=== PATIENT | female | born 1945 | race Caucasian/White ===

== ENCOUNTER 2023-10-06 08:17 | Inpatient (IN) | payer MEDICARE, OTHER, SELFPAY ==
--- NOTE | 2023-08-31 12:04 | CM ---
Addendum entered by Dennise Guardado 08/31/23 13:30:
Spoke again with patient. She states that she is going to have difficulty arranging transportation for outpatient PT and would prefer VN services. Options and PAC data reviewed; patient selects [facility].
Original Note:
Patient is scheduled for an elective L TKR on 10/06/23. Spoke with patient prior to surgery via telephone. Introduced role of Orthopedic Navigator. Patient reports that she lives alone in a one story home. There are two steps to enter. She currently
functions independently. She borrowed a rolling walker and cane. She has never had VN services. PCP is Alina Piper.
Discussed orthopedic program and post surgical plans. Reviewed anticipated length of stay and that goal is for her to return home at discharge. Also reviewed outpatient PT. Patient is in agreement with tentative plan and will go directly to
outpatient PT. She will be going to her daughter's home (She will have a first floor set up and there are two steps to enter). One of her siblings will also be there to provide support when he daughter is at work.
Patient will complete online education.
Plan: Orthopedic Navigator will remain available to assist with the care of patient and will reassess discharge needs after surgery.
[2023-09-14 13:52] VITALS: BMI 28.2
[2023-09-14 14:27] LABS: Hematocrit 38.5 % (37.0-47.0); Hemoglobin 12.7 g/dL (12.0-16.0); Mean Corpuscular Hgb 30.3 pg (27.0-31.0); Mean Corpuscular Volume 91.9 fL (81.0-99.0); Mean Platelet Volume 10.6 fL (7.4-10.4); Platelet Count 208 10^3/uL (130-400); Red Blood Cell Count 4.19 10^6/uL (4.20-5.40); Red Cell Dist. Width 12.6 % (11.5-14.5); White Blood Cell Count 5.4 10^3/uL (4.8-10.8)
[2023-09-14 14:42] LABS: ALT (SGPT) 23 U/L (0-35); AST (SGOT) 24 U/L (14-36); Albumin 4.4 g/dl (3.5-5.0); Alkaline Phosphatase 41 U/L (38-126); Blood Urea Nitrogen 16 mg/dl (7-17); Calcium 10.5 mg/dl (8.4-10.2); Carbon Dioxide 28 mmol/L (22-30); Chloride 102 mmol/L (98-107); Estimated Creatinine Clearance 65 ml/min; Glucose 94 mg/dl (70-99); Potassium 4.3 mmol/L (3.5-5.1); Sodium 134 mmol/L (135-145); Total Bilirubin 0.3 mg/dl (0.2-1.3); Total Protein 6.9 g/dl (6.3-8.2); eGFR > 60.00
[2023-09-14 14:57] VITALS: BMI 28.2
[2023-09-15 09:23] LABS: Glycohemoglobin (HgbA1c) 5.6 % (4.0-5.6)
[2023-10-06] VITALS (14 sets, daily range): BP systolic 96–147; BP diastolic 58–89; PULSE 75; O2SAT 97; BMI 28.2
[2023-10-06] MEDS: NORMOSOL-R 1000 IV ×2 (08:58→13:10)
[2023-10-06] MEDS: CELEBREX 200 MG PO (08:58)
[2023-10-06] MEDS: TYLENOL 650 MG PO ×4 (08:58→23:25)
--- NOTE | 2023-10-06 09:09 | CM ---
Reviewed chart. Patient admitted as planned for elective L TKR. Met with patient at bedside prior to surgery. Confirmed information previously obtained for assessment. Also discussed discharge plans. The plan is for patient to go to her daughter's
home at discharge. She will have support from her daughter and other family members when she goes home. Reviewed VN services including start of care (tentatively 10/07), services to be ordered (PT, SN) and frequency/duration of services. Options list
provided and PAC data reviewed. Patient selects VN.
Patient has a rolling walker and a cane at home.
VN referral was completed and sent to [facility] through [facility] with request for start of care on 10/07. Confirmation received of their ability to accept case. attendance clerk to fax discharge instructions to [facility] when complete.
Patient will use [facility] pharmacy (in [place]) for discharge prescriptions.
--- NOTE | 2023-10-06 11:51 | OR.RPT ---
Operative Report
Operative Report
Orthopaedic Surgery Operative Note
DATE OF OPERATION: 10/06/2023
PREOPERATIVE DIAGNOSES: Osteoarthritis, left knee.
POSTOPERATIVE DIAGNOSES: Osteoarthritis, left knee.
OPERATION PERFORMED:
1) Left total knee arthroplasty (CPT 55427)
2) Intraosseous administration of analgesic (CPT 74650)
SURGEON: Prasad Still MD
ASSISTANTS: Zachary Valencia PA-C who helped with patient and limb positioning and retraction
ANESTHESIA: Spinal by anesthesia plus intraoperative infusion of morphine into the tibial metaphysis by Dr. Still
COMPLICATIONS: None.
ESTIMATED BLOOD LOSS: 20mL
DRAINS: None
TOURNIQUET TIME: 43 minutes.
IMPLANTS:
- Lissett Persona CR Femur, size 7
- Lissett Persona tibia base plate, size D
- Lissett Persona ultracongruent articular surface, 12 mm
- DJO [place] bone cement
INDICATIONS: The patient presented to my office with debilitating left knee pain due to osteoarthritis. We reviewed the natural history of this problem, as well as the risks, benefits, and alternatives of various treatment options. The patient
exhausted all nonoperative treatment options and wished to proceed with knee replacement surgery. The patient understood the risks which included, but were not limited to, bleeding, infection, failure to relieve pain, more pain than preop, damage to
blood vessels and nerves, need for reoperation, mechanical failure of the implants, wound healing problems, stiffness, instability, blood clot, pulmonary embolism, myocardial infarction, pneumonia, arrhythmia, CVA, and . The patient accepted
these risks and wished to proceed. All questions were answered, and informed consent was obtained.
PROCEDURE IN DETAIL: The patient was identified in the preoperative holding area. The left knee was identified as the operative site. The patient was taken in the operating room and placed in a supine position on the operating table. Spinal
anesthesia was performed. IV antibiotics and tranexamic acid were administered. An SCD was placed on the right lower extremity. A well-padded tourniquet was placed on the proximal thigh. All bony prominences were well padded. The left lower
extremity was prepped and draped in the usual sterile fashion.
We performed a surgical time-out. An interarticular block was performed with local anesthetic with epinephrine. I performed interosseous administration of morphine-saline solution via a Jamshidi style intraosseous needle into the proximal medial
tibial metaphysis as described by Javid Schuler MD. This was performed to aid in pain control. The limb was exsanguinated with an Esmarch bandage, then the tourniquet was inflated to 250 mmHg. A midline skin incision was made followed by a medial
parapatellar arthrotomy. A subperiosteal peel was performed on the medial tibia. I excised part of the infrapatellar fat pad to improve our visualization as well as tissue over anterior femur. The patella was everted and the knee was flexed. I
excised the remnants of the anterior and posterior cruciate ligaments as well as tibial and femoral osteophytes with rongeurs.
The knee was flexed, and the extramedullary tibial cutting guide was aligned. Dickinson was aligned at neutral, rotation was centered on the tibial tubercle, and coronal alignment was aligned with the mechanical axis of the tibia and center of the ankle
joint. The cut height was 10mm off the lateral tibia joint surface. The guide was secured into place. The MCL and LCL were protected. The tibia surface was cut. The cut surface was inspected after removal to ensure appropriate height and slope based
on the preoperative plan. The cut was checked with a drop krissy. It was centered nicely at the ankle.
A drill was used to open the femoral canal. The intramedullary distal femoral cutting guide was inserted into the femur. This was set at 5 degrees +0. This was secured into place with three pins. The cut level was checked with an dwayne wing. The
distal femur was cut through the cutting guide. The IM guide was reinserted to double check that the level of resection was flush and in appropriate alignment.
Jayde�s line and the transepicondylar axis were marked on the femur. The femoral sizing guide was applied to the anterior femur. Pins were inserted, and the 4-in-1 cutting guide was applied and secured into place. The rotation was compared to
Jayde�s line, the transepicondylar axis, and the neutral tibia cut and was found to be appropriate. The width was checked and found to be appropriate and lateralized on the femur. The anterior, posterior, and chamfur cuts were made. A lamina
awning spreader was used to open the flexion gap, and posterior osteophytes were removed with a curved osteotome. The remnant medial and lateral meniscus were also removed. I prophylactically cauterized the lateral geniculate arteries. A 10mm spacer block
was applied to the flexion gap and was noted to be balanced medially and laterally. The knee was extended, and the block showed symmetric to extension and flexion gaps.
The tibia was exposed and sized. Rotation was set in line with the tibial tubercle and congruent with the femur. The trial was secured into place with two pins. The trial femur was impacted into place, and a trial articular surface was placed. The
knee was taken through range of motion and noted to be stable throughout the arc of motion without gaping or excess tension. The patella tracked centrally throughout the arc of motion without need for further releases. No full thickness cartilage
defects.
The trials were removed. The tibia keel was prepared with the punch and the drill. The bone surfaces were irrigated with sterile saline and dried. The cement was mixed in a vacuum mixer. Cement gun was used to apply cement to the tibial surface and
the undersurface of the tibial implant. Cement was pressurized into the tibial canal and tibia surface. The tibial component was impacted into place. Excess cement was removed. Cement was applied to the femoral surface and the femoral component. The
femoral component was impacted into place, and excess cement removed. A trial articular surface was inserted, and the knee was extended while the cement polymerized. The tourniquet was let down, and meticulous hemostasis was achieved. Dilute
betadine was poured into the wound and allowed to soak for 3 minutes. The knee was irrigated with copious normal saline.
Once the cement was polymerized, the trial articular surface was removed. Any excess cement was removed. The knee was trialed, and the final articular surface was selected and inserted into the tibial locking mechanism. The knee was reduced. A fresh
drape was applied to the surgical field.
The arthrotomy was closed with 0-PDS. Once closed, an interarticular block was performed with local anesthetic with epi. The deep dermal layer was closed with 2-0 PDS, and the subcuticular skin was closed with 3-0 monocryl. A Dermabond Prineo
dressing was applied to the skin in full flexion. Once this was completely dry, a sterile waterproof dressing was applied.
The anesthesia team performed an adductor canal block in the OR. The patient awoke from anesthesia without any difficulties. The sponge and instrument counts were correct x2 at the end of the case.
Zachary Still MD
[2023-10-06] MEDS: ROXICODONE 5 MG PO ×2 (13:10→20:43)
--- NOTE | 2023-10-06 14:07 | W.PN.UPDATE ---
Update Note
Progress Note Update
L knee OA s/p L TKA w/ Dr Still 10/06/23
DVT prophylaxis - Eliquis at modified dosing, b/l venous foot pumps
- Home Eliquis dosing to be resumed POD 3 if hemodynamically stable
HTN - + parameters - monitor BP
PAF, status post CV x2 - monitor on tele
- Continue Sotalol
- Resume Eliquis as stated above
GERD, Harmon's esophagus, and Hiatal hernia - resume Pepcid HS and PPI therapy
Gastroparesis - continue Reglan
Hyperlipidemia
Mild mitral stenosis
Mild to moderate mitral regurgitation
Mild aortic regurgitation
Childhood rheumatic fever
Venous varicosities
Gastric and colon polyps
Diverticulosis
Complex left renal cyst
Remote migraines
Multilevel degenerative disc disease
Osteoporosis
Hearing impairment bilaterally
Mild hyponatremia
Mild hypercalcemia
[2023-10-06] MEDS: DILAUDID 0.25 MG IV ×2 (14:27→14:42)
--- NOTE | 2023-10-06 14:49 | PTCARENOTE ---
pt. O2 on room air decreased 83-88%, deep breathing encouraged, O2-2L put on pt sats 99%
[2023-10-06] MEDS: DEMEROL 12.5 MG IV (15:04)
--- NOTE | 2023-10-06 15:29 | PTCARENOTE ---
Patient admitted from PACU post left total knee replacement.Patient reports her pain is a 7 out of 10.Neurovascular assessment is within normal limits and ongoing.Vital signs are stable.The Mepilex dressing is intact without drainage.The patient is
in her bed with the call schultz in reach.
[2023-10-06] MEDS: VITAMIN D3 (cholecalciferol) 50 MCG PO (16:13)
[2023-10-06] MEDS: PROTONIX 40 MG PO (16:14)
--- NOTE | 2023-10-06 16:31 | PTCARENOTE ---
Patient has been tested for sleep apnea in the past.
[2023-10-06] MEDS: ANCEF 5 IV (17:24)
[2023-10-06] MEDS: BETAPACE 80 MG PO (20:43)
[2023-10-06] MEDS: SENOKOT 17.1999999999999993 MG PO (20:43)
[2023-10-06] MEDS: DECADRON 4 MG PO (20:43)
[2023-10-06] MEDS: ELIQUIS 2.5 MG PO (20:43)
[2023-10-06] MEDS: COLACE 100 MG PO (20:44)
[2023-10-06] MEDS: BACTROBAN 2% OINTMENT 1 APPLIC NASAL (20:44)
[2023-10-06] MEDS: NORVASC 5 MG PO (20:44)
[2023-10-06] MEDS: PEPCID 20 MG PO (22:25)
[2023-10-06] MEDS: REGLAN 5 MG PO (22:25)
[2023-10-06] MEDS: ELAVIL 20 MG PO (22:26)
[2023-10-07] MEDS: ANCEF 5 IV (01:16)
[2023-10-07 03:36] VITALS: BP 121/66
[2023-10-07] MEDS: TYLENOL 650 MG PO ×3 (05:07→11:51)
[2023-10-07 07:37] VITALS: BP 109/61
[2023-10-07] MEDS: SENOKOT 17.1999999999999993 MG PO (08:36)
[2023-10-07] MEDS: COLACE 100 MG PO (08:36)
[2023-10-07] MEDS: VITAMIN D3 (cholecalciferol) 50 MCG PO (08:36)
[2023-10-07] MEDS: ELIQUIS 2.5 MG PO (08:36)
[2023-10-07] MEDS: PROTONIX 40 MG PO (08:37)
[2023-10-07] MEDS: DECADRON 4 MG PO (08:37)
[2023-10-07] MEDS: BETAPACE 80 MG PO (08:38)
[2023-10-07] MEDS: BACTROBAN 2% OINTMENT 1 APPLIC NASAL (08:38)
[2023-10-07] MEDS: ROXICODONE 5 MG PO (08:43)
--- NOTE | 2023-10-07 09:23 | W.PN.ORTHO ---
Today's Communication / Plan
-
Await recs for OT and PT.
D/c later today if remaining clinically stable.
Assessment
.
Distal Motor Intact: Yes
Dressing:
Clean, dry and intact.
Assessment:
L knee OA s/p L TKA w/ Dr Still 10/06/23
DVT prophylaxis - Eliquis at modified dosing, b/l venous foot pumps
- Home Eliquis dosing to be resumed POD 3 since hemodynamically stable
HTN - + parameters - BPs stable
PAF, status post CV x2 - maintaining NSR w/ first deg AV block on tele
- Continue Sotalol
- Resume Eliquis as stated above
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
- No current device. Did advise pt to contact ordering provider ([facility]) re: further management
GERD, Harmon's esophagus, and Hiatal hernia - resumed Pepcid HS and PPI therapy
Gastroparesis - continue Reglan (pt takes BID not daily as previously stated).
Hyperlipidemia
Mild mitral stenosis
Mild to moderate mitral regurgitation
Mild aortic regurgitation
Childhood rheumatic fever
Venous varicosities
Gastric and colon polyps
Diverticulosis
Complex left renal cyst
Remote migraines
Multilevel degenerative disc disease
Osteoporosis
Hearing impairment bilaterally
Mild hyponatremia
Mild hypercalcemia
Plan
.
Surgery / Date: L TKA w/ Dr Still 10/06/23
DVT Prophylaxis: Other (Eliquis )
Activity:
Out of bed.
PT/OT
Discharge Plan: Home w/ VN
Subjective
.
.:
Patient resting comfortably in her chair.
L knee pain overall well controlled w/ current pain meds.
Denies any new significant complaints.
Eager for potential d/c today.
Vital Signs and Labs
.
Vital Signs and Labs:
Lab Results
09/14/23 13:49
09/14/23 13:49
Temp Pulse Resp BP Pulse Ox
97.5 F 70 16 109/61 96
10/07/23 07:37 10/07/23 08:38 10/07/23 07:37 10/07/23 08:38 10/07/23 07:37
Non-invasive Hgb result: 10.9
Physical Exam
-
HEENT: No pallor, cyanosis, or jaundice. Throat clear.
NECK: Supple. No JVD.
RESPIRATORY: Lungs clear to auscultation.
CVS: S1, S2 normal. RRR.
ABDOMEN: Soft, non-tender. No distension.
EXTREMITIES: Post-surgical L knee edema. Strength equal, no calf pain with palpation/dorsiflexion. Calves soft.
MEAT COUNTER CLERK: AOx3. No focal deficits. apparel cutter grossly intact
[2023-10-07] MEDS: REGLAN 5 MG PO (09:37)
[2023-10-07] MEDS: LMX 4 1 APPLIC TOPICAL (09:38)
[2023-10-07 09:59] VITALS: BP 138/81
--- NOTE | 2023-10-07 10:39 | CM ---
Reviewed chart and held rounds with PT, OT and Ortho PA. Patient admitted as planned for elective L TKR. Met with patient at bedside. Confirmed information previously obtained for assessment. Also discussed discharge plans. The plan is for patient
to go to her daughter's home at discharge. She will have support from her daughter and other family members when she goes home. Reviewed VN services including start of care (tentatively 10/07), services to be ordered (PT, SN) and frequency/duration
of services. Options list provided and PAC data reviewed. Patient selects VN.
Patient has a rolling walker and a cane at home.
VN referral was completed was updated with correct house number for dgtr's address and sent to [facility] through [facility] with request for start of care on 10/07. Confirmation received of their ability to accept case. betting clerk to fax discharge
instructions to VN when complete.
Patient will use [facility] pharmacy (in [place]) for discharge prescriptions.
[2023-10-07 10:59] VITALS: BP 129/71
[2023-10-07 11:03] VITALS: BP 129/71; PULSE 62
--- NOTE | 2023-10-07 11:13 | W.DS.TRANS ---
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
-
Discharge Instructions:
Sleep Apnea Risk Low
Discharge Diagnosis/Procedures L knee OA s/p L TKA w/ Dr Still 10/06/23
Diet Regular
Activity As tolerated,With Walker
Driving Restrictions Not until seen by your Dr
Bathing Restrictions OK to Shower
Other Services PT,VN
Wound Care Leave dressing on until seen by your surgeon's
office for follow-up in 2 weeks.
Instructions:
Stand-Alone Forms: Total Hip/Knee Replacement D/C
Changes to Home Medications: Yes
Discharge Medications:
DC Medications w/original date entered in [facility]
famotidine 20 mg tablet 20 mg PO HS Gastrointestinal issue 03/05/20
biotin 10,000 mcg capsule 10,000 mcg PO DAILY Supplement 03/26/20
apixaban 5 mg tablet (Eliquis) 5 mg PO BID #30 tabs 03/28/20
sotalol 80 mg tablet 80 mg PO BID #60 tabs 03/28/20
amitriptyline 10 mg tablet 20 mg PO HS 09/08/23
calcium carbonate 600 mg-vitamin D3 10 mcg (400 unit) tablet (Calcium 600 + D(3)) 1 tab PO DAILY 09/08/23
cholecalciferol (vitamin D3) 50 mcg (2,000 unit) tablet (Vitamin D3) 50 mcg PO DAILY 09/08/23
denosumab 60 mg/mL subcutaneous syringe (Prolia) 60 mg SC [id number] 09/08/23
omeprazole 40 mg capsule,delayed release 40 mg PO DAILY 09/08/23
mupirocin 2 % topical ointment 1 applic intranasal BID #1 tube 09/14/23
acetaminophen 500 mg tablet (Tylenol Extra Strength) 1,000 mg (2 x 500 mg) PO Q6H #30 tabs 10/07/23
amlodipine 5 mg tablet 5 mg PO DAILY@2000 #1 tab 10/07/23
apixaban 2.5 mg tablet (Eliquis) 2.5 mg PO BID #3 tabs 10/07/23
dexamethasone 4 mg tablet 4 mg PO BID Anti-inflammatory #5 tabs 10/07/23
docusate sodium 100 mg capsule 100 mg PO BID #30 caps 10/07/23
lidocaine 4 % topical cream 1 applic topical DAILY #15 grams 10/07/23
metoclopramide HCl 5 mg tablet 5 mg PO BID #1 tab 10/07/23
oxycodone 5 mg tablet 5 - 10 mg (1 - 2 x 5 mg) PO Q6H PRN moderate-severe pain #30 tabs 10/07/23
sennosides 8.6 mg tablet (Senna Laxative) 17.2 mg (2 x 8.6 mg) PO BID #30 tabs 10/07/23
Home Medication Changes
acetaminophen 500 mg tablet (Tylenol Extra Strength) 1,000 mg (2 x 500 mg) PO Q6H #30 tabs 10/07/23
apixaban 2.5 mg tablet (Eliquis) 2.5 mg PO BID #3 tabs 10/07/23 - until POD 3; then resume Eliquis 5 mg PO BID
dexamethasone 4 mg tablet 4 mg PO BID Anti-inflammatory #5 tabs 10/07/23
docusate sodium 100 mg capsule 100 mg PO BID #30 caps 10/07/23
lidocaine 4 % topical cream 1 applic topical DAILY #15 grams 10/07/23
oxycodone 5 mg tablet 5 - 10 mg (1 - 2 x 5 mg) PO Q6H PRN moderate-severe pain #30 tabs 10/07/23
sennosides 8.6 mg tablet (Senna Laxative) 17.2 mg (2 x 8.6 mg) PO BID #30 tabs 10/07/23
Pending Results: No
== END 2023-10-07 15:41 | disposition home health service (06) | DRG 470 ==
LOC: 2 SOUTH 08:17
PROVIDERS: ADMITTING PHYSICIAN Orthopaedic Surgery; FAMILY PHYSICIAN Family Medicine
PROC: 0SRD0J9 Replacement of Left Knee Joint with Synthetic Substitute, Cemented, Open Approach (ICD-10-PCS; 2023-10-06)
DX: M17.12 Unilateral primary osteoarthritis, left knee (principal); I48.0 Paroxysmal atrial fibrillation; I10 Essential (primary) hypertension; K21.9 Gastro-esophageal reflux disease without esophagitis; E78.5 Hyperlipidemia, unspecified; G47.33 Obstructive sleep apnea (adult) (pediatric)
CPT/HCPCS: 36415; 73560; 80053; 83036; 85027; 87070; 97110; 97116; 97162; 97166; 97530; 97535; C1713; C1776

== ENCOUNTER 2023-10-28 13:42 | Inpatient (IN) | payer MEDICARE, OTHER, SELFPAY ==
[2023-10-28] VITALS (22 sets, daily range): BP systolic 93–130; BP diastolic 64–95; BMI 27.1
--- NOTE | 2023-10-28 11:25 | ED.GENMED ---
History of Present Illness
General
Chief Complaint: Heart Rate Problem
Source: patient and family
Exam Limitations: none
Time Seen by Provider: 10/28/23 11:00
Nursing documentation reviewed up to this point in time: agreed with
Travel History
Have you had any contact with someone who has COVID-19?: No
Do you have any symptoms of coronavirus? Fever > 100 degrees, chills, cough, shortness of breath, sore throat, loss of taste or smell, muscle aches, or headache?: No
History of Present Illness
History of Present Illness:
78-year-old female PAF on sotalol and Eliquis previously by Dr. Pike 2 prior episodes of A-fib requiring cardioversion, underwent total knee replacement by Dr. Still October 05, was started on half dose Eliquis postoperatively back on full dose
Eliquis 5 twice a day on October 09 also taking her sotalol as instructed, believe she went into A-fib yesterday, fast heart rate shortness of breath and some pressure in her chest, also having pain in her left calf and foot worse with movement
Past History
Past History
ED Past Medical History: Arrthythmia (A fib), Valvular disease (followed by dr whyte) and Other (Rheumatic fever, Murmur); Negative Asthma, HTN, IDDM or NIDDM
ED Past Surgical History: Gynecological (Oophorectomy)
Social History
Tobacco: Non-smoker
Alcohol: Occasional
Drug: None
Personal:
Living: alone
Employment: Retired
Family History
Family History: Other
Review of Systems
Review of Systems
All Other Systems: Not applicable
Constitutional: Denies fever or fatigue
Respiratory: Reports trouble breathing
Cardiac: Reports palpitations; Denies diaphoresis
Musculoskeletal: Reports joint pain and muscle stiffness
Skin: Reports no symptoms
Neurological: Reports no symptoms
Phy Exam
Physical Exam
Physical Exam:
Physical Exam
General: no apparent distress, not acutely ill
Neck: No jaundice
Heart: Rapid and irregular
Lungs: no acute respiratory distress. clear bilaterally
Abdomen: Not
Neuro: alert and oriented. no focal neurological deficits
Skin: no rash
Psychiatric: well kept. interactive and cooperative
Extremities: Left knee surgical scar clean dry and intact mild tenderness in the anterior left killian and foot
Course
Orders/Labs/Results
Orders:
Orders
10/28/23 10:44
Electrocardiogram (*1) Urgent
Reason for Study: Palpitations
EKG- Treatment ONCE
10/28/23 11:19
Diltiazem HCl [Cardizem] 10 mg IV NOW STA
10/28/23 11:21
Complete Blood Count/With Diff Urgent
Comprehensive Metabolic Panel Urgent
Magnesium Urgent
TSH Urgent
Troponin I Urgent
10/28/23 11:23
Morphine Sulfate 4 mg IV NOW STA
10/28/23 11:24
US Periph Venous LOWER Ext LT Urgent
Comment:
Reason For Exam: post op swelling
10/28/23 11:30
Diltiazem 125 mg/125 ml Nss [Cardizem] 125 mg in 125 ml IV PER PROTOCOL
Initial dose in mg/hr, then titrate:: 5
Titrate to keep:: Heart rate 80-100 bpm
Titrate by mg/hr:: 5 mg/hr
Frequency of titrations (minutes):: 15
Maximum dose in mg/hr:: 15
10/28/23 11:48
Add On- LAB Urgent
Tests Added?: magnesium
10/28/23 11:49
CARDIOLOGY CONSULT Routine
Consulting Provider: Jozef Oneill
Was physician already notified: Yes
Potassium Chloride [KCl] 40 meq PO NOW STA
10/28/23 12:31
Add On- LAB Urgent
Tests Added?: free t4
Abnormal Lab Results
10/28/23
11:21
RBC 3.79 L 10^6/uL
(4.20-5.40)
Hgb 11.4 L g/dL
(12.0-16.0)
Hct 33.4 L %
(37.0-47.0)
Monocytes % 10.8 H %
(1.7-9.3)
Sodium 134 L mmol/L
(135-145)
Potassium 3.1 L mmol/L
(3.5-5.1)
Creatinine 0.5 L mg/dL
(0.6-1.0)
Glucose 116 H mg/dl
(70-99)
TSH 0.04 L uIU/ml
(0.47-4.68)
10/28/23 11:21
10/28/23 11:21
Vital Signs
Initial and Last Documented VS:
Initial Vital Signs
Temp Pulse Resp BP Pulse Ox
97.7 F 136 18 100/78 100
10/28/23 10:40 10/28/23 10:40 10/28/23 10:40 10/28/23 10:40 10/28/23 10:40
Last Documented Vital Signs
Temp Pulse Resp BP Pulse Ox
97.7 F 154 21 114/69 96
10/28/23 10:40 10/28/23 11:15 10/28/23 11:15 10/28/23 11:14 10/28/23 11:15
MDM/Problems Addressed
Differential Diagnosis Includes:
A-fib electrolyte abnormality, conceivably DVT
MDM/Problems Addressed:
A-fib rapid response
Chronic conditions affecting care: Arrhythmia
Acute Exacerbation and/or Progression of Chronic Illness: Arrhythmia
*Radiology
Radiology exam reviewed: radiology read reviewed
*Pulse Oximetry
Patient hypoxic: no
*EKG
Interpreted by ED Provider?: Yes
Interpretation: abnormal
Comparison EKG: changes noted
Heart Rate: 135
Rate: tachycardiac
Ischemia: non-specific ST changes
*Wood Box Maker Interpretation
Rate: tachycardiac
Interpretation: abnormal
Heart Rate: 134
Rhythm: a-fib
*Critical Care Note
Total Time (30-74mins, 75-104mins- exclusive of procedures): Not Applicable
Update Note
Update Note:
Plan to be rate control, keep her n.p.o. consult cardiology, will check Doppler the legs discussed with her daughter who is a physician
12:20 PM reviewed with cardiology patient ideally would be fully anticoagulated for 21 straight days uninterrupted, she has not been
ED Attending Note
-
Portions of this chart may have been created with voice recognition software.� Occasional wrong word or��sound alike� substitutions may have occurred due to the inherent limitations of voice recognition software.
Discharge Plan
Departure
Patient Disposition: Admit
Date of Disposition: 10/28/23
Time of Disposition: 12:32
Admit to: Telemetry
Presentation/result/management discussed w/ accepting MD/DO: Hospitalist
Patient with high blood pressure during this ER visit?: No
Condition: Good
Discharge Problem:
Atrial fibrillation with RVR
Prescriptions:
No Action
famotidine 20 MG tablet
20 mg PO HS
biotin 10,000 MCG capsule
10,000 mcg PO DAILY
sotalol 80 MG tablet
80 mg PO BID Qty: 60 3RF
Eliquis 5 MG tablet
5 mg PO BID Qty: 30 3RF
Hold Instructions: Resume on 10/09/23.
omeprazole 40 mg Capsule,Delayed Release(Dr/Ec)
40 mg PO DAILY
amitriptyline 10 mg Tablet
20 mg PO HS
calcium carbonate-vitamin D3 [Calcium 600 + D(3)] 600 mg-10 mcg (400 unit) Tablet
1 tab PO DAILY
Rx Instructions:
D3 20 mcg
cholecalciferol (vitamin D3) [Vitamin D3] 50 mcg (2,000 unit) Tablet
50 mcg PO DAILY
Prolia 60 mg/mL Syringe
60 mg SC [id number]
Patient Comments:
scheduled 11/03/23
mupirocin 2 % ointment
1 applic intranasal BID Qty: 1 0RF
Patient Comments:
patient applied thia am 10/05/23 started chelsea to b/l nares bid on 10/03/23
docusate sodium 100 mg Capsule
100 mg PO BID Qty: 30 0RF
dexamethasone 4 mg Tablet
4 mg PO BID Qty: 5 0RF
Rx Instructions:
Restart night of discharge and take twice a day until finished.
Take with food.
Eliquis 2.5 mg Tablet
2.5 mg PO BID Qty: 3 0RF
Rx Instructions:
Cut 5 mg tab in 05/24 (= 2.5 mg) and take twice a day from 10/06 PM to 10/07 PM.
DO NOT resume Eliquis 5 mg twice a day until 10/08 AM.
oxycodone 5 mg Tablet
5 - 10 mg PO Q6H PRN (Reason: moderate-severe pain) Qty: 30 0RF
Rx Instructions:
1 tab for moderate pain, 2 if severe.
Dx total joint.
sennosides [Senna Laxative] 8.6 mg Tablet
17.2 mg PO BID Qty: 30 0RF
amlodipine 5 mg Tablet
5 mg PO DAILY@2000 Qty: 1 0RF
Rx Instructions:
HOLD IF systolic blood pressure <130 while on Oxycodone.
acetaminophen [Tylenol Extra Strength] 500 MG tablet
1,000 mg PO Q6H Qty: 30 0RF
Rx Instructions:
DO NOT exceed >4000 mg daily.
metoclopramide HCl 5 mg Tablet
5 mg PO BID Qty: 1 0RF
Rx Instructions:
30 minutes Before breakfast and dinner
lidocaine 4 % cream
1 applic topical DAILY Qty: 15 0RF
Rx Instructions:
Over the counter. Can apply to sides of left knee/thigh.
DO NOT rub on dressing.
Referrals:
Alina Piper MD [Family Provider] -
Interventions
Interventions:
*Risk Screen - Suicide Last Done: 10/28/23 11:15
*General Assessment Last Done: 10/28/23 11:15
*Neglect/Abuse Screening Last Done: 10/28/23 11:15
ED- Fall Risk Assessment Last Done: 10/28/23 11:15
*ED COVID-19 Vaccine History Last Done: 10/28/23 11:15
ED- Cardiac Assessment Last Done: 10/28/23 11:15
ED- Pulmonary Assessment Last Done: 10/28/23 11:15
Discharge Date and Time
Print Language: CITIZEN OF [place]
[2023-10-28 11:28] LABS: % Basophils 0.7 % (0-2); % Eosinophils 1.8 % (0-6); % Immature Granulocytes 0.5 % (0-0.5); % Lymphocytes 21.1 % (20.5-51.1); % Monocytes 10.8 % (1.7-9.3); % Neutrophils 65.1 % (42.2-75.2); Absolute Eosinophils 0.1 10^3/uL (0-0.7); Absolute Lymphocytes 1.2 10^3/uL (1.2-3.4); Absolute Monocytes 0.6 10^3/uL (0.1-0.6); Absolute Neutrophils 3.6 10^3/uL (1.4-6.5); Hematocrit 33.4 % (37.0-47.0); Hemoglobin 11.4 g/dL (12.0-16.0); Mean Corp Hgb Conc. 34.1 g/dL (33.0-37.0); Mean Corpuscular Hgb 30.1 pg (27.0-31.0); Mean Corpuscular Volume 88.1 fL (81.0-99.0); Mean Platelet Volume 8.9 fL (7.4-10.4); Nucleated Red Blood Cells % 0 %; Platelet Count 342 10^3/uL (130-400); Red Blood Cell Count 3.79 10^6/uL (4.20-5.40); Red Cell Dist. Width 13.5 % (11.5-14.5); White Blood Cell Count 5.5 10^3/uL (4.8-10.8)
[2023-10-28] MEDS: MORPHINE SULFATE 4 MG IV (11:42)
[2023-10-28 11:47] LABS: ALT (SGPT) 14 U/L (0-35); AST (SGOT) 23 U/L (14-36); Albumin 3.7 g/dl (3.5-5.0); Alkaline Phosphatase 39 U/L (38-126); Blood Urea Nitrogen 12 mg/dl (7-17); Calcium 9.8 mg/dl (8.4-10.2); Carbon Dioxide 27 mmol/L (22-30); Chloride 99 mmol/L (98-107); Estimated Creatinine Clearance 67 ml/min; Glucose 116 mg/dl (70-99); Magnesium 1.8 mg/dl (1.6-2.3); Potassium 3.1 mmol/L (3.5-5.1); Sodium 134 mmol/L (135-145); Total Bilirubin 0.5 mg/dl (0.2-1.3); Total Protein 6.3 g/dl (6.3-8.2); eGFR > 60.00
[2023-10-28 11:58] LABS: Troponin I < 0.012 ng/ml
[2023-10-28 12:13] LABS: TSH 0.04 uIU/ml (0.47-4.68)
--- NOTE | 2023-10-28 12:15 | CON.CAR ---
Addendum entered and electronically signed by Jozef Oneill MD 10/28/23 15:47:
Patient patient seen and examined in collaboration with LAB ANIMAL TECHNICIAN; agree with below.
-70-year-old female with paroxysmal atrial fibrillation presenting with palpitations; found to be in atrial fibrillation with RVR.
-Started on a Cardizem drip in the ER; continue.
-Continue current dose of sotalol.
-Continue Eliquis.
-Aggressively replete potassium.
-Monitor on telemetry over the weekend; if does not convert, will plan for GARCIA/cardioversion on Tuesday.
-Will update echocardiogram today.
-Will follow.
Original Note:
Consultation
Consultation Request
Date/Time Consultation Requested: 10/28/23 11:15a
Date/Time Consultation Performed: 10/28/23 12p
Requesting Provider: Dr. Santiago
Performing Provider: SONIA Serrano for Dr. Oneill
Reason for Consultation: rapid Afib
Medical History
-
Chief Complaint: palpitations
History of Present Illness:
Mrs. Mitchell is a 78 yo female with paroxysmal Afib on Eliquis and Sotalol (s/p GARCIA/DCCV 02/2020, then again 1 week later), HTN, mild to moderate MR, mild MS, GERD, newly diagnosed CARL and recent left TKA 10/06/[address] Still, who presents to the
ER with c/o palpitations that began yesterday. There was associated mild SOB, fatigue and chest heaviness. In the ER, EKG shows rapid Afib 148 bpm. She held her Eliquis 5mg BID for 3 days prior to surgery, then post-op was instructed to resume
Eliquis 2.5mg BID for 3 days before restarting Eliquis 5mg BID 10/10/23. She reports compliance with Sotalol. In the ER, she received IV Diltiazem bolus and drip, rates have improved to the 80s. Currently she denies any palpitations.
Past Medical History
Past Medical History: Other (as above)
Past Surgical History: Other (as above)
Social History
Tobacco: Non-Smoker
Alcohol: Occasional
Personal:
Living: Alone
Employment: Retired
Family History
Family History: Reviewed & Not Pertinent
Allergies / Home Medications
Allergy/AdvReac Type Severity Reaction Status Date / Time
adhesive Allergy Itching, Verified 10/28/23 10:44
Rash
propoxyphene napsylate Allergy Rash, Verified 10/28/23 10:44
[From Darvocet-N 100] Swelling
�Medication �Instructions �Recorded �Confirmed �Type
famotidine 20 mg tablet 20 mg PO HS Gastrointestinal issue 03/05/20 10/06/23 History
biotin 10,000 mcg capsule 10,000 mcg PO DAILY Supplement 03/26/20 09/08/23 History
apixaban 5 mg tablet (Eliquis) 5 mg PO BID #30 tabs 03/28/20 10/06/23 Rx
sotalol 80 mg tablet 80 mg PO BID #60 tabs 03/28/20 10/06/23 Rx
amitriptyline 10 mg tablet 20 mg PO HS 09/08/23 10/06/23 History
calcium carbonate 600 mg-vitamin 1 tab PO DAILY 09/08/23 09/08/23 History
D3 10 mcg (400 unit) tablet
(Calcium 600 + D(3))
cholecalciferol (vitamin D3) 50 50 mcg PO DAILY 09/08/23 09/08/23 History
mcg (2,000 unit) tablet (Vitamin
D3)
denosumab 60 mg/mL subcutaneous 60 mg SC [id number] 09/08/23 10/06/23 History
syringe (Prolia)
omeprazole 40 mg capsule,delayed 40 mg PO DAILY 09/08/23 10/06/23 History
release
mupirocin 2 % topical ointment 1 applic intranasal BID #1 tube 09/14/23 Rx
acetaminophen 500 mg tablet 1,000 mg (2 x 500 mg) PO Q6H #30 10/07/23 10/06/23 Rx
(Tylenol Extra Strength) tabs
amlodipine 5 mg tablet 5 mg PO DAILY@2000 #1 tab 10/07/23 10/06/23 Rx
apixaban 2.5 mg tablet (Eliquis) 2.5 mg PO BID #3 tabs 10/07/23 Rx
dexamethasone 4 mg tablet 4 mg PO BID Anti-inflammatory #5 10/07/23 Rx
tabs
docusate sodium 100 mg capsule 100 mg PO BID #30 caps 10/07/23 Rx
lidocaine 4 % topical cream 1 applic topical DAILY #15 grams 10/07/23 Rx
metoclopramide HCl 5 mg tablet 5 mg PO BID #1 tab 10/07/23 10/06/23 Rx
oxycodone 5 mg tablet 5 - 10 mg (1 - 2 x 5 mg) PO Q6H 10/07/23 Rx
PRN moderate-severe pain #30 tabs
sennosides 8.6 mg tablet (Senna 17.2 mg (2 x 8.6 mg) PO BID #30 10/07/23 Rx
Laxative) tabs
Review of Systems
-
History Source: Patient
All other systems: Negative unless noted
Physical Exam
Vital Signs
Temp Pulse Resp BP Pulse Ox
97.7 F 154 21 114/69 96
10/28/23 10:40 10/28/23 11:15 10/28/23 11:15 10/28/23 11:14 10/28/23 11:15
Lab Results
10/28/23 11:21
10/28/23 11:21
Troponin I < 0.012 ng/ml 10/28/23 11:21
Physical Exam
General: Well Developed, Well Nourished and No Apparent Distress
HEENT: Normocephalic, Anicteric and Moist Mucous Membranes
Respiratory: Clear and Non Labored Respirations
Cardiac: S1/S2, Irregular Rhythm and Peripheral Edema (mild LLE )
Breast: Deferred by me
GI: Soft, Non Tender, Non Distended and Normal Bowel Sounds
Rectal: Deferred by Provider
Genito-urinary: No Costovertebral Tender
Musculoskeletal: No Clubbing and No Cyanosis
Skin: Warm and Dry
Neuro: AO x 3
Hematologic/Lymphatic: No Lymphadenopathy
Psych: Calm
Impression / Plan
-
Afib - rapid ventricular response 140s.
- recurrent Afib, symptomatic with palps and mild SOB.
- given IV Diltazem bolus and drip in the ER, continue IV drip.
- OAC with Eliquis 5mg BID, but it was held prior to knee TKA 10/06/23 then resumed at 2.5mg BID for 2 days prior to restarting Eliquis 5mg BID on 10/09/23.
- will need GARCIA prior to DCCV, can plan for Tuesday.
HTN - stable.
- monitor with Diltiazem drip.
Valvular heart disease - mild/moderate MR.
- mild MS.
Hypokalemia - acute.
- repleted in ER.
- maintain K > 4.
- could contribute to cause of recurrent Afib.
CARL - newly diagnosed on sleep study in September 2023, ordered by Dr. Carroll.
- follow up with Dr. Carroll and pulmonary for treatment.
GERD - stable on PPI, continue.
Data Reviewed
-
EKG: Tracing Personally Visualized and interpreted (Afib with RVR 148 bpm, ST and T wave abn.)
Medical Tests (Nuc Med, Echo etc): Report Reviewed by me (echo 09/2022: EF 65-70%, mild MS, mild/mod MR, mild AR)
Labs: Labs Reviewed by me
Old Records: Reviewed
[2023-10-28] MEDS: CARDIZEM 10 MG IV (12:22)
[2023-10-28] MEDS: CARDIZEM 125 IV (12:22)
[2023-10-28] MEDS: KCL 40 MEQ PO (12:23)
--- NOTE | 2023-10-28 13:11 | HPS.HSE ---
Family Physician
-
Family Physician: Alina Piper
Chief Complaint
-
Weakness and short of breath since yesterday
History of Present Illness
This is a 78-year-old female with a prior history of paroxysmal atrial fibrillation with 2 prior cardioversions had been followed by Dr. Pike in the past she is on Eliquis and recently underwent a total knee replacement on 05 October to the left leg
at that time she had reduced dosing of apixaban for a period of 5 days and then reverted back to her usual 5 mg dosing twice a day and has been on sotalol 80 mg twice a day and been compliant throughout. She developed what she perceives as a fast
heart rate and shortness of breath and some pressure in her chest yesterday and presents this morning and a rapid ventricular sponsor atrial fibrillation to the ED she is also been complaining of some left calf discomfort and foot pain to the
involved side of her knee replacement on the left. She has been able to ambulate with the assistance of a single-point cane and has been doing fairly well with ambulation and pain management. On arrival she was also noted to have a low potassium
and potassium supplementation has been given orally. She has been placed on a diltiazem drip after a bolus presently heart rate of 10 5-1 10 had been as high as in the 150s on arrival with stable blood pressure.
Medical History
Past Medical History
Past Medical History: Reports Arrhythmia and Valvular Disease (Moderate mitral regurg/childhood rheumatic fever/osteoporosis/mild mitral stenosis/gastroparesis on metoclopramide)
Additional Past Medical History:
Last echocardiogram reviewed in September 2022 showed an EF of 65 to 70% at that time sinus rhythm with mild mitral stenosis and moderate mitral regurg
Past Surgical History: Reports Gynocological (Oophorectomy) and Orthopedic (Left total knee arthroplasty October 05)
Social History
Tobacco: Non-smoker
Alcohol: Occasional
Drug: None
Personal:
Living: Alone
Employment: Retired
Family History
Family History: Not pertinent
Allergies / Home Medications
Allergies reflects when Allergies were last updated in [employer] [employer].
Home Medications with original date entered in [employer]
Allergy/Medication List:
Allergies
Allergy/AdvReac Type Severity Reaction Status Date / Time
adhesive Allergy Itching, Verified 10/28/23 10:44
Rash
propoxyphene napsylate Allergy Rash, Verified 10/28/23 10:44
[From Darvocet-N 100] Swelling
Home Medications
famotidine 20 mg tablet 20 mg PO HS Gastrointestinal issue 03/05/20
biotin 10,000 mcg capsule 10,000 mcg PO DAILY Supplement 03/26/20
apixaban 5 mg tablet (Eliquis) 5 mg PO BID #30 tabs 03/28/20
sotalol 80 mg tablet 80 mg PO BID #60 tabs 03/28/20
amitriptyline 10 mg tablet 20 mg PO HS 09/08/23
calcium carbonate 600 mg-vitamin D3 10 mcg (400 unit) tablet (Calcium 600 + D(3)) 1 tab PO DAILY 09/08/23
cholecalciferol (vitamin D3) 50 mcg (2,000 unit) tablet (Vitamin D3) 50 mcg PO DAILY 09/08/23
denosumab 60 mg/mL subcutaneous syringe (Prolia) 60 mg SC [id number] 09/08/23
omeprazole 40 mg capsule,delayed release 40 mg PO DAILY 09/08/23
mupirocin 2 % topical ointment 1 applic intranasal BID #1 tube 09/14/23
acetaminophen 500 mg tablet (Tylenol Extra Strength) 1,000 mg (2 x 500 mg) PO Q6H #30 tabs 10/07/23
amlodipine 5 mg tablet 5 mg PO DAILY@2000 #1 tab 10/07/23
apixaban 2.5 mg tablet (Eliquis) 2.5 mg PO BID #3 tabs 10/07/23
docusate sodium 100 mg capsule 100 mg PO BID #30 caps 10/07/23
lidocaine 4 % topical cream 1 applic topical DAILY #15 grams 10/07/23
metoclopramide HCl 5 mg tablet 5 mg PO BID #1 tab 10/07/23
oxycodone 5 mg tablet 5 - 10 mg (1 - 2 x 5 mg) PO Q6H PRN moderate-severe pain #30 tabs 10/07/23
sennosides 8.6 mg tablet (Senna Laxative) 17.2 mg (2 x 8.6 mg) PO BID #30 tabs 10/07/23
Review of Systems
-
History Source: Patient and Family
Constitutional: Reports See HPI
EENT: Reports See HPI
Respiratory: Reports See HPI
Cardiac: Reports See HPI
: Reports No Symptoms
Musculoskeletal: Reports See HPI, Joint Pain (Recent TKA), Joint Swelling and Muscle Pain
Skin: Reports No Symptoms
Physical Exam
Vital Signs
Vital Signs
Temp Pulse Resp BP Pulse Ox
97.7 F 107 15 110/75 99
10/28/23 10:40 10/28/23 13:00 10/28/23 13:00 10/28/23 13:00 10/28/23 13:00
Physical Exam
General: No Apparent Distress and Comfortable
HEENT: NormoCephalic
Respiratory: Clear
Cardiac: Irregular Rhythm, Tachycardia and Murmur
GI: Soft
Musculoskeletal: Edema, Left Lower Extremity (Aquacel left knee with incision that is intact bruising ecchymosis to the second third and fourth toes dorsally there is a Swelling and slight discomfort)
Neuro: Awake and Alert
Laboratory Results
-
10/28/23 11:21
10/28/23 11:21
Laboratory Results
Total Bilirubin 0.5 mg/dl (0.2-1.3) 10/28/23 11:21
AST 23 U/L (14-36) 10/28/23 11:21
ALT 14 U/L (0-35) 10/28/23 11:21
Alkaline Phosphatase 39 U/L (38-126) 10/28/23 11:21
Troponin I < 0.012 ng/ml 10/28/23 11:21
Data Reviewed
-
Critical Care Time (in minutes): 56
Medical Tests (Nuc Med, Echo, EKG etc): Report Reviewed by me (Venous Doppler of the lower extremity shows no evidence of any DVT)
Lab Data: Labs Reviewed by me (TSH is suppressed at 0.04 Free T4 pending/troponin within normal limits glucose 116 creatinine 0.5 potassium on entrance 3.1)
Impression/Plan
-
IMPRESSION:
This is a 78-year-old female with a prior history of paroxysmal atrial fibrillation with 2 prior cardioversions had been followed by Dr. Pike in the past she is on Eliquis and recently underwent a total knee replacement on 05 October to the left leg
at that time she had reduced dosing of apixaban for a period of 5 days and then reverted back to her usual 5 mg dosing twice a day and has been on sotalol 80 mg twice a day and been compliant throughout. She developed what she perceives as a fast
heart rate and shortness of breath and some pressure in her chest yesterday and presents this morning and a rapid ventricular sponsor atrial fibrillation to the ED she is also been complaining of some left calf discomfort and foot pain to the
involved side of her knee replacement on the left. She has been able to ambulate with the assistance of a single-point cane and has been doing fairly well with ambulation and pain management. On arrival she was also noted to have a low potassium
and potassium supplementation has been given orally. She has been placed on a diltiazem drip after a bolus presently heart rate of 10 5-1 10 had been as high as in the 150s on arrival with stable blood pressure.
Paroxysmal atrial fibrillation with rapid ventricular response
-Admit to IVU
-Continue diltiazem drip started in ED/
-Continue anticoagulation with apixaban 5 mg twice daily
-Presumptive GARCIA cardioversion given history of multiple cardioversions in the past/for early next week
-Make n.p.o. Tuesday night
-Continue on sotalol 80 mg twice daily/cardiology to address
Abnormal suppressed TSH
-Consider underlying hyperthyroidism
-Free T4 pending
Gastroesophageal reflux
-Continue PPI/famotidine
Hypokalemia
-Given repletion in ED
-Was also on outpatient course
Essential hypertension
-Continue on amlodipine/sotalol
Recent left total knee arthroplasty
-Will need continued rehab course with PT
Left leg swelling
-Unilateral 2 involved recent arthroplasty
-No DVT seen on venous Doppler
Prior history of mitral regurgitation moderate/mild MS
Prior history of osteoporosis for scheduled Prolia next week/continue D3 and calcium
DVT prophylaxis with apixaban/SCDs
Full CODE STATUS
[2023-10-28 14:16] LABS: Free T4 1.37 ng/dl (0.78-2.19)
[2023-10-28] MEDS: TYLENOL 650 MG PO ×2 (15:41→19:58)
--- NOTE | 2023-10-28 16:13 | CM ---
Chart reviewed. Patient is independent of ADLS, lives alone but has been staying at her daughters in law suite post TKR, 1 STH, total of 3 JANE, ambulates with a SPC. Patient is current with [facility]. Referral sent to [facility] to resume services. CM
to follow
--- NOTE | 2023-10-28 16:16 | PTCARENOTE ---
received pt from ed, [facility] gtt running per protocol, see documentation. pt is aaox3. pt c/o pain in left knee at surgical site. Site is CDI, Aquacel in place. Ice given for knee. Tylenol given as ordered. pt is afib on the monitor, hr in low
100s, vss. pt oobx1 w/ RW. pt offers no other complaints at this time. pt educated on plan of care for the evening and pt verbalized understanding. call schultz within reach.
[2023-10-28] MEDS: REGLAN 5 MG PO (17:00)
[2023-10-28] MEDS: BACTROBAN 2% OINTMENT 1 APPLIC NASAL (19:57)
[2023-10-28] MEDS: ELIQUIS 5 MG PO (19:58)
[2023-10-28] MEDS: SENOKOT 8.59999999999999964 MG PO (20:01)
[2023-10-28] MEDS: BETAPACE 80 MG PO (20:19)
[2023-10-28] MEDS: NORVASC PO (21:28)
[2023-10-28] MEDS: ELAVIL 20 MG PO (22:10)
--- NOTE | 2023-10-28 23:25 | PTCARENOTE ---
Received pt at handoff. Tele- afib. HR 90-119s. Cardizem gtt infusing at 5 ml/hr. Pt c/o L knee pain. Tylenol administered. No c/o SOB/dizziness. Pt OOB w/ x1 assist and rolling walker. Currently in bed; call antoine w/in reach.
[2023-10-29] VITALS (11 sets, daily range): BP systolic 90–120; BP diastolic 59–87
[2023-10-29] MEDS: TYLENOL 650 MG PO ×3 (01:23→14:16)
[2023-10-29] MEDS: ROXICODONE 5 MG PO ×3 (03:29→22:02)
[2023-10-29 03:49] LABS: Hematocrit 31.7 % (37.0-47.0); Hemoglobin 10.8 g/dL (12.0-16.0); Mean Corp Hgb Conc. 34.1 g/dL (33.0-37.0); Mean Corpuscular Hgb 29.9 pg (27.0-31.0); Mean Corpuscular Volume 87.8 fL (81.0-99.0); Mean Platelet Volume 9.1 fL (7.4-10.4); Platelet Count 326 10^3/uL (130-400); Red Blood Cell Count 3.61 10^6/uL (4.20-5.40); Red Cell Dist. Width 13.4 % (11.5-14.5)
[2023-10-29 04:15] LABS: Blood Urea Nitrogen 14 mg/dl (7-17); Calcium 10.2 mg/dl (8.4-10.2); Carbon Dioxide 23 mmol/L (22-30); Chloride 100 mmol/L (98-107); Estimated Creatinine Clearance 67 ml/min; Glucose 110 mg/dl (70-99); Magnesium 1.9 mg/dl (1.6-2.3); Potassium 3.7 mmol/L (3.5-5.1); Sodium 130 mmol/L (135-145); eGFR > 60.00
[2023-10-29] MEDS: BACTROBAN 2% OINTMENT 1 APPLIC NASAL ×2 (08:51→19:34)
[2023-10-29] MEDS: SENOKOT 8.59999999999999964 MG PO ×2 (08:51→19:33)
[2023-10-29] MEDS: ELIQUIS 5 MG PO ×2 (08:51→19:33)
[2023-10-29] MEDS: CARDIZEM 125 IV (08:51)
[2023-10-29] MEDS: BETAPACE 80 MG PO ×2 (08:52→19:33)
[2023-10-29] MEDS: PROTONIX 40 MG PO (08:52)
[2023-10-29] MEDS: REGLAN 5 MG PO ×2 (08:52→18:02)
[2023-10-29] MEDS: VITAMIN D3 (cholecalciferol) 50 MCG PO (08:52)
[2023-10-29] MEDS: OSCAL 500 + D 500 MG PO (08:52)
--- NOTE | 2023-10-29 10:16 | PTCARENOTE ---
Received pt at handoff. Tele- afib. HR 90-119s. Cardizem gtt infusing at 5 ml/hr. Pt c/o L knee pain. Tylenol administered. Pt OOB w/ x1 assist and rolling walker. Currently sitting up in chair; call antoine w/in reach.
--- NOTE | 2023-10-29 14:54 | W.PN.CD ---
Today's Communication / Plan
-
- Continue Cardizem drip.
- Will plan for GARCIA/cardioversion on Tuesday, if she does not convert back to sinus rhythm by then.
Impression / Plan
-
Afib - rapid ventricular response 140s.
- recurrent Afib, symptomatic with palps and mild SOB.
- given IV Diltazem bolus and drip in the ER.
- OAC with Eliquis 5mg BID, but it was held prior to knee TKA 10/06/23 then resumed at 2.5mg BID for 2 days prior to restarting Eliquis 5mg BID on 10/09/23.
- Continue Cardizem drip.
- Will plan for GARCIA/cardioversion on Tuesday, if she does not convert back to sinus rhythm by then.
HTN -well-controlled.
-Continue current medications.
Valvular heart disease -moderate MS, mild/moderate MR, mild AR.
-Continue to follow as outpatient.
Hypokalemia - acute.
- repleted in ER.
- maintain K > 4.
- could contribute to cause of recurrent Afib.
CARL - newly diagnosed on sleep study in September 2023, ordered by Dr. Carroll.
- follow up with Dr. Carroll and pulmonary for treatment.
GERD - stable on PPI, continue.
Physical Exam
Vital Signs/Labs
Vital Signs
Temp Pulse Resp BP Pulse Ox
97.7 F 100 18 110/86 98
10/29/23 12:18 10/29/23 14:15 10/29/23 12:18 10/29/23 12:20 10/29/23 12:18
10/28/23 10/29/23 10/30/23
06:59 06:59 06:59
Actual Weight 65 kg
10/29/23 03:40
10/29/23 03:40
Magnesium 1.9 mg/dl (1.6-2.3) 10/29/23 03:40
TSH 0.04 uIU/ml (0.47-4.68) L 10/28/23 11:21
Free T4 1.37 ng/dl (0.78-2.19) 10/28/23 11:21
LAB Results
10/28/23
11:21
Troponin I < 0.012
Physical Exam
Constitutional: No acute distress and Comfortable
EENT: Anicteric
Cardiovascular: Pedal edema is absent, Systolic murmur absent, Rhythm/rate is irregular and S1S2 is normal
Respiratory: Respiratory effort normal and Lungs clear to auscul.
GI: Soft
Neuro/Psych: AO x 3
Other: Skin (Warm, dry, intact)
Data Reviewed
-
Date of Service: October 29, 2023
EKG: Tracing Personally Visualized and interpreted (Telemetry: Atrial fibrillation)
Echo: Tracing Personally Visualized and interpreted (10/28/2023: LVEF 65-70%, massively dilated left atrium, moderate mitral stenosis (mean gradient 7 mmHg), mild to moderate mitral regurgitation, mild aortic regurgitation.)
Labs: Labs Reviewed by me
[2023-10-29] MEDS: SENOKOT-S 1 TABLET PO (15:40)
[2023-10-29] MEDS: KCL 40 MEQ PO (15:41)
--- NOTE | 2023-10-29 16:16 | W.PN.HOSP.TC ---
Today's Communication/Plan
-
cardizem ggt
GARCIA/Cardioversion Tuesday if not converted
Assessment / Plan
Assessment / Plan
Physical Exam
General: No Apparent Distress and Comfortable
HEENT: NormoCephalic
Respiratory: Clear
Cardiac: Irregular Rhythm, Tachycardia and Murmur
GI: Soft
Musculoskeletal: Edema, Left Lower Extremity (Aquacel left knee with incision that is intact bruising ecchymosis to the second third and fourth toes dorsally there is a Swelling and slight discomfort)
Neuro: Awake and Alert
Paroxysmal atrial fibrillation with rapid ventricular response
-Continue diltiazem drip
-Continue anticoagulation with apixaban 5 mg twice daily
- GARCIA /cardioversion on Tuesday if does not convert
-Continue on sotalol 80 mg twice daily/cardiology to address
Abnormal suppressed TSH
-Consider underlying hyperthyroidism
-Free T4 wnl
#Hyponatremia
-ctm
Gastroesophageal reflux
-Continue PPI/famotidine
Hypokalemia
-Given repletion in ED
-Was also on outpatient course
-monitor and replete
Essential hypertension
-Continue on amlodipine/sotalol
Recent left total knee arthroplasty
-Will need continued rehab course with PT
Left leg swelling
-Unilateral 2 involved recent arthroplasty
-No DVT seen on venous Doppler
Prior history of mitral regurgitation moderate/mild MS
Prior history of osteoporosis for scheduled Prolia next week/continue D3 and calcium
DVT prophylaxis with apixaban/SCDs
Full CODE STATUS
Anticipated Discharge: > 48 hours
Subjective/Interval History
-
Date of Service: October 29, 2023
Still on Cardizem drip
Objective Data
-
Vital Signs:
Vital Signs
Temp Pulse Resp BP Pulse Ox
97.7 F 100 18 110/86 98
06/08/24 12:18 10/29/23 14:15 10/29/23 12:18 10/29/23 12:20 10/29/23 12:18
I&O
10/28/23 10/29/23 10/30/23
06:59 06:59 06:59
Intake Total 480 / 480 840 / 840
Balance 480 / 480 840 / 840
Review of Systems
-
History Source: Patient
All other systems: Not reviewed unless documented
Data Reviewed
-
Ultrasound: Image personally visualized and interpreted and Report Reviewed by me
Labs: Labs Reviewed by me
--- NOTE | 2023-10-29 19:05 | PTCARENOTE ---
pt has been afib on the monitor, hr in the 120s, vss. pt c/o pain in left knee, payton given as ordered, pt stated 'it helped.' pt offers no other c/o at this time. pt oobx1 w/ RW. to the chair throughout the day. pt educated on plan of care and pt
verbalized understanding. call schultz within reach.
[2023-10-29] MEDS: NORVASC PO (19:47)
--- NOTE | 2023-10-29 21:27 | PTCARENOTE ---
Cardizem gtt infusing at 5 ml/hr. Tele remains afib. HR 90-120s. Pt has no c/o CP/SOB. Currently in bed; call antoine w/in reach.
[2023-10-29] MEDS: ELAVIL 20 MG PO (22:02)
[2023-10-30] VITALS (8 sets, daily range): BP systolic 103–125; BP diastolic 67–90
[2023-10-30 05:54] LABS: Hematocrit 32.1 % (37.0-47.0); Hemoglobin 10.7 g/dL (12.0-16.0); Mean Corp Hgb Conc. 33.3 g/dL (33.0-37.0); Mean Corpuscular Hgb 30.7 pg (27.0-31.0); Mean Platelet Volume 9.2 fL (7.4-10.4); Platelet Count 314 10^3/uL (130-400); Red Blood Cell Count 3.49 10^6/uL (4.20-5.40); Red Cell Dist. Width 13.5 % (11.5-14.5); White Blood Cell Count 4.7 10^3/uL (4.8-10.8)
[2023-10-30 06:07] LABS: Blood Urea Nitrogen 18 mg/dl (7-17); Calcium 9.5 mg/dl (8.4-10.2); Carbon Dioxide 23 mmol/L (22-30); Chloride 103 mmol/L (98-107); Estimated Creatinine Clearance 67 ml/min; Glucose 105 mg/dl (70-99); Magnesium 1.8 mg/dl (1.6-2.3); Potassium 4.2 mmol/L (3.5-5.1); Sodium 133 mmol/L (135-145); eGFR > 60.00
[2023-10-30] MEDS: CARDIZEM 125 IV ×2 (08:11→22:06)
[2023-10-30] MEDS: BETAPACE 80 MG PO ×2 (08:12→19:50)
[2023-10-30] MEDS: SENOKOT 8.59999999999999964 MG PO ×2 (08:12→19:50)
[2023-10-30] MEDS: OSCAL 500 + D 500 MG PO (08:12)
[2023-10-30] MEDS: REGLAN 5 MG PO ×2 (08:12→17:32)
[2023-10-30] MEDS: ELIQUIS 5 MG PO ×2 (08:12→19:50)
[2023-10-30] MEDS: KCL 20 MEQ PO (08:12)
[2023-10-30] MEDS: PROTONIX 40 MG PO (08:12)
[2023-10-30] MEDS: VITAMIN D3 (cholecalciferol) 50 MCG PO (08:12)
[2023-10-30] MEDS: BACTROBAN 2% OINTMENT 1 APPLIC NASAL ×2 (09:32→19:51)
--- NOTE | 2023-10-30 10:34 | PTCARENOTE ---
pt OOBx1 w/ RW. pt is afib on the monitor, hr in the 120s, vss. Cardizem gtt running per protocol, see documentation. left knee is approximated, steri strips in place and ecchymotic. pt educated on plan of care for the night and pt verbalized
understanding. call schultz within reach.
[2023-10-30] MEDS: TYLENOL 650 MG PO ×2 (11:50→19:50)
--- NOTE | 2023-10-30 11:52 | PTCARENOTE ---
pt c/o of pain in left knee, Tylenol given as ordered. pt also c/o pain in iv site. iv slighty red and swollen, new iv started in right arm. pt tolerated well. pt sitting up in chair and tolerating well. call schultz within reach.
[2023-10-30] MEDS: ROXICODONE 5 MG PO ×2 (14:03→21:59)
--- NOTE | 2023-10-30 14:22 | W.PN.CD ---
Today's Communication / Plan
-
- Afib - still with rapid ventricular response 140s.
- OAC with Eliquis 5mg BID, but it was held prior to knee TKA 10/06/23 then resumed at 2.5mg BID for 2 days prior to restarting Eliquis 5mg BID on 10/09/23.
- Continue Cardizem drip.
- Patient will undergo GARCIA/cardioversion tomorrow.
- NPO after midnight.
Impression / Plan
-
Afib - still with rapid ventricular response 140s.
- recurrent Afib, symptomatic with palps and mild SOB.
- given IV Diltazem bolus and drip in the ER.
- OAC with Eliquis 5mg BID, but it was held prior to knee TKA 10/06/23 then resumed at 2.5 mg BID for 2 days prior to restarting Eliquis 5mg BID on 10/09/23.
- Continue Cardizem drip.
- Patient will undergo GARCIA/cardioversion tomorrow.
- NPO after midnight.
HTN - remains well-controlled.
-Continue current medications.
Valvular heart disease -moderate MS, mild/moderate MR, mild AR.
-Continue to follow as outpatient.
Hypokalemia - acute.
- repleted.
- maintain K > 4.
CARL - newly diagnosed on sleep study in September 2023, ordered by Dr. Carroll.
- follow up with Dr. Carroll and pulmonary for treatment.
GERD - stable on PPI, continue.
Physical Exam
Vital Signs/Labs
Vital Signs
Temp Pulse Resp BP Pulse Ox
98.5 F 131 20 123/85 98
10/30/23 11:31 10/30/23 12:30 10/30/23 11:31 10/30/23 11:35 10/30/23 11:31
10/29/23 10/30/23 10/31/23
06:59 06:59 06:59
Actual Weight 65 kg
10/30/23 05:35
10/30/23 05:35
Magnesium 1.8 mg/dl (1.6-2.3) 10/30/23 05:35
TSH 0.04 uIU/ml (0.47-4.68) L 10/28/23 11:21
Free T4 1.37 ng/dl (0.78-2.19) 10/28/23 11:21
LAB Results
10/28/23
11:21
Troponin I < 0.012
Physical Exam
Constitutional: No acute distress and Comfortable
EENT: Anicteric
Cardiovascular: Pedal edema is absent, Systolic murmur absent, Rhythm/rate is irregular and S1S2 is normal
Respiratory: Respiratory effort normal and Crackles Present (Bibasilar)
GI: Soft
Neuro/Psych: AO x 3
Other: Skin (Warm, dry, intact)
Data Reviewed
-
Date of Service: October 30, 2023
EKG: Tracing Personally Visualized and interpreted (Telemetry: A-fib with RVR)
Medical Tests (PFT, Pathology etc): Discussed with Patient
Labs: Labs Reviewed by me
--- NOTE | 2023-10-30 14:41 | W.PN.HOSP.TC ---
Today's Communication/Plan
-
GARCIA/cardioversion cresencio
NPO at MN
dilt ggt
Assessment / Plan
Assessment / Plan
Physical Exam
General: No Apparent Distress and Comfortable
HEENT: NormoCephalic
Respiratory: Clear
Cardiac: Irregular Rhythm, Tachycardia and Murmur
GI: Soft
Musculoskeletal: Edema, Left Lower Extremity (Aquacel left knee with incision that is intact bruising ecchymosis to the second third and fourth toes dorsally there is a Swelling and slight discomfort)
Neuro: Awake and Alert
Paroxysmal atrial fibrillation with rapid ventricular response
-Continue diltiazem drip
-Continue anticoagulation with apixaban 5 mg twice daily
- GARCIA /cardioversion tomorrow
-NPO at MN
-Continue on sotalol 80 mg twice daily/cardiology to address
Abnormal suppressed TSH
-Consider underlying hyperthyroidism
-Free T4 wnl
#Hyponatremia
-ctm
Gastroesophageal reflux
-Continue PPI/famotidine
Hypokalemia
-Given repletion in ED
-Was also on outpatient course
-monitor and replete
Essential hypertension
-Continue on amlodipine/sotalol
Recent left total knee arthroplasty
-Will need continued rehab course with PT
Left leg swelling
-Unilateral 2 involved recent arthroplasty
-No DVT seen on venous Doppler
Suspected CARL
-f/u outpatient sleep study
Prior history of mitral regurgitation moderate/mild MS
Prior history of osteoporosis for scheduled Prolia next week/continue D3 and calcium
DVT prophylaxis with apixaban/SCDs
Full CODE STATUS
Anticipated Discharge: 24 - 48 hours
Subjective/Interval History
-
Date of Service: October 30, 2023
Still in A-fib, RVR 140s
Objective Data
-
Labs:
Laboratory Results
10/30/23
05:35
WBC 4.7 L
Hgb 10.7 L
Hct 32.1 L
Plt Count 314
Sodium 133 L
Potassium 4.2
Chloride 103
Carbon Dioxide 23
BUN 18 H
Creatinine 0.5 L
Glucose 105 H
Calcium 9.5
Vital Signs:
Vital Signs
Temp Pulse Resp BP Pulse Ox
98.5 F 131 20 123/85 98
10/30/23 11:31 10/30/23 12:30 10/30/23 11:31 10/30/23 11:35 10/30/23 11:31
I&O
10/29/23 10/30/23 10/31/23
06:59 06:59 06:59
Intake Total 480 / 480 1320 / 1320 480 / 480
Balance 480 / 480 1320 / 1320 480 / 480
Review of Systems
-
History Source: Patient
All other systems: Not reviewed unless documented
Data Reviewed
-
Ultrasound: Image personally visualized and interpreted and Report Reviewed by me
Labs: Labs Reviewed by me
[2023-10-30] MEDS: NORVASC PO (19:44)
[2023-10-30] MEDS: ELAVIL 20 MG PO (21:59)
[2023-10-31] VITALS (7 sets, daily range): BP systolic 108–142; BP diastolic 66–85
[2023-10-31] MEDS: ROXICODONE 5 MG PO ×2 (04:55→20:08)
[2023-10-31 05:12] LABS: Hematocrit 31.6 % (37.0-47.0); Hemoglobin 10.7 g/dL (12.0-16.0); Mean Corp Hgb Conc. 33.9 g/dL (33.0-37.0); Mean Corpuscular Hgb 30.1 pg (27.0-31.0); Mean Platelet Volume 9.2 fL (7.4-10.4); Platelet Count 324 10^3/uL (130-400); Red Blood Cell Count 3.55 10^6/uL (4.20-5.40); Red Cell Dist. Width 13.3 % (11.5-14.5); White Blood Cell Count 4.8 10^3/uL (4.8-10.8)
[2023-10-31 05:42] LABS: Blood Urea Nitrogen 14 mg/dl (7-17); Calcium 9.7 mg/dl (8.4-10.2); Carbon Dioxide 22 mmol/L (22-30); Chloride 103 mmol/L (98-107); Estimated Creatinine Clearance 67 ml/min; Glucose 107 mg/dl (70-99); Potassium 4.3 mmol/L (3.5-5.1); Sodium 133 mmol/L (135-145); eGFR > 60.00
[2023-10-31] MEDS: ELIQUIS 5 MG PO ×2 (07:36→20:01)
--- NOTE | 2023-10-31 08:42 | W.PN.HOSP.TC ---
Addendum entered and electronically signed by Tanya Beltran MD 10/31/23 13:43:
daughter would like to hold methimazole.
She thinks that maybe biotin could be related to the subclinical hyperthyroidism.
I am ok with holding methimazole. Stop Biotin, and repeat TFT in 4 weeks and address results outpt
Original Note:
Today's Communication/Plan
-
see A/P
Assessment / Plan
Assessment / Plan
A/P:
# Paroxysmal atrial fibrillation with rapid ventricular response
Continue diltiazem drip
Continue on sotalol 80 mg twice daily
Continue anticoagulation with apixaban 5 mg twice daily
s/p GARCIA /cardioversion and pt back to NSR
# Abnormal suppressed TSH likely due to subclinical hyperthyroidism
TSH 0.04 , FT4 1.37
TSH has been low at 0.03 since 2019
start low dose methimazole 2.5 mg daily , recc to repeat TSH reflex FT4 in 4 weeks with results to PCP
# Mild Hyponatremia
ctm
# Gastroesophageal reflux
Continue PPI/famotidine
# Hypokalemia
repleted
# Essential hypertension
Continue on amlodipine/sotalol
# Recent left total knee arthroplasty
Will need continued rehab course with PT
# Left leg swelling
Unilateral from recent arthroplasty
No DVT seen on venous Doppler
# Suspected CARL
f/u outpatient sleep study
# Prior history of mitral regurgitation moderate/mild MS
# Prior history of osteoporosis for scheduled Prolia next week/continue D3 and calcium
DVT prophylaxis with apixaban/SCDs
Full CODE STATUS
DW daughter at bedside
Anticipated Discharge: > 48 hours
Subjective/Interval History
-
Date of Service: October 31, 2023
Objective Data
-
Labs:
Laboratory Results
10/31/23
04:50
WBC 4.8
Hgb 10.7 L
Hct 31.6 L
Plt Count 324
Sodium 133 L
Potassium 4.3
Chloride 103
Carbon Dioxide 22
BUN 14
Creatinine 0.4 L
Glucose 107 H
Calcium 9.7
Vital Signs:
Vital Signs
Temp Pulse Resp BP Pulse Ox
36.7 C 89 18 108/66 94
10/31/23 07:23 10/31/23 07:23 10/31/23 07:23 10/31/23 07:23 10/31/23 07:23
I&O
10/30/23 10/31/23 11/01/23
06:59 06:59 06:59
Intake Total 1320 / 1320 480 / 480
Balance 1320 / 1320 480 / 480
Review of Systems
-
All other systems: Reviewed and negative
Physical Exam
-
General: Well Developed, Well Nourished, No Apparent Distress, Comfortable and Conversant; Negative Respiratory Distress
HEENT: Normocephalic, Atraumatic, Nose Appears Normal and Ears Appear Normal; Negative Oxygen
Respiratory: Clear to Auscultation and Non Labored Respirations; Negative Accessory Resp Muscle Use
Cardiac: Regular Rhythm and S1/S2
GI: Soft, Nontender, Nondistended and Normal Bowel Sounds
Skin: Warm and Dry
Neuro: Awake, Alert, Oriented and AO x 3
Psych: Calm and Intact Judgement/Insight
Data Reviewed
-
Labs: Labs Reviewed by me
--- NOTE | 2023-10-31 08:50 | W.PN.CD ---
Today's Communication / Plan
-
back in sinus
ontinue anticoagulation
continue Sotalol
If remains in sinus whe will be stable for discharge.
Impression / Plan
-
Afib - still with rapid ventricular response 140s.
- recurrent Afib, symptomatic with palps and mild SOB.
- given IV Diltazem bolus and drip in the ER.
- OAC with Eliquis 5mg BID, but it was held prior to knee TKA 10/06/23 then resumed at 2.5 mg BID for 2 days prior to restarting Eliquis 5mg BID on 10/09/23.
- Continue Sotalol whihc she was on prior toadmit
- Successful GARCIA/cardioversiontoday
HTN - remains well-controlled.
-Continue current medications.
Valvular heart disease -moderate MS, mild/moderate MR, mild AR.
-Continue to follow as outpatient.
Hypokalemia - acute.
- repleted.
- maintain K > 4.
CARL - newly diagnosed on sleep study in September 2023, ordered by Dr. Carroll.
- follow up with Dr. Carroll and pulmonary for treatment.
GERD - stable on PPI, continue.
Physical Exam
Vital Signs/Labs
Vital Signs
Temp Pulse Resp BP Pulse Ox
98.1 F 89 18 108/66 94
10/31/23 07:23 10/31/23 07:23 10/31/23 07:23 10/31/23 07:23 10/31/23 07:23
10/31/23 04:50
10/31/23 04:50
Magnesium 1.8 mg/dl (1.6-2.3) 10/30/23 05:35
TSH 0.04 uIU/ml (0.47-4.68) L 10/28/23 11:21
Free T4 1.37 ng/dl (0.78-2.19) 10/28/23 11:21
LAB Results
10/28/23
11:21
Troponin I < 0.012
Physical Exam
Constitutional: No acute distress
Cardiovascular: Rhythm & rate is regular
Respiratory: Respiratory effort normal
Neuro/Psych: Alert
Other: Other (left knee post op)
Data Reviewed
-
Date of Service: October 31, 2023
Medical Decision Making: Reviewed Test Results
EKG: Report Reviewed by me and Other (tele reviewed )
Medical Tests (PFT, Pathology etc): Report Reviewed by me
Labs: Labs Reviewed by me
[2023-10-31] MEDS: BETAPACE 80 MG PO ×2 (10:07→20:01)
[2023-10-31] MEDS: SENOKOT 8.59999999999999964 MG PO ×2 (10:08→20:01)
[2023-10-31] MEDS: FLUSH (NSS) 1 FLUSH IV (10:08)
[2023-10-31] MEDS: VITAMIN D3 (cholecalciferol) 50 MCG PO (10:08)
[2023-10-31] MEDS: OSCAL 500 + D 500 MG PO (10:08)
[2023-10-31] MEDS: REGLAN 5 MG PO ×2 (10:08→15:15)
[2023-10-31] MEDS: PROTONIX 40 MG PO (10:08)
[2023-10-31] MEDS: KCL 20 MEQ PO (10:08)
[2023-10-31] MEDS: BACTROBAN 2% OINTMENT 1 APPLIC NASAL ×2 (10:09→20:00)
--- NOTE | 2023-10-31 10:16 | PTCARENOTE ---
Received the patient back from cardiac services post CV. The patient is aaox3, vitals are stable. NSR on the monitor. The patient was assisted from the stretcher to the bed x1 with a RW. The patient is a little groggy. I instructed the patient to
ring for assistance before getting oob. Her call schultz is within reach.
--- NOTE | 2023-10-31 10:27 | VNURNOTE ---
Patient is current with [facility] since 10/07 w/SN/PT.
--- NOTE | 2023-10-31 10:37 | ITS.CL.CARDI ---
Temporary Help Agency Referral Clerk - Cardioversion
Cardioversion
Procedure Report:
Date of Procedure: 10/31/23
Procedure: Cardioversion
Indication: Symptomatic atrial fibrillation
Performing Physician: Zarina De La Rosa DO [facility]
Anticoagulation: Eliquis
Antiarrhythmic therapy: IV Cardizem drip, sotalol 80 mg twice daily
Technique: The patient was brought to the holding area. Signed informed consent was obtained. A time out was called and performed. The patient was anesthetized by the anesthesia service. Anticoagulation status was reviewed and appropriate. A
transesophageal echocardiogram was performed without complications; no left atrial appendage thrombus. R2 pads were placed anteriorly and posteriorly. A 200 J synchronized biphasic shock restored normal sinus rhythm without significant bradycardia.
There were no complications.
Post cardioversion EKG: Sinus rhythm with PACs. LVH. Nonspecific T wave abnormality. QTc 493 ms
Conclusion: Uncomplicated cardioversion from atrial fibrillation to sinus rhythm.
Recommendation: Routine post cardioversion care with CBC cardiology. Cardizem drip to be weaned off; discussed with nursing. Continue extermination supervisor anticoagulation.
--- NOTE | 2023-10-31 15:49 | CM ---
CM following for DC planning needs.
Met w/ patient and family at bedside.
Pt. reports that she is feeling well. She is hopeful for DC by tomorrow.
Reviewed DC plan for home w/ dtr. (temporarily) w/ [facility]. Referral made, accepted.
CM to cont. to follow.
PLAN: [facility] resumption of care
[2023-10-31] MEDS: NORVASC 5 MG PO (20:01)
[2023-10-31] MEDS: ELAVIL 20 MG PO (22:40)
[2023-10-31] MEDS: TYLENOL 650 MG PO (22:40)
--- NOTE | 2023-11-01 03:04 | PTCARENOTE ---
Patient ambulating w/ RW and requires standby assist. Tele remains SR w/ occasional PVCs. HR in the 80-90s. Denies any chest discomfort. Patient does c/o pain at her surgical site on her left knee. Roxicodone and Tylenol administered--see MAR for
further details. Patient currently laying in bed, call schultz in reach.
[2023-11-01 04:25] VITALS: BP 135/76
[2023-11-01 04:53] LABS: Hematocrit 30.7 % (37.0-47.0); Hemoglobin 10.3 g/dL (12.0-16.0); Mean Corp Hgb Conc. 33.6 g/dL (33.0-37.0); Mean Corpuscular Hgb 30.2 pg (27.0-31.0); Mean Platelet Volume 9.3 fL (7.4-10.4); Platelet Count 300 10^3/uL (130-400); Red Blood Cell Count 3.41 10^6/uL (4.20-5.40); Red Cell Dist. Width 13.2 % (11.5-14.5); White Blood Cell Count 5.1 10^3/uL (4.8-10.8)
[2023-11-01 05:15] LABS: Blood Urea Nitrogen 14 mg/dl (7-17); Calcium 9.2 mg/dl (8.4-10.2); Carbon Dioxide 25 mmol/L (22-30); Chloride 103 mmol/L (98-107); Estimated Creatinine Clearance 67 ml/min; Glucose 102 mg/dl (70-99); Potassium 4.4 mmol/L (3.5-5.1); Sodium 135 mmol/L (135-145); eGFR > 60.00
[2023-11-01 07:10] VITALS: BP 134/82
[2023-11-01 07:27] VITALS: BP 134/82
--- NOTE | 2023-11-01 08:20 | W.PN.HOSP.TC ---
Addendum entered and electronically signed by Tanya Beltran MD 11/01/23 14:19:
total DC time 35 min
Original Note:
Today's Communication/Plan
-
see A/P
Assessment / Plan
Assessment / Plan
A/P:
# Paroxysmal atrial fibrillation with rapid ventricular response
Off diltiazem drip
Continue on sotalol 80 mg twice daily
Continue anticoagulation with apixaban 5 mg twice daily
s/p GARCIA /cardioversion and pt back to NSR
# Abnormal suppressed TSH likely due to subclinical hyperthyroidism
TSH 0.04 , FT4 1.37
TSH has been low at 0.03 since 2019
Daughter would like to hold methimazole for now
repeat TSH reflex FT4 in 4 weeks with results to PCP
# Mild Hyponatremia
ctm
# Gastroesophageal reflux
Continue PPI/famotidine
# Hypokalemia
repleted
# Essential hypertension
Continue on amlodipine/sotalol
# Recent left total knee arthroplasty
Will need continued rehab course with PT
# Left leg swelling
Unilateral from recent arthroplasty
No DVT seen on venous Doppler
# Suspected CARL
f/u outpatient sleep study
# Prior history of mitral regurgitation moderate/mild MS
# Prior history of osteoporosis for scheduled Prolia next week/continue D3 and calcium
DVT prophylaxis with apixaban/SCDs
Full CODE STATUS
updated daughter on the phone
Anticipated Discharge: Today
Subjective/Interval History
-
Date of Service: November 01, 2023
Objective Data
-
Labs:
Laboratory Results
11/01/23
04:22
WBC 5.1
Hgb 10.3 L
Hct 30.7 L
Plt Count 300
Sodium 135
Potassium 4.4
Chloride 103
Carbon Dioxide 25
BUN 14
Creatinine 0.5 L
Glucose 102 H
Calcium 9.2
Vital Signs:
Vital Signs
Temp Pulse Resp BP Pulse Ox
36.8 C 98 16 134/82 96
11/01/23 07:27 11/01/23 07:27 11/01/23 07:27 11/01/23 07:27 11/01/23 07:27
I&O
10/31/23 11/01/23 11/02/23
06:59 06:59 06:59
Intake Total 480 / 480 360 / 360
Balance 480 / 480 360 / 360
Review of Systems
-
All other systems: Reviewed and negative
Physical Exam
-
General: Well Developed, Well Nourished, No Apparent Distress, Comfortable and Conversant; Negative Respiratory Distress
HEENT: Normocephalic, Atraumatic, Nose Appears Normal, Ears Appear Normal and Hearing Impaired; Negative Oxygen
Respiratory: Clear to Auscultation and Non Labored Respirations; Negative Accessory Resp Muscle Use
Cardiac: Regular Rhythm and S1/S2
GI: Soft, Nontender, Nondistended and Normal Bowel Sounds
Skin: Warm and Dry
Neuro: Awake, Alert and Oriented
Psych: Calm and Intact Judgement/Insight
Data Reviewed
-
Labs: Labs Reviewed by me
[2023-11-01] MEDS: REGLAN 5 MG PO (08:36)
[2023-11-01] MEDS: BETAPACE 80 MG PO (08:36)
[2023-11-01] MEDS: PROTONIX 40 MG PO (08:36)
[2023-11-01] MEDS: OSCAL 500 + D 500 MG PO (08:37)
[2023-11-01] MEDS: ELIQUIS 5 MG PO (08:37)
[2023-11-01] MEDS: VITAMIN D3 (cholecalciferol) 50 MCG PO (08:37)
[2023-11-01] MEDS: KCL 20 MEQ PO (08:37)
[2023-11-01] MEDS: SENOKOT 8.59999999999999964 MG PO (08:37)
[2023-11-01] MEDS: FLUSH (NSS) 1 FLUSH IV (08:37)
[2023-11-01] MEDS: BACTROBAN 2% OINTMENT 1 APPLIC NASAL (08:38)
[2023-11-01 11:11] VITALS: BP 129/70
--- NOTE | 2023-11-01 11:40 | CM ---
CM following for DC planning needs.
Met w/ patient at bedside. She is hopeful for DC soon to home w/ dtr.
Reviewed DC plan for home w/ [facility]. Updated [facility] on DC date.
PLAN: [facility]
--- NOTE | 2023-11-01 11:49 | PTCARENOTE ---
Patient discharged home with [facility]N.
--- NOTE | 2023-11-01 14:10 | W.DCSUMMARY ---
Discharge Summary
Discharge Data
Date of Admission: 10/28/23
Date of Discharge: 11/01/23
-
Pending Results: No
Hospital Course
Principal Diagnosis:
Paroxysmal atrial fibrillation with rapid ventricular response
Abnormal suppressed TSH likely due to subclinical hyperthyroidism
Chronic Diagnoses:�
Gastroesophageal reflux on PPI/famotidine
Essential hypertension on amlodipine/sotalol
Recent left total knee arthroplasty with Left leg swelling
Osteoporosis on scheduled Prolia
Consultations:�
Cardiology
Procedures:�
GARCIA /cardioversion 10/30
Clinical course:�
This is a 78-year-old female with past medical history as stated above, who presented with palpitation.
Problem 1:
Paroxysmal atrial fibrillation with rapid ventricular response.
The patient underwent GARCIA/cardioversion on 10/31/2023 and was converted back to normal sinus rhythm.
She can continue with her prior to admission sotalol and Eliquis per cardiology.
Problem 2:
Abnormal suppressed TSH likely due to subclinical hyperthyroidism
Her TSH was noted to be low at 0.04 , FT4 within normal limit at 1.37.
Her daughter would like to hold off on starting methimazole for now.
They have been informed to check thyroid function test in 4 weeks with result to her PCP, and they can determine the next step with the PCP outpatient.
As for the rest of her medical problems, they were stable during her hospital stay.
Discharge Plan
-
Patient Disposition: Home with Home Care
Discharge Diagnosis/Procedures: Paroxysmal atrial fibrillation with rapid ventricular response status post cardioversion and back to normal sinus rhythm; subclinical hyperthyroidism (TSH 0.04 , FT4 1.37)
Condition: Fair
Diet: As tolerated, Low Fat, Low Cholesterol and Low Sodium
Activity: As tolerated
Driving Restrictions: Not until seen by your Dr
Blood Work: TSH reflex FT4 in 4 weeks with your PCP
Referrals:
[facility] [Outside]
Alina Piper MD [Family Provider] - in less than 1 week
Prescriptions:
Continued
famotidine 20 MG tablet
20 mg PO HS
sotalol 80 MG tablet
80 mg PO BID Qty: 60 3RF
Eliquis 5 MG tablet
5 mg PO BID Qty: 30 3RF
Hold Instructions: Resume on 10/09/23.
omeprazole 40 mg Capsule,Delayed Release(Dr/Ec)
40 mg PO DAILY
amitriptyline 10 mg Tablet
20 mg PO HS
calcium carbonate-vitamin D3 [Calcium 600 + D(3)] 600 mg-10 mcg (400 unit) Tablet
1 tab PO DAILY
Rx Instructions:
D3 20 mcg
cholecalciferol (vitamin D3) [Vitamin D3] 50 mcg (2,000 unit) Tablet
50 mcg PO DAILY
Prolia 60 mg/mL Syringe
60 mg SC [id number]
Patient Comments:
scheduled 11/03/23
Rx Instructions:
Due
amlodipine 5 mg Tablet
5 mg PO DAILY@2000 Qty: 1 0RF
Rx Instructions:
HOLD IF systolic blood pressure <130 while on Oxycodone.
acetaminophen [Tylenol Extra Strength] 500 MG tablet
1,000 mg PO Q6H Qty: 30 0RF
Rx Instructions:
DO NOT exceed >4000 mg daily.
metoclopramide HCl 5 mg Tablet
5 mg PO BID Qty: 1 0RF
Rx Instructions:
30 minutes Before breakfast and dinner
rizatriptan 10 mg Tablet,Disintegrating
10 mg PO ONCE PRN (Reason: migraine)
Discontinued
biotin 10,000 MCG capsule
10,000 mcg PO DAILY
Discharge Orders:
Discharge Patient (As Directed); Ordered 11/01/23
Ordered By: Tanya Beltran
Care Plan Goals
Care Plan Goals:
Problem: Readiness for enhanced knowledge related to diagnosis and treatment plan
Goal: Understand your diagnosis and treatment plan needs, including medications if applicable.
Instructions: Know your diagnosis, underlying causes and treatment plan options, including medications if applicable. Consult with your health care team to learn about your diagnosis and treatment plan, including medications if applicable.
Discharge Date and Time
Discharge Date/Time: 11/01/23 12:11
Print Language: UKRAINIAN
== END 2023-11-01 12:11 | disposition home health service (06) | DRG 309 ==
LOC: IVU 13:42
PROVIDERS: Internal Medicine; Internal Medicine Cardiovascular Disease; ADMITTING PHYSICIAN Internal Medicine; ATTENDING PHYSICIAN Internal Medicine; CONSULT PHYSICIAN Internal Medicine; EMERGENCY PHYSICIAN Emergency Medicine; FAMILY PHYSICIAN Family Medicine
PROC: 5A2204Z Restoration of Cardiac Rhythm, Single (ICD-10-PCS; 2023-10-31)
DX: I48.0 Paroxysmal atrial fibrillation (principal); E87.1 Hypo-osmolality and hyponatremia; E11.43 Type 2 diabetes mellitus with diabetic autonomic (poly)neuropathy; E05.90 Thyrotoxicosis, unspecified without thyrotoxic crisis or storm; I10 Essential (primary) hypertension; I08.0 Rheumatic disorders of both mitral and aortic valves; K31.84 Gastroparesis; E87.6 Hypokalemia; K21.9 Gastro-esophageal reflux disease without esophagitis; M81.0 Age-related osteoporosis without current pathological fracture; G47.33 Obstructive sleep apnea (adult) (pediatric); M79.662 Pain in left lower leg; M79.672 Pain in left foot; R60.0 Localized edema; Z96.652 Presence of left artificial knee joint; Z79.01 Long term (current) use of anticoagulants; Z79.899 Other long term (current) drug therapy; Z88.8 Allergy status to other drugs, medicaments and biological substances
CPT/HCPCS: 80048; 80053; 83735; 84439; 84443; 84484; 85025; 85027; 92960; 93005; 93306; 93312; 93320; 93325; 93971; 96365; 96366; 96375; 99285

== ENCOUNTER 2024-04-03 15:39 | Inpatient (IN) | payer MEDICARE, OTHER, SELFPAY ==
[2024-04-03] VITALS (17 sets, daily range): BP systolic 98–159; BP diastolic 74–113; BMI 28.7
[2024-04-03 13:53] LABS: % Basophils 0.8 % (0-2); % Eosinophils 2.6 % (0-6); % Immature Granulocytes 0.4 % (0-0.5); % Lymphocytes 18.3 % (20.5-51.1); % Monocytes 9.8 % (1.7-9.3); % Neutrophils 68.1 % (42.2-75.2); Absolute Eosinophils 0.1 10^3/uL (0-0.7); Absolute Lymphocytes 0.9 10^3/uL (1.2-3.4); Absolute Monocytes 0.5 10^3/uL (0.1-0.6); Absolute Neutrophils 3.5 10^3/uL (1.4-6.5); Hematocrit 37.5 % (37.0-47.0); Hemoglobin 12.5 g/dL (12.0-16.0); Mean Corp Hgb Conc. 33.3 g/dL (33.0-37.0); Mean Platelet Volume 9.7 fL (7.4-10.4); Nucleated Red Blood Cells % 0 %; Platelet Count 283 10^3/uL (130-400); Red Blood Cell Count 4.31 10^6/uL (4.20-5.40); Red Cell Dist. Width 13.8 % (11.5-14.5); White Blood Cell Count 5.1 10^3/uL (4.8-10.8)
[2024-04-03] MEDS: NSS 1000 IV (13:56)
[2024-04-03 14:17] LABS: ALT (SGPT) 44 U/L (0-35); AST (SGOT) 37 U/L (14-36); Albumin 4.1 g/dl (3.5-5.0); Alkaline Phosphatase 59 U/L (38-126); Blood Urea Nitrogen 13 mg/dl (7-17); Calcium 9.2 mg/dl (8.4-10.2); Carbon Dioxide 26 mmol/L (22-30); Chloride 101 mmol/L (98-107); Estimated Creatinine Clearance 67 ml/min; Glucose 112 mg/dl (70-99); Potassium 3.7 mmol/L (3.5-5.1); Sodium 136 mmol/L (135-145); Total Bilirubin 0.7 mg/dl (0.2-1.3); Total Protein 6.9 g/dl (6.3-8.2); eGFR > 60.00
[2024-04-03 14:18] LABS: Troponin I < 0.012 ng/ml
[2024-04-03] MEDS: CARDIZEM 17 MG IV (14:20)
--- NOTE | 2024-04-03 14:22 | ED.GENMED ---
History of Present Illness
General
Chief Complaint: Heart Rate Problem
Time Seen by Provider: 04/03/24 13:45
History of Present Illness
History of Present Illness:
79-year-old female with history of A-fib on Eliquis and sotalol presenting to the emergency department for concern of atrial fibrillation. Patient reports symptoms started Tuesday evening and have been persistent. Patient has history of
paroxysmal A-fib, status post cardioversion in October 2023. Reports compliance with her medications. Denies associated chest pain. Denies increased lower extremity swelling. Denies recent fever or illness. Denies abdominal pain or GI symptoms.
Denies additional acute medical complaints.
Past History
Past History
ED Past Medical History: Arrthythmia (A fib), Valvular disease (followed by dr whyte) and Other (Rheumatic fever, Murmur); Negative Asthma, HTN, IDDM or NIDDM
ED Past Surgical History: Gynecological (Oophorectomy)
Social History
Tobacco: Non-smoker
Alcohol: Occasional
Drug: None
Personal:
Living: alone
Employment: Retired
Family History
Family History: Other
Phy Exam
Physical Exam
Physical Exam:
General: Well-appearing, no clinical signs of dehydration, nontoxic and in no acute distress
HEENT: protecting airway
Neck: appears supple
CV: Irregularly irregular rhythm, tachycardia, no evidence of cyanosis
Resp: No accessory muscle use, no increased work of breathing, lungs clear to auscultation bilaterally
Abd: No distention
Extremities: No deformities, no swelling, no erythema
Neuro: alert, no focal neurologic deficit
: deferred
Rectal: deferred
Psych: Normal affect
Skin: Intact
Course
Orders/Labs/Results
Orders:
Orders
04/03/24 13:29
EKG [Electrocardiogram (*1)] Urgent
Reason for Study: Chest Pain
EKG- Treatment ONCE
04/03/24 13:41
Complete Blood Count/With Diff Urgent
Comprehensive Metabolic Panel Urgent
Troponin I Urgent
04/03/24 13:53
0.9% Sodium Chloride 1000 ml [Nss] 1,000 ml IV BOLUS
04/03/24 14:05
Diltiazem HCl [Cardizem] 17 mg IV NOW STA
Abnormal Lab Results
04/03/24
13:41
Absolute Lymphs (auto) 0.9 L 10^3/uL
(1.2-3.4)
Lymphocytes % 18.3 L %
(20.5-51.1)
Monocytes % 9.8 H %
(1.7-9.3)
Glucose 112 H mg/dl
(70-99)
AST 37 H U/L
(14-36)
ALT 44 H U/L
(0-35)
04/03/24 13:41
04/03/24 13:41
Vital Signs
Initial and Last Documented VS:
Initial Vital Signs
Temp Pulse Resp BP Pulse Ox
98.1 F 141 16 143/101 98
04/03/24 13:34 04/03/24 13:34 04/03/24 13:34 04/03/24 13:34 04/03/24 13:34
Last Documented Vital Signs
Temp Pulse Resp BP Pulse Ox
98.1 F 117 16 114/98 97
04/03/24 13:34 04/03/24 14:20 04/03/24 13:34 04/03/24 14:20 04/03/24 13:46
MDM/Problems Addressed
MDM/Problems Addressed:
79-year-old female with history of A-fib on Eliquis and sotalol presenting for shortness of breath and A-fib with RVR. Vital signs on arrival significant for tachycardia.
On exam patient is resting comfortably, no acute distress or discomfort. Suspect patient's symptoms are secondary to known uncontrolled A-fib. Patient at this time is a candidate for cardioversion, hemodynamically stable. Patient however
expressed concern for cardioversion in the emergency department. She would prefer to get cardioverted and consultation with cardiology. Will obtain laboratory analysis, administer diltiazem bolus, and consult with cardiology.
14:20 - In discussion with cardiology, plan for admission for cardioversion, will start on diltiazem drip.
*EKG
Interpreted by ED Provider?: Yes
EKG Intrepretation Date: 04/03/24
EKG Intrepretation Time: 14:24
Interpretation: abnormal
Comparison EKG: changes noted
Heart Rate: 140
Rate: tachycardiac
Rhythm: a-fib
[place]: normal axis
QRS Pattern: normal QRS
Ischemia: no ischemia
*Critical Care Note
Total Time (30-74mins, 75-104mins- exclusive of procedures): Not Applicable
ED Attending Note
-
Portions of this chart may have been created with voice recognition software.� Occasional wrong word or��sound alike� substitutions may have occurred due to the inherent limitations of voice recognition software.
Discharge Plan
Departure
Prescriptions:
No Action
famotidine 20 MG tablet
20 mg PO HS
sotalol 80 MG tablet
80 mg PO BID Qty: 60 3RF
Eliquis 5 MG tablet
5 mg PO BID Qty: 30 3RF
omeprazole 40 mg Capsule,Delayed Release(Dr/Ec)
40 mg PO DAILY
amitriptyline 10 mg Tablet
20 mg PO HS
calcium carbonate-vitamin D3 [Calcium 600 + D(3)] 600 mg-10 mcg (400 unit) Tablet
1 tab PO DAILY
Rx Instructions:
D3 20 mcg
cholecalciferol (vitamin D3) [Vitamin D3] 50 mcg (2,000 unit) Tablet
50 mcg PO DAILY
Prolia 60 mg/mL Syringe
60 mg SC [id number]
Patient Comments:
scheduled 11/03/23
Rx Instructions:
Due
amlodipine 5 mg Tablet
5 mg PO DAILY@2000 Qty: 1 0RF
Rx Instructions:
HOLD IF systolic blood pressure <130 while on Oxycodone.
acetaminophen [Tylenol Extra Strength] 500 MG tablet
1,000 mg PO Q6H Qty: 30 0RF
Rx Instructions:
DO NOT exceed >4000 mg daily.
metoclopramide HCl 5 mg Tablet
5 mg PO BID Qty: 1 0RF
Rx Instructions:
30 minutes Before breakfast and dinner
rizatriptan 10 mg Tablet,Disintegrating
10 mg PO ONCE PRN (Reason: migraine)
Interventions
Interventions:
*Risk Screen - Suicide Last Done: 04/03/24 13:46
*General Assessment Last Done: 04/03/24 13:46
*Neglect/Abuse Screening Last Done: 04/03/24 13:46
ED- Fall Risk Assessment Last Done: 04/03/24 13:46
*ED COVID-19 Vaccine History Last Done: 04/03/24 13:46
ED- Cardiac Assessment Last Done: 04/03/24 13:46
ED- Pulmonary Assessment Last Done: 04/03/24 13:46
Discharge Date and Time
Print Language: DANISH
--- NOTE | 2024-04-03 14:23 | CON.CAR ---
Addendum entered and electronically signed by Jaciel Jama MD 04/03/24 15:35:
I saw and examined the patient.
The AEROSPACE PROJECT MANAGER's note was reviewed and I agree with the note.
Comment: 78-year-old female (known to Dr. Jama, her primary fish bailer), with paroxysmal atrial fibrillation (on sotalol and apixaban), hypertension, GERD, prior rheumatic fever, mild mitral stenosis, mild to moderate mitral regurgitation,
osteoporosis, and untreated CARL who presented to the emergency department with a chief complaint of elevated heart rate. She confirms no missed Eliquis doses or sotalol doses.
She is in AF RVR and declined ER DCCV.
- dilt gtt
- DCCV tomorrow
Original Note:
Consultation
Consultation Request
Date/Time Consultation Requested: 04/03/2024 14:00
Date/Time Consultation Performed: 04/03/2024 14:10
Requesting Provider: Dr. Benjamin
Performing Provider: SONIA Dumont for Dr. Jama
Reason for Consultation: Atrial fibrillation with rapid ventricular response
Medical History
-
Chief Complaint: Elevated heart rate
History of Present Illness:
Scarlett Mitchell is a 78-year-old female (known to Dr. Jama, her primary fish bailer), with paroxysmal atrial fibrillation (on sotalol and apixaban), hypertension, GERD, prior rheumatic fever, mild mitral stenosis, mild to moderate mitral
regurgitation, osteoporosis, and untreated CARL who presented to the emergency department with a chief complaint of elevated heart rate. She realized she was in atrial fibrillation on Tuesday (03/31/2024). She was walking to her grandsons football
game when she felt more fatigued than usual and some palpitations. It has been persistent ever since. She denies palpitations at rest. She denies shortness of breath and chest pain. She endorses medication adherence. The ER physician
recommended cardioversion but the patient declined stating her daughter did not ever want her cardioverted in the emergency department. The patient is aware she does not need a GARCIA. She would prefer to be admitted and have a cardioversion tomorrow.
Past Medical History
Past Medical History: Arrhythmias (Paroxysmal atrial fibrillation [on sotalol and apixaban]), GERD, HTN, Valvular Disease (Mild to moderate mitral regurgitation, mild mitral stenosis) and Other (Rheumatic fever, osteoporosis, CARL)
Past Surgical History: Orthopedic
Social History
Tobacco: Non-Smoker
Alcohol: None
Drug: None
Personal:
Employment: Retired
Family History
Family History: Reviewed & Not Pertinent
Allergies / Home Medications
Allergy/AdvReac Type Severity Reaction Status Date / Time
adhesive Allergy Itching, Verified 04/03/24 13:36
Rash
propoxyphene napsylate Allergy Rash, Verified 04/03/24 13:36
[From [facility]-N 100] Swelling
�Medication �Instructions �Recorded �Confirmed �Type
famotidine 20 mg tablet 20 mg PO HS Gastrointestinal issue 03/05/20 10/28/23 History
apixaban 5 mg tablet (Eliquis) 5 mg PO BID #30 tabs 03/28/20 10/28/23 Rx
sotalol 80 mg tablet 80 mg PO BID #60 tabs 03/28/20 10/28/23 Rx
amitriptyline 10 mg tablet 20 mg PO HS 09/08/23 10/28/23 History
calcium 600 mg (as 1 tab PO DAILY 09/08/23 10/28/23 History
carbonate)-vitamin D3 10 mcg (400
unit) tablet (Calcium 600 + D(3))
cholecalciferol (vitamin D3) 50 50 mcg PO DAILY 09/08/23 10/28/23 History
mcg (2,000 unit) tablet (Vitamin
D3)
denosumab 60 mg/mL subcutaneous 60 mg SC [id number] 09/08/23 10/28/23 History
syringe (Prolia)
omeprazole 40 mg capsule,delayed 40 mg PO DAILY 09/08/23 10/28/23 History
release
acetaminophen 500 mg tablet 1,000 mg (2 x 500 mg) PO Q6H #30 10/07/23 10/28/23 Rx
(Tylenol Extra Strength) tabs
amlodipine 5 mg tablet 5 mg PO DAILY@1999 #1 tab 10/07/23 10/28/23 Rx
metoclopramide HCl 5 mg tablet 5 mg PO BID #1 tab 10/07/23 10/28/23 Rx
rizatriptan 10 mg disintegrating 10 mg PO ONCE PRN migraine 10/28/23 10/28/23 History
tablet
Review of Systems
-
History Source: Patient
All other systems: Negative unless noted
Constitutional: Fatigue
EENT: No Symptoms
Respiratory: No Symptoms
Cardiac: Palpitations
Abdomen/GI: No Symptoms
: No Symptoms
Musculoskeletal: No Symptoms
Skin: No Symptoms
Neurological: No Symptoms
Endocrine: No Symptoms
Hematologic/Lymphatic: No Symptoms
Physical Exam
Vital Signs
Temp Pulse Resp BP Pulse Ox
98.1 F 117 16 114/98 97
04/03/24 13:34 04/03/24 14:20 04/03/24 13:34 04/03/24 14:20 04/03/24 13:46
Lab Results
04/03/24 13:41
04/03/24 13:41
Troponin I < 0.012 ng/ml 04/03/24 13:41
Physical Exam
General: Well Developed, Well Nourished, No Apparent Distress and Comfortable
HEENT: Normocephalic, Anicteric and Moist Mucous Membranes
Respiratory: Clear and Non Labored Respirations
Cardiac: S1/S2 and Irregular Rhythm (Tachycardia)
Breast: Deferred by me
GI: Soft, Non Tender, Non Distended and Normal Bowel Sounds
Rectal: Deferred by Provider
Genito-urinary: No Costovertebral Tender
Musculoskeletal: No Clubbing, No Cyanosis and Edema (+1 nonpitting bilateral ankle edema)
Skin: Warm and Dry
Neuro: AO x 3
Hematologic/Lymphatic: No Lymphadenopathy
Psych: Calm
Impression / Plan
-
BACKGROUND: 79F presented with atrial fibrillation with rapid ventricular response. She is on both sotalol and apixaban. She denies missed doses.
Primary fish bailer: Dr. Jama
IMPRESSION/PLAN:
Paroxysmal atrial fibrillation, now with RVR
-Asymptomatic at rest, HR 120s
-On sotalol, last DCCV 10/31/2023
-Her daughter, Abiola Kurtz, told her to never be cardioverted in the emergency department
-Rate control overnight with diltiazem, cardioversion in a.m., NPO after midnight
-Oral Anticoagulation: Eliquis 5 mg twice daily, she denies missed doses and abnormal bleeding
-[id number]: score at least 4 (HTN, age 75 or more, female gender)
CARL, diagnosed 09/2023, untreated
Mild to moderate mitral regurgitation
Mild mitral stenosis
Hypertension, hold amlodipine to allow for rate control overnight
GERD, on famotidine and omeprazole
Osteoporosis, on Prolia
DATA:
Transesophageal echocardiogram, 10/31/2023:
Normal left ventricular size and systolic function with mild concentric left
ventricular hypertrophy
Left ventricular ejection fraction visually estimated 60-65%
Normal RV size and systolic function
Massively dilated left atrium with spontaneous echo contrast
Dilated left atrial appendage with spontaneous echo contrast but no left atrial
appendage thrombus
Mildly dilated right atrium
Mild mitral stenosis with thickened mitral valve leaflets. Mean transmitral
gradient 5 mmHg. Mild to moderate mitral regurgitation
Trileaflet, mildly sclerotic aortic valve with trace aortic regurgitation
Mild tricuspid regurgitation
Data Reviewed
-
EKG: Report Reviewed by me (Atrial fibrillation with rapid ventricular response, nonspecific T wave abnormality, rate 140)
Labs: Labs Reviewed by me
Old Records: Reviewed
--- NOTE | 2024-04-03 15:11 | HPS.HSE ---
Family Physician
-
Family Physician: Alina Piper
Chief Complaint
-
Palpitation and exertional sob over last few days
History of Present Illness
79 years old female presented with history of palpitation and exertional shortness of breath. It started few days ago and patient continued with her routine activity but noticed exertional shortness of breath. Heart rate around 150 at times at
home by home monitor. No hypoxia detected on home monitor. She also noticed elevated blood pressure at times. No chest pain. No fever. No cough. Her son also noticed exertional shortness of breath.
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 Reportedly in sinus rhythm in the past. Last cardioversion was in October 2023.
Medical History
Past Medical History
Past Medical History: Reports Other (Paroxysmal atrial fibrillation [on sotalol and apixaban]), GERD, HTN, Valvular Disease (Mild to moderate mitral regurgitation, mild mitral stenosis, Rheumatic fever, osteoporosis, CARL)
Past Surgical History: Reports Other (No recent major surgery)
Social History
Tobacco: Non-smoker
Alcohol: Occasional
Drug: None
Personal: Single
Living: Alone
Employment: Retired
Family History
Family History: Other (No sudden cardiac or early coronary disease)
Allergies / Home Medications
Allergies reflects when Allergies were last updated in [facility].
Home Medications with original date entered in [facility]
Allergy/Medication List:
Allergies
Allergy/AdvReac Type Severity Reaction Status Date / Time
adhesive Allergy Itching, Verified 04/03/24 13:36
Rash
propoxyphene napsylate Allergy Rash, Verified 04/03/24 13:36
[From [facility]-N 100] Swelling
Home Medications
famotidine 20 mg tablet 20 mg PO HS Gastrointestinal issue 03/05/20
apixaban 5 mg tablet (Eliquis) 5 mg PO BID #30 tabs 03/28/20
sotalol 80 mg tablet 80 mg PO BID #60 tabs 03/28/20
amitriptyline 10 mg tablet 20 mg PO HS 09/08/23
calcium 600 mg (as carbonate)-vitamin D3 10 mcg (400 unit) tablet (Calcium 600 + D(3)) 1 tab PO DAILY 09/08/23
cholecalciferol (vitamin D3) 50 mcg (2,000 unit) tablet (Vitamin D3) 50 mcg PO DAILY 09/08/23
denosumab 60 mg/mL subcutaneous syringe (Prolia) 60 mg SC [id number] 09/08/23
omeprazole 40 mg capsule,delayed release 40 mg PO DAILY 09/08/23
metoclopramide HCl 5 mg tablet 5 mg PO BID #1 tab 10/07/23
rizatriptan 10 mg disintegrating tablet 10 mg PO DAILYPRN PRN migraine 10/28/23
amlodipine 5 mg tablet 5 mg PO QPM 04/03/24
Review of Systems
-
History Source: Patient
A 12 point ROS was completed and negative except as noted: Yes
Constitutional: Denies Fever or Chills
EENT: Denies Sore Throat or Runny Nose
Respiratory: Reports Trouble Breathing; Denies Cough
Cardiac: Reports Palpitations
Abdomen/GI: Denies Abdominal Pain, Nausea or Diarrhea
: Denies Dysuria, Frequency or Flank Pain
Musculoskeletal: Denies Joint Pain or Joint Swelling
Skin: Denies Rash
Neurological: Denies Numbness
Endocrine: Denies Temp Intolerance
Hematologic/Lymphatic: Denies Bruising
Psych: Denies Panic Disorder
Physical Exam
Vital Signs
Vital Signs
Temp Pulse Resp BP Pulse Ox
98.1 F 121 26 128/88 96
04/03/24 13:34 04/03/24 14:23 04/03/24 14:23 04/03/24 14:23 04/03/24 14:23
Physical Exam
General: No Apparent Distress and Comfortable
HEENT: Moist mucous membranes and Atraumatic
Respiratory: Clear
Cardiac: S1/S2, Irregular Rhythm and Tachycardia
GI: Soft, Non Tender and Normal Bowel Sounds
Rectal: No Maroon Stools
Genito-urinary: No costovertebral tender
Musculoskeletal: No Clubbing, No Cyanosis and No Edema
Skin: No Jaundice
Neuro: AO x 3 and Nonfocal/grossly intact
Psych: Calm and Intact Judgment/Insight
Laboratory Results
-
04/03/24 13:41
04/03/24 13:41
Laboratory Results
Total Bilirubin 0.7 mg/dl (0.2-1.3) 04/03/24 13:41
AST 37 U/L (14-36) H 04/03/24 13:41
ALT 44 U/L (0-35) H 04/03/24 13:41
Alkaline Phosphatase 59 U/L (38-126) 04/03/24 13:41
Troponin I < 0.012 ng/ml 04/03/24 13:41
Impression/Plan
-
79 female with uncontrolled A fib presented with palpitations and exertional SOB
# Paroxysmal A fib
Now with uncontrolled rapid ventricular response
Admit the patient to IVU/ Tele floor
Start Cardizem gtt
Continue apixaban for oral anticoagulation
No chest pain, troponin negative
D/w Railway Patrol Officer, plan for cardioversion
She is on Sotalol, parking lot laborer requested to continue it
# Exertional SOB
Check chest x ray
Check Pro-BNP
No hypoxia
# Mild elevation if LFT
No GI symptoms
will monitor
# Rheumatic heart disease, mild.
# GERD, takes PPI and H2 casie.
#Essential hypertension
-Continue on amlodipine
Total time spent to see the patient, examine the patient, review data and lab results, discuss treatment plan with patient, ER doctor, parking lot laborer radiation physicist, nursing staff around 75 minutes
[2024-04-03] MEDS: CARDIZEM 125 IV (15:30)
--- NOTE | 2024-04-03 17:18 | PTCARENOTE ---
Patient recited from the ED. AO x3. A-fib HR 108, irregular. Cackles b/l at bases, no shortness of breath at rest. CXR ordered patient sent and BNP added to her labs collected
[2024-04-03] MEDS: REGLAN 5 MG PO (17:51)
[2024-04-03 18:14] LABS: NT-proBNP 3520 pg/ml
--- NOTE | 2024-04-03 19:32 | W.PN.UPDATE ---
Update Note
Progress Note Update
Patient is a-fib with hr 120s-140s, bp 140/106 currently on Cardizem gtt 5mg/hr will increase the rate to 10mg/hr and will check bmp and magnesium.
k level is 3.4 repleted as needed, after 1-2hrs. Hr back to base line will continue drip 5mg/hr as needed
[2024-04-03] MEDS: ELIQUIS 5 MG PO (19:38)
--- NOTE | 2024-04-03 19:40 | PTCARENOTE ---
Addendum entered by Lashell Hoyt RN 04/03/24 20:34:
Notified Anna Fuentes BAR STEWARD of lab results.
Original Note:
Received patient at change of shift. Awake, alert, and oriented sitting in bed. BP 141/106, uncontrolled A-fib 110s-130s, 96% on room air. Cardizem drip running through left AC @ 5mL/hr. Rate increased to 10 mL/hr per Anna Fuentes-- will notify
when more controlled. STAT labs drawn. Discussed patient plan of care. Patient verbalized understanding, and NPO at midnight. Call schultz within reach.
[2024-04-03 20:09] LABS: Blood Urea Nitrogen 9 mg/dl (7-17); Calcium 9.3 mg/dl (8.4-10.2); Carbon Dioxide 24 mmol/L (22-30); Chloride 107 mmol/L (98-107); Estimated Creatinine Clearance 67 ml/min; Glucose 133 mg/dl (70-99); Magnesium 2.1 mg/dl (1.6-2.3); Potassium 3.4 mmol/L (3.5-5.1); Sodium 144 mmol/L (135-145); eGFR > 60.00
[2024-04-03] MEDS: KCL 40 MEQ PO (20:44)
[2024-04-03] MEDS: ELAVIL 20 MG PO (21:25)
[2024-04-03] MEDS: PEPCID 20 MG PO (21:25)
[2024-04-04] VITALS (14 sets, daily range): BP systolic 111–138; BP diastolic 71–103
--- NOTE | 2024-04-04 06:19 | W.PN.HOSP.TC ---
Addendum entered and electronically signed by Perez Lemons MD 04/04/24 15:56:
Addendum
Post cardioversion
Pt si stable, feeling better, remained in SR and would like to go home
D/W Dr Jama, pt to go home on Sotalol + Cardizem
Total discharge time spent to see the patient, examine the patient, review data and lab results, discuss discharge plan with patient, nursing staff around 65 minutes
Original Note:
Today's Communication/Plan
-
Plan for Cardioversion
Might benefit from Diuretic therapy
Replace K
Assessment / Plan
Assessment / Plan
Physical Exam
General: No Apparent Distress and Comfortable
HEENT: Moist mucous membranes and Atraumatic
Respiratory: Clear
Cardiac: S1/S2, Irregular Rhythm and Tachycardia
GI: Soft, Non Tender and Normal Bowel Sounds
Rectal: No Maroon Stools
Genito-urinary: No costovertebral tender
Musculoskeletal: No Clubbing, No Cyanosis and No Edema
Skin: No Jaundice
Neuro: AO x 3 and Nonfocal/grossly intact
Psych: Calm and Intact Judgment/Insight
79 female with uncontrolled A fib presented with palpitations and exertional SOB
# Paroxysmal A fib
Uncontrolled with rapid ventricular response
continue care in IVU floor
c/w Cardizem gtt
Continue apixaban for oral anticoagulation
No chest pain, troponin negative
D/w Radial Saw Operator, plan for cardioversion, now NPO
She is on Sotalol
# Exertional SOB
Chest x ray: reading is Cardiomegaly with small bilateral pleural effusions but no pulmonary edema,
Elevated Pro-BNP
No hypoxia
# Hypokalemia, replace
# Mild elevation if LFT
No GI symptoms
will monitor
# Rheumatic heart disease, mild.
# GERD, takes PPI and H2 casie.
#Essential hypertension
On Cardizem gtt
-Holding amlodipine
Total time spent to see the patient, examine the patient, review data and lab results, discuss treatment plan with patient, nursing staff around 57 minutes
Anticipated Discharge: 24 - 48 hours
Subjective/Interval History
-
Date of Service: April 04, 2024
Mild headache
No chest pain
HR around 129
Objective Data
-
Labs:
Laboratory Results
04/03/24
19:46
Sodium 144 D
Potassium 3.4 L
Chloride 107
Carbon Dioxide 24
BUN 9
Creatinine 0.5 L
Glucose 133 H
Calcium 9.3
Vital Signs:
Vital Signs
Temp Pulse Resp BP Pulse Ox
98.3 F 129 18 138/98 94
04/04/24 03:46 04/04/24 03:35 04/04/24 03:46 04/04/24 03:35 04/04/24 03:46
[2024-04-04] MEDS: ELIQUIS 5 MG PO ×2 (07:12→19:32)
--- NOTE | 2024-04-04 07:17 | PTCARENOTE ---
Addendum entered by Darnell Garcia RN 04/04/24 07:20:
Patient NPO for cardioversion, Eliquis given with a sip of water. A-Fib HR 120-150's, BP 132/103, POX 94% . CHEHALIS, b/l hearing aids. Report given, voided pre-procedure. Cardizem gtt at 5mg/hr
Original Note:
Patient NPO for cardioversion, Eliquis given with a sip of water. A-Fib HR 120-150's, bp . CHEHALIS, b/l hearing aids. Report given, voided pre-procedure.
--- NOTE | 2024-04-04 08:37 | W.PN.CD ---
Today's Communication / Plan
-
-Status-post successful cardioversion this a.m. (had to be shocked twice as the patient did not hold sinus rhythm initially); currently remains in sinus rhythm.
-Continue current dose of sotalol.
-Will add Cardizem CD 180 mg daily; will discontinue Cardizem drip.
-Discontinue amlodipine.
-The patient should remain on Eliquis uninterrupted for at least the next 30 days.
-Outpatient follow-up with Cardiology (patient will likely be referred to EP Cardiology to discuss ablation therapy); can be discharged to home today.
Impression / Plan
-
BACKGROUND: 79F presented with atrial fibrillation with rapid ventricular response. She is on both sotalol and apixaban. She denies missed doses.
Primary supplier development manager: Dr. Jama
IMPRESSION/PLAN:
Paroxysmal atrial fibrillation with RVR
-On sotalol, last DCCV 10/31/2023
-Oral Anticoagulation: Eliquis 5 mg twice daily, she denies missed doses and abnormal bleeding
-[id number]: score at least 4 (HTN, age 75 or more, female gender)
-Status-post successful cardioversion this a.m. (had to be shocked twice as the patient did not hold sinus rhythm initially); currently remains in sinus rhythm.
-Continue current dose of sotalol.
-Will add Cardizem CD 180 mg daily; will discontinue Cardizem drip.
-Discontinue amlodipine.
-The patient should remain on Eliquis uninterrupted for at least the next 30 days.
-Outpatient follow-up with Cardiology (patient will likely be referred to EP Cardiology to discuss ablation therapy); can be discharged to home today.
CARL, diagnosed 09/2023, untreated
Mild to moderate mitral regurgitation
Mild mitral stenosis
Hypertension, hold amlodipine to allow for rate control overnight
GERD, on famotidine and omeprazole
Osteoporosis, on Prolia
DATA:
Transesophageal echocardiogram, 10/31/2023:
Normal left ventricular size and systolic function with mild concentric left
ventricular hypertrophy
Left ventricular ejection fraction visually estimated 60-65%
Normal RV size and systolic function
Massively dilated left atrium with spontaneous echo contrast
Dilated left atrial appendage with spontaneous echo contrast but no left atrial
appendage thrombus
Mildly dilated right atrium
Mild mitral stenosis with thickened mitral valve leaflets. Mean transmitral
gradient 5 mmHg. Mild to moderate mitral regurgitation
Trileaflet, mildly sclerotic aortic valve with trace aortic regurgitation
Mild tricuspid regurgitation
Physical Exam
Vital Signs/Labs
Vital Signs
Temp Pulse Resp BP Pulse Ox
97.6 F 132 16 132/103 94
04/04/24 07:17 04/04/24 07:15 04/04/24 07:17 04/04/24 07:15 04/04/24 07:17
04/03/24 04/04/24 04/05/24
06:59 06:59 06:59
Actual Weight 68.8 kg
04/03/24 13:41
04/03/24 19:46
Magnesium 2.1 mg/dl (1.6-2.3) 04/03/24 19:46
04/03/24 04/03/24
13:41 15:55
Wpm-I-[id number] Pept 3520 Cancelled
LAB Results
04/03/24
13:41
Troponin I < 0.012
Physical Exam
Constitutional: No acute distress and Comfortable
EENT: Anicteric
Cardiovascular: Pedal edema is absent, Systolic murmur absent, Rhythm/rate is irregular and S1S2 is normal
Respiratory: Respiratory effort normal and Rhonchi Present
GI: Soft
Neuro/Psych: AO x 3
Other: Skin (Warm, dry, intact)
Data Reviewed
-
Date of Service: April 04, 2024
EKG: Tracing Personally Visualized and interpreted (A-fib with RVR)
Labs: Labs Reviewed by me
--- NOTE | 2024-04-04 08:55 | PTCARENOTE ---
Patient received from label stamper awake and alert. NSR on telemetry, VSS, call schultz in reach
[2024-04-04] MEDS: BETAPACE 80 MG PO ×2 (09:06→19:31)
[2024-04-04] MEDS: PROTONIX 40 MG PO (09:06)
[2024-04-04] MEDS: CARDIZEM CD 180 MG PO (09:07)
[2024-04-04] MEDS: REGLAN 5 MG PO ×2 (09:07→16:39)
--- NOTE | 2024-04-04 09:08 | CM ---
Reviewed chart. Met with Mrs. Mitchell to review discharge plans. She states prior to admission she resides alone in an home in a senior care community. She states she is planning on going to stay with her daughter in [place], [place]. She states her
daughter resides in a two story home with one step to enter. She states she will be staying in the in-law suite on the first floor. She states prior to admission she was independent with ambulation and adls. She states she uses a single point
cane for long distances in the community. She states she has a single point cane at home. She states she has a prescription plan with [facility] and uses [facility]. Medical work-up in progress. The discharge plan is to return home with her
daughter when medically stable.
--- NOTE | 2024-04-04 15:53 | W.DCSUMMARY ---
Discharge Summary
Discharge Data
Date of Admission: 04/03/24
Date of Discharge: 04/05/24
-
Pending Results: No
Hospital Course
79-year-old female presented with uncontrolled atrial fibrillation. Patient has history of paroxysmal atrial fibrillation and was taking sotalol without interruption. She was taking Eliquis without interruption also. She started to feel
palpitation with exertional shortness of breath. She was evaluated by lacemaker. Patient was started on intravenous Cardizem drip. She underwent successful cardioversion on 04/04/24 after 2 attempts. She remained in sinus rhythm and was
placed on oral Cardizem in addition to sotalol. Patient was scheduled to follow-up with cardiology in the office. She had mild shortness of breath and was diagnosed with acute heart failure with a preserved ejection fraction. She was given Lasix,
she felt better. She was discharged on hydrochlorothiazide. There was potential significant drug interaction between potassium and amitriptyline, so Lasix was not considered and was given hydrochlorothiazide. echocardiogram showed LVEF 55 to 60%
with mild progression of mitral regurgitation. Patient was advised to follow-up with her lacemaker. She remained hemodynamically stable and was discharged in stable condition.
Discharge Plan
-
Patient Disposition: Home (Routine Discharge)
Discharge Diagnosis/Procedures: Paroxysmal atrial fibrillation with rapid ventricular response s/p cardioversion and starting of new medicine called Cardizem in addition to sotalol
Cardizem is a calcium channel casie. Potential side effect include bradycardia, low blood pressure. We stopped Amlodipine to avoid interaction/ hypotension.
You are starte don new diuretic therapy called hydrochlorothiazide. Potaential side effects include low blood pressure, hyponatremia
Diet: As tolerated
Referrals:
Jaqueline Mcmahon CRNP [Specified Professional Personl] - 04/25/24 1:40 pm
Alina Piper MD [Family Provider] -
Prescriptions:
New
diltiazem HCl 180 mg Capsule,Extended Release 24hr
180 mg PO DAILY Qty: 30 0RF
hydrochlorothiazide 25 mg tablet
25 mg PO DAILY Qty: 30 0RF
Continued
famotidine 20 MG tablet
20 mg PO HS
Eliquis 5 MG tablet
5 mg PO BID Qty: 30 3RF
omeprazole 40 mg Capsule,Delayed Release(Dr/Ec)
40 mg PO DAILY
amitriptyline 10 mg Tablet
20 mg PO HS
calcium carbonate-vitamin D3 [Calcium 600 + D(3)] 600 mg-10 mcg (400 unit) Tablet
1 tab PO DAILY
cholecalciferol (vitamin D3) [Vitamin D3] 50 mcg (2,000 unit) Tablet
50 mcg PO DAILY
Prolia 60 mg/mL Syringe
60 mg SC [id number]
Patient Comments:
scheduled 11/03/23
metoclopramide HCl 5 mg Tablet
5 mg PO BID Qty: 1 0RF
rizatriptan 10 mg Tablet,Disintegrating
10 mg PO DAILYPRN PRN (Reason: migraine)
sotalol 80 MG tablet
80 mg PO BID
Discontinued
amlodipine 5 mg tablet
5 mg PO QPM
Discharge Orders:
Discharge Patient (As Directed); Ordered 04/05/24
Ordered By: Perez Lemons
Care Plan Goals
Care Plan Goals:
Problem: Readiness for enhanced knowledge related to diagnosis and treatment plan
Goal: Understand your diagnosis and treatment plan needs, including medications if applicable.
Instructions: Know your diagnosis, underlying causes and treatment plan options, including medications if applicable. Consult with your health care team to learn about your diagnosis and treatment plan, including medications if applicable.
Discharge Date and Time
Discharge Date/Time: 04/05/24 11:56
Print Language: GUYANESE
--- NOTE | 2024-04-04 16:24 | PTCARENOTE ---
"Patient was discharged and getting dressed in room. Stated she was short of breath with putting her clothing on for home. POX 93% crackles b/l at bases unchanged. Replaced monitor, NSR on telemetry, BP 132/70. Son in law at bedside. Spoke with "Joe"Cristo. Order received to cancel discharge and 20 mg IV Lasix now "
--- NOTE | 2024-04-04 16:28 | W.PN.UPDATE ---
Update Note
Progress Note Update
Addendum
Patient was about to leave but felt sob and wanted to stay over night
Vital signs are stable, still in SR, normal SaO2, will give one dose of Lasix
and monitor
Possible mild pulmonary edema ( Pro-BNP was elevated) after uncontrolled A fib
Hold discharge
End
[2024-04-04] MEDS: LASIX 20 MG IV (16:38)
[2024-04-04] MEDS: PEPCID 20 MG PO (22:38)
[2024-04-04] MEDS: ELAVIL 20 MG PO (22:38)
--- NOTE | 2024-04-05 03:13 | PTCARENOTE ---
Pt. remains in NSR this shift, rate 70's-80's. Did have brief run of ST-vs-rapid AF in the 140's at beginning of shift, asymptomatic. States she still has some mild FRANCIS with ambulation but much improved. RA pulse ox mid 90's. Voiding large
amounts clear yellow urine following Lasix admin. Pt. sleeping.
[2024-04-05 04:01] VITALS: BP 133/88
[2024-04-05 04:49] LABS: Blood Urea Nitrogen 18 mg/dl (7-17); Calcium 9.8 mg/dl (8.4-10.2); Carbon Dioxide 26 mmol/L (22-30); Chloride 104 mmol/L (98-107); Estimated Creatinine Clearance 67 ml/min; Glucose 105 mg/dl (70-99); Potassium 3.8 mmol/L (3.5-5.1); Sodium 139 mmol/L (135-145); eGFR > 60.00
--- NOTE | 2024-04-05 06:39 | W.PN.HOSP.TC ---
Today's Communication/Plan
-
dc
Assessment / Plan
Assessment / Plan
Physical Exam
General: No Apparent Distress and Comfortable
HEENT: Moist mucous membranes and Atraumatic
Respiratory: Clear
Cardiac: S1/S2, Irregular Rhythm and Tachycardia
GI: Soft, Non Tender and Normal Bowel Sounds
Rectal: No Maroon Stools
Genito-urinary: No costovertebral tender
Musculoskeletal: No Clubbing, No Cyanosis and No Edema
Skin: No Jaundice
Neuro: AO x 3 and Nonfocal/grossly intact
Psych: Calm and Intact Judgment/Insight
79 female with uncontrolled A fib presented with palpitations and exertional SOB
# Paroxysmal A fib
s/p cardioversion on 04/04
c/w Sotalol and Cardizem
s/p Cardizem gtt
Continue apixaban for oral anticoagulation
No chest pain, troponin negative
# Acute HFpEF
due to tachycardia/ uncontrolled heart rate
d/w cardiology, will need Lasix upon dc also
# Hypokalemia, replace
# Mild elevation if LFT
No GI symptoms
will monitor
# Rheumatic heart disease, c MS (mild to moderate), mild to mod MR. LVEF normal
# GERD, takes PPI and H2 casie.
#Essential hypertension
c/w Cardizem.
Total discharge time spent to see the patient, examine the patient, review data and lab results, discuss discharge plan with patient, nursing staff around 67 minutes
Anticipated Discharge: Today
Subjective/Interval History
-
Date of Service: April 05, 2024
Objective Data
-
Labs:
Laboratory Results
04/05/24
04:09
Sodium 139
Potassium 3.8
Chloride 104
Carbon Dioxide 26
BUN 18 H
Creatinine 0.6
Glucose 105 H
Calcium 9.8
Vital Signs:
Vital Signs
Temp Pulse Resp BP Pulse Ox
98.5 F 78 16 133/88 91
04/05/24 04:00 04/05/24 04:01 04/05/24 04:00 04/05/24 04:01 04/05/24 04:00
I&O
04/03/24 04/04/24 04/05/24
06:59 06:59 06:59
Intake Total 480 / 480
Output Total 1300 / 1300
Balance -820 / -820
--- NOTE | 2024-04-05 07:05 | W.PN.UPDATE ---
Addendum entered and electronically signed by Cali Bashir MD 04/05/24 07:15:
She has PAF with rheumatic MS (miid to moderate), mild to mod MR. LVEF normal
I think she would benefit from diuretic in addition to sotalol and dilt.
Would send home on following [facility] meds:
Eliquis 5 bid
Furosemide 20 qd
KCL 20mEq qd
Dilt CD 180 qd
sotalol 80bid
Original Note:
Update Note
Progress Note Update
Remained in NSR overnight with one brief run of AT
Cor RR
Lungs clear
ext no edema
OK for home
Give dose of IV lasix as planned this AM
I increased KCL to 40mEq TODAY only then home on 20mEq daily
Suggested she discuss PVI with Dr Jama
[2024-04-05 07:54] VITALS: BP 139/86
--- NOTE | 2024-04-05 08:58 | CM ---
Reviewed chart. Met with Mrs. Mitchell to review discharge plans. She states she is feeling well and maybe able to go home soon. She states she is still planning on going to her daughter's home for awhile. Prior to admission she resides alone in
a halfway community. Her daughter resides in a two story home with one step to enter. Her daughter has a first floor in-law suite. Prior to admission she was independent with ambulation and adls. She states she does use a single point cane in
the community for long distances. She has a prescription plan with [facility] and uses [facility]. Medical work-up in progress. The discharge plan is to go to her daughter's home when medically stable.
[2024-04-05] MEDS: ELIQUIS 5 MG PO (09:04)
[2024-04-05] MEDS: BETAPACE 80 MG PO (09:04)
[2024-04-05] MEDS: CARDIZEM CD 180 MG PO (09:04)
[2024-04-05] MEDS: LASIX 20 MG IV (09:05)
[2024-04-05] MEDS: REGLAN 5 MG PO (09:05)
[2024-04-05] MEDS: PROTONIX 40 MG PO (09:05)
[2024-04-05] MEDS: FLUSH (NSS) 2 FLUSH IV (09:05)
[2024-04-05] MEDS: KCL 40 MEQ PO (09:08)
--- NOTE | 2024-04-05 09:39 | PTCARENOTE ---
Received patient this morning resting in her bed. Given IV lasix as ordered, patient aware that we are measuring her output. Patient is for discharged today, echo ordered prior to discharge.
[2024-04-05 11:06] VITALS: BP 125/80
--- NOTE | 2024-04-05 12:02 | PTCARENOTE ---
Echo done and patient is ready for discharge. Reviewed discharge instructions, including new medication, deleting medications and follow up appointments with the patient and she states her understanding. Patient given a scale to take home for daily
weights. Patient discharged to her daughter's home, her son-n-law is transporting her home.
== END 2024-04-05 11:56 | disposition home or self-care (01) | DRG 308 ==
LOC: IVU 15:39
PROVIDERS: Internal Medicine; Nurse Practitioner Family; Student in an Organized Health Care Education/Training Program; ADMITTING PHYSICIAN Internal Medicine; CONSULT PHYSICIAN Internal Medicine Cardiovascular Disease; EMERGENCY PHYSICIAN Student in an Organized Health Care Education/Training Program; FAMILY PHYSICIAN Family Medicine
PROC: 5A2204Z Restoration of Cardiac Rhythm, Single (ICD-10-PCS; 2024-04-04)
DX: I48.0 Paroxysmal atrial fibrillation (principal); I50.31 Acute diastolic (congestive) heart failure; K21.9 Gastro-esophageal reflux disease without esophagitis; I05.2 Rheumatic mitral stenosis with insufficiency; G47.33 Obstructive sleep apnea (adult) (pediatric); M81.0 Age-related osteoporosis without current pathological fracture; E87.6 Hypokalemia; I10 Essential (primary) hypertension; Z88.8 Allergy status to other drugs, medicaments and biological substances; Z79.01 Long term (current) use of anticoagulants; Z79.899 Other long term (current) drug therapy
CPT/HCPCS: 71046; 80048; 80053; 83735; 83880; 84484; 85025; 92960; 93005; 93306; 96374; 99285

== ENCOUNTER 2024-05-09 14:04 | Inpatient (IN) | payer MEDICARE, OTHER, SELFPAY ==
[2024-05-09] VITALS (31 sets, daily range): BP systolic 71–141; BP diastolic 52–107; BMI 28.5
[2024-05-09] MEDS: CARDIZEM 17 MG IV (11:30)
--- NOTE | 2024-05-09 11:31 | ED.GENMED ---
History of Present Illness
General
Chief Complaint: Heart Rate Problem
Source: patient and family
Exam Limitations: none
Time Seen by Provider: 05/09/24 11:23
History of Present Illness
History of Present Illness:
See MDM
Past History
Past History
ED Past Medical History: Arrthythmia (A fib), Valvular disease (followed by dr whyte) and Other (Rheumatic fever, Murmur); Negative Asthma, HTN, IDDM or NIDDM
ED Past Surgical History: Gynecological (Oophorectomy)
Social History
Tobacco: Non-smoker
Alcohol: Occasional
Drug: None
Personal:
Living: alone
Employment: Retired
Family History
Family History: Other
Phy Exam
Physical Exam
Physical Exam:
See MDM
Course
Orders/Labs/Results
Orders:
Orders
05/09/24 10:50
EKG [Electrocardiogram (*1)] Urgent
Reason for Study: Palpitations
EKG- Treatment ONCE
05/09/24 11:25
CMP [Comprehensive Metabolic Panel] Urgent
Complete Blood Count/With Diff Urgent
05/09/24 11:27
Prothrombin Time Urgent
Troponin I Urgent
Diltiazem HCl [Cardizem] 17 mg IV NOW STA
05/09/24 13:03
Propofol [Diprivan] 20 ml .ROUTE .STK-MED
05/09/24 13:16
EKG [Electrocardiogram (*1)] Urgent
Reason for Study: Abnormal EKG
05/09/24 13:17
EKG- Treatment ONCE
Abnormal Lab Results
05/09/24 05/09/24
11:25 11:27
WBC 4.5 L 10^3/uL
(4.8-10.8)
Absolute Lymphs (auto) 1.1 L 10^3/uL
(1.2-3.4)
Monocytes % 9.8 H %
(1.7-9.3)
PT 16.7 H Sec
(11.4-14.6)
Sodium 134 L mmol/L
(135-145)
BUN 23 H mg/dl
(7-17)
Glucose 114 H mg/dl
(70-99)
Calcium 10.5 H mg/dl
(8.4-10.2)
05/09/24 11:25
05/09/24 11:25
Vital Signs
Initial and Last Documented VS:
Initial Vital Signs
Temp Pulse Resp BP Pulse Ox
97.8 F 145 16 138/104 99
05/09/24 10:53 05/09/24 10:53 05/09/24 10:53 05/09/24 10:53 05/09/24 10:53
Last Documented Vital Signs
Temp Pulse Resp BP Pulse Ox
98.6 F 41 18 81/52 98
05/09/24 13:11 05/09/24 13:20 05/09/24 13:20 05/09/24 13:20 05/09/24 13:20
Procedures
Moderate Sedation
ASA Risk Score: Class II
Chart and allergies reviewed: Yes
Consent for anesthesia obtained: Yes
Time out completed (validating right patient & procedure): Yes
Moderate Sedation Start Time(when first medication is given): 13:11
History of difficult intubation: No
Airway free of obstruction: Yes
Patient has a gag reflex: Yes
Patient is able to open mouth: Yes
Patient has no dentures: Yes
Patient has no loose teeth: Yes
Medication administered by Provider during Moderate Sedation: IV Propofol (mg)
Total dose administered: 50
Time drug administered: 13:11
Moderate Sedation Procedure End Time: 13:22
Cardioversion
Indication:: Afib
Performed by:: Anoop Sarmiento DO
Synchronized?: Yes
Energy Used: Other (100 J)
Number of attempts: 1
Successful?: Yes
ASA Risk Score: Class II
Any reaction or bad outcome to prior sedation/anesthesia?: No history of a reaction
Sedation level to be attained: moderate
Chart and allergies reviewed: Yes
Patient reassessed prior to sedation: Yes
Time out completed at (validating right patient & procedure): 13:08
History of difficult intubation: No
Airway free of obstruction: Yes
Patient has a gag reflex: Yes
Patient is able to open mouth: Yes
Patient has no dentures: Yes
Patient has no loose teeth: Yes
Medication administered by Provider during Moderate Sedation: IV Propofol (mg)
Total dose administered: 50
Time drug administered: 13:11
Start Time: 13:11
Stop Time: 13:22
MDM/Problems Addressed
Differential Diagnosis Includes:
HPI and MDM Narrative:
79-year-old female presenting with palpitations. This occurred last night. Patient found to be in A-fib with RVR. This is an ongoing problem with the patient. She was recently mated for the same and had medication changes where she is now on
Cardizem and sotalol. She follows with cardiology and they had suggested that the neck step is likely ablation. She has required cardioversion in the past. She claims compliance with Eliquis.
Patient is well-appearing toxic. She is tachycardic and it is irregular. Will give dose of Cardizem and attempt to chemically cardiovert knowing that she may require synchronized cardioversion.
I did send out a text to her sole assessor relying the plan and to help with follow-up
Physical exam
General: Well appearing and non-toxic
HEENT: protecting airway
Neck: appears supple
CV: No evidence of cyanosis. Tachycardic and irregular
Resp: No accessory muscle use
Abd: Non-distended
Extremities: No deformities. No leg edema
Neuro: alert
Psych: Normal affect
Skin: Intact
Problems Addressed including Acute and Chronic Conditions affecting care:
1. A-fib with RVR
Acuity: acute
Prognosis: unstable
Details: Will give dose of IV Cardizem and attempt to chemically cardiovert. If unsuccessful, will perform synchronized cardioversion
2. [ ]
Acuity: acute
Prognosis: stable
Details:
3. [ ]
Acuity: acute
Prognosis: stable
Details:
4. [ ]
Acuity: acute
Prognosis: stable
Details:
5. [ ]
Acuity:
Prognosis:
Details:
Updates
Although rate controlled, patient still symptomatic with A-fib. Patient signed consent for cardioversion. During the cardioversion, patient did have pauses for a few seconds. She is now in A-fib with slow ventricular response. Will have cards
evaluate but cannot send her home based on the symptomatic bradycardia. Will admit
Differential Diagnosis (but not limited to): A-fib with RVR, DCS
Testing considered: D-dimer but she is anticoagulated
Drug therapy (if applicable): OTC meds, please see d/c instruction regarding Rx drugs
Amount and/or Complexity of Data Reviewed
Clinical info obtained from: Patient
External data reviewed: N/A
Labs I independently reviewed (but not limited to): Troponin normal
Radiology: N/A
Pulse Ox: not hypoxic
EKG independently reviewed: A-fib with RVR, normal axis, no STEMI
[employer] Coordinator: A-fib with RVR
Critical Care: N/A
Risk of Complication:
Social Determinants of health: Good social support
Discussed with other providers: Cardiology, hospitalist
Escalation of Care includes Admit/Obs: Given the symptomatic slow A-fib, will admit
Occasional wrong word or 'sound a like' substitutions may have occurred due to the inherent limitations of voice recognition software. Read the chart carefully and recognize, using context, where substitutions have occurred.
*Critical Care Note
Total Time (30-74mins, 75-104mins- exclusive of procedures): Not Applicable
ED Attending Note
-
Portions of this chart may have been created with voice recognition software.� Occasional wrong word or��sound alike� substitutions may have occurred due to the inherent limitations of voice recognition software.
Discharge Plan
Departure
Patient Disposition: Admit
Date of Disposition: 05/09/24
Time of Disposition: 13:33
Admit to: Telemetry
Presentation/result/management discussed w/ accepting MD/DO: Hospitalist
Discharge Problem:
A-fib
Prescriptions:
No Action
famotidine 20 MG tablet
20 mg PO HS
Eliquis 5 MG tablet
5 mg PO BID Qty: 30 3RF
omeprazole 40 mg Capsule,Delayed Release(Dr/Ec)
40 mg PO DAILY
amitriptyline 10 mg Tablet
20 mg PO HS
calcium carbonate-vitamin D3 [Calcium 600 + D(3)] 600 mg-10 mcg (400 unit) Tablet
1 tab PO DAILY
cholecalciferol (vitamin D3) [Vitamin D3] 50 mcg (2,000 unit) Tablet
50 mcg PO DAILY
Prolia 60 mg/mL Syringe
60 mg SC [id number]
Patient Comments:
scheduled 11/03/23
metoclopramide HCl 5 mg Tablet
5 mg PO BID Qty: 1 0RF
rizatriptan 10 mg Tablet,Disintegrating
10 mg PO DAILYPRN PRN (Reason: migraine)
sotalol 80 MG tablet
80 mg PO BID
diltiazem HCl 180 mg Capsule,Extended Release 24hr
180 mg PO DAILY Qty: 30 0RF
hydrochlorothiazide 25 mg tablet
25 mg PO DAILY Qty: 30 0RF
Referrals:
Alina Piper MD [Family Provider] -
Interventions
Interventions:
*Risk Screen - Suicide Last Done: 05/09/24 10:56
*General Assessment Last Done: 05/09/24 11:16
*Neglect/Abuse Screening Last Done: 05/09/24 10:56
ED- Fall Risk Assessment Last Done: 05/09/24 11:16
*ED COVID-19 Vaccine History Last Done: 05/09/24 11:16
ED- Cardiac Assessment Last Done: 05/09/24 11:16
ED- Pulmonary Assessment Last Done: 05/09/24 11:16
Discharge Date and Time
Print Language: [id number]
[2024-05-09 11:40] LABS: % Basophils 0.9 % (0-2); % Eosinophils 3.6 % (0-6); % Immature Granulocytes 0.2 % (0-0.5); % Lymphocytes 25.5 % (20.5-51.1); % Monocytes 9.8 % (1.7-9.3); Absolute Eosinophils 0.2 10^3/uL (0-0.7); Absolute Lymphocytes 1.1 10^3/uL (1.2-3.4); Absolute Monocytes 0.4 10^3/uL (0.1-0.6); Absolute Neutrophils 2.7 10^3/uL (1.4-6.5); Hematocrit 40.3 % (37.0-47.0); Hemoglobin 13.7 g/dL (12.0-16.0); Mean Corpuscular Hgb 29.1 pg (27.0-31.0); Mean Corpuscular Volume 85.7 fL (81.0-99.0); Nucleated Red Blood Cells % 0 %; Platelet Count 250 10^3/uL (130-400); Red Cell Dist. Width 12.8 % (11.5-14.5); White Blood Cell Count 4.5 10^3/uL (4.8-10.8)
[2024-05-09 11:46] LABS: PT 16.7 Sec (11.4-14.6)
[2024-05-09 11:57] LABS: ALT (SGPT) 33 U/L (0-35); AST (SGOT) 30 U/L (14-36); Albumin 4.5 g/dl (3.5-5.0); Alkaline Phosphatase 52 U/L (38-126); Blood Urea Nitrogen 23 mg/dl (7-17); Calcium 10.5 mg/dl (8.4-10.2); Carbon Dioxide 24 mmol/L (22-30); Chloride 101 mmol/L (98-107); Estimated Creatinine Clearance 65 ml/min; Glucose 114 mg/dl (70-99); Sodium 134 mmol/L (135-145); Total Bilirubin 0.4 mg/dl (0.2-1.3); Total Protein 7.1 g/dl (6.3-8.2); eGFR > 60.00
[2024-05-09 12:04] LABS: Troponin I < 0.012 ng/ml
--- NOTE | 2024-05-09 13:50 | HPS.HSE ---
Addendum entered and electronically signed by Enid Jacobson MD 05/09/24 16:06:
As per cardiology okay to resume her home meds.
Addendum entered and electronically signed by Enid Jacobson MD 05/09/24 15:21:
Held Sotalol and Cardizem.
Addendum entered and electronically signed by Enid Jacobson MD 05/09/24 14:02:
Hold HCTZ for now.
Original Note:
Family Physician
-
Family Physician: Alina Piper
Chief Complaint
-
palpitations
History of Present Illness
79-year-old female past medical history of paroxysmal atrial fibrillation status post cardioversion, chronic HFpEF, rheumatic heart disease, hypertension, mitral stenosis, GERD, osteoarthritis, presenting with palpitations starting last night. She
denies any chest pain or shortness of breath. She has been feeling dizzy.
Denies any weight gain or lower extremity edema at this time. Denies any signs of infection such as fevers, upper respiratory symptoms, nausea vomiting or diarrhea.
Patient was admitted from 04/03 to 04/05 with uncontrolled atrial fibrillation. She was treated with Cardizem drip and underwent cardioversion on 03/24:13 attempts. She was started on oral Cardizem in addition to sotalol which she has been on for a
long time. She was diuresed for acute CHF exacerbation. She was also discharged on hydrochlorothiazide.
Her mother had A-fib.
She drinks alcohol occasionally. Denies smoking.
Medical History
Past Medical History
Past Medical History: Reports Other ( paroxysmal atrial fibrillation status post cardioversion, chronic HFpEF, rheumatic heart disease, hypertension, mitral stenosis, GERD, osteoarthritis)
Past Surgical History: Reports Other (Gynecological (Oophorectomy))
Social History
Tobacco: Non-smoker
Alcohol: Occasional
Drug: None
Family History
Family History: Other (mother with Afib )
Allergies / Home Medications
Allergies reflects when Allergies were last updated in [facility].
Home Medications with original date entered in [facility]
Allergy/Medication List:
Allergies
Allergy/AdvReac Type Severity Reaction Status Date / Time
adhesive Allergy Itching, Verified 04/03/24 16:52
Rash
propoxyphene napsylate Allergy Rash, Verified 04/03/24 16:52
[From Darvocet-N 100] Swelling
Home Medications
famotidine 20 mg tablet 20 mg PO HS Gastrointestinal issue 03/05/20
apixaban 5 mg tablet (Eliquis) 5 mg PO BID #30 tabs 03/28/20
amitriptyline 10 mg tablet 20 mg PO HS Neurological Condition 09/08/23
calcium 600 mg (as carbonate)-vitamin D3 10 mcg (400 unit) tablet (Calcium 600 + D(3)) 1 tab PO DAILY Supplement 09/08/23
cholecalciferol (vitamin D3) 50 mcg (2,000 unit) tablet (Vitamin D3) 50 mcg PO DAILY Supplement 09/08/23
denosumab 60 mg/mL subcutaneous syringe (Prolia) 60 mg SC [id number] Autoimmune Disorder 09/08/23
omeprazole 40 mg capsule,delayed release 40 mg PO DAILY Gastrointestinal Issue 09/08/23
metoclopramide HCl 5 mg tablet 5 mg PO BID #1 tab 10/07/23
rizatriptan 10 mg disintegrating tablet 10 mg PO DAILYPRN PRN migraine 10/28/23
diltiazem HCl 180 mg capsule,extended release 24 hr 180 mg PO DAILY #30 caps 04/04/24
sotalol 80 mg tablet 80 mg PO BID Heart Disease/Condition 04/04/24
hydrochlorothiazide 25 mg tablet 25 mg PO DAILY #30 tabs 04/05/24
Review of Systems
-
History Source: Patient
A 12 point ROS was completed and negative except as noted: Yes
Constitutional: Reports No Symptoms
EENT: Reports No Symptoms
Respiratory: Reports See HPI
Cardiac: Reports See HPI
Abdomen/GI: Reports No Symptoms
: Reports No Symptoms
Musculoskeletal: Reports No Symptoms
Skin: Reports No Symptoms
Neurological: Reports No Symptoms
Endocrine: Reports No Symptoms
Hematologic/Lymphatic: Reports No Symptoms
Psych: Reports No Symptoms
Physical Exam
Vital Signs
Vital Signs
Temp Pulse Resp BP Pulse Ox
98.6 F 54 16 108/69 99
05/09/24 13:11 05/09/24 13:35 05/09/24 13:35 05/09/24 13:35 05/09/24 13:35
Physical Exam
General: Well Developed, Well Nourished and No Apparent Distress
HEENT: NormoCephalic, Moist mucous membranes and Atraumatic
Respiratory: Clear
Cardiac: S1/S2 and Regular Rhythm; No Murmur or Rub
GI: Soft, Non Tender, Non Distended and Normal Bowel Sounds; No Organomegaly
Rectal: Deferred by Provider
Musculoskeletal: No Clubbing, No Cyanosis and No Edema
Skin: No Rash
Neuro: Nonfocal/grossly intact
Laboratory Results
-
05/09/24 11:25
05/09/24 11:25
Laboratory Results
PT 16.7 Sec (11.4-14.6) H 05/09/24 11:27
INR 1.30 05/09/24 11:27
Total Bilirubin 0.4 mg/dl (0.2-1.3) 05/09/24 11:25
AST 30 U/L (14-36) 05/09/24 11:25
ALT 33 U/L (0-35) 05/09/24 11:25
Alkaline Phosphatase 52 U/L (38-126) 05/09/24 11:25
Troponin I < 0.012 ng/ml 05/09/24 11:27
Data Reviewed
-
Lab Data: Labs Reviewed by me
Old Records: Reviewed
Impression/Plan
-
IMPRESSION:
PLAN:
# Atrial fibrillation with RVR
-Was cardioverted previously with plan for ablation for recurrence
-Started on Cardizem drip and still symptomatic so cardioverted and now in atrial fibrillation with hypotension/ slow ventricular response with heart rate 40s,
-Cardizem drip off and blood pressure is improved
-Continue Eliquis
-Check chest x-ray
-Cardiology consulted
Chronic HFpEF
-Not in heart failure currently
History of rheumatic heart disease
Mild to moderate mitral regurgitation/mild to moderate mitral stenosis
Hypertension
-continue HCTZ
GERD
-Continue Pepcid, omeprazole
History of migraines
-Continue amitriptyline
Osteoporosis
-On Prolia
Full code
DVT prophylaxis�Eliquis
Cardiac diet
--- NOTE | 2024-05-09 14:22 | CON.CAR ---
Addendum entered and electronically signed by Garth Wheeler MD 05/09/24 16:01:
I saw and examined the patient.
The SURGICAL SALES REPRESENTATIVE's note was reviewed and I agree with the note.
Comment:
79-year-old female known to Dr. Jama with paroxysmal atrial fibrillation on sotalol and Eliquis, moderate MS/MR and hypertension who presents with elevated heart rates. She was having palpitations at home and checked her heart rate which she
noted to be in the 120s last evening. Checked again this morning and was in the 150s so she presented to the ER. In the ER she initially received IV diltiazem with some improvement in her heart rate but she was still in atrial fibrillation so
underwent cardioversion. She now has sinus bradycardia with heart rate in the 50s and is asymptomatic. No obvious triggers for this episode of atrial fibrillation (i.e. recent illness, dehydration, alcohol use). Of note, she does have untreated
sleep apnea. Exam is notable for a well-appearing 79-year-old female with a regular rate and rhythm and no murmurs/rubs/gallops. She has clear lungs bilaterally and no lower extremity edema. Labs including CBC, CMP, and troponin are fairly
unremarkable. ECG prior to cardioversion shows A-fib with RVR (HR 129). ECG after cardioversion shows sinus bradycardia at a rate of [address]-T wave changes in the anterior and lateral leads. Last echocardiogram on 04/05/2024 shows
LVEF 55-60%, rheumatic mitral valve with moderate MS, moderate MR, PASP 48 mmHg. For her paroxysmal atrial fibrillation, she may be a good candidate for ablation. She seems agreeable to this so we will have her meet with Dr. Puckett as an
outpatient after this hospitalization. There is no obvious trigger for this exacerbation, but in general she should avoid dehydration and alcohol and should be treated for sleep apnea. We will continue her sotalol 80 mg twice daily and diltiazem
180 mg daily. She should also continue on her apixaban 5 mg twice daily for anticoagulation. Cardiology will continue to follow along. Please reach out with any additional questions or concerns.
Original Note:
Consultation
Consultation Request
Date/Time Consultation Requested: 05/09/24 1332
Date/Time Consultation Performed: 05/09/24 1400
Requesting Provider: Dr. Sarmiento
Performing Provider: Tigist SCOTT for Dr. Wheeler
Reason for Consultation: bradycardia
Medical History
-
Chief Complaint: palpitations
History of Present Illness:
79 /o female with PAF on sotalol and Eliquis (CV 10/31/23, 04/04/24), moderate MS and MR, GERD, and hypertension who is here for palpitations that started last night before bed. This AM she still had them and checked her monitor and HR 150's so she
came to the ER where AFIB with RVR was noted. She was given IV diltiazem, which helped rate. Then, she was cardioverted and post-procedure had brief 3 second pauses, then was junctional in the 40's. Now she is in SR in the 50's. She feels a
heaviness, but otherwise is feeling okay. She briefly had some hypotension, which has resolved. She is in no distress at the time of my assessment. Of note, she has had some issues with brief episodes of dizziness and is seeing OP neurology. She
noted this started last admit and was kept an extra night for it, but no cause seen.
Past Medical History
Past Medical History: Arrhythmias, GERD, HTN and Valvular Disease
Social History
Tobacco: Non-Smoker
Family History
Family History: Reviewed & Not Pertinent
Allergies / Home Medications
Allergy/AdvReac Type Severity Reaction Status Date / Time
adhesive Allergy Itching, Verified 04/03/24 16:52
Rash
propoxyphene napsylate Allergy Rash, Verified 04/03/24 16:52
[From Darvocet-N 100] Swelling
�Medication �Instructions �Recorded �Confirmed �Type
famotidine 20 mg tablet 20 mg PO HS Gastrointestinal issue 03/05/20 04/03/24 History
apixaban 5 mg tablet (Eliquis) 5 mg PO BID #30 tabs 03/28/20 04/03/24 Rx
amitriptyline 10 mg tablet 20 mg PO HS Neurological Condition 09/08/23 04/03/24 History
calcium 600 mg (as 1 tab PO DAILY Supplement 09/08/23 04/03/24 History
carbonate)-vitamin D3 10 mcg (400
unit) tablet (Calcium 600 + D(3))
cholecalciferol (vitamin D3) 50 50 mcg PO DAILY Supplement 09/08/23 04/03/24 History
mcg (2,000 unit) tablet (Vitamin
D3)
denosumab 60 mg/mL subcutaneous 60 mg SC [id number] Autoimmune 09/08/23 04/03/24 History
syringe (Prolia) Disorder
omeprazole 40 mg capsule,delayed 40 mg PO DAILY Gastrointestinal 09/08/23 04/03/24 History
release Issue
metoclopramide HCl 5 mg tablet 5 mg PO BID #1 tab 10/07/23 04/03/24 Rx
rizatriptan 10 mg disintegrating 10 mg PO DAILYPRN PRN migraine 10/28/23 04/03/24 History
tablet
diltiazem HCl 180 mg 180 mg PO DAILY #30 caps 04/04/24 Rx
capsule,extended release 24 hr
sotalol 80 mg tablet 80 mg PO BID Heart 04/04/24 04/03/24 History
Disease/Condition
hydrochlorothiazide 25 mg tablet 25 mg PO DAILY #30 tabs 04/05/24 Rx
Review of Systems
-
History Source: Patient
All other systems: Negative unless noted
Cardiac: Palpitations and Other (heaviness )
Physical Exam
Vital Signs
Temp Pulse Resp BP Pulse Ox
98.6 F 56 18 125/63 98
05/09/24 13:11 05/09/24 14:20 05/09/24 14:20 05/09/24 14:20 05/09/24 14:20
Lab Results
12/18/24 11:25
05/09/24 11:25
Troponin I < 0.012 ng/ml 05/09/24 11:27
Physical Exam
General: Well Developed, Well Nourished and No Apparent Distress
HEENT: Normocephalic and Anicteric
Respiratory: Clear and Non Labored Respirations
Cardiac: Regular Rhythm (SB)
Musculoskeletal: No Edema
Skin: Warm and Dry
Psych: Calm
Impression / Plan
-
AFIB with RVR:
-now in SB s/p CV. Of note, she had bradycardia (3.2 second pauses, then junctional danyelle in 40's) post CV (after getting IV diltiazem and already took sotalol/dilt for day as well). She is now SB in 50's.
-would continue her typical medicines of sotalol (next dose tonight), and diltiazem (next dose in AM- will add hold parameters)
-continue Eliquis for OAC
-consider ablation as OP as next step for her recurrent AFIB
-It is documented last admission that she has untreated sleep apnea- important that she work on getting this treated as OP
Moderate MR, MS:
-no SOB
-monitor over time with echo- most recent last month as above
Hypertension:
-stable (briefly hypotensive s/p CV)
-on medical therapy- continue and monitor.
Data Reviewed
-
EKG: Tracing Personally Visualized and interpreted (AFIB with RVR 129 BPM)
Medical Tests (Nuc Med, Echo etc): Report Reviewed by me (Echo 04/05/24:EF 55-60%, Massive left atrial dilation, Rheumatic appearing MV with moderate MS, mean gradient 6 mmHg. Moderate mitral regurgitation Estimated PASP of 48 mmHg.)
Labs: Labs Reviewed by me
--- NOTE | 2024-05-09 18:07 | PTCARENOTE ---
Patient admitted to IVU. Assisted to bed, NSR HR 63. Complaints of indigestion, Pepcid ordered hs will give
[2024-05-09] MEDS: PEPCID 20 MG PO (19:55)
[2024-05-09] MEDS: ELIQUIS 5 MG PO (19:55)
[2024-05-09] MEDS: BETAPACE 80 MG PO (19:56)
[2024-05-09] MEDS: ELAVIL 20 MG PO (22:10)
[2024-05-10] VITALS (7 sets, daily range): BP systolic 108–135; BP diastolic 63–91; BMI 27.5
--- NOTE | 2024-05-10 01:04 | PTCARENOTE ---
Pt. remains in NSR 50's-70's with PAC's so far this shift, other vitals stable, no complaints of chest heaviness/dizziness. Currently sleeping.
[2024-05-10 04:01] LABS: % Basophils 0.9 % (0-2); % Immature Granulocytes 0.3 % (0-0.5); % Lymphocytes 30.4 % (20.5-51.1); % Monocytes 9.9 % (1.7-9.3); % Neutrophils 52.5 % (42.2-75.2); Absolute Eosinophils 0.2 10^3/uL (0-0.7); Absolute Lymphocytes 1.1 10^3/uL (1.2-3.4); Absolute Monocytes 0.4 10^3/uL (0.1-0.6); Absolute Neutrophils 1.9 10^3/uL (1.4-6.5); Hematocrit 36.9 % (37.0-47.0); Mean Corp Hgb Conc. 32.5 g/dL (33.0-37.0); Mean Corpuscular Hgb 28.4 pg (27.0-31.0); Mean Corpuscular Volume 87.2 fL (81.0-99.0); Nucleated Red Blood Cells % 0 %; Platelet Count 201 10^3/uL (130-400); Red Blood Cell Count 4.23 10^6/uL (4.20-5.40); Red Cell Dist. Width 13.1 % (11.5-14.5); White Blood Cell Count 3.5 10^3/uL (4.8-10.8)
[2024-05-10 04:11] LABS: ALT (SGPT) 30 U/L (0-35); AST (SGOT) 29 U/L (14-36); Albumin 3.9 g/dl (3.5-5.0); Alkaline Phosphatase 44 U/L (38-126); Blood Urea Nitrogen 18 mg/dl (7-17); Calcium 9.6 mg/dl (8.4-10.2); Carbon Dioxide 25 mmol/L (22-30); Chloride 102 mmol/L (98-107); Estimated Creatinine Clearance 63 ml/min; Glucose 93 mg/dl (70-99); Potassium 3.6 mmol/L (3.5-5.1); Sodium 134 mmol/L (135-145); Total Bilirubin 0.4 mg/dl (0.2-1.3); Total Protein 6.3 g/dl (6.3-8.2); eGFR > 60.00
[2024-05-10] MEDS: CARDIZEM CD 180 MG PO (08:33)
[2024-05-10] MEDS: VITAMIN D3 (cholecalciferol) 50 MCG PO (08:34)
[2024-05-10] MEDS: OSCAL 500 + D 500 MG PO (08:34)
[2024-05-10] MEDS: ELIQUIS 5 MG PO ×2 (08:34→19:44)
[2024-05-10] MEDS: BETAPACE 80 MG PO ×2 (08:34→19:44)
[2024-05-10] MEDS: ORETIC 25 MG PO (08:35)
[2024-05-10] MEDS: FLUSH (NSS) 1 FLUSH IV (08:35)
[2024-05-10] MEDS: PROTONIX 40 MG PO (08:35)
--- NOTE | 2024-05-10 08:49 | W.PN.HOSP.TC ---
Today's Communication/Plan
-
see PN
Assessment / Plan
Assessment / Plan
79yo F with PMHX of Afib since 2019, HTN, migraines, osteoporosis came with 24h of rapid HR noticed on home monitor. With hypotension in ED undervent sync CV (5th time over past years). Admitted with Afib with RVR.
A/P:
#Afib with RVR
cont rate and rhythm control - on SR on the next day after admission
Cardiology consult: will be planned for ablation (as outpatient)
Cont Eliquis
cotn telemetry
Chest XR neg for pneumonia
check TSH, UA, COVID-19 and Influenza PCR for reversible causes
#moderate MS 2/2 rheumatic heart disease
#Moderate MR 2/2 rheumatic heart disease
#Essential HTN
#Chronic HFpEF
#MIgraines
#Osteoporosis
#GERD
cont home meds
#Leukopenia
recurrent since 10/30/23
outpatient rn clinical research
DVt ppx on ELiquis
FUll code
I have spent at least 52min reviewing chart, test results, communication with consultants and direct patient care
Anticipated Discharge: Within 24 hours
Subjective/Interval History
-
Date of Service: May 10, 2024
Objective Data
-
Labs:
Laboratory Results
05/10/24
03:12
WBC 3.5 L
Hgb 12.0
Hct 36.9 L
Plt Count 201
Sodium 134 L
Potassium 3.6
Chloride 102
Carbon Dioxide 25
BUN 18 H
Creatinine 0.6
Glucose 93
Calcium 9.6
Total Bilirubin 0.4
AST 29
ALT 30
Alkaline Phosphatase 44
Vital Signs:
Vital Signs
Temp Pulse Resp BP Pulse Ox
98.1 F 66 20 130/67 96
05/10/24 07:16 05/10/24 07:18 05/10/24 07:16 05/10/24 07:18 05/10/24 07:16
I&O
05/09/24 05/10/24 05/11/24
06:59 06:59 06:59
Intake Total 480 / 480
Balance 480 / 480
Review of Systems
-
History Source: Patient
All other systems: Reviewed and negative
Physical Exam
-
General: No Apparent Distress
HEENT: Normocephalic
Respiratory: Clear to Auscultation
Cardiac: Regular Rhythm and S1/S2
GI: Soft, Nontender and Nondistended
Genito-urinary: No Costovertebral Tender
Musculoskeletal: No Clubbing, No Cyanosis and No Edema
Neuro: Awake, Alert, Oriented, AO x 3 and No Motor Deficits
Psych: Calm
--- NOTE | 2024-05-10 09:29 | PTCARENOTE ---
Received patient this morning resting in bed, daughter at the bedside. Patient remains in SR, offers no complaints at this time. Will send UA, covid and flus swabs as ordered.
--- NOTE | 2024-05-10 09:41 | CM ---
Reviewed chart. Met with Mrs. Arechiga to review discharge plans. She states prior to admission her sister is staying with her on a short term basis She states she resides in a two story home with two steps to enter. She states she has a first
floor set-up. She states prior to admission she is independent with ambulation in the home and uses a single point cane in the community. She has a single point cane at home. She states she has a prescription plan with [facility] and [facility] and
uses [facility]. Medical work-up in progress. The discharge plan is to return home with her sister when medically stable.
--- NOTE | 2024-05-10 10:15 | PTCARENOTE ---
Patient is due for a prolia infusion at the rheumatology infusion center this afternoon and asked me to call let them know she is an inpatient. Telephoned center and spoke to Mahendra, appointment [email or web address].
[2024-05-10 10:24] LABS: COVID-19 Antigen Negative (Negative)
[2024-05-10 10:44] LABS: Urine Albumin Negative (Neg - Trace); Urine Bilirubin Negative (Negative); Urine Character Clear (Clear); Urine Color Yellow; Urine Glucose Negative (Negative); Urine Ketone Negative (Negative); Urine Leukocyte Negative (Negative); Urine Nitrite Negative (Negative); Urine Occult Blood 2+ (Negative); Urine Urobilinogen Negative (Neg - 1+)
[2024-05-10 11:06] LABS: TSH Reflex To Free T4 0.82 uIU/ml (0.47-4.68)
[2024-05-10 11:24] LABS: Urine Bacteria Few (Negative)
--- NOTE | 2024-05-10 14:26 | W.PN.CD ---
Today's Communication / Plan
-
- Continue Sotalol and plan for ablation as outpatient
- Diltiazem is reduced to 120 mg QD
- Discontinue HCTZ
Impression / Plan
-
AFIB with RVR:
-now in SB s/p CV. Of note, she had bradycardia (3.2 second pauses, then junctional danyelle in 40's) post CV (after getting IV diltiazem and already took sotalol/dilt for day as well). She is now SB in 50's.
-Continue home meds - sotalol and diltiazem
-Sinus danyelle has improved with recovery of the sinus node.
-No need for PPM at this time
-continue Eliquis for OAC
-Patient and her daughter are interested in AF ablation and would like to set up for ablation consult
CARL
-It is documented last admission that she has untreated sleep apnea
- important that she work on getting this treated as OP
Moderate MR, MS:
-Mildly symptomatic - symptoms could be related to AF.
-monitor over time with echo- most recent last month as above
Hypertension:
-stable (briefly hypotensive s/p CV)
-on medical therapy- continue and monitor.
Physical Exam
Vital Signs/Labs
Vital Signs
Temp Pulse Resp BP Pulse Ox
98.3 F 64 20 135/91 95
05/10/24 11:21 05/10/24 11:23 05/10/24 11:21 05/10/24 11:23 05/10/24 11:21
05/09/24 05/10/24 05/11/24
06:59 06:59 06:59
Actual Weight 63.9 kg
05/10/24 03:12
05/10/24 03:12
PT 16.7 Sec (11.4-14.6) H 05/09/24 11:27
INR 1.30 05/09/24 11:27
LAB Results
05/09/24
11:27
Troponin I < 0.012
Physical Exam
Constitutional: No acute distress and Comfortable
EENT: Anicteric, Moist mucous membranes and Other (hard of hearing. )
Cardiovascular: Rhythm & rate is regular, Pedal edema is absent and JVD pressure is normal
Respiratory: Respiratory effort normal and Lungs clear to auscul.
GI: Soft, Non tender and Normal bowel sounds
Neuro/Psych: Alert, Oriented, AO x 3 and Motor deficits absent
Data Reviewed
-
Date of Service: May 10, 2024
Medical Decision Making: Reviewed Test Results and Independent Historian Assessment
EKG: Tracing Personally Visualized and interpreted
Echo: Report Reviewed by me
Labs: Labs Reviewed by me
Old Records: Reviewed
[2024-05-10] MEDS: PEPCID 20 MG PO (22:24)
[2024-05-10] MEDS: ELAVIL 20 MG PO (22:24)
--- NOTE | 2024-05-10 22:50 | PTCARENOTE ---
Patient NSR on residential monitor. Denies palpitations, shortness of breath, chest heaviness, and/or chest pain. Patient resting comfortably in bed at this time. Call schultz within reach. Plan of care ongoing.
[2024-05-11 03:45] VITALS: BP 118/73
[2024-05-11 07:05] VITALS: BP 154/84
[2024-05-11] MEDS: OSCAL 500 + D 500 MG PO (07:16)
[2024-05-11] MEDS: PROTONIX 40 MG PO (07:16)
--- NOTE | 2024-05-11 07:49 | W.PN.CD ---
Today's Communication / Plan
-
- Stable for discharge.
- Continue Sotalol and plan for ablation as outpatient
- Diltiazem is reduced to 120 mg QD
- Discontinued HCTZ
Impression / Plan
-
AFIB with RVR:
-now in SB s/p CV. Of note, she had bradycardia (3.2 second pauses, then junctional danyelle in 40's) post CV (after getting IV diltiazem and already took sotalol/dilt for day as well). She is now SB in 50's.
-Continue home meds - sotalol and diltiazem
-Sinus danyelle has improved with recovery of the sinus node.
-No need for PPM at this time
-continue Eliquis for OAC
-Patient and her daughter are interested in AF ablation and would like to set up for ablation consult
CARL
-It is documented last admission that she has untreated sleep apnea
- important that she work on getting this treated as OP
Moderate MR, MS:
-Mildly symptomatic - symptoms could be related to AF.
-monitor over time with echo- most recent last month as above
Hypertension:
-stable (briefly hypotensive s/p CV)
-on medical therapy- continue and monitor.
Physical Exam
Vital Signs/Labs
Vital Signs
Temp Pulse Resp BP Pulse Ox
98.5 F 60 20 118/73 97
05/11/24 07:03 05/11/24 05:00 05/11/24 07:03 05/11/24 03:45 05/11/24 07:03
05/10/24 05/11/24 05/12/24
06:59 06:59 06:59
Actual Weight 63.9 kg
05/10/24 03:12
05/10/24 03:12
PT 16.7 Sec (11.4-14.6) H 05/09/24 11:27
INR 1.30 05/09/24 11:27
LAB Results
05/09/24
11:27
Troponin I < 0.012
Physical Exam
Constitutional: No acute distress and Comfortable
EENT: Anicteric and Moist mucous membranes
Cardiovascular: Rhythm & rate is regular, Pedal edema is absent and JVD pressure is normal
Respiratory: Respiratory effort normal, Wheeze Absent and Crackles Absent
GI: Soft, Non tender and Normal bowel sounds
Neuro/Psych: Alert, Oriented and AO x 3
Data Reviewed
-
Date of Service: May 11, 2024
Medical Decision Making: Reviewed Test Results, Test Interpretation and Review of Case with other Provider
EKG: Tracing Personally Visualized and interpreted
Echo: Report Reviewed by me
Labs: Labs Reviewed by me
Old Records: Reviewed
[2024-05-11] MEDS: BETAPACE 80 MG PO (08:41)
[2024-05-11] MEDS: VITAMIN D3 (cholecalciferol) 50 MCG PO (08:41)
[2024-05-11] MEDS: ELIQUIS 5 MG PO (08:41)
[2024-05-11] MEDS: CARDIZEM CD 120 MG PO (08:42)
--- NOTE | 2024-05-11 10:21 | W.PN.HOSP.TC ---
Today's Communication/Plan
-
dc
Assessment / Plan
Assessment / Plan
79yo F with PMHX of Afib since 2019, HTN, migraines, osteoporosis came with 24h of rapid HR noticed on home monitor. With hypotension in ED undervent sync CV (5th time over past years). Admitted with Afib with RVR. Later converted to SR. Cardiology
advised outpatient appointment for ablation. Remained in well controlled sinus rythm on the day of d/c, UA and chest XR neg for infection and mediacally stable for d/c
A/P:
#Afib with RVR
cont rate and rhythm control - on SR on the next day after admission
Cardiology consult: will be planned for ablation (as outpatient)
Cont Eliquis
cotn telemetry
Chest XR neg for pneumonia
check TSH, UA, COVID-19 and Influenza PCR for reversible causes
#moderate MS 2/2 rheumatic heart disease
#Moderate MR 2/2 rheumatic heart disease
#Essential HTN
#Chronic HFpEF
#MIgraines
#Osteoporosis
#GERD
cont home meds
#Hypercalcemia on admission
mild
cannot exclude dehydration as a probable cause
#Leukopenia
recurrent since 10/30/23
outpatient director title
DVt ppx on ELiquis
FUll code
I have spent at least 36min reviewing chart, test results, communication with consultants and direct patient care
Anticipated Discharge: Today
Subjective/Interval History
-
Date of Service: May 11, 2024
Objective Data
-
Vital Signs:
Vital Signs
Temp Pulse Resp BP Pulse Ox
98.5 F 73 20 154/84 97
05/11/24 07:03 05/11/24 08:41 05/11/24 07:03 05/11/24 08:41 05/11/24 07:03
I&O
05/10/24 05/11/24 05/12/24
06:59 06:59 06:59
Intake Total 480 / 480 960 / 960
Balance 480 / 480 960 / 960
Review of Systems
-
History Source: Patient
All other systems: Reviewed and negative
Physical Exam
-
General: No Apparent Distress
HEENT: Normocephalic
Respiratory: Clear to Auscultation
Cardiac: Regular Rhythm
GI: Soft, Nontender and Nondistended
Neuro: Awake, Alert, Oriented and AO x 3
Psych: Calm
--- NOTE | 2024-05-11 10:25 | W.DCSUMMARY ---
Discharge Summary
Discharge Data
Date of Admission: 05/09/24
Date of Discharge: 05/11/24
-
Pending Results: No
Hospital Course
79yo F with PMHX of Afib since 2019, HTN, migraines, osteoporosis came with 24h of rapid HR noticed on home monitor. With hypotension in ED undervent sync CV (5th time over past years). Admitted with Afib with RVR. Later converted to SR. Cardiology
advised outpatient appointment for ablation. Remained in well controlled sinus rythm on the day of d/c, UA and chest XR neg for infection, TSH WNL and mediacally stable for d/c
I have spent at least 36min reviewing chart, test results, communication with consultants and direct patient care
Patient was managed for:
#Afib with RVR
#moderate MS 2/2 rheumatic heart disease
#Moderate MR 2/2 rheumatic heart disease
#Essential HTN
#Chronic HFpEF
#MIgraines
#Osteoporosis
#GERD
#Hypercalcemia on admission
#Leukopenia
Discharge Plan
-
Patient Disposition: Home (Routine Discharge)
Discharge Diagnosis/Procedures: Afib with RVR
Diet: Low Cholesterol
Activity: As tolerated
Driving Restrictions: As prior to admission
Referrals:
Josh Puckett MD [Active] - in less than 1 week
Alina Piper MD [Family Provider] - in less than 1 week (refer to sleep study)
Filiberto Priest MD [Active] - in one to two months (Chronic leukopenia)
Prescriptions:
New
diltiazem HCl 120 mg Capsule,Extended Release 24hr
120 mg PO DAILY Qty: 30 0RF
Continued
famotidine 20 MG tablet
20 mg PO HS
Eliquis 5 MG tablet
5 mg PO BID Qty: 30 3RF
omeprazole 40 mg Capsule,Delayed Release(Dr/Ec)
40 mg PO DAILY
amitriptyline 10 mg Tablet
20 mg PO HS
calcium carbonate-vitamin D3 [Calcium 600 + D(3)] 600 mg-10 mcg (400 unit) Tablet
1 tab PO DAILY
cholecalciferol (vitamin D3) [Vitamin D3] 50 mcg (2,000 unit) Tablet
50 mcg PO DAILY
Prolia 60 mg/mL Syringe
60 mg SC [id number]
Rx Instructions:
scheduled tommorrow 05/10/24
rizatriptan 10 mg Tablet,Disintegrating
10 mg PO DAILYPRN PRN (Reason: migraine)
sotalol 80 MG tablet
80 mg PO BID
acetaminophen [Tylenol Extra Strength] 500 mg Tablet
1,000 mg PO DAILYPRN PRN (Reason: mild pain)
Discontinued
diltiazem HCl 180 mg Capsule,Extended Release 24hr
180 mg PO DAILY Qty: 30 0RF
hydrochlorothiazide 25 mg tablet
25 mg PO DAILY Qty: 30 0RF
Discharge Orders:
Discharge Patient (As Directed); Ordered 05/11/24
Ordered By: Bradford Aguilar
Care Plan Goals
Care Plan Goals:
Problem: Readiness for enhanced knowledge related to diagnosis and treatment plan
Goal: Understand your diagnosis and treatment plan needs, including medications if applicable.
Instructions: Know your diagnosis, underlying causes and treatment plan options, including medications if applicable. Consult with your health care team to learn about your diagnosis and treatment plan, including medications if applicable.
Discharge Date and Time
Print Language: TURKISH
--- NOTE | 2024-05-11 10:38 | CM ---
Reviewed chart. Met with Mrs. Mitchell to review discharge plans. She states she is feeling better and maybe able to go home soon. Prior to admission her sister is staying with her for a short period of time. She resides in a two story home with
two steps to enter. She has a first floor set-up. Prior to admission she ambulates independently in the home but uses a single point cane in the community. She has a single point cane at home. She has a prescription plan with [facility] and
[facility] and uses [facility]. Medical work-up in progress. The discharge plan is to return home with her sister when medically stable.
[2024-05-11 10:58] VITALS: BP 144/78
--- NOTE | 2024-05-11 14:06 | PTCARENOTE ---
pt sb on the monitor, hr in the 50s, vss. pt offers no complaints at this time. plan of care discussed. call schultz within reach.
--- NOTE | 2024-05-11 14:33 | PTCARENOTE ---
d/c instructions read to pt and pt verbalized understanding. iv and tele removed. pt left w/ belongings from room and d/c instructions. pt left via wheelchair with staff member.
== END 2024-05-11 14:34 | disposition home or self-care (01) | DRG 309 ==
LOC: IVU 14:04
PROVIDERS: ADMITTING PHYSICIAN Hospitalist; ATTENDING PHYSICIAN Internal Medicine; CONSULT PHYSICIAN Student in an Organized Health Care Education/Training Program; EMERGENCY PHYSICIAN Student in an Organized Health Care Education/Training Program; FAMILY PHYSICIAN Family Medicine
PROC: 5A2204Z Restoration of Cardiac Rhythm, Single (ICD-10-PCS; 2024-05-09)
DX: I48.0 Paroxysmal atrial fibrillation (principal); I50.32 Chronic diastolic (congestive) heart failure; I11.0 Hypertensive heart disease with heart failure; G43.909 Migraine, unspecified, not intractable, without status migrainosus; K21.9 Gastro-esophageal reflux disease without esophagitis; M81.0 Age-related osteoporosis without current pathological fracture; I05.2 Rheumatic mitral stenosis with insufficiency; D72.819 Decreased white blood cell count, unspecified; G47.33 Obstructive sleep apnea (adult) (pediatric); E83.52 Hypercalcemia; Z79.01 Long term (current) use of anticoagulants; Z79.899 Other long term (current) drug therapy; Z11.52 Encounter for screening for COVID-19
CPT/HCPCS: 71045; 80053; 81003; 81015; 84443; 84484; 85025; 85610; 87502; 87811; 92960; 93005; 96374; 99152; 99285

== ENCOUNTER 2024-05-22 06:02 | Day surgery (SDC) | payer MEDICARE, OTHER, SELFPAY ==
[2024-05-22] VITALS (17 sets, daily range): BP systolic 90–135; BP diastolic 66–103; BMI 28.4
[2024-05-22 09:00] LABS: ACT-LR - POC 358 Seconds (116-155)
[2024-05-22 09:18] LABS: ACT-LR - POC 387 Seconds (116-155)
[2024-05-22 09:38] LABS: ACT-LR - POC 380 Seconds (116-155)
--- NOTE | 2024-05-22 10:25 | ITS.CL.ABL ---
Production Sampler - Ablation
Ablation
Procedure Report:
AFIB ablation:
Ms. Mitchell is a very pleasant 79 yr old woman with symptomatic persistent AF on Sotalol and Eligisselis who had failed Sotalol with recurrent AF following DCCV, is recommended for atrial fibrillation ablation.
Date of the Procedure:
05/22/2024
Indications:
Persistent atrial fibrillation
Pre-Operative Diagnosis:
Persistent atrial fibrillation
Post-Operative Diagnosis:
Persistent atrial fibrillation
Procedure Performed:
Atrial fibrillation ablation with Pulsed-Field approach for pulmonary vein isolation
Roof dependent atrial flutter ablation
Posterior wall isolation
Performing Physician:
Josh Puckett MD
Assistants:
EP staff
Anesthesia:
See anesthesia records
Detailed Description of the Procedure:
Written informed consent was obtained from the patient after a full explanation of the risks and benefits of the procedure including the risks of sedation and anesthesia.
The patient was brought to the electrophysiology laboratory in stable condition in fasting state. Continuous electrocardiographic and hemodynamic monitoring was initiated.
The initial rhythm was atrial fibrillation.
The procedure site was meticulously prepared with surgical scrub and allowed to dry with no pooling. Sterile draping was applied to cover the procedure site. The image intensifier was draped with sterile bag and positioned over the patient. After
infusion of local anesthetic, vascular access was obtained under ultrasound guidance and sheaths were placed over guide wire as detailed below.
Sheath and Catheter Placement:
The following catheters / sheaths were placed
Sheaths:
��������� 17Fr steerable sheath (Faradrive�, [facility]) in right femoral
��������� 9Fr in right femoral vein
��������� 7Fr in right femoral vein
Catheters:
��������� NELLA HD Grid mapping catheter � at locations of RA, LA
��������� Farawave� PFA catheter
��������� ICE catheter -AcuNav - at locations of RA, SVC, and RV.
��������� Decapolar Bard catheter in RA and CS
Intracardiac ECHO:
An 8-Colombian AcuNav intracardiac ECHO (ICE) probe was advanced through the 9-Colombian sheath in the right femoral vein into the right atrium under fluoroscopic and ICE ultrasound image guidance and a baseline ECHO study was performed. The left atrial
size was severly dilated. There was moderate tricuspid regurgitation. The aortic valve was grossly normal. There was normal left ventricular systolic functions. There is small pericardial effusion. All the four veins were identified and has flow
identified. There was good flow noted in the YEFRI.
During the procedure, ICE was used for monitoring of complications, guidance of trans-septal puncture, monitor the catheter position and tracking ablation lesions. No change in the pericardial space noted throughout the procedure.
Trans-septal Puncture:
Heparin was initiated and infused to maintain appropriate ACT. A pigtail guidewire was advanced through the 8-Colombian sheath in the right femoral vein into the superior vena cava under fluoroscopic and ICE guidance. The 9-Colombian sheath was exchanged
for a Faradrive sheath which was advanced into the superior vena cava. A transseptal VersaCross RF pigtail via Faradrive connect system was utilized to perform the trans-septal puncture. The apparatus was withdrawn until it was in contact with the
fossa ovalis. The position was adjusted based on fluoroscopy and ultrasound images from ICE. Under fluoroscopic, hemodynamic and ICE ultrasound guidance, left atrium was cannulated by applying RF energy. Once atrial septum was cannulated, the
pigtail wire was advanced into the left atrium. The guide wire was advanced into the left superior pulmonary vein. Both the sheath and the dilator was advanced into the left atrium. The dilator with the needle was withdrawn. Blood was aspirated from
the Faradrive sheath and arterial blood confirmed. The sheath was flushed. Saline injection noted into the left atrium on ICE. The mapping catheter was advanced in the sheath into the left pulmonary vein. Left atrial pressure was measured.
Cardioversion:
The LA was rotated and to assess the anatomy and signal propagation, patient was cardioverted into sinus rhythm using 200J with levi posterior Zoll pads. Sinus rhythm was achieved without any pause. Unfortunately AF came back almost immediately.
Another 200 J was given and sinus rhythm was achieved with frequent PAC.
3D Electroanatomic Mapping:
Using the HD Grid catheter advanced through sheath into the left atrium, an electroanatomic map (EAM) of the left atrium was created using [employer] NELLA mapping system. The map was used for localization of catheter position and tacking of ablation
lesions.
The EAM of the left atrium showed 4 pulmonary veins with all 4 veins electrically connected to the body the LA. It showed only scattered areas of low voltage on the posterior and anterior wall of the LA. The LA was dilated in size.
Patient went back into atrial fibrillation.
Following the EAM, preparation were made for ablation.
Ablation:
Ablation # 1: Pulmonary vein Isolation:
Glycopyrrolate 0.2 mg was given prior to the placement of ablation. Using RampedMedia pulsed field ablation system, pulmonary vein isolation was achieved. First the ablation catheter was placed in the LSPV antral ablation lesions were performed all
around the PV ostium circumferentially. Then the catheter was placed on the antral location of the LIPV and multiple ablation lesions were placed circumferentially on the antrum of the vein.
Then the catheter was moved to right sided veins. The ostial and antral ablations were placed as noted above.
Patient remained in atrial fibrillation.
Ablation #2: Roof dependent flutter ablation
Patient had hx of atrial flutter and the rhythm was switching from AF to FL to AF during the case. The flutter was coming from the LA. The entrainment could not be done due to degeneration into atrial fibrillation.
This was consistent with roof dependent atrial flutter cruz with extensive scar on the posterior wall and channels conduction on the posterior wall.
Using the pulsed field ablation catheter, the catheter was placed between left superior pulmonary vein and right severe pulmonary vein with series of overlapping ablation lesions placed.
Ablation # 3: Posterior wall isolation:
Using the pulsed field ablation catheter, the catheter was placed on the posterior wall and moved around the posterior wall to have adequate contact and ablations were placed isolating the posterior wall.
Cardioversion:
Once the PV isolation was achieved, decision was made to proceed with cardioversion. A 200 J biphasic shock was applied on the levi posterior Zoll patches and sinus rhythm was achieved. No significant pause noted.
EPS and Confirmation of the PVI and bidirectional block:
Following achievement of entrance block at the pulmonary veins, pacing from the HD catheter in each of the four veins at 10 milliamps for 2 milliseconds showed entrance and exit block. All PVI were rechecked at the end of the case and remained
isolated. Entrance and exit block were demonstrated in all veins.
Post ablation Electroanatomic mapping:
Once ablation was completed, the EAM of the LA was done again in sinus rhythm with excellent demarcation of LA myocardium and isolated antral tissue. There was extensive scattered scar noted on the anterior wall.
The YEFRI had healthy signals and was not isolated.
Procedure End
ICE study was done again that showed no epicardial accumulation. No complications noted.
Following the completion of the EP study, catheters were removed. Protamine 40 mg was given at the end of the procedure and ACT was checked repeatedly. The sheaths were removed and hemostasis achieved with �Figure of 8� and manual compression after
acceptable ACT is achieved.
Left atrial Pressure:
Pre-ablation: Mean LA pressure was 21mmHg
Post-ablation: Mean LA pressure was 19mmHg
Post ablation Mean RA pressure was 7 mmHg.
Estimated Blood loss:
<10 cc
Specimens Removed:
None.
Implants / Devices:
None
Urine output:
None
Packs / Drains/ Tubes:
None
Instrument / Sponge Count Correct:
Yes
Complications of the Procedure:
None
Condition of Patient at Time of Transfer:
Hemodynamically stable with no neurological or vascular compromise.
Summary:
Successful atrial fibrillation ablation with Pulsed Field approach for pulmonary vein isolation, roof dependent flutter ablation and posterior wall isolation. .
Figures from the Procedure:
Figure 1: The electroanatomic mapping (EAM) of the left atrium with bipolar voltage (purple indicates normal electrical activity with higginbotham as no myocardial muscle electric activity indicating a line of block or scar.
[2024-05-22] MEDS: ANESTHETIC LOZENGE 1 LOZENGE PO (11:24)
[2024-05-22 15:07] LABS: ACT-LR - POC > 397 Seconds (116-155)
--- NOTE | 2024-05-22 15:08 | W.PN.UPDATE ---
Update Note
Progress Note Update
Pt seen post PFA. Right groin site without ht/bleeding, non tender. OOB ambulating. Post EKG NSR w/PACs, no acute changes. Resume eliquis tonight and continue other meds as before. Followup at [facility] as scheduled. Home today if groin site/tele remain
stable.
== END 2024-05-22 15:20 | disposition home or self-care (01) ==
LOC: CATH 06:02
PROVIDERS: ATTENDING PHYSICIAN Internal Medicine Cardiovascular Disease; FAMILY PHYSICIAN Family Medicine; OTHER PHYSICIAN Internal Medicine Cardiovascular Disease
DX: I48.19 Other persistent atrial fibrillation (principal); I48.92 Unspecified atrial flutter; I05.1 Rheumatic mitral insufficiency; I11.0 Hypertensive heart disease with heart failure; I50.32 Chronic diastolic (congestive) heart failure; I50.84 End stage heart failure; E83.52 Hypercalcemia; K21.9 Gastro-esophageal reflux disease without esophagitis; Z79.01 Long term (current) use of anticoagulants; Z79.899 Other long term (current) drug therapy
CPT/HCPCS: C1730; C1892; C1759; C1732; C1894; 85347; 86850; 86900; 86901; 93005; 93655; 93656; 93657; C1733; C1766

== ENCOUNTER 2024-05-26 16:17 | Inpatient (IN) | payer MEDICARE, OTHER, SELFPAY ==
[2024-05-26] VITALS (32 sets, daily range): BP systolic 105–142; BP diastolic 50–98; BMI 28.0; BMI 28.4
[2024-05-26 12:41] LABS: % Basophils 0.6 % (0-2); % Eosinophils 3.3 % (0-6); % Immature Granulocytes 0.7 % (0-0.5); % Lymphocytes 15.6 % (20.5-51.1); % Monocytes 9.2 % (1.7-9.3); % Neutrophils 70.6 % (42.2-75.2); Absolute Eosinophils 0.2 10^3/uL (0-0.7); Absolute Immature Granulocytes 0.1 10^3/uL (0-0.05); Absolute Lymphocytes 1.1 10^3/uL (1.2-3.4); Absolute Monocytes 0.6 10^3/uL (0.1-0.6); Absolute Neutrophils 4.9 10^3/uL (1.4-6.5); Hematocrit 36.7 % (37.0-47.0); Hemoglobin 12.2 g/dL (12.0-16.0); Mean Corp Hgb Conc. 33.2 g/dL (33.0-37.0); Mean Corpuscular Volume 87.4 fL (81.0-99.0); Mean Platelet Volume 9.8 fL (7.4-10.4); Nucleated Red Blood Cells % 0 %; Platelet Count 212 10^3/uL (130-400); Red Cell Dist. Width 13.2 % (11.5-14.5)
[2024-05-26 12:54] LABS: ALT (SGPT) 46 U/L (0-35); AST (SGOT) 27 U/L (14-36); Albumin 4.4 g/dl (3.5-5.0); Alkaline Phosphatase 69 U/L (38-126); Blood Urea Nitrogen 14 mg/dl (7-17); Calcium 9.9 mg/dl (8.4-10.2); Carbon Dioxide 33 mmol/L (22-30); Chloride 97 mmol/L (98-107); Estimated Creatinine Clearance 65 ml/min; Glucose 100 mg/dl (70-99); Potassium 3.4 mmol/L (3.5-5.1); Sodium 137 mmol/L (135-145); Total Bilirubin 0.9 mg/dl (0.2-1.3); Total Protein 7.2 g/dl (6.3-8.2); eGFR > 60.00
--- NOTE | 2024-05-26 13:14 | ED.GENMED ---
History of Present Illness
<Brandon Santiago DO - Last Filed: 05/26/24 14:04>
General
Chief Complaint: Heart Rate Problem
Time Seen by Provider: 05/26/24 12:34
<Franklyn Treviño PA-C - Last Filed: 05/26/24 15:28>
History of Present Illness
History of Present Illness:
79-year-old female presents to the emergency department for evaluation of heart palpitations and exertional dyspnea that began this morning. She is 5 days status post A-fib ablation performed at this hospital. No chest pain. Denies leg swelling.
Has been compliant with Eliquis with the exception of the dose that was held preoperatively
Past History
<Brandon Santiago DO - Last Filed: 05/26/24 14:04>
Past History
ED Past Medical History: Arrthythmia (A fib), Valvular disease (followed by dr whyte) and Other (Rheumatic fever, Murmur); Negative Asthma, HTN, IDDM or NIDDM
ED Past Surgical History: Gynecological (Oophorectomy)
Social History
Tobacco: Non-smoker
Alcohol: Occasional
Drug: None
Personal:
Living: alone
Employment: Retired
Family History
Family History: Other
Review of Systems
<Franklyn Treviño PA-C - Last Filed: 05/26/24 15:28>
Review of Systems
Allergies reviewed?: Yes
All Other Systems: ROS reviewed and negative except as documented in HPI and ROS
Phy Exam
<Franklyn Treviño PA-C - Last Filed: 05/26/24 15:28>
Physical Exam
Physical Exam:
GEN: Well appearing, NAD, WDWN
HEENT: Oral mucosa moist, no scleral icterus
Cardiac: Tachycardic and irregular
Lung: No respiratory distress, no tachypnea
MSK: No gross deformity or injuries
Skin: Good color, no pallor or jaundice, no rashes
Neuro: AO x3, moves all extremities freely
Psych: Calm, cooperative
Course
<Brandon Santiago, DO - Last Filed: 05/26/24 14:04>
Orders/Labs/Results
Orders:
Orders
05/26/24 12:16
ECG [Electrocardiogram (*1)] Urgent
Reason for Study: Palpitations
EKG- Treatment ONCE
05/26/24 12:34
Complete Blood Count/With Diff Urgent
Comprehensive Metabolic Panel Urgent
05/26/24 13:07
Propofol [Diprivan] 20 ml .ROUTE .STK-MED
05/26/24 13:41
Electrocardiogram (*1) Urgent
Reason for Study: Abnormal EKG
EKG- Treatment ONCE
05/26/24 14:53
NT-proBNP Urgent
05/26/24 14:54
CR Chest - 2 Views Urgent
Comment:
Reason For Exam: SOB
05/26/24 14:57
Furosemide [Lasix] 20 mg IV NOW STA
Potassium Chloride [KCl] 40 meq PO NOW STA
Abnormal Lab Results
05/26/24
12:34
Hct 36.7 L %
(37.0-47.0)
Abs Immat Gran (auto) 0.1 H 10^3/uL
(0-0.05)
Absolute Lymphs (auto) 1.1 L 10^3/uL
(1.2-3.4)
Immature Gran % 0.7 H %
(0-0.5)
Lymphocytes % 15.6 L %
(20.5-51.1)
Potassium 3.4 L mmol/L
(3.5-5.1)
Chloride 97 L mmol/L
(98-107)
Carbon Dioxide 33 H mmol/L
(22-30)
Glucose 100 H mg/dl
(70-99)
ALT 46 H U/L
(0-35)
05/26/24 12:34
05/26/24 12:34
Vital Signs
Initial and Last Documented VS:
Initial Vital Signs
Temp Pulse Resp BP Pulse Ox
97.6 F 116 16 137/81 98
05/26/24 12:22 05/26/24 12:22 05/26/24 12:22 05/26/24 12:22 05/26/24 12:22
Last Documented Vital Signs
Temp Pulse Resp BP Pulse Ox
97.9 F 71 19 118/60 94
05/26/24 14:20 05/26/24 14:20 05/26/24 14:20 05/26/24 14:20 05/26/24 14:20
<Franklyn Treviño PA-C - Last Filed: 05/26/24 15:28>
Orders/Labs/Results
Orders:
Orders
05/26/24 12:16
ECG [Electrocardiogram (*1)] Urgent
Reason for Study: Palpitations
EKG- Treatment ONCE
05/26/24 12:34
Complete Blood Count/With Diff Urgent
Comprehensive Metabolic Panel Urgent
05/26/24 13:07
Propofol [Diprivan] 20 ml .ROUTE .STK-MED
05/26/24 13:41
Electrocardiogram (*1) Urgent
Reason for Study: Abnormal EKG
EKG- Treatment ONCE
05/26/24 14:53
NT-proBNP Urgent
05/26/24 14:54
CR Chest - 2 Views Urgent
Comment:
Reason For Exam: SOB
05/26/24 14:57
Furosemide [Lasix] 20 mg IV NOW STA
Potassium Chloride [KCl] 40 meq PO NOW STA
Abnormal Lab Results
05/26/24
12:34
Hct 36.7 L %
(37.0-47.0)
Abs Immat Gran (auto) 0.1 H 10^3/uL
(0-0.05)
Absolute Lymphs (auto) 1.1 L 10^3/uL
(1.2-3.4)
Immature Gran % 0.7 H %
(0-0.5)
Lymphocytes % 15.6 L %
(20.5-51.1)
Potassium 3.4 L mmol/L
(3.5-5.1)
Chloride 97 L mmol/L
(98-107)
Carbon Dioxide 33 H mmol/L
(22-30)
Glucose 100 H mg/dl
(70-99)
ALT 46 H U/L
(0-35)
05/26/24 12:34
05/26/24 12:34
Vital Signs
Initial and Last Documented VS:
Initial Vital Signs
Temp Pulse Resp BP Pulse Ox
97.6 F 116 16 137/81 98
05/26/24 12:22 05/26/24 12:22 05/26/24 12:22 05/26/24 12:22 05/26/24 12:22
Last Documented Vital Signs
Temp Pulse Resp BP Pulse Ox
97.9 F 71 19 118/60 94
05/26/24 14:20 05/26/24 14:20 05/26/24 14:20 05/26/24 14:20 05/26/24 14:20
Procedures
<Franklyn Treviño PA-C - Last Filed: 05/26/24 15:28>
Cardioversion
Indication:: Afib
Performed by:: Franklyn Treviño PA-C
Synchronized?: Yes
Energy Used: 150 joules
Number of attempts: 1
Successful?: Yes
Complications: None
ASA Risk Score: Class II
Any reaction or bad outcome to prior sedation/anesthesia?: No history of a reaction
Sedation level to be attained: minimal
Chart and allergies reviewed: Yes
Patient reassessed prior to sedation: Yes
Time out completed at (validating right patient & procedure): 13:39
History of difficult intubation: No
Airway free of obstruction: Yes
Patient has a gag reflex: Yes
Patient is able to open mouth: Yes
Patient has no dentures: Yes
Patient has no loose teeth: Yes
Medication administered by Provider during Moderate Sedation: IV Propofol (mg)
Total dose administered: 50
Time drug administered: 13:39
Start Time: 13:39
Stop Time: 13:50
<Franklyn Treviño PA-C - Last Filed: 05/26/24 15:28>
MDM/Problems Addressed
MDM/Problems Addressed:
Patient was cardioverted due to recurrent A-fib after ablation, she tolerated this procedure well however remains dyspneic with exertion after the cardioversion. She has bibasilar crackles and with associated dyspnea on exertion she denies any
recent acute CHF, does have a pleural effusion on chest x-ray. Given that she is mildly hypokalemic, prefer inpatient observation for diuresis, oral potassium and IV Lasix administered in the ED.
<Brandon Santiago DO - Last Filed: 05/26/24 14:04>
*Pulse Oximetry
Patient hypoxic: no
*EKG
Interpreted by ED Provider?: Yes
Interpretation: abnormal
Comparison EKG: no comparison EKG present
Heart Rate: 98
Rate: normal
Rhythm: a-fib
Ischemia: non-specific ST changes
<Franklyn Treviño PA-C - Last Filed: 05/26/24 15:28>
*Critical Care Note
Total Time (30-74mins, 75-104mins- exclusive of procedures): Not Applicable
ED Attending Note
<Brandon Santiago DO - Last Filed: 05/26/24 14:04>
ED Attending Note
Patient seen and examined by attending physician: Yes
I performed the substantive portion of visit, reviewed & personally made and approve the management plan that is documented in note by myself or JEANNE.: Yes
ED Attending Note:
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
-
Portions of this chart may have been created with voice recognition software.� Occasional wrong word or��sound alike� substitutions may have occurred due to the inherent limitations of voice recognition software.
Discharge Plan
Departure
Patient Disposition: Admit
Date of Disposition: 05/26/24
Time of Disposition: 15:27
Admit to: Med/Surg
Presentation/result/management discussed w/ accepting MD/DO: Hospitalist
Discharge Problem:
Acute CHF, Atrial fibrillation with RVR
Prescriptions:
No Action
famotidine 20 MG tablet
20 mg PO HS
Eliquis 5 MG tablet
5 mg PO BID Qty: 30 3RF
omeprazole 40 mg Capsule,Delayed Release(Dr/Ec)
40 mg PO DAILY
amitriptyline 10 mg Tablet
20 mg PO HS
calcium carbonate-vitamin D3 [Calcium 600 + D(3)] 600 mg-10 mcg (400 unit) Tablet
1 tab PO DAILY
cholecalciferol (vitamin D3) [Vitamin D3] 50 mcg (2,000 unit) Tablet
50 mcg PO DAILY
Prolia 60 mg/mL Syringe
60 mg SC [id number]
rizatriptan 10 mg Tablet,Disintegrating
10 mg PO DAILYPRN PRN (Reason: migraine)
sotalol 80 MG tablet
80 mg PO BID
acetaminophen [Tylenol Extra Strength] 500 mg Tablet
1,000 mg PO DAILYPRN PRN (Reason: mild pain)
diltiazem HCl 120 mg Capsule,Extended Release 24hr
120 mg PO DAILY Qty: 30 0RF
metoclopramide HCl 5 mg Tablet
5 mg PO AC
hydrochlorothiazide 25 mg Tablet
25 mg PO DAILY
Referrals:
Alina Piper MD [Family Provider] -
Interventions
Interventions:
*Risk Screen - Suicide Last Done: 05/26/24 12:22
*General Assessment Last Done: 05/26/24 12:22
*Neglect/Abuse Screening Last Done: 05/26/24 12:22
ED- Fall Risk Assessment Last Done: 05/26/24 12:30
*ED COVID-19 Vaccine History Last Done: 05/26/24 12:33
ED- Cardiac Assessment Last Done: 05/26/24 12:30
ED- Pulmonary Assessment Last Done: 05/26/24 12:30
Discharge Date and Time
Print Language: FRENCH
[2024-05-26] MEDS: LASIX 20 MG IV (15:24)
[2024-05-26] MEDS: KCL 40 MEQ PO (15:24)
--- NOTE | 2024-05-26 16:00 | HPS.HSE ---
Family Physician
-
Family Physician: Alina Piper
Chief Complaint
-
palpitation and SoB
History of Present Illness
HPI
79F HX Afib since 2019, HTN, Valvular disease ,moderate MR followed by CBC card , HX Rheumatic fever, seen at ER;
- acute onset of palpitations and exertional dyspnea began this morning.
- reports 5 days status post A Fib ablation performed at this hospital.
- compliant with Eliquis with the exception of the dose that was held preoperatively
At ER
K 3.4 s/p PO KCL 40 x1
IV Lasix 20 x1 `
ROS
No chest pain.
Denies leg swelling.
Medical History
Past Medical History
Past Medical History: Reports Other ( paroxysmal atrial fibrillation status post cardioversion, chronic HFpEF, rheumatic heart disease, hypertension, mitral stenosis, GERD, osteoarthritis)
Past Surgical History: Reports Other (Gynecological (Oophorectomy))
Social History
Tobacco: Non-smoker
Alcohol: Occasional
Drug: None
Family History
Family History: Other (mother with Afib )
Allergies / Home Medications
Allergies reflects when Allergies were last updated in [employer].
Home Medications with original date entered in [employer]
Allergy/Medication List:
Allergies
Allergy/AdvReac Type Severity Reaction Status Date / Time
adhesive Allergy Itching, Verified 04/03/24 16:52
Rash
propoxyphene napsylate Allergy Rash, Verified 04/03/24 16:52
[From Darvocet-N 100] Swelling
Home Medications
famotidine 20 mg tablet 20 mg PO HS Gastrointestinal issue 03/05/20
apixaban 5 mg tablet (Eliquis) 5 mg PO BID #30 tabs 03/28/20
amitriptyline 10 mg tablet 20 mg PO HS Neurological Condition 09/08/23
calcium 600 mg (as carbonate)-vitamin D3 10 mcg (400 unit) tablet (Calcium 600 + D(3)) 1 tab PO DAILY Supplement 09/08/23
cholecalciferol (vitamin D3) 50 mcg (2,000 unit) tablet (Vitamin D3) 50 mcg PO DAILY Supplement 09/08/23
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
omeprazole 40 mg capsule,delayed release 40 mg PO DAILY Gastrointestinal Issue 09/08/23
metoclopramide HCl 5 mg tablet 5 mg PO BID #1 tab 10/07/23
rizatriptan 10 mg disintegrating tablet 10 mg PO DAILYPRN PRN migraine 10/28/23
diltiazem HCl 180 mg capsule,extended release 24 hr 180 mg PO DAILY #30 caps 04/04/24
sotalol 80 mg tablet 80 mg PO BID Heart Disease/Condition 04/04/24
hydrochlorothiazide 25 mg tablet 25 mg PO DAILY #30 tabs 04/05/24
Review of Systems
-
Constitutional: Reports No Symptoms
EENT: Reports No Symptoms
Respiratory: Reports Trouble Breathing
Cardiac: Reports Palpitations
Abdomen/GI: Reports No Symptoms
: Reports No Symptoms
Musculoskeletal: Reports No Symptoms
Skin: Reports No Symptoms
Neurological: Reports No Symptoms
Endocrine: Reports No Symptoms
Hematologic/Lymphatic: Reports No Symptoms
Psych: Reports No Symptoms
Physical Exam
Vital Signs
Vital Signs
Temp Pulse Resp BP Pulse Ox
97.9 F 73 24 138/91 94
05/26/24 14:20 05/26/24 15:35 05/26/24 15:35 05/26/24 15:35 05/26/24 15:35
Physical Exam
General: Well Developed, Well Nourished and No Apparent Distress
HEENT: NormoCephalic, Moist mucous membranes and Atraumatic
Respiratory: Clear
Cardiac: S1/S2 and Regular Rhythm (s/p successful CV at ER ); No Murmur or Rub
GI: Soft, Non Tender, Non Distended and Normal Bowel Sounds; No Organomegaly
Rectal: Deferred by Provider
Musculoskeletal: No Clubbing, No Cyanosis and No Edema
Skin: No Rash
Neuro: Nonfocal/grossly intact
Laboratory Results
-
05/26/24 12:34
05/26/24 12:34
Laboratory Results
Total Bilirubin 0.9 mg/dl (0.2-1.3) 05/26/24 12:34
AST 27 U/L (14-36) 05/26/24 12:34
ALT 46 U/L (0-35) H 05/26/24 12:34
Alkaline Phosphatase 69 U/L (38-126) 05/26/24 12:34
Data Reviewed
-
Diagnostic Radiology: Other (pending report )
Medical Tests (Nuc Med, Echo, EKG etc): Report Reviewed by me
Lab Data: Labs Reviewed by me
Old Records: Reviewed
Impression/Plan
-
Vital Signs
Temp Pulse Resp BP Pulse Ox
97.9 F 73 24 138/91 94
05/26/24 14:20 05/26/24 15:35 05/26/24 15:35 05/26/24 15:35 05/26/24 15:35
Data
unremarkable CBC
K 3.4
Cl 97
CO2 33
eGFR > 60
ALT 46
Pending pro BNP
05/26/24 & 1341 EKG
SINUS RHYTHM WITH PREMATURE ATRIAL COMPLEXES
T WAVE ABNORMALITY, CONSIDER ANTEROLATERAL ISCHEMIA
ABNORMAL ECG
WHEN COMPARED WITH ECG OF 26-MAY-2024 12:19,
SINUS RHYTHM HAS REPLACED ATRIAL FLUTTER
VENT. RATE HAS DECREASED BY 34 BPM
05/26/24 & 1216 EKG
ATRIAL FIBRILLATION
ST and T WAVE ABNORMALITY, CONSIDER ANTEROLATERAL ISCHEMIA
PROLONGED QT
ABNORMAL ECG
WHEN COMPARED WITH ECG OF 22-MAY-2024 10:22,
ATRIAL FIBRILLATION HAS REPLACED SINUS RHYTHM
NONSPECIFIC T WAVE ABNORMALITY NOW EVIDENT IN INFERIOR LEADS
Confirmed by JEVON ALVARENGA MD ([id number]) on 05/26/2024 3:31:20 PM
05/26/24 Pending CXR report
05/09/24 CXR ; No acute cardiopulmonary process.
04/05/24 TTE
LV ejection fraction is 55-60%
Normal right ventricular size and function.
Massive left atrial dilation.
Rheumatic appearing MV with moderate MS, mean gradient 6 mmHg.
Moderate mitral regurgitation.
Mild aortic regurgitation.
Mild tricuspid regurgitation.
Estimated pulmonary artery pressure of 48 mmHg, assuming a right atrial pressure of 3 mmHg.
Compared to prior from October 28, 2023, mitral regurgitation is moderate, previously mild to moderate.
PRIOR hospitalist admission: Date of Admission: 05/09/24 - Date of Discharge: 05/11/24
Discharge Diagnosis/Procedures: A fib with RVR
ASSESSMENT & PLAN
In NSR s/p uncomplicated CV at ER for recurrent symtoamtic A Fib with RVR
05/22/24 S/P recent Atrial fibrillation ablation with Pulsed-Field approach for pulmonary vein isolation Roof dependent atrial flutter ablation and Posterior wall isolation by by Dr Puckett
- compliance with Eliquis - cont.
- c/w TRACE EVIDENCE TECHNICIAN Sotalol 80 mg BID , Diltiazem CD 120 daily
- CBC Card consulted
[place]; symptomatic Fast AF vs acute HF due to valvular heart dz vs acute on chr HFpEF
HX Chr HFpEF
- Pending pro BNP
- Pending final CXR report
- s/p IV Lasix 20 x 1 at ER
- Hold off further IV Lasix for now
- await Card evaluation
CARL HX
-It is documented prior second last admission that she has untreated sleep apnea
- Need OP sleep medicine f/u
Moderate MR, MS with echo evidence of massive left atrial dilation.
HX Rheumatic Dz
-Mildly symptomatic - symptoms could be related to AF.
- serial echo- most recent last month as above
Benign Hypertension:
-stable (briefly hypotensive s/p CV)
-on medical therapy- continue and monitor.
Known HX
Migraines HX
Osteoporosis
- cont home Meds
DVT Px : on TRACE EVIDENCE TECHNICIAN Eliquis
Full code
IP TLM
[2024-05-26 16:04] LABS: NT-proBNP 2840 pg/ml
[2024-05-26] MEDS: REGLAN 5 MG PO (16:52)
[2024-05-26] MEDS: PROTONIX 40 MG PO (20:54)
[2024-05-26] MEDS: BETAPACE 80 MG PO (20:54)
[2024-05-26] MEDS: ELAVIL 20 MG PO (20:54)
[2024-05-26] MEDS: ELIQUIS 5 MG PO (20:55)
[2024-05-26] MEDS: PEPCID 20 MG PO (20:55)
--- NOTE | 2024-05-26 22:30 | PTCARENOTE ---
Patient received from ED via stretcher. Patient ambulated independently into room, patient denies any palpitations or dyspnea. Patient in Normal Sinus Rhythm on tele monitor. Family at bedside. Fall precautions and room safety reviewed with patient.
Call schultz with in reach. Care ongoing, will continue to monitor.
[2024-05-27] VITALS (7 sets, daily range): BP systolic 109–136; BP diastolic 53–81; BMI 27.8
[2024-05-27 06:01] LABS: Hematocrit 32.3 % (37.0-47.0); Hemoglobin 10.6 g/dL (12.0-16.0); Mean Corp Hgb Conc. 32.8 g/dL (33.0-37.0); Mean Corpuscular Hgb 29.3 pg (27.0-31.0); Mean Corpuscular Volume 89.2 fL (81.0-99.0); Mean Platelet Volume 10.2 fL (7.4-10.4); Platelet Count 192 10^3/uL (130-400); Red Blood Cell Count 3.62 10^6/uL (4.20-5.40); Red Cell Dist. Width 13.4 % (11.5-14.5); White Blood Cell Count 5.6 10^3/uL (4.8-10.8)
[2024-05-27 06:23] LABS: Blood Urea Nitrogen 22 mg/dl (7-17); Calcium 9.8 mg/dl (8.4-10.2); Carbon Dioxide 32 mmol/L (22-30); Chloride 99 mmol/L (98-107); Estimated Creatinine Clearance 55 ml/min; Glucose 109 mg/dl (70-99); Potassium 3.5 mmol/L (3.5-5.1); Sodium 138 mmol/L (135-145); eGFR > 60.00
[2024-05-27] MEDS: CARDIZEM CD 120 MG PO (08:18)
[2024-05-27] MEDS: BETAPACE 80 MG PO ×2 (08:18→20:29)
[2024-05-27] MEDS: ELIQUIS 5 MG PO ×2 (08:18→20:30)
[2024-05-27] MEDS: REGLAN 5 MG PO ×3 (08:19→16:43)
[2024-05-27] MEDS: ORETIC 25 MG PO (08:19)
--- NOTE | 2024-05-27 10:23 | CON.CAR ---
Consultation
Consultation Request
Date/Time Consultation Requested: 05/27/2024
Date/Time Consultation Performed: 05/27/2024
Requesting Provider: Dr. Jauregui
Performing Provider: Dr. Oneill
Reason for Consultation: CHF/AF
Medical History
-
Chief Complaint: AF/SOB
History of Present Illness:
79 y/o female with PAF (CV 10/31/23, 04/04/24) status-post cardioversions x 6 and recent ablation (05/22/[address] Lamb; on Eliquis), chronic HFpEF, moderate MS and MR, hypertension, untreated CARL, and GERD hypertension admitted with atrial
fibrillation with RVR and CHF. The patient's daughter is an Emergency Physician and noticed that the patient's heart rate was elevated at home. Upon arrival to the ER, the patient was in A-fib with RVR and was cardioverted there; she was then
admitted for for management of CHF.
Past Medical History
Past Medical History: Arrhythmias, GERD, HTN and Valvular Disease
Past Surgical History: Cardiac (AFib ablation 05/22/2024) and Gynecological (Oophorectomy)
Social History
Tobacco: Non-Smoker
Family History
Family History: Reviewed & Not Pertinent
Allergies / Home Medications
Allergy/AdvReac Type Severity Reaction Status Date / Time
adhesive Allergy Itching, Verified 05/26/24 12:21
Rash
propoxyphene napsylate Allergy Rash, Verified 05/26/24 12:21
[From Darvocet-N 100] Swelling
�Medication �Instructions �Recorded �Confirmed �Type
famotidine 20 mg tablet 20 mg PO HS Gastrointestinal issue 03/05/20 05/26/24 History
apixaban 5 mg tablet (Eliquis) 5 mg PO BID #30 tabs 03/28/20 05/26/24 Rx
amitriptyline 10 mg tablet 20 mg PO HS Neurological Condition 09/08/23 05/26/24 History
cholecalciferol (vitamin D3) 50 50 mcg PO DAILY Supplement 09/08/23 05/26/24 History
mcg (2,000 unit) tablet (Vitamin
D3)
denosumab 60 mg/mL subcutaneous 60 mg SC [id number] Autoimmune 09/08/23 05/26/24 History
syringe (Prolia) Disorder
omeprazole 40 mg capsule,delayed 40 mg PO DAILY Gastrointestinal 09/08/23 05/26/24 History
release Issue
sotalol 80 mg tablet 80 mg PO BID Heart 04/04/24 05/26/24 History
Disease/Condition
diltiazem HCl 120 mg 120 mg PO DAILY #30 caps 05/11/24 05/26/24 Rx
capsule,extended release 24 hr
hydrochlorothiazide 25 mg tablet 25 mg PO DAILY 05/22/24 05/26/24 History
metoclopramide HCl 5 mg tablet 5 mg PO AC 05/22/24 05/26/24 History
Review of Systems
-
History Source: Patient
All other systems: Negative unless noted
Physical Exam
Vital Signs
Temp Pulse Resp BP Pulse Ox
98 F 65 19 119/71 95
05/27/24 09:09 05/27/24 09:09 05/27/24 09:09 05/27/24 09:09 05/27/24 09:53
Lab Results
05/27/24 05:10
05/27/24 05:10
Eiv-W-Sefsyjrpzir Pept 2840 pg/ml 05/26/24 15:27
Physical Exam
General: No Apparent Distress and Comfortable
HEENT: Anicteric and Moist Mucous Membranes
Respiratory: Crackles (Bilateral)
Cardiac: S1/S2, Regular Rhythm, Murmur (2/6) and Peripheral Edema (Trace)
Breast: Deferred by me
GI: Soft and Non Tender
Rectal: Deferred by Provider
Musculoskeletal: No Clubbing, No Cyanosis and Edema (Trace)
Skin: Warm and Dry
Neuro: AO x 3
Psych: Calm
Impression / Plan
-
79 y/o female with PAF (CV 10/31/23, 04/04/24) status-post cardioversions x 6 and recent ablation (05/22/[address] Lamb; on Eliquis), chronic HFpEF, moderate MS and MR, hypertension, untreated CARL, and GERD hypertension admitted with atrial
fibrillation with RVR and CHF. The patient's daughter is an Emergency Physician and noticed that the patient's heart rate was elevated at home. Upon arrival to the ER, the patient was in A-fib with RVR and was cardioverted there; she was then
admitted for for management of CHF.
AFIB with RVR:
-Remains in sinus rhythm status-post cardioversion yesterday.
-Continue sotalol 80 mg twice daily and Cardizem CD 120 mg daily.
-Continue Eliquis 5 mg twice daily.
-EP Cardiology to reevaluate patient tomorrow to determine future management strategy (may include permanent pacemaker plantation).
Acute on chronic HFpEF:
-Echocardiogram 04/05/2024: LVEF 55-60%; moderate MS/MR.
-Patient with bilateral crackles on examination.
-Patient is on hydrochlorothiazide at home.
-Will discontinue hydrochlorothiazide and place on Lasix 20 mg IV BID for now; patient should be placed on Lasix (20 mg or 40 mg PO daily) prior to discharge home--hydrochlorothiazide should not be resumed.
Hypertension:
-Blood pressure is controlled.
Moderate MR/MS:
-Diuretic management as above.
CARL
-It is documented last admission that she has untreated sleep apnea.
-Recommend outpatient treatment.
Data Reviewed
-
EKG: Report Reviewed by me (Telemetry: Sinus rhythm. EKG: Sinus rhythm with PACs.)
Medical Tests (Nuc Med, Echo etc): Report Reviewed by me (03/2024: EF 55-60%, moderate MS/MR)
Labs: Labs Reviewed by me
[2024-05-27] MEDS: LASIX 20 MG IV ×2 (11:18→16:43)
--- NOTE | 2024-05-27 14:15 | W.PN.HOSP.TC ---
Today's Communication/Plan
-
IV diuretics
Await EP evaluation tomorrow
Assessment / Plan
Assessment / Plan
Physical Exam
General: No Apparent Distress and Comfortable
HEENT: Anicteric and Moist Mucous Membranes
Respiratory: Crackles (Bilateral)
Cardiac: S1/S2, Regular Rhythm, Murmur (2/6) and Peripheral Edema (Trace)
Breast: Deferred by me
GI: Soft and Non Tender
Rectal: Deferred by Provider
Musculoskeletal: No Clubbing, No Cyanosis and Edema (Trace)
Skin: Warm and Dry
Neuro: AO x 3
Psych: Calm
#Atrial fibrillation with RVR
� Remains in sinus rhythm status post cardioversion yesterday
� Continue sotalol 80 mg twice a day and Cardizem CD 120 mg daily
� Eliquis
� EP will evaluate tomorrow for further management
#Acute on chronic HFpEF
� Bilateral crackles
� Lasix 20 mg IV twice daily
� Stop hydrochlorothiazide
� Patient should be placed on p.o. Lasix either 20 mg or 40 mg daily on discharge
#Essential hypertension
� Continue medical therapy
CARL
-It is documented prior second last admission that she has untreated sleep apnea
- Need OP sleep medicine f/u
Valvular abnormalities
Moderate MR, MS with echo evidence of massive left atrial dilation.
HX Rheumatic Dz
-Mildly symptomatic - symptoms could be related to AF.
- serial echo- most recent last month as above
Known HX
Migraines HX
Osteoporosis
- cont home Meds
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
Full code
Anticipated Discharge: 24 - 48 hours
Subjective/Interval History
-
Date of Service: May 27, 2024
Feels better, no acute events overnight
Objective Data
-
Labs:
Laboratory Results
05/27/24
05:10
WBC 5.6
Hgb 10.6 L
Hct 32.3 L
Plt Count 192
Sodium 138
Potassium 3.5
Chloride 99
Carbon Dioxide 32 H
BUN 22 H
Creatinine 0.7
Glucose 109 H
Calcium 9.8
Vital Signs:
Vital Signs
Temp Pulse Resp BP Pulse Ox
98.2 F 62 20 136/81 96
05/27/24 12:44 05/27/24 12:44 05/27/24 12:44 05/27/24 12:44 05/27/24 12:44
I&O
05/26/24 05/27/24 05/28/24
06:59 06:59 06:59
Intake Total 480 / 480
Balance 480 / 480
Review of Systems
-
History Source: Patient
All other systems: Not reviewed unless documented
Data Reviewed
-
Diagnostic Radiology: Report Reviewed by me
Labs: Labs Reviewed by me
[2024-05-27] MEDS: ELAVIL 20 MG PO (20:30)
[2024-05-27] MEDS: PEPCID 20 MG PO (20:30)
[2024-05-27] MEDS: PEPCID PO (20:31)
[2024-05-27] MEDS: PROTONIX 40 MG PO (20:31)
[2024-05-27] MEDS: PROTONIX PO (20:35)
[2024-05-28] VITALS (7 sets, daily range): BP systolic 99–146; BP diastolic 58–84; BMI 27.2
[2024-05-28 06:47] LABS: ALT (SGPT) 33 U/L (0-35); AST (SGOT) 22 U/L (14-36); Alkaline Phosphatase 69 U/L (38-126); Blood Urea Nitrogen 27 mg/dl (7-17); Calcium 10.3 mg/dl (8.4-10.2); Carbon Dioxide 34 mmol/L (22-30); Chloride 94 mmol/L (98-107); Estimated Creatinine Clearance 54 ml/min; Glucose 101 mg/dl (70-99); Potassium 3.8 mmol/L (3.5-5.1); Sodium 134 mmol/L (135-145); Total Bilirubin 0.6 mg/dl (0.2-1.3); Total Protein 6.7 g/dl (6.3-8.2); eGFR > 60.00
[2024-05-28 07:23] LABS: Hematocrit 35.8 % (37.0-47.0); Hemoglobin 11.9 g/dL (12.0-16.0); Mean Corp Hgb Conc. 33.2 g/dL (33.0-37.0); Mean Corpuscular Hgb 29.2 pg (27.0-31.0); Mean Platelet Volume 10.1 fL (7.4-10.4); Platelet Count 237 10^3/uL (130-400); Red Blood Cell Count 4.07 10^6/uL (4.20-5.40); White Blood Cell Count 5.3 10^3/uL (4.8-10.8)
[2024-05-28] MEDS: CARDIZEM CD 120 MG PO (09:01)
[2024-05-28] MEDS: BETAPACE 80 MG PO ×2 (09:04→21:30)
[2024-05-28] MEDS: REGLAN 5 MG PO ×2 (09:05→17:24)
[2024-05-28] MEDS: ELIQUIS 5 MG PO ×2 (09:05→21:41)
[2024-05-28] MEDS: LASIX 20 MG IV ×2 (09:06→17:25)
[2024-05-28] MEDS: NITROSTAT (SUBLINGUAL) 0.4 MG SL ×3 (12:00→12:47)
--- NOTE | 2024-05-28 12:00 | PTCARENOTE ---
pt complaining of chest pressure 6/10 not radiating, vital signs obtained, ekg completed, MD on floor and made aware. will continue to monitor
[2024-05-28] MEDS: TORADOL 15 MG IV (13:04)
[2024-05-28 13:10] LABS: Procalcitonin < 0.05 ng/ml (0.0-0.25)
--- NOTE | 2024-05-28 13:53 | W.PN.HOSP.TC ---
Today's Communication/Plan
-
Check serial troponins. Give a trial of sublingual nitro and if no improvement a trial of Toradol. Follow chest x-ray with diuresis
Continue with IV Lasix.
Follow on telemetry.
Assessment / Plan
Assessment / Plan
# Chest lcbs-xoaq-uzpkc-nonspecific. There is a reproducible musculoskeletal complement. No history of CAD. EKG repeat shows nonspecific ST changes in anterolateral leads. Currently in sinus rhythm. Not pleuritic in nature. Holding
anticoagulation. Will check serial troponins. Will give a trial of sublingual nitro and if no help trial of Toradol as well. Continue to follow on telemetry.
# Left lower lobe opacity-chest x-ray shows moderate left lower lobe airspace disease. No prodrome of respiratory illness. She has bilateral crackles on clinical auscultation. Unclear if this is fluid. Not acting like typical pneumonia. Hold on
antibiotics. Check a procalcitonin. Follow-up chest x-ray with diuresis.
#Atrial fibrillation with RVR
� Remains in sinus rhythm status post cardioversion 05/27
� Continue sotalol 80 mg twice a day and Cardizem CD 120 mg daily
� Eliquis
� EP will evaluate for further management
#Acute on chronic HFpEF
� Bilateral crackles
�cw Lasix 20 mg IV twice daily
� Stop hydrochlorothiazide
� Patient should be placed on p.o. Lasix either 20 mg or 40 mg daily on discharge
#Essential hypertension
� Continue medical therapy
CARL
-It is documented prior second last admission that she has untreated sleep apnea
- Need OP sleep medicine f/u
Valvular abnormalities
Moderate MR, MS with echo evidence of massive left atrial dilation.
HX Rheumatic Dz
-Mildly symptomatic - symptoms could be related to AF.
- serial echo- most recent last month as above
Known HX
Migraines HX
Osteoporosis
- cont home Meds
DW daughter at bedside regarding the clinical data and treatment plan. 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
Full code
Total time spent on today's encounter was 52 minutes which included time spent in counseling the patient/family regarding diagnosis and treatment plan as listed above, goals of care, and symptom management. Case was discussed with nursing staff,
specialists, and care coordinators/case management. All labs and imaging personally reviewed by me. Remainder the time spent in detailed review of previous records, lab data, imaging, and other medical provider documentation.
Anticipated Discharge: 24 - 48 hours
Subjective/Interval History
-
Date of Service: May 28, 2024
This morning she had a chest pressure and pointed to the left side. She had chest pressure for 20 minutes before my assessment.
Localized. Mild to moderate. No radiation. No associated nausea, sweating or dizziness. No associated shortness of breath. Not pleuritic in nature.
No prior history of CAD or angina.
Denies any sore throat or cough.
Objective Data
-
Labs:
Laboratory Results
05/28/24 05/28/24
05:10 05:11
WBC 5.3
Hgb 11.9 L
Hct 35.8 L
Plt Count 237 D
Sodium 134 L
Potassium 3.8
Chloride 94 L
Carbon Dioxide 34 H
BUN 27 H
Creatinine 0.7
Glucose 101 H
Calcium 10.3 H
Total Bilirubin 0.6
AST 22
ALT 33
Alkaline Phosphatase 69
Vital Signs:
Vital Signs
Temp Pulse Resp BP Pulse Ox
98.1 F 64 17 115/72 97
05/28/24 11:10 05/28/24 13:49 05/28/24 11:10 05/28/24 13:49 05/28/24 11:10
I&O
05/27/24 05/28/24 05/29/24
06:59 06:59 06:59
Intake Total 480 / 480 1470 / 0
Balance 480 / 480 1470 / 0
Review of Systems
-
Constitutional: Denies Fever or Chills
Cardiac: Denies Palpitations
Abdomen/GI: Denies Abdominal Pain, Nausea, Vomiting or Diarrhea
Neuro: Denies Dizzy
Physical Exam
-
General: No Apparent Distress
HEENT: Moist Mucous Membranes
Respiratory: Crackles (bl basal areas), Non Labored Respirations and Chest Tubes (tenderness which was reproducible noted in left CC area in IC 3-5 area . No skin burn from recent CV noted.); Negative Wheezes or Accessory Resp Muscle Use
Cardiac: Regular Rhythm and S1/S2
Neuro: AO x 3
Psych: Calm
Data Reviewed
-
Labs: Labs Reviewed by me
[2024-05-28] MEDS: MORPHINE SULFATE 2 MG IV (14:13)
--- NOTE | 2024-05-28 15:20 | W.PN.CD ---
Today's Communication / Plan
-
- Continue Sotalol, and Diltiazem
- Switch Lasix to 40 mg QD at discharge.
Impression / Plan
-
79 y/o female with PAF (CV 10/31/23, 04/04/24) status-post cardioversions x 6 and recent ablation (05/22/[address] Lamb; on Eliquis), chronic HFpEF, moderate MS and MR, hypertension, untreated CARL, and GERD hypertension admitted with atrial
fibrillation with RVR and CHF. The patient's daughter is an Emergency Physician and noticed that the patient's heart rate was elevated at home. Upon arrival to the ER, the patient was in A-fib with RVR and was cardioverted there; she was then
admitted for for management of CHF.
AFIB with RVR:
- AF ablation a week ago
-Troponin is of no value in immediate post ablation period.
-Remains in sinus rhythm status-post cardioversion
-Continue sotalol 80 mg twice daily and Cardizem CD 120 mg daily.
-Continue Eliquis 5 mg twice daily.
-Slow heart rate to 50-60s but no pauses noted.
-Telemetry showed NSR with PACs and PVCs. Continue Sotalol and with RVR at presentation can continue Diltiazem.
- Despite slower heart rate, the QTc is acceptable.
- No need for PPM at this time
- Post ablation inflammatory response - with rotated anatomy and persistent AF nature, she might go [facility] within next 2-3 weeks before ablation is matured
- Plan for DCCV if AF recurs.
Acute on chronic HFpEF:
-Echocardiogram 04/05/2024: LVEF 55-60%; moderate MS/MR.
-Patient with bilateral crackles on examination.
-Patient is on hydrochlorothiazide at home.
-on Lasix 20 mg IV BID for now; patient should be placed on Lasix (20 mg PO daily) prior to discharge home--hydrochlorothiazide should not be resumed (On Sotalol).
Hypertension:
-Blood pressure is controlled.
Moderate MR/MS:
-Diuretic management as above.
- LA pressure was ~ 20 at the time of ablation.
-Keep Sotalol on board
-Avoid tachycardia.
- On Lasix.
CARL
-It is documented last admission that she has untreated sleep apnea.
-Recommend outpatient treatment.
Physical Exam
Vital Signs/Labs
Vital Signs
Temp Pulse Resp BP Pulse Ox
98.1 F 64 17 115/72 97
05/28/24 11:10 05/28/24 13:49 05/28/24 11:10 05/28/24 13:49 05/28/24 11:10
05/27/24 05/28/24 05/29/24
06:59 06:59 06:59
Actual Weight 64.495 kg 63.276 kg
05/28/24 05:10
05/28/24 05:11
05/26/24
15:27
Crm-M-Vvgikkbzkbl Pept 2840
LAB Results
05/28/24
12:20
Troponin I 0.050 H*
Physical Exam
Constitutional: No acute distress and Comfortable
EENT: Anicteric and Moist mucous membranes
Cardiovascular: Rhythm & rate is regular, Pedal edema present, JVD present and Systolic murmur present
Respiratory: Respiratory effort normal, Rhonchi Absent and Crackles Present
GI: Soft, Non tender and Normal bowel sounds
Neuro/Psych: Alert, Oriented and AO x 3
Other: Cath Site
Data Reviewed
-
Date of Service: May 28, 2024
Medical Decision Making: Reviewed Test Results, Test Interpretation and Review of Case with other Provider
EKG: Tracing Personally Visualized and interpreted
Echo: Report Reviewed by me
X-Ray/CT/US/MRI/NUC/PET: Image Personally Visualized and interpreted
Labs: Labs Reviewed by me
Old Records: Reviewed
--- NOTE | 2024-05-28 17:04 | CM ---
Alert awake oriented patient who lives with her sister Megan who lives in a 2 story home with 1 steps to enter and bed /bathroom on first floor. She is independent in driving and in all activities of daily living.Offered VN she declined.She has a
walker she does not use.
Never had VN/SNF
Pharmacy [facility]
PCP Dr Piper
PLAN Home no needs
[2024-05-28] MEDS: REGLAN PO (17:18)
[2024-05-28 18:57] LABS: Troponin I 0.053 ng/ml
[2024-05-28] MEDS: PROTONIX 40 MG PO ×2 (21:30→21:41)
[2024-05-28] MEDS: ELAVIL 20 MG PO (21:30)
[2024-05-28] MEDS: PEPCID 20 MG PO ×2 (21:30→21:40)
--- NOTE | 2024-05-29 01:46 | PTCARENOTE ---
Patient with two elevated Troponin levels s/p an episode of CP on prior shift. No third troponin ordered. Last troponin drawn approx. 6 hours ago. SONIA Torrez made aware that no 3rd Troponin ordered. No new orders received. Will continue to
monitor.
[2024-05-29 03:50] VITALS: BP 134/74
[2024-05-29 05:50] LABS: Hematocrit 35.9 % (37.0-47.0); Hemoglobin 11.9 g/dL (12.0-16.0); Mean Corp Hgb Conc. 33.1 g/dL (33.0-37.0); Mean Corpuscular Hgb 29.2 pg (27.0-31.0); Mean Corpuscular Volume 88.2 fL (81.0-99.0); Mean Platelet Volume 9.9 fL (7.4-10.4); Platelet Count 236 10^3/uL (130-400); Red Blood Cell Count 4.07 10^6/uL (4.20-5.40); White Blood Cell Count 4.7 10^3/uL (4.8-10.8)
[2024-05-29 06:00] VITALS: BMI 27.4
[2024-05-29 06:10] LABS: ALT (SGPT) 27 U/L (0-35); AST (SGOT) 22 U/L (14-36); Albumin 3.8 g/dl (3.5-5.0); Alkaline Phosphatase 60 U/L (38-126); Blood Urea Nitrogen 34 mg/dl (7-17); Calcium 10.1 mg/dl (8.4-10.2); Carbon Dioxide 35 mmol/L (22-30); Chloride 91 mmol/L (98-107); Estimated Creatinine Clearance 34 ml/min; Glucose 104 mg/dl (70-99); Potassium 3.7 mmol/L (3.5-5.1); Sodium 133 mmol/L (135-145); Total Bilirubin 0.5 mg/dl (0.2-1.3); Total Protein 6.3 g/dl (6.3-8.2); eGFR 51.11
[2024-05-29 07:10] VITALS: BP 103/69
[2024-05-29] MEDS: BETAPACE 80 MG PO (08:24)
[2024-05-29] MEDS: CARDIZEM CD 120 MG PO (08:27)
[2024-05-29] MEDS: REGLAN 5 MG PO ×2 (08:28→11:36)
[2024-05-29] MEDS: ELIQUIS 5 MG PO (08:28)
[2024-05-29] MEDS: LASIX 20 MG IV (08:29)
[2024-05-29 11:17] VITALS: BP 117/69
--- NOTE | 2024-05-29 14:54 | W.PN.HOSP.TC ---
Today's Communication/Plan
-
Decrease sotalol to 40 mg twice a day.
Hold Lasix.
Repeat chest x-ray two-view.
Assessment / Plan
Assessment / Plan
# Chest buoi-zehm-qijid-nonspecific. There is a reproducible musculoskeletal complement. No history of CAD. EKG repeat shows nonspecific ST changes in anterolateral leads. Currently in sinus rhythm. Not pleuritic in nature. On AC. serial
troponins shows non ischemic myocardial injury pattern possible from ablation/ECV.
Now resolved.
# Left lower lobe opacity-chest x-ray shows moderate left lower lobe airspace disease. No prodrome of respiratory illness. She has bilateral crackles on clinical auscultation. Unclear if this is fluid. Not acting like typical pneumonia. Hold on
antibiotics. Normal procalcitonin. Follow-up chest x-ray today. Remains on RA.
#Atrial fibrillation with RVR
� Remains in sinus rhythm status post cardioversion 05/27
� On sotalol 80 mg twice a day and Cardizem CD 120 mg daily-cardiology recommended to made to drop sotalol to 40 mg twice a day and check a renal function in a week
� Eliquis
�
#Acute on chronic HFpEF
� Wt is down and Cr is raising .Hold further Lasix and follow
� Stop hydrochlorothiazide
� Patient should be placed on p.o. Lasix either 20 mg or 40 mg daily on discharge
#Essential hypertension
� Continue medical therapy
CARL
-It is documented prior second last admission that she has untreated sleep apnea
- Need OP sleep medicine f/u
Valvular abnormalities
Moderate MR, MS with echo evidence of massive left atrial dilation.
HX Rheumatic Dz
-Mildly symptomatic - symptoms could be related to AF.
- serial echo- most recent last month as above
Known HX
Migraines HX
Osteoporosis
- cont home Meds
DW Cards
DW Son at bedside , updated clinical picture and tx /follow up plan
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
Full code
Anticipated Discharge: 24 - 48 hours
Subjective/Interval History
-
Date of Service: May 29, 2024
No further chest pain. Denies any shortness of breath. No palpitations. No nausea vomiting.
Objective Data
-
Labs:
Laboratory Results
05/29/24
05:11
WBC 4.7 L
Hgb 11.9 L
Hct 35.9 L
Plt Count 236
Sodium 133 L
Potassium 3.7
Chloride 91 L
Carbon Dioxide 35 H
BUN 34 H
Creatinine 1.1 H
Glucose 104 H
Calcium 10.1
Total Bilirubin 0.5
AST 22
ALT 27
Alkaline Phosphatase 60
Vital Signs:
Vital Signs
Temp Pulse Resp BP Pulse Ox
97.9 F 63 18 117/69 98
05/29/24 11:17 05/29/24 11:17 05/29/24 11:17 05/29/24 11:17 05/29/24 11:17
I&O
05/28/24 05/29/24 05/30/24
06:59 06:59 06:59
Intake Total 1470 / 1470 1200 / 1200
Balance 1470 / 1470 1200 / 1200
Review of Systems
-
Constitutional: Denies Fever
EENT: Denies Sore Throat
Respiratory: Denies Cough
Abdomen/GI: Denies Abdominal Pain
Neuro: Denies Dizzy or Headache
Physical Exam
-
General: No Apparent Distress
HEENT: Moist Mucous Membranes
Respiratory: Crackles (More audible in the left lower zone still persistent in the right basilar area), Non Labored Respirations and Other ( left costochondral/5 area still with point tenderness); Negative Wheezes or Accessory Resp Muscle Use
Cardiac: Regular Rhythm (SR on monitor) and S1/S2; Negative Tachycardic
GI: Soft and Nontender
Neuro: AO x 3
Data Reviewed
-
Labs: Labs Reviewed by me
[2024-05-29 15:10] VITALS: BP 149/74
--- NOTE | 2024-05-29 15:56 | CM ---
MD entered order for discharge.
Pt said she was ready for discharge.
IMM reviewed signed on chart.
Offered VN she declined need.
Chucks will drive her home.
PLAN Home no needs
== END 2024-05-29 17:01 | disposition home or self-care (01) | DRG 291 ==
LOC: 3 WEST ACU 16:17
PROVIDERS: Internal Medicine; Physician Assistant; ADMITTING PHYSICIAN Internal Medicine; ATTENDING PHYSICIAN Internal Medicine; CONSULT PHYSICIAN Internal Medicine; EMERGENCY PHYSICIAN Emergency Medicine; FAMILY PHYSICIAN Family Medicine
DX: I11.0 Hypertensive heart disease with heart failure (principal); I50.33 Acute on chronic diastolic (congestive) heart failure; I48.19 Other persistent atrial fibrillation; I95.9 Hypotension, unspecified; G47.33 Obstructive sleep apnea (adult) (pediatric)
CPT/HCPCS: 71046; 80048; 80053; 83880; 84145; 84484; 85025; 85027; 92960; 93005; 96374; 99152; 99285

== ENCOUNTER 2024-06-06 04:15 | Inpatient (IN) | payer MEDICARE, OTHER, SELFPAY ==
[2024-06-05 23:33] VITALS: BP 150/95
[2024-06-05 23:47] VITALS: BP 149/101
[2024-06-06] VITALS (45 sets, daily range): BP systolic 93–139; BP diastolic 54–100; PULSE 81–120; O2SAT 99; BMI 27.7
--- NOTE | 2024-06-06 00:30 | ED.GENMED ---
History of Present Illness
General
Chief Complaint: Heart Rate Problem
Time Seen by Provider: 06/06/24 00:04
History of Present Illness
History of Present Illness:
Patient is a 79-year-old female with history of A-fib on Eliquis, recent ablation by Dr. perez on May 22 presenting to the emergency department with elevated heart rate. Patient states that at 10 PM she felt as if she went into A-fib. Her
heart rate on the watch is in the 140s. She is having some palpitations and difficulty speaking in full sentences given the heart rate. She called her communication professor who told her to come to the emergency department for cardioversion. Patient was
recently admitted for CHF exacerbation after she was in A-fib with RVR. She is on Lasix 20 mg daily. However she does state that she is 6 pounds higher than her dry weight. They did adjust her sotalol and decrease it to 40 mg since she is on
diltiazem. She was having issues with bradycardia while she was in sinus and there is possibility of having a pacemaker placed. Given the issues with bradycardia is why she did not take an additional p.o. medication and came here for cardioversion
Past History
Past History
ED Past Medical History: Arrthythmia (A fib), Valvular disease (followed by dr whyte) and Other (Rheumatic fever, Murmur); Negative Asthma, HTN, IDDM or NIDDM
ED Past Surgical History: Gynecological (Oophorectomy)
Social History
Tobacco: Non-smoker
Alcohol: Occasional
Drug: None
Personal:
Living: alone
Employment: Retired
Family History
Family History: Other
Phy Exam
Physical Exam
Physical Exam:
GENERAL: in no acute distress
HEENT: normocephalic, extraocular movements intact, moist oral mucosa
NECK: normal inspection
RESPIRATORY: no respiratory distress, crackles at bases
CARDIOVASCULAR: irregularly irregular, tachycardic
ABDOMEN/: soft, non-distended, non-tender to palpation, no rebound or guarding
EXTREMITIES: non-tender, mild pitting edema bilaterally
NEUROLOGIC: awake and alert, moves all extremities
SKIN: warm
Course
Orders/Labs/Results
Orders:
Orders
06/05/24 23:35
Electrocardiogram (*1) Urgent
Reason for Study: Atrial Fibrillation
Complete Blood Count/With Diff Urgent
Comprehensive Metabolic Panel Urgent
06/05/24 23:36
EKG- Treatment ONCE
06/06/24 00:11
Add On- LAB Urgent
Tests Added?: pro bnp
Magnesium Urgent
Comment: ADD ON
NT-proBNP Urgent
Comment: ADD ON-SERUM
06/06/24 01:26
Add On- LAB Urgent
Tests Added?: bnp
06/06/24 01:35
Propofol [Diprivan] 20 ml .ROUTE .STK-MED
06/06/24 01:44
EKG [Electrocardiogram (*1)] Urgent
Reason for Study: Other
Other Reason for Exam: post cardioversion
EKG- Treatment ONCE
06/06/24 01:49
EKG [Electrocardiogram (*1)] Stat
Reason for Study: Other
Other Reason for Exam: post cardioverison
EKG- Treatment ONCE
06/06/24 01:56
Add On- LAB Stat
Tests Added?: magnesium
06/06/24 01:57
EKG [Electrocardiogram (*1)] Stat
Reason for Study: Other
Other Reason for Exam: post cardioverison
EKG- Treatment ONCE
06/06/24 02:28
Diltiazem HCl [Cardizem] 10 mg IV NOW STA
Diltiazem INFUSION NOW X 1 BAG Diltiazem 125 mg/125 ml Nss [Cardizem] 125 mg in 125 ml IV NOW
Initial dose in mg/hr, then titrate:: 5
Titrate to keep:: Heart rate 80-100 bpm
Titrate by mg/hr:: 5 mg/hr
Frequency of titrations (minutes):: 15
Maximum dose in mg/hr:: 15
Abnormal Lab Results
06/06/24
00:11
Hct 36.7 L %
(37.0-47.0)
Glucose 111 H mg/dl
(70-99)
06/06/24 00:11
06/06/24 00:11
Vital Signs
Initial and Last Documented VS:
Initial Vital Signs
Temp Pulse Resp BP Pulse Ox
97.6 F 138 20 150/95 98
06/05/24 23:33 06/05/24 23:33 06/05/24 23:33 06/05/24 23:33 06/05/24 23:33
Last Documented Vital Signs
Temp Pulse Resp BP Pulse Ox
98.3 F 101 21 107/71 97
06/06/24 01:33 06/06/24 02:01 06/06/24 02:01 06/06/24 02:01 06/06/24 02:01
Procedures
Moderate Sedation
ASA Risk Score: Class II
Chart and allergies reviewed: Yes
Consent for anesthesia obtained: Yes
Time out completed (validating right patient & procedure): Yes
Moderate Sedation Start Time(when first medication is given): 00:41
History of difficult intubation: No
Airway free of obstruction: Yes
Patient has a gag reflex: Yes
Patient is able to open mouth: Yes
Patient has no dentures: Yes
Patient has no loose teeth: Yes
Medication administered by Provider during Moderate Sedation: IV Propofol (mg)
Total dose administered: 90
Time drug administered: 00:41
Moderate Sedation Procedure End Time: 00:55
Cardioversion
Indication:: Afib
Performed by:: Dr Quintero
Synchronized?: Yes
Energy Used: 200 joules
Number of attempts: 200J x2, 250J x1
Successful?: No
ASA Risk Score: Class II
Any reaction or bad outcome to prior sedation/anesthesia?: No history of a reaction
Sedation level to be attained: minimal
Chart and allergies reviewed: Yes
Patient reassessed prior to sedation: Yes
Time out completed at (validating right patient & procedure): 00:40
History of difficult intubation: No
Airway free of obstruction: Yes
Patient has a gag reflex: Yes
Patient is able to open mouth: Yes
Patient has no dentures: Yes
Patient has no loose teeth: Yes
Medication administered by Provider during Moderate Sedation: IV Propofol (mg)
Total dose administered: 90
Time drug administered: 00:41
Start Time: 00:41
Stop Time: 00:55
MDM/Problems Addressed
Differential Diagnosis Includes:
79-year-old female with history of A-fib on Eliquis sotalol diltiazem with recent ablation and cardioversion presenting to the emergency department with elevated heart rate. On arrival here patient is tachycardic in the 140s and exam does show mild
volume overload. EKG per my interpretation is consistent with A-fib with RVR. patient is unclear cause of her triggers. No recent illnesses or symptoms to suggest ACS. She is compliant with her Eliquis. Will check blood work. I did discuss
starting diltiazem while blood work results however patient's daughter at bedside would prefer to go straight to the cardioversion. She is requesting to talk to cardiology as well for any medication adjustments. I did reach out to Dr. Hong from
cardiology who recommended discharge if out of A-fib with no medications adjustments given patient symptomatic bradycardia.
*Critical Care Note
Total Time (30-74mins, 75-104mins- exclusive of procedures): 35
comment:
Critical care statement: A total of 35 minutes of critical care time was provided for this patient. This includes management of unstable vital signs, evaluation of the patient at bedside, reviewing the patient's pertinent medical records, ordering
and reviewing studies, arranging urgent treatment with development of a management plan, evaluating patient's response to treatment, frequent reassessment, and discussion with consultants. This time was separate from time utilized to perform the
aforementioned documented procedures.
Update Note
Update Note:
Attempted cardioversion x 3 that were unsuccessful. After the first cardioversion patient intermittently did go to normal sinus rhythm for a few seconds however then went back into A-fib. After the second attempt patient remained in A-fib. After
the third attempt patient did briefly go into normal sinus rhythm with multiple PVCs however ultimately went back into A-fib. I did update patient's daughter. She does state that during the last cardioversion she did have multiple PVCs and PACs
that were causing difficulty. Given that the cardioversion was unsuccessful we will start patient on diltiazem bolus and drip. Will give small bolus given patient's prior bradycardia with it. Discussed with hospitalist who accepted patient to
their service
ED Attending Note
-
Portions of this chart may have been created with voice recognition software.� Occasional wrong word or��sound alike� substitutions may have occurred due to the inherent limitations of voice recognition software.
Discharge Plan
Departure
Patient Disposition: Admit
Date of Disposition: 06/06/24
Time of Disposition: 02:34
Presentation/result/management discussed w/ accepting MD/DO: Hospitalist
Discharge Problem:
Atrial fibrillation
Prescriptions:
No Action
famotidine 20 MG tablet
20 mg PO HS
Eliquis 5 MG tablet
5 mg PO BID Qty: 30 3RF
omeprazole 40 mg Capsule,Delayed Release(Dr/Ec)
40 mg PO DAILY
amitriptyline 10 mg Tablet
20 mg PO HS
cholecalciferol (vitamin D3) [Vitamin D3] 50 mcg (2,000 unit) Tablet
50 mcg PO DAILY
Prolia 60 mg/mL Syringe
60 mg SC [id number]
diltiazem HCl 120 mg Capsule,Extended Release 24hr
120 mg PO DAILY Qty: 30 0RF
metoclopramide HCl 5 mg Tablet
5 mg PO AC
sotalol 80 mg Tablet
40 mg PO BID Qty: 60 0RF
Rx Instructions:
Dose decreased on this admission
furosemide [Lasix] 40 mg tablet
40 mg PO DAILY Qty: 30 0RF
Referrals:
Alina Piper MD [Family Provider] -
Interventions
Interventions:
*Risk Screen - Suicide Last Done: 06/05/24 23:33
*General Assessment Last Done: 06/06/24 02:14
*Neglect/Abuse Screening Last Done: 06/05/24 23:33
*ED COVID-19 Vaccine History Last Done: 06/06/24 02:14
Discharge Date and Time
Print Language: ROMANIAN
[2024-06-06 00:34] LABS: % Basophils 0.9 % (0-2); % Eosinophils 2.9 % (0-6); % Immature Granulocytes 0.4 % (0-0.5); % Lymphocytes 24.2 % (20.5-51.1); % Monocytes 8.6 % (1.7-9.3); Absolute Basophils 0.1 10^3/uL (0-0.2); Absolute Eosinophils 0.2 10^3/uL (0-0.7); Absolute Lymphocytes 1.3 10^3/uL (1.2-3.4); Absolute Monocytes 0.5 10^3/uL (0.1-0.6); Absolute Neutrophils 3.5 10^3/uL (1.4-6.5); Hematocrit 36.7 % (37.0-47.0); Hemoglobin 12.4 g/dL (12.0-16.0); Mean Corp Hgb Conc. 33.8 g/dL (33.0-37.0); Mean Corpuscular Hgb 29.2 pg (27.0-31.0); Mean Corpuscular Volume 86.6 fL (81.0-99.0); Nucleated Red Blood Cells % 0 %; Platelet Count 299 10^3/uL (130-400); Red Blood Cell Count 4.24 10^6/uL (4.20-5.40); Red Cell Dist. Width 13.1 % (11.5-14.5); White Blood Cell Count 5.5 10^3/uL (4.8-10.8)
[2024-06-06 00:41] LABS: ALT (SGPT) 30 U/L (0-35); AST (SGOT) 34 U/L (14-36); Albumin 4.4 g/dl (3.5-5.0); Alkaline Phosphatase 76 U/L (38-126); Blood Urea Nitrogen 16 mg/dl (7-17); Carbon Dioxide 30 mmol/L (22-30); Chloride 103 mmol/L (98-107); Estimated Creatinine Clearance 56 ml/min; Glucose 111 mg/dl (70-99); Potassium 3.5 mmol/L (3.5-5.1); Sodium 140 mmol/L (135-145); Total Bilirubin 0.5 mg/dl (0.2-1.3); Total Protein 7.3 g/dl (6.3-8.2); eGFR > 60.00
[2024-06-06 01:47] LABS: NT-proBNP 967 pg/ml
--- NOTE | 2024-06-06 02:33 | EDRN ---
Addendum entered by Justine Parrish RN 06/06/24 02:40:
Cardioversion performed by Dr. Quintero
0140 time out
0141 start time + 30mg of propofol given by Dr. Quintero
0142 20mg of propofol given by Dr. Quintero
0144 200J
0145 200J
0144 10mg of propofol given by Dr. Quintero
0146 20mg of propofol given by Dr. Quintero
0149 10mg of propofol given by Dr. Quintero
0150 250J
0155 stop time
Original Note:
Cardioversion performed by Dr. Quintero
0140 time out
0141 start time + 30mg of propofol given by Dr. Quintero
0142 20mg of propofol given by Dr. Quintero
0144 200J
0145 200J
0144 10mg of propofol given by Dr. Quintero
0150 250J
0155 stop time
[2024-06-06] MEDS: CARDIZEM 10 MG IV (02:50)
[2024-06-06] MEDS: CARDIZEM 125 IV ×2 (02:51→13:36)
--- NOTE | 2024-06-06 03:59 | HPS.HSE ---
Family Physician
-
Family Physician: Alina Piper
Chief Complaint
-
Palpitations, Chest pain
History of Present Illness
Patient is a 79y F with PMH significant for paroxysmal A-Fib, HFpEF and valvular heart disease who presents to ED complaining of palpitations. Patient states that she noted palpitations beginning earlier this evening. Racing / pounding
heartbeat was associated with sense of chest heaviness and 'funny feeling' in the LUE. She reports similar symptoms in the past related to her episodes of A-Fib.
She has had multiple cardioversions in the past ([address] [facility]) and underwent ablation therapy here on 05/22/24.
She was hospitalized several days after that procedure and underwent her most recent cardioversion. She was treated during that stay for CHF and her sotalol dose was decreased from 80mg BID to 40mg BID.
No other recent medication changes.
On presentation to the ED, patient was noted to be in A-Fib with heart rates in the 140-150 range. Cardioversion was attempted in the ED x 3 without success.
Cardizem bolus / infusion was initiated and patient is currently in A-Fib with rates varying from 80s - 120s.
She states that her chest discomfort has improved.
Patient notes that she has been monitoring her weight since last discharge and she is currently up about 4 lbs from that admission.
Medical History
Past Medical History
Past Medical History: Reports Other
Additional Past Medical History:
Paroxysmal Atrial Fibrillation
Hypertension
Moderate Mitral Regurgitation / Mitral Stenosis
Rheumatic Fever (5yo and 21yo)
HFpEF
GERD / Hiatal Hernia
Lumbar DDD
Past Surgical History: Reports Other
Additional Past Surgical History:
A-Fib Ablation (05/22/24)
Cataracts
Skin Graft (fernandez)
Breast Biopsy x 2(benign)
ORIF RLE
Left TKA
Left GUSTAVO
Rib Resection
Multiple Cardioversions
Social History
Tobacco: Non-smoker
Alcohol: Occasional
Drug: None
Family History
Family History: Other (Multiple family members also with rheumatic fever in childhood.)
Allergies / Home Medications
Allergies reflects when Allergies were last updated in [facility].
Home Medications with original date entered in [facility]
Allergy/Medication List:
Allergies
Allergy/AdvReac Type Severity Reaction Status Date / Time
adhesive Allergy Itching, Verified 05/26/24 12:21
Rash
propoxyphene napsylate Allergy Rash, Verified 05/26/24 12:21
[From [id number]-N 100] Swelling
Home Medications
famotidine 20 mg tablet 20 mg PO HS Gastrointestinal issue 03/05/20
apixaban 5 mg tablet (Eliquis) 5 mg PO BID #30 tabs 03/28/20
amitriptyline 10 mg tablet 20 mg PO HS Neurological Condition 09/08/23
cholecalciferol (vitamin D3) 50 mcg (2,000 unit) tablet (Vitamin D3) 50 mcg PO DAILY Supplement 09/08/23
denosumab 60 mg/mL subcutaneous syringe (Prolia) 60 mg SC [id number] Autoimmune Disorder 09/08/23
omeprazole 40 mg capsule,delayed release 40 mg PO DAILY Gastrointestinal Issue 09/08/23
diltiazem HCl 120 mg capsule,extended release 24 hr 120 mg PO DAILY #30 caps 05/11/24
metoclopramide HCl 5 mg tablet 5 mg PO AC Gastrointestinal Issue 05/22/24
furosemide 40 mg tablet (Lasix) 40 mg PO DAILY #30 tabs 05/29/24
sotalol 80 mg tablet 40 mg (1/2 x 80 mg) PO BID #60 tabs 05/29/24
Review of Systems
-
History Source: Patient
A 12 point ROS was completed and negative except as noted: Yes
Constitutional: Reports Fatigue; Denies Fever or Chills
Respiratory: Denies Cough or Trouble Breathing
Cardiac: Reports Chest Pain and Palpitations; Denies Diaphoresis or Syncope
Abdomen/GI: Denies Abdominal Pain, Nausea, Vomiting or Diarrhea
: Denies Dysuria or Frequency
Neurological: Denies Dizzy or Headache
Psych: Denies Depression or Anxiety
Physical Exam
Vital Signs
Vital Signs
Temp Pulse Resp BP Pulse Ox
98.4 F 95 20 103/73 97
06/06/24 03:20 06/06/24 03:15 06/06/24 03:15 06/06/24 03:00 06/06/24 03:15
Physical Exam
General: Other (79y F in no acute distress.)
HEENT: Moist mucous membranes and PERRLA
Respiratory: Clear; No Wheezes, Rales or Rhonchi
Cardiac: S1/S2, Irregular Rhythm and Murmur (II/ STEPHANY)
GI: Soft, Non Tender, Non Distended and Normal Bowel Sounds
Musculoskeletal: No Clubbing, No Cyanosis and Other (Trace - 1+ pitting edema b/l ankles.)
Neuro: AO x 3
Laboratory Results
-
06/06/24 00:11
06/06/24 00:11
Laboratory Results
Total Bilirubin 0.5 mg/dl (0.2-1.3) 06/06/24 00:11
AST 34 U/L (14-36) 06/06/24 00:11
ALT 30 U/L (0-35) 06/06/24 00:11
Alkaline Phosphatase 76 U/L (38-126) 06/06/24 00:11
Troponin I Cancelled 06/05/24 23:35
Impression/Plan
-
A/P: Patient is a 79y F with PMH significant for A-Fib, valvular heart disease and HFpEF who presents to ED complaining of palpitations and chest pain.
Paroxysmal Atrial Fibrillation with Rapid Ventricular Response
- Admit to IVU for further evaluation and treatment.
- Continue IV diltiazem overnight and titrate as needed for rate control.
- Continue Eliquis for stroke risk reduction.
- Cardiology evaluation for additional recommendations.
- Continue current Sotalol dose for now without changes (decreased during recent admission).
Chest Pain
- EKG with non=-specific changes likely related to rate.
- Check troponin now and trend.
- Monitor for any recurrent symptoms.
- Cardiology eval as noted above.
Chronic HFpEF
Valvular Heart Disease
- Patient reports some weight gain since last admission - though weight stable / down by our scales.
- Continue current diuretic regimen for now and follow I/Os, daily weights, etc.
- Adjust dosing as needed.
GERD / Hiatal Hernia
- Stable. Continue current acid suppression regimen.
DDD / Low Back Pain
- Complains of acute pain in the ED - ? muscle spasms s/p cardioversion x 3 here in the ED.
- Pain control, heat application, etc.
- Follow for clinical improvement.
DVT Prophylaxis: On Eliquis
Code Status: Full
[2024-06-06 04:57] LABS: Troponin I < 0.012 ng/ml
[2024-06-06 05:59] LABS: Hematocrit 33.4 % (37.0-47.0); Hemoglobin 11.3 g/dL (12.0-16.0); Mean Corp Hgb Conc. 33.8 g/dL (33.0-37.0); Mean Corpuscular Hgb 29.6 pg (27.0-31.0); Mean Corpuscular Volume 87.4 fL (81.0-99.0); Mean Platelet Volume 9.5 fL (7.4-10.4); Platelet Count 275 10^3/uL (130-400); Red Blood Cell Count 3.82 10^6/uL (4.20-5.40); Red Cell Dist. Width 13.1 % (11.5-14.5); White Blood Cell Count 5.6 10^3/uL (4.8-10.8)
--- NOTE | 2024-06-06 06:07 | PTCARENOTE ---
Pt received from ED. Pt belongings w/ pt. Daughter at bedside. Cardizem gtt infusing at 15mg/hr. Hr afib on telemetry.
[2024-06-06 06:23] LABS: Blood Urea Nitrogen 17 mg/dl (7-17); Calcium 9.3 mg/dl (8.4-10.2); Carbon Dioxide 31 mmol/L (22-30); Chloride 104 mmol/L (98-107); Estimated Creatinine Clearance 65 ml/min; Glucose 113 mg/dl (70-99); HDL Cholesterol 64 mg/dl; LDL Cholesterol, Calculated 132 mg/dl; Sodium 141 mmol/L (135-145); Total Cholesterol 213 mg/dl (50-199); Triglyceride 85 mg/dl (10-149); Very Low Density Lipoprotein 17 mg/dl (0-30); eGFR > 60.00
[2024-06-06 06:29] LABS: Potassium 3.4 mmol/L (3.5-5.1)
[2024-06-06] MEDS: TYLENOL 650 MG PO (06:32)
[2024-06-06] MEDS: REGLAN PO (08:33)
[2024-06-06] MEDS: ELIQUIS 5 MG PO ×2 (08:34→21:19)
[2024-06-06] MEDS: LASIX 40 MG PO (08:34)
[2024-06-06] MEDS: BETAPACE 40 MG PO (08:34)
[2024-06-06] MEDS: LOW STRENGTH ASPIRIN 81 MG PO (08:35)
[2024-06-06] MEDS: PROTONIX 40 MG PO (08:35)
--- NOTE | 2024-06-06 09:46 | W.PN.HOSP.TC ---
Today's Communication/Plan
-
see bold
Assessment / Plan
Assessment / Plan
9y F with PMH significant for A-Fib, valvular heart disease and HFpEF who presents to ED complaining of palpitations and chest pain.
Paroxysmal Atrial Fibrillation with Rapid Ventricular Response
- Continue IV diltiazem overnight and titrate as needed for rate control.
- Continue Eliquis for stroke risk reduction.
- Appreciate cardiology input, started on Lopressor 25 mg every 6 hours, plan for cardioversion 06/08
- Cardiology plans to change her sotalol to dofetilide
Acute on chronic HFpEF
Valvular Heart Disease
- Patient reports some weight gain since last admission - though weight stable / down by our scales.
- Cardiology ordered Lasix 40 mg IV x 1, continue home oral Lasix
Hypokalemia
-Replete, magnesium normal
GERD / Hiatal Hernia
- Stable. Continue current acid suppression regimen.
DDD / Low Back Pain
- Complains of acute pain in the ED - ? muscle spasms s/p cardioversion x 3 here in the ED.
- Pain control, heat application, etc.
- Follow for clinical improvement.
DVT Prophylaxis: On Eliquis
Code Status: Full
Updated family at bedside 06/06
Physical Exam
General: No acute distress
HEENT: Normocephalic, Atraumatic, EOMI, MMM
Respiratory: Clear to Auscultation bilaterally
Cardiac: Normal S1/S2, irregular rhythm
GI: Soft, Nontender, Nondistended, Normal Bowel Sounds
Extremities: No Clubbing, Cyanosis
Mild lower extremity edema
Neuro: Nonfocal/Grossly Intact
Psych: Calm, Cooperative
Derm: No Visible lesions
Anticipated Discharge: > 48 hours
Subjective/Interval History
-
Date of Service: June 06, 2024
Palpitations resolved. She has dyspnea with activity.
Objective Data
-
Labs:
Laboratory Results
06/06/24 06/06/24
00:11 05:47
WBC 5.5 5.6
Hgb 12.4 11.3 L
Hct 36.7 L 33.4 L
Plt Count 299 275
Sodium 140 141
Potassium 3.5 3.4 L
Chloride 103 104
Carbon Dioxide 30 31 H
BUN 16 17
Creatinine 0.7 0.6
Glucose 111 H 113 H
Calcium 10.0 9.3
Total Bilirubin 0.5
AST 34
ALT 30
Alkaline Phosphatase 76
Vital Signs:
Vital Signs
Temp Pulse Resp BP Pulse Ox
97.9 F 94 19 95/67 95
06/06/24 07:22 06/06/24 09:00 06/06/24 09:00 06/06/24 09:00 06/06/24 05:00
[2024-06-06 10:50] LABS: Troponin I < 0.012 ng/ml
[2024-06-06] MEDS: KCL 40 MEQ PO ×2 (11:05→17:54)
--- NOTE | 2024-06-06 11:14 | CM ---
CM following re: discharge planning.
Reviewed pt's chart,met with pt. Pt's son and daughter at bedside.
pt is a 79 year old female, admitted with primary dx of Paroxysmal Atrial Fibrillation with Rapid Ventricular Response.
Pt reports she lives with sister 2SH, 1 step to enter, has 2 supportive children. 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 No DME, VN or SNF history.
PCP: Alina Piper
Pharmacy: [facility]
D/C plan: home with anticipated no needs. Family to transport at discharge.
CM will follow with discharge plan updates as hospitalization progresses
--- NOTE | 2024-06-06 13:18 | CON.CAR ---
Addendum entered and electronically signed by Garth Wheeler MD 06/06/24 15:39:
I saw and examined the patient.
The CARDIOLOGY FELLOW's note was reviewed and I agree with the note.
Comment:
79 y/o female (patient of Dr. Jama) with PAF on sotalol and Eliquis (multiple cardioversions including CV 05/09/24, ablation 05/22/24 Dr. Puckett, then CV in ER 05/26/24), bradycardia, chronic HFpEF, moderate MS and MR, hypertension, untreated
CARL per chart who presents with recurrent AFIB. Cardioversion was attempted in the ER but was unsuccessful. She is now in rate controlled atrial fibrillation on a diltiazem drip at a rate of 5. She has palpitations and subacute dyspnea on
exertion. Labs are notable for K 3.4, creatinine 0.6, negative troponin, BNP 967. ECG with rate controlled atrial fibrillation and nonspecific ST�T wave changes. Last echocardiogram in March showed normal BiV size and function with massive LA
dilation, moderate MS, moderate AR, mild AR, mild TR, PASP 48 mmHg. I reviewed her case with Dr. Puckett who knows her well and did her recent ablation. We will plan to switch her antiarrhythmic from sotalol to dofetilide. She has normal renal
function and in sinus rhythm (ECG 05/28/2024) QTc was 478 ms. We will hold her p.m. dose of sotalol, get an ECG in the morning, and plan to start dofetilide if QTc is acceptable. We will also stop Diltiazem infusion and switch to short acting
metoprolol 25 mg every 6 hours. Potential cardioversion on Tuesday once she has had a few doses of dofetilide. Please keep n.p.o. past midnight on . Continue Eliquis 5 mg twice daily for anticoagulation. We will also give a dose of IV
Lasix 40 mg for acute on chronic HFpEF once she has gotten potassium repletion.
Original Note:
Consultation
Consultation Request
Date/Time Consultation Requested: 06/06/24 0514
Date/Time Consultation Performed: 06/06/24 1315
Requesting Provider: Dr. Downey
Performing Provider: Tigist SCOTT for Dr. Wheeler
Reason for Consultation: AFIB with RVR
Medical History
-
Chief Complaint: palpitations
History of Present Illness:
79 y/o female (patient of Dr. Jama) with PAF on sotalol and Eliquis (multiple cardioversions including CV 05/09/24, ablation 05/22/24 Dr. Puckett, then CV in ER 05/26/24), bradycardia, chronic HFpEF, moderate MS and MR, hypertension, untreated
CARL per chart who is here for evaluation of recurrent AFIB. Briefly, around 930 PM, she developed palpitations. ER evaluation confirmed AFIB with RVR. CV attempted in ER, but was not successful. She is currently on a diltiazem drip at 5 mg/hr with
HR 70's-90's and SBP 90's-100's. She does not feel palpitations currently and is in no distress at the time of my assessment. Of note, she was recently treated for CHF on last admit. She continues to have FRANCIS. Family is at bedside. Of note, sotalol
decreased last admit.
Past Medical History
Past Medical History: Arrhythmias, CHF, HTN, Valvular Disease and Other (as above)
Social History
Tobacco: Non-Smoker
Family History
Family History: Reviewed & Not Pertinent
Allergies / Home Medications
Allergy/AdvReac Type Severity Reaction Status Date / Time
adhesive Allergy Itching, Verified 05/26/24 12:21
Rash
propoxyphene napsylate Allergy Rash, Verified 05/26/24 12:21
[From Darvocet-N 100] Swelling
�Medication �Instructions �Recorded �Confirmed �Type
famotidine 20 mg tablet 20 mg PO HS Gastrointestinal issue 03/05/20 06/06/24 History
apixaban 5 mg tablet (Eliquis) 5 mg PO BID #30 tabs 03/28/20 06/06/24 Rx
amitriptyline 10 mg tablet 20 mg PO HS Neurological Condition 09/08/23 06/06/24 History
cholecalciferol (vitamin D3) 50 50 mcg PO DAILY Supplement 09/08/23 06/06/24 History
mcg (2,000 unit) tablet (Vitamin
D3)
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
syringe (Prolia) Disorder
omeprazole 40 mg capsule,delayed 40 mg PO DAILY Gastrointestinal 09/08/23 06/06/24 History
release Issue
diltiazem HCl 120 mg 120 mg PO DAILY #30 caps 05/11/24 06/06/24 Rx
capsule,extended release 24 hr
metoclopramide HCl 5 mg tablet 5 mg PO AC Gastrointestinal Issue 05/22/24 06/06/24 History
furosemide 40 mg tablet (Lasix) 40 mg PO DAILY #30 tabs 05/29/24 06/06/24 Rx
sotalol 80 mg tablet 40 mg (1/2 x 80 mg) PO BID #60 tabs 05/29/24 06/06/24 Rx
Review of Systems
-
History Source: Patient
All other systems: Negative unless noted
Constitutional: Weight Gain
Respiratory: Trouble Breathing
Cardiac: Palpitations
Physical Exam
Vital Signs
Temp Pulse Resp BP Pulse Ox
97.9 F 74 16 95/77 98
06/06/24 11:33 06/06/24 12:00 06/06/24 12:00 06/06/24 12:00 06/06/24 12:00
Lab Results
06/06/24 05:47
06/06/24 05:47
Troponin I < 0.012 ng/ml 06/06/24 10:20
Vge-M-Nmwtmqfaudi Pept 967 pg/ml 06/06/24 00:11
Physical Exam
General: Well Developed, Well Nourished and No Apparent Distress
HEENT: Normocephalic and Anicteric
Respiratory: Crackles (b/l bases)
Cardiac: Irregular Rhythm
Musculoskeletal: No Edema
Skin: Warm and Dry
Neuro: AO x 3
Psych: Calm
Impression / Plan
-
AFIB, recurrent, persistent:
-s/p ablation 05/22/24 Dr. Puckett
-CV 04/25/25. Attempted CV in ER this admit was unsuccessful.
-on sotalol 40 mg PO BID (recently decreased- per family due to bradycardia?, but not clear from chart). Also on diltiazem 120 mg daily. No need for PPM last admit per EP.
-continue Eliquis 5 mg PO BID
-plan to discuss with EP as complex afib case. Of note, at last admit per EP, 'Post ablation inflammatory response - with rotated anatomy and persistent AF nature, she might go out of rhythm again within next 2-3 weeks before ablation is matured.
Plan for DCCV if AF rhythm recurs'.
-for now, continue IV diltiazem, which requires intensive monitoring
-untreated CARL documented- needs OP assessment/treatment
FRANCIS:
-I do think there is a component of mild eapmb-qt-uvnkisf HFpEF- patient with rales and weight gain
-hypokalemia is noted and being replaced
-may add more diuretic, will discuss case with division road supervisor
HTN:
-on low end
-follow
Moderate MR, MS:
-monitor volume
Data Reviewed
-
EKG: Tracing Personally Visualized and interpreted (AFIB 74 BPM )
Medical Tests (Nuc Med, Echo etc): Report Reviewed by me (Echo 04/05/24: EF 55-60% Massive left atrial dilation. Rheumatic appearing MV with moderate MS, moderate MR.)
Labs: Labs Reviewed by me
[2024-06-06] MEDS: REGLAN 5 MG PO ×2 (14:09→17:54)
[2024-06-06] MEDS: LASIX 40 MG IV (15:42)
--- NOTE | 2024-06-06 16:56 | PTCARENOTE ---
Assumed care of patient at 0700. Patient alert and oriented. NIGHTMUTE (b/l hearing aids). Afib on tele monitor. Rec'd patient on 15mg/hr. Titrating for HR 80-100. 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 Drip to be turned off at 1800 with initiation of
PO Metoprolol. Sotalol discontinued. EKG in am. K repleted. +2 edema in b/l LE. Palpable pulses. Crackles auscultated in b/l base. FRANCIS. Pulse ox 96% on RA. Additional dose of 40mg IV Lasix ordered and administered. Patient voiding in bathroom. Diet
advanced. +BM. Vitals stable. Call schultz within reach.
[2024-06-06] MEDS: LOPRESSOR 25 MG PO ×2 (17:55→23:31)
[2024-06-06] MEDS: MIRALAX PO (17:56)
[2024-06-06 18:43] LABS: Troponin I < 0.012 ng/ml
[2024-06-06] MEDS: SENOKOT-S 2 TABLET PO (21:18)
[2024-06-06] MEDS: ELAVIL 20 MG PO (21:19)
[2024-06-06] MEDS: PEPCID 20 MG PO (21:19)
--- NOTE | 2024-06-06 21:56 | PTCARENOTE ---
Pt A&Ox4. KAKTOVIK. Moves all extremities. PERRLA. Walked to bathroom with supervision. Endorses (+) sensation. Lungs CTABL but diminished. Pt afib on monitor from 90's to 140's with activity. Discussed and educated pt on Tikosyn administration and
frequent EKG's and falls safety. Pt asked questions about pacemakers and valve replacement. (+) edema to BLE. Urinated clear yellow. Rash noted to chest from apparent sensitivity to adhesive. No s/s of distress assessed. Will continue to monitor.
[2024-06-07] VITALS (18 sets, daily range): BP systolic 84–141; BP diastolic 55–105; BMI 27.4
--- NOTE | 2024-06-07 01:00 | PTCARENOTE ---
No change in pt status. VSS. No s/s of distress assessed. Will continue to monitor.
--- NOTE | 2024-06-07 03:35 | PTCARENOTE ---
Pt tx to IVU 3076. Report given via phone. Pt to be transported with this RN via WC. No s/s of distress assessed.
--- NOTE | 2024-06-07 04:30 | PTCARENOTE ---
Pt received at tx from ICU. Afib on tele with HR 120s-130s, occasionally 150s with activity. Pt oriented to room. No complaints at this time. Can make needs known. Call schultz within reach.
[2024-06-07 04:51] LABS: Blood Urea Nitrogen 20 mg/dl (7-17); Calcium 10.1 mg/dl (8.4-10.2); Carbon Dioxide 23 mmol/L (22-30); Chloride 105 mmol/L (98-107); Estimated Creatinine Clearance 65 ml/min; Glucose 120 mg/dl (70-99); Potassium 4.6 mmol/L (3.5-5.1); Sodium 137 mmol/L (135-145); eGFR > 60.00
[2024-06-07] MEDS: REGLAN 5 MG PO ×3 (06:35→17:36)
[2024-06-07] MEDS: LOPRESSOR 25 MG PO ×4 (06:36→23:33)
[2024-06-07] MEDS: PROTONIX 40 MG PO (08:12)
[2024-06-07] MEDS: LASIX 40 MG PO (08:12)
[2024-06-07] MEDS: ELIQUIS 5 MG PO ×2 (08:12→20:11)
[2024-06-07] MEDS: MIRALAX 17 GRAMS PO (08:22)
[2024-06-07] MEDS: SENOKOT-S PO (08:23)
--- NOTE | 2024-06-07 09:17 | W.CARD.TIKOS ---
Initiate Tikosyn
-
I verify that the patient has not taken any verapamil (Isoptin/Calan), ketoconazole (Nizoral), cimetidine (Tagamet), trimethoprim (Trimpex), trimethoprim/sulfamethoxazole (Bactrim), megesterol (Megace), prochlorperazine (Compazine),
hydrochlorothiazide (HCTZ), dolutegravir (Tivicay) or within the last three day
AND
I verify that the patient has not taken amiodarone within the last THREE months, or that the patient's amiodarone plasma concentration is <0.3 mcg/mL.
Creatinine 0.6 mg/dL (0.6-1.0) 06/07/24 04:14
Estimated Creat Clear 65 ml/min 06/07/24 04:14
Of note, patient was on Sotalol and acceptable QTc was noted. However, Sotalol is deemed ineffective and Tikosyn is selected for AAD needs of this patient. We have discontinued Sotalol over 24 hours and will proceed with addition of Tikosyn in close
telemetry monitoring and repeat EKGs to avoid any QTc prolongation.
Does patient have a Ventricular Conduction Abnormality: No
I have assessed the baseline QTc interval (using QT for heart rate less than 60 bpm) and deemed the patient is appropriate for Dofetilide therapy. I understand that Tikosyn is contraindicated if the QTc is >440msec (500msec in patients with
ventricular conduction abnormalities).
Baseline QTc (in msec): 466
QTc interval is greater than 440msec without conduction abnormality OR greater than 500msec with a conduction abnormality, but acceptable to proceed per Cardiology attending.
The QTc is long with Sotalol on board. Now the Sotalol is switched off and will transition to Tikosyn.
Ordering Physician: Josh Puckett
--- NOTE | 2024-06-07 09:26 | W.PN.CD ---
Today's Communication / Plan
-
- Start Tikosyn
- Rate control with Metoprolol.
Impression / Plan
-
AFIB, recurrent, persistent:
-s/p ablation 05/22/24 Dr. Puckett - PVI and PWI with Farapulse
-CV 04/25/25. Attempted CV in ER this admit was unsuccessful.
-Failed Sotalol. Will switch to Tikosyn.
-Concern for bradycardia in sinus rhythm - will assess SSS once sinus rhythm is achieved.
-continue Eliquis 5 mg PO BID
-Off the IV diltiazem, will switch to PO Metoprolol for rate control -
- Initiate Tikosyn which requires intensive monitoring
-untreated CARL documented- needs OP assessment/treatment
Tikosyn Initiation
- Off Sotalol - last dose was 06/06/24 at 0800
- Will start Tikosyn at 06/07/24 at 2000
- QTc monitoring
- Rhythm monitoring
- Rate control till tomorrow
- Possible DCCV in AM
- If not successful, will need a repeat ablation for the flutters on Tuesday
FRANCIS:
-I do think there is a component of mild hytrs-qk-rjgzgyn HFpEF- patient with rales and weight gain
-hypokalemia is noted and being replaced
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
HTN:
-on low end
-follow
Moderate MR, MS:
-monitor volume
Physical Exam
Vital Signs/Labs
Vital Signs
Temp Pulse Resp BP Pulse Ox
97.7 F 147 20 111/92 96
06/07/24 07:18 06/07/24 07:00 06/07/24 07:18 06/07/24 06:36 06/07/24 08:13
06/06/24 06/07/24 06/08/24
06:59 06:59 06:59
Actual Weight 65.4 kg 64.7 kg
06/06/24 05:47
06/07/24 04:14
Magnesium 2.0 mg/dl (1.6-2.3) 06/06/24 00:11
Triglycerides 85 mg/dl (10-149) 06/06/24 05:47
LDL Cholesterol, Calc 132 mg/dl 06/06/24 05:47
VLDL Cholesterol, Calc 17 mg/dl (0-30) 06/06/24 05:47
HDL Cholesterol 64 mg/dl 06/06/24 05:47
06/06/24
00:11
Kty-G-Muwacalnjcv Pept 967
LAB Results
06/05/24 06/06/24 06/06/24
23:35 04:21 05:14
Troponin I Cancelled < 0.012 Cancelled
06/06/24 06/06/24
10:20 18:11
Troponin I < 0.012 < 0.012
Physical Exam
Constitutional: No acute distress and Comfortable
EENT: Anicteric and Moist mucous membranes
Cardiovascular: Pedal edema is absent, Rhythm/rate is irregular, JVD present and Systolic murmur present
Respiratory: Respiratory effort normal, Lungs clear to auscul. and Wheeze Absent
GI: Soft, Non tender and Normal bowel sounds
Neuro/Psych: Alert, Oriented and AO x 3
Data Reviewed
-
Date of Service: June 07, 2024
Medical Decision Making: Reviewed Test Results, Independent Historian Assessment, Test Interpretation and Review of Case with other Provider
EKG: Tracing Personally Visualized and interpreted
Echo: Report Reviewed by me
Medical Tests (PFT, Pathology etc): Discussed with Nurse, Discussed with Patient and Discussed with Family
Labs: Labs Reviewed by me
Old Records: Reviewed
[2024-06-07] MEDS: LOW STRENGTH ASPIRIN PO (09:34)
--- NOTE | 2024-06-07 10:31 | CM ---
Dofetilide 500 mcq is in stock at the patient's [facility]. I will confirm day of discharge. Patient will need a 3 day supply to go home.
[2024-06-07] MEDS: LANOXIN 250 MCG IV (11:16)
[2024-06-07] MEDS: LOPRESSOR PO (12:16)
--- NOTE | 2024-06-07 13:17 | PTCARENOTE ---
Addendum entered by Marla Grady, GRACIELA 06/07/24 19:20:
Pt in A-Fib up to 140's. She is asymptomatic at rest and states she has some SOB with exertion.
Original Note:
Pt HR fluctuating after Digoxin between 110's and 140's, Dr Puckett aware. Pt to receive Metoprolol 25 mg PO.
--- NOTE | 2024-06-07 14:17 | W.PN.HOSP.TC ---
Today's Communication/Plan
-
see bold
Assessment / Plan
Assessment / Plan
9y F with PMH significant for A-Fib, valvular heart disease and HFpEF who presents to ED complaining of palpitations and chest pain.
Paroxysmal Atrial Fibrillation with Rapid Ventricular Response
- S/p IV diltiazem, sotalol discontinued
- Appreciate cardiology input, started on Tikosyn & Lopressor 25 mg every 6 hours, plan for cardioversion 06/08
- Continue Eliquis for stroke risk reduction.
Acute on chronic HFpEF
Valvular Heart Disease
- Patient reports some weight gain since last admission - though weight stable / down by our scales.
- Cardiology ordered Lasix 40 mg IV x 1 on 06/06, continue home oral Lasix
- Trend creatinine, trend daily weight
Hypokalemia
-Repleted and resolved
GERD / Hiatal Hernia
- Stable. Continue current acid suppression regimen.
DDD / Low Back Pain
- Complains of acute pain in the ED - ? muscle spasms s/p cardioversion x 3 here in the ED.
- Pain control, heat application, etc.
DVT Prophylaxis: On Eliquis
Code Status: Full
Updated family at bedside 06/07
Total time spent to see the patient on the floor, examine the patient, review data and lab results, discuss treatment plan with patient, nursing staff around 37 minutes.
Physical Exam
General: No acute distress
HEENT: Normocephalic, Atraumatic, EOMI, MMM
Respiratory: Clear to Auscultation bilaterally
Cardiac: Normal S1/S2, tachycardic rate, irregular rhythm
GI: Soft, Nontender, Nondistended, Normal Bowel Sounds
Extremities: No Clubbing, Cyanosis
Mild lower extremity edema
Neuro: Nonfocal/Grossly Intact
Anticipated Discharge: > 48 hours
Subjective/Interval History
-
Date of Service: June 07, 2024
Continues to feel palpitations, improved from prior. Also has dyspnea with activity. No fever, no vomiting.
Objective Data
-
Labs:
Laboratory Results
06/07/24
04:14
Sodium 137
Potassium 4.6 D
Chloride 105
Carbon Dioxide 23
BUN 20 H
Creatinine 0.6
Glucose 120 H
Calcium 10.1
Vital Signs:
Vital Signs
Temp Pulse Resp BP Pulse Ox
97.7 F 145 20 96/74 98
06/07/24 11:35 06/07/24 11:16 06/07/24 11:35 06/07/24 12:16 06/07/24 11:35
I&O
06/06/24 06/07/24 06/08/24
06:59 06:59 06:59
Intake Total 360 / 360
Output Total 1400 / 1400
Balance -1040 / -1040
[2024-06-07] MEDS: TIKOSYN 500 MCG PO (20:12)
[2024-06-07] MEDS: PEPCID 20 MG PO (22:38)
[2024-06-07] MEDS: ELAVIL 20 MG PO (22:38)
[2024-06-08] VITALS (25 sets, daily range): BP systolic 85–148; BP diastolic 56–108; PULSE 72–74
--- NOTE | 2024-06-08 03:38 | PTCARENOTE ---
Pt remains in Afib, HR 130s-160s at beginning of shift, PM doses of medications administered including dose #1 of Tikosyn. Post medications, HR ranging from 90s-120s. Pt with no complaints of CP, palpitations, or SOB. BP stable. EKG obtained 2
hours post Tikosyn dose, QTc 475. Pt ambulating independently in room without difficulty and verbalizes understanding of remaining NPO after midnight for Cardioversion today. Call schultz within reach.
[2024-06-08 05:20] LABS: Glucose - Point of Care 93 mg/dl (70-99)
[2024-06-08] MEDS: LOPRESSOR 5 MG IV (05:47)
--- NOTE | 2024-06-08 06:53 | W.PN.UPDATE ---
Update Note
Progress Note Update
Apparently patient attempted to walk to bathroom and was dizzy. HR jumped to 130s uncontrolled afib. Returned to bed. Vitals stablized when back in bed.
[2024-06-08] MEDS: LOPRESSOR PO ×2 (07:05→15:41)
--- NOTE | 2024-06-08 07:10 | PTCARENOTE ---
~0500 pt tried to get out of bed to ambulate to bathroom. Upon sitting at side of bed, pt stated she felt like the room was spinning and felt nauseous. BP laying down was 119/96, sitting up BP was 132/99. Accucheck 93. HR 130s-140s up from low
100s-120s at rest. Meghan Acevedo NP made aware. Scheduled dose of PO Metoprolol ordered IV and administered per orders. No further orders at this time. Call schultz within reach.
[2024-06-08] MEDS: REGLAN 5 MG PO ×3 (08:22→17:31)
[2024-06-08] MEDS: ELIQUIS 5 MG PO ×3 (08:22→22:20)
[2024-06-08] MEDS: PROTONIX 40 MG PO (08:23)
--- NOTE | 2024-06-08 08:56 | PTCARENOTE ---
Pt very dizzy upon sitting, BP lying 118/76, 111/83, BP sitting 98/79. Dr Ellis notified. Dr Wheeler came to see Pt. Pt going for CV, will give Tikosyn dose as ordered.
[2024-06-08] MEDS: LASIX PO (09:05)
--- NOTE | 2024-06-08 09:08 | W.PN.HOSP.TC ---
Today's Communication/Plan
-
see bold
Assessment / Plan
Assessment / Plan
9y F with PMH significant for A-Fib, valvular heart disease and HFpEF who presents to ED complaining of palpitations and chest pain.
Recurrent Persistent Atrial Fibrillation with Rapid Ventricular Response
- S/p IV diltiazem, sotalol discontinued
- Appreciate cardiology input, started on Tikosyn & Lopressor 25 mg every 6 hours, s/p successful cardioversion 06/08
- Continue Eliquis for stroke risk reduction.
Lightheadedness
-Occurring on 06/08
-Unclear etiology, suspect secondary to recent rapid atrial fibrillation and metoprolol
-Denies dysarthria, dysphagia, vision changes, focal weakness, nausea, vomiting
-Supportive care
Acute on chronic HFpEF
Valvular Heart Disease
- Patient reports some weight gain since last admission - though weight stable / down by our scales.
- Cardiology ordered Lasix 40 mg IV x 1 on 06/06, continue home oral Lasix
- Trend creatinine, trend daily weight
Hypokalemia
-Repleted and resolved
GERD / Hiatal Hernia
- Stable. Continue current acid suppression regimen.
DDD / Low Back Pain
- Complains of acute pain in the ED - ? muscle spasms s/p cardioversion x 3 here in the ED.
- Pain control, heat application, etc.
DVT Prophylaxis: On Eliquis
Code Status: Full
Updated family at bedside 06/08
Total time spent to see the patient on the floor, examine the patient, review data and lab results, discuss treatment plan with patient, nursing staff around 42 minutes.
Physical Exam
General: No acute distress
HEENT: Normocephalic, Atraumatic, EOMI, MMM
Respiratory: Clear to Auscultation bilaterally
Cardiac: Normal S1/S2, tachycardic rate, irregular rhythm
GI: Soft, Nontender, Nondistended, Normal Bowel Sounds
Extremities: No Clubbing, Cyanosis
Mild lower extremity edema
Neuro: Nonfocal/Grossly Intact
Anticipated Discharge: > 48 hours
Subjective/Interval History
-
Date of Service: June 08, 2024
Patient reports feeling dizzy prior to her cardioversion. Her dizziness continues afterwards. She feels lightheaded, denies vertigo. Denies nausea, denies vomiting. No fever. No shortness of breath.
Objective Data
-
Vital Signs:
Vital Signs
Temp Pulse Resp BP Pulse Ox
97.5 F 121 20 111/83 98
06/08/24 07:16 06/08/24 07:17 06/08/24 07:16 06/08/24 07:17 06/08/24 07:17
I&O
06/07/24 06/08/24 06/09/24
06:59 06:59 06:59
Intake Total 360 / 360
Output Total 1400 / 1400
Balance -1040 / -1040
[2024-06-08] MEDS: TIKOSYN 500 MCG PO ×2 (09:11→20:18)
--- NOTE | 2024-06-08 09:29 | W.PN.CD ---
Today's Communication / Plan
-
Continue dofetilide
Synchronized cardioversion today
Continue Eliquis 5 mg twice daily
Reassess need for metoprolol when she is back in sinus
Switch Lasix to p.o.
Impression / Plan
-
79 y/o female (patient of Dr. Jama) with PAF on sotalol and Eliquis (multiple cardioversions including CV 05/09/24, ablation 05/22/24 Dr. Puckett, then CV in ER 05/26/24), bradycardia, chronic HFpEF, moderate MS and MR, hypertension, untreated
CARL per chart who presents with recurrent AFIB, s/p failed cardioversion in the ED, now switched from Sotalol to Dofetilide.
AFIB, recurrent, persistent, with borderline hypotension:
-s/p ablation 05/22/24 Dr. Puckett - PVI and PWI with Farapulse
-CV 04/25/25. Attempted CV in ER this admit was unsuccessful.
-Failed Sotalol. Will switch to Tikosyn.
-Concern for bradycardia in sinus rhythm - will assess SSS once sinus rhythm is achieved.
-continue Eliquis 5 mg PO BID
-Off the IV diltiazem, will switch to PO Metoprolol for rate control -
- Initiate Tikosyn which requires intensive monitoring
-untreated CARL documented- needs OP assessment/treatment
Tikosyn Initiation
- Off Sotalol - last dose was 06/06/24 at 0800
- Tikosyn started at 06/07/24 at 2000
- QTc monitoring
- Rhythm monitoring
- Rate control till cardioversion
- DCCV today. Confirmed no missed does of Eliquis in past 3 weeks
- If not successful, will need a repeat ablation for the flutters on Tuesday
Acute on chronic HFpEF
-Weight is down. Creatinine stable. Examines euvolemic.
-Switch to p.o. Lasix 40 mg daily starting tomorrow, she already got a dose of IV today.
HTN:
-on low end
-follow
Moderate MR, MS:
-monitor volume
Subjective: Patient does not feel well this morning. Even with sitting up in bed she is extremely lightheaded and heart rates go up to the 140s. Blood pressures are borderline in the 80s�90s/60s�70s. Telemetry reveals atrial fibrillation with
heart rates in the 90s�120s, up to 140s with sitting up.
Physical Exam
Vital Signs/Labs
Vital Signs
Temp Pulse Resp BP Pulse Ox
97.5 F 121 20 111/83 98
06/08/24 07:16 06/08/24 07:17 06/08/24 07:16 06/08/24 07:17 06/08/24 07:17
06/07/24 06/08/24 06/09/24
06:59 06:59 06:59
Actual Weight 64.7 kg
06/06/24 05:47
06/07/24 04:14
Magnesium 2.0 mg/dl (1.6-2.3) 06/06/24 00:11
Triglycerides 85 mg/dl (10-149) 06/06/24 05:47
LDL Cholesterol, Calc 132 mg/dl 06/06/24 05:47
VLDL Cholesterol, Calc 17 mg/dl (0-30) 06/06/24 05:47
HDL Cholesterol 64 mg/dl 06/06/24 05:47
06/06/24
00:11
Etp-Y-Glvllvvbeqg Pept 967
LAB Results
06/05/24 06/06/24 06/06/24
23:35 04:21 05:14
Troponin I Cancelled < 0.012 Cancelled
06/06/24 06/06/24
10:20 18:11
Troponin I < 0.012 < 0.012
Physical Exam
Constitutional: No acute distress
Cardiovascular: Pedal edema is absent, Rhythm/rate is irregular, S1S2 is normal and Murmur/rub/gallop absent
Respiratory: Respiratory effort normal
Neuro/Psych: AO x 3
Data Reviewed
-
Date of Service: June 08, 2024
Medical Decision Making: Reviewed Test Results, Independent Historian Assessment, Test Interpretation and Review of Case with other Provider
EKG: Tracing Personally Visualized and interpreted
Echo: Report Reviewed by me
Labs: Labs Reviewed by me
--- NOTE | 2024-06-08 11:13 | PN.CDI ---
CDI
- -
CDI:
Physician Documentation Request
Admit Date: 06/06/24 04:15
Dear Doctor Do,
06/07 Cardiology PN: 'AFIB, recurrent, persistent:
-s/p ablation 05/22/24 Dr. Puckett - PVI and PWI with Farapulse
-CV 04/25/25. Attempted CV in ER this admit was unsuccessful.
-Failed Sotalol. Will switch to Tikosyn.'
06/07 Hospitalist PN: 'Paroxysmal Atrial Fibrillation with Rapid Ventricular Response'
If possible, please provide further specificity regarding atrial fibrillation, such as:
Persistent atrial fibrillation - episodes of continuous AF that last more than 7 days and do not self-terminate
Paroxysmal atrial fibrillation - terminates spontaneously or with intervention within 7 days of onset
Other - please specify
Use of terms such as suspected, likely, concern for, or probable (associated with a specific diagnosis that is being evaluated, monitored, or treated as if it exists) are acceptable and can be coded in the inpatient setting, when documented at the
time of discharge.
Thank you,
Emily Antonio RN, BSN
CDI Specialist
Available via [place] text
Please use your independent medical judgment in providing your response.
--- NOTE | 2024-06-08 11:40 | PTCARENOTE ---
Rec'd Pt post CV, A,A+Ox3, denies pain. Pt in SR in 70's. BP 100/70.
--- NOTE | 2024-06-08 11:53 | CM ---
Pricing on Dofetilide 500 mcq is $77 for a 30 day supply. [facility] is [facility]. Patient will need a 3 day supply when discharged.
Patient is independent of ADLS, lives with her sister in a [address], [address], 0 [address]. Patient will be staying with her daughter when discharged. CM to follow
--- NOTE | 2024-06-08 19:43 | PTCARENOTE ---
Pt still c/o dizziness upon sitting up in bed, orthostatic VS checked with PT, no drop in BP when Pt stood , but she still c/o dizziness. Pt could not tolerate sitting OOB d/t lightheaded/dizziness. She was assisted OOB again because she had to
void, she tolerated the BSC but eventually became dizzy and wanted to lie down
[2024-06-08] MEDS: ELAVIL 20 MG PO (22:20)
[2024-06-08] MEDS: PEPCID 20 MG PO (22:20)
[2024-06-09] VITALS (13 sets, daily range): BP systolic 111–155; BP diastolic 68–108; BMI 27.5
[2024-06-09] MEDS: TYLENOL 650 MG PO (07:55)
[2024-06-09] MEDS: PROTONIX 40 MG PO (07:55)
[2024-06-09] MEDS: TIKOSYN 500 MCG PO (07:55)
[2024-06-09] MEDS: LASIX 40 MG PO (07:55)
[2024-06-09] MEDS: REGLAN 5 MG PO ×3 (07:55→17:20)
[2024-06-09] MEDS: ELIQUIS 5 MG PO ×2 (07:56→20:04)
--- NOTE | 2024-06-09 08:09 | W.PN.HOSP.TC ---
Today's Communication/Plan
-
see bold
Assessment / Plan
Assessment / Plan
9y F with PMH significant for A-Fib, valvular heart disease and HFpEF who presents to ED complaining of palpitations and chest pain.
Recurrent Persistent Atrial Fibrillation with Rapid Ventricular Response
- S/p IV diltiazem, sotalol discontinued, Lopressor discontinued
- Appreciate cardiology input, started on Tikosyn
- S/p successful cardioversion 06/08
- Continue Eliquis for stroke risk reduction.
Lightheadedness
Headache
-Occurring on 06/08, Head CT negative
-Denies dysarthria, dysphagia, vision changes, focal weakness, nausea, vomiting
-Discussed with cardiology, likely from side effects of Tikosyn -dose decreased by cardiology 06/09
-Continue supportive care
Acute on chronic HFpEF
Valvular Heart Disease
- Patient reports some weight gain since last admission - though weight stable / down by our scales.
- Cardiology ordered Lasix 40 mg IV x 1 on 06/06, continue home oral Lasix
- Trend creatinine, trend daily weight
Hypokalemia
-Repleted and resolved
GERD / Hiatal Hernia
- Stable. Continue current acid suppression regimen.
DDD / Low Back Pain
- Complains of acute pain in the ED - ? muscle spasms s/p cardioversion x 3 here in the ED.
- Pain control, heat application, etc.
DVT Prophylaxis: On Eliquis
Code Status: Full
Updated family at bedside 06/08
Total time spent to see the patient on the floor, examine the patient, review data and lab results, discuss treatment plan with patient, nursing staff around 40 minutes.
Physical Exam
General: No acute distress
HEENT: Normocephalic, Atraumatic, EOMI, MMM
Respiratory: Clear to Auscultation bilaterally
Cardiac: Normal S1/S2, tachycardic rate, irregular rhythm
GI: Soft, Nontender, Nondistended, Normal Bowel Sounds
Extremities: No Clubbing, Cyanosis
Mild lower extremity edema
Neuro: Nonfocal/Grossly Intact
Anticipated Discharge: Within 24 hours
Subjective/Interval History
-
Date of Service: June 09, 2024
Patient continues to feel dizzy, 5 out of 10 in intensity, improved from yesterday which was 10 out of 10 in intensity. She also has a diffuse headache, 5 out of 10 in intensity. No nausea, no vomiting. No fever.
Objective Data
-
Vital Signs:
Vital Signs
Temp Pulse Resp BP Pulse Ox
98.3 F 88 18 125/74 97
06/09/24 07:28 06/09/24 06:00 06/09/24 07:28 06/09/24 03:30 06/09/24 07:28
--- NOTE | 2024-06-09 08:10 | PTCARENOTE ---
pt continues to be sr on the monitor, hr in the 90s, vss. pt c/o MENDOZA, gave tylenol as ordered, see MAR. pt also c/o fernandez on her chest from CV, notified do eyal, ordered silvadene cream, will give as ordered. pt educated on plan of care and pt
verbalized understanding. call schultz within reach.
[2024-06-09] MEDS: SILVADENE 1 APPLIC TOPICAL (10:25)
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
--- NOTE | 2024-06-09 18:23 | PTCARENOTE ---
pt continues to be sr on the monitor, hr in the 90s, vss. pt still c/o being dizzy throughout the day. pt educated on plan of care and pt verbalized understanding. call schultz within reach.
[2024-06-09] MEDS: TIKOSYN 250 MCG PO (20:04)
[2024-06-09] MEDS: LOPRESSOR 5 MG IV (20:49)
[2024-06-09] MEDS: PEPCID 20 MG PO (21:23)
[2024-06-09] MEDS: ELAVIL 20 MG PO (21:23)
--- NOTE | 2024-06-09 23:00 | PTCARENOTE ---
Patient rhythm on quality assurance monitor chassis initially sinus tachycardia with heart rate in low one-hundreds. Around 0 patient heart rate increased to sustained 140s-150s. Patient reported palpitations, felt that she was in atrial fibrillation. ECG
completed, demonstrated sinus tachycardia. Patient denies chest pain and shortness of breath. BP 134/97, oxygen saturation on room air 97%. Patient denied feeling lightheaded or dizzy. Patient alert to self, place, and time. The patient was resting
in the bed at this time.
Dr. Ellis was notified. IV metoprolol 5mg was ordered and given, see JUL. ECG was completed following administration as ordered. ECG demonstrated sinus tachycardia with PACs. Heart rate decreased to the nineties. Patient reported that palpitations
resolved.
Two hour ECG post Dofetilide administration demonstrated a prolonged QTc, 519ms. Dr Ellis was notified of this. ECG ordered for 0700 06/10/2024. Per Dr. Ellis AM Dofetilide dose to be held.
Daughter at bedside throughout this time. Questions posed by patient and daughter answered. Both updated on plan of care. Patient resting comfortably in the bed. Call schultz within reach. Assessment and care ongoing.
[2024-06-10] VITALS (12 sets, daily range): BP systolic 112–157; BP diastolic 63–94; BMI 27.0
[2024-06-10 04:35] LABS: Hemoglobin 12.2 g/dL (12.0-16.0); Mean Corpuscular Hgb 29.1 pg (27.0-31.0); Mean Corpuscular Volume 88.3 fL (81.0-99.0); Platelet Count 309 10^3/uL (130-400); Red Blood Cell Count 4.19 10^6/uL (4.20-5.40); Red Cell Dist. Width 13.2 % (11.5-14.5); White Blood Cell Count 4.1 10^3/uL (4.8-10.8)
[2024-06-10 04:59] LABS: Blood Urea Nitrogen 23 mg/dl (7-17); Calcium 10.1 mg/dl (8.4-10.2); Carbon Dioxide 29 mmol/L (22-30); Chloride 101 mmol/L (98-107); Estimated Creatinine Clearance 55 ml/min; Glucose 103 mg/dl (70-99); Magnesium 2.1 mg/dl (1.6-2.3); Potassium 4.1 mmol/L (3.5-5.1); Sodium 137 mmol/L (135-145); eGFR > 60.00
[2024-06-10 05:08] LABS: NT-proBNP 431 pg/ml
--- NOTE | 2024-06-10 07:57 | W.PN.HOSP.TC ---
Today's Communication/Plan
-
see bold
Assessment / Plan
Assessment / Plan
9y F with PMH significant for A-Fib, valvular heart disease and HFpEF who presents to ED complaining of palpitations and chest pain.
Recurrent Persistent Atrial Fibrillation with Rapid Ventricular Response
- S/p IV diltiazem, sotalol discontinued, Lopressor discontinued
- Appreciate cardiology input, started on Tikosyn, dose reduced on 06/09
- S/p successful cardioversion 06/08
- Continue Eliquis for stroke risk reduction
- To be reevaluated by EP/Dr. Puckett on 06/11
Lightheadedness
Headache
-Occurring on 06/08, Head CT negative
-Denies dysarthria, dysphagia, vision changes, focal weakness, nausea, vomiting
-Discussed with cardiology, likely from side effects of Tikosyn -dose decreased by cardiology 06/09
-Improving, continue supportive care
Acute on chronic HFpEF
Valvular Heart Disease
- Patient reports some weight gain since last admission - though weight stable / down by our scales.
- Cardiology ordered Lasix 40 mg IV x 1 on 06/06, continue home oral Lasix
- Trend creatinine, trend daily weight
Hypokalemia
-Repleted and resolved
GERD / Hiatal Hernia
- Continue PPI
DDD / Low Back Pain
- Complains of acute pain in the ED - ? muscle spasms s/p cardioversion x 3 here in the ED.
- Pain control, heat application, etc.
DVT Prophylaxis: On Eliquis
Code Status: Full
Updated family at bedside 06/10
Total time spent to see the patient on the floor, examine the patient, review data and lab results, discuss treatment plan with patient, nursing staff around 42 minutes.
Physical Exam
General: No acute distress
HEENT: Normocephalic, Atraumatic, EOMI, MMM
Respiratory: Clear to Auscultation bilaterally
Cardiac: Normal S1/S2, regular rate and rhythm
GI: Soft, Nontender, Nondistended, Normal Bowel Sounds
Extremities: No Clubbing, Cyanosis
Mild lower extremity edema
Anticipated Discharge: 24 - 48 hours
Subjective/Interval History
-
Date of Service: June 10, 2024
Patient's dizziness continues to improve. No chest pain, no shortness of breath. No fever, no vomiting.
Objective Data
-
Labs:
Laboratory Results
06/10/24
03:50
WBC 4.1 L
Hgb 12.2
Hct 37.0
Plt Count 309
Sodium 137
Potassium 4.1
Chloride 101
Carbon Dioxide 29
BUN 23 H
Creatinine 0.7
Glucose 103 H
Calcium 10.1
Vital Signs:
Vital Signs
Temp Pulse Resp BP Pulse Ox
98.5 F 80 18 157/70 98
06/10/24 07:21 06/10/24 06:00 06/10/24 07:21 06/10/24 03:41 06/10/24 07:21
I&O
06/09/24 06/10/24 06/11/24
06:59 06:59 06:59
Intake Total 720 / 720
Output Total 350 / 350
Balance 370 / 370
[2024-06-10] MEDS: TIKOSYN PO (08:56)
[2024-06-10] MEDS: PROTONIX 40 MG PO (08:56)
[2024-06-10] MEDS: LASIX 40 MG PO (08:57)
[2024-06-10] MEDS: ELIQUIS 5 MG PO ×2 (08:57→19:36)
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
[2024-06-10] MEDS: TIKOSYN 250 MCG PO ×2 (10:17→19:36)
--- NOTE | 2024-06-10 10:25 | PTCARENOTE ---
Assumed care at 0700. ST HR 100-116. Tikosyn given at the ordered lower dose of 250mcg. EKG at 1220 ordered. Walked to the bathroom, voided, eating and drinking ok, feeling a little fuzzy, not dizzy but improved from yesterday, call schultz in reach
[2024-06-10] MEDS: REGLAN 5 MG PO ×2 (13:24→17:29)
--- NOTE | 2024-06-10 15:18 | PTCARENOTE ---
Patient returning from the bathroom, complaints of palpitations, not dizzy, felt garrett faint but unclear with her explanation. HR 150-160's, looks to be A-Fib unsustained, strip mounted in chart. Returned to bed HR 104, ST, VSS, symptoms resolved.
Dr. Ellis notified, will continue to monitor. Will limit activity to the commode for now
--- NOTE | 2024-06-10 19:54 | PTCARENOTE ---
pt received at change of shift, pt seen and assessed in room. Pt. Aox3, tele reading sinus tach. No complaints of pain or dizziness at this time. RN helped pt to bedside commode, pt. exhibited no difficulties. 2nd dose of tikosyn given, pt education
conducted. EKG to be done 2 hrs later. Pt. verbalizes understanding. Call schultz within reach. Continuing to monitor at this time.
[2024-06-10] MEDS: PEPCID 20 MG PO (22:04)
[2024-06-10] MEDS: ELAVIL 20 MG PO (22:04)
[2024-06-11] VITALS (8 sets, daily range): BP systolic 106–126; BP diastolic 73–111; PULSE 82; O2SAT 97; BMI 26.8
[2024-06-11] MEDS: TIKOSYN 250 MCG PO ×2 (09:05→19:23)
[2024-06-11] MEDS: REGLAN 5 MG PO ×3 (09:05→17:44)
[2024-06-11] MEDS: PROTONIX 40 MG PO (09:06)
[2024-06-11] MEDS: LASIX 40 MG PO (09:06)
[2024-06-11] MEDS: ELIQUIS 5 MG PO ×2 (09:06→19:23)
--- NOTE | 2024-06-11 10:57 | W.PN.CD ---
Today's Communication / Plan
-
- Continue Tikosyn 250 mcg
- Start metoprolol 25 mg BID.
- EKG in AM.
Impression / Plan
-
79 y/o female (patient of Dr. Jama) with PAF on sotalol and Eliquis (multiple cardioversions including CV 05/09/24, ablation 05/22/24 Dr. Puckett, then CV in ER 05/26/24), bradycardia, chronic HFpEF, moderate MS and MR, hypertension, untreated
CARL per chart who presents with recurrent AFIB, s/p failed cardioversion in the ED, now switched from Sotalol to Dofetilide.
AFIB, recurrent, persistent, with borderline hypotension:
-s/p ablation 05/22/24 Dr. Puckett - PVI and PWI with Farapulse
-CV 04/25/25. Attempted CV in ER this admit was unsuccessful.
-Failed Sotalol. Switched to to Tikosyn.
-QTc is borderline and dose is reduced to 250 mcg now.
-Patient underwent cardioversion 06/08/2024 and remains in sinus rhythm
-Eliquis 5 mg PO BID
-Symptoms improved but no win sinus tach
-Will start Metoprolol 25 mg BID - Watch for QTc at lower rates. If QTc is long then can stop Tikosyn.
-Monitor QTc which is currently 495
Tikosyn Initiation
- Off Sotalol - last dose was 06/06/24 at 0800
- Tikosyn started at 06/07/24 at 2000. Dose reduced in the evening on 06/09/2024 due to concern regarding dizziness.
- QTc is borderline long
- Sinus tach - will start Metoprolol.
PAT. Briefly 06/09/2024 responded well to beta-casie
Acute on chronic HFpEF
-Weight is down. Creatinine stable. Examines euvolemic.
-Switch to p.o. Lasix 40 mg daily starting tomorrow, she already got a dose of IV today.
HTN:
-on low end
-follow
Moderate MR, MS:
-monitor volume
Physical Exam
Vital Signs/Labs
Vital Signs
Temp Pulse Resp BP Pulse Ox
98.8 F 136 16 124/80 98
06/11/24 07:59 06/11/24 10:30 06/11/24 07:59 06/11/24 09:06 06/11/24 08:15
06/10/24 06/11/24 06/12/24
06:59 06:59 06:59
Actual Weight 63.6 kg 63.3 kg
06/10/24 03:50
06/10/24 03:50
Magnesium 2.1 mg/dl (1.6-2.3) 06/10/24 03:50
Triglycerides 85 mg/dl (10-149) 06/06/24 05:47
LDL Cholesterol, Calc 132 mg/dl 06/06/24 05:47
VLDL Cholesterol, Calc 17 mg/dl (0-30) 06/06/24 05:47
HDL Cholesterol 64 mg/dl 06/06/24 05:47
06/06/24 06/10/24
00:11 03:50
Tsf-I-Jbtgjtuamcr Pept [id number]
Physical Exam
Constitutional: No acute distress and Comfortable
EENT: Anicteric and Moist mucous membranes
Cardiovascular: Rhythm & rate is regular (sinsu tach), Pedal edema is absent, JVD pressure is normal and Systolic murmur present
Respiratory: Respiratory effort normal and Lungs clear to auscul.
GI: Soft, Non tender and Normal bowel sounds
Neuro/Psych: Alert, Oriented, AO x 3 and Motor deficits absent
Other: Cath Site
Data Reviewed
-
Date of Service: June 11, 2024
Medical Decision Making: Reviewed Test Results, Independent Historian Assessment, Test Interpretation and Review of Case with other Provider
EKG: Tracing Personally Visualized and interpreted
Echo: Report Reviewed by me
X-Ray/CT/US/MRI/NUC/PET: Image Personally Visualized and interpreted
Medical Tests (PFT, Pathology etc): Discussed with Patient and Discussed with Family
Labs: Labs Reviewed by me
Old Records: Reviewed
[2024-06-11] MEDS: REGLAN PO (11:27)
[2024-06-11] MEDS: LOPRESSOR 25 MG PO ×2 (11:27→19:23)
--- NOTE | 2024-06-11 12:19 | W.PN.HOSP.TC ---
Today's Communication/Plan
-
see bold
Assessment / Plan
Assessment / Plan
Gen: NAD, Awake and alert
Eyes: EOMI, PERRLA, no scleral icterus.
Neck: supple.
CV: RRR, +S1/S2, no m/r/g.
Resp: CTAB, no rales, wheezes, or rhonchi.
Abd: +BS, soft, NT, ND
Skin: No rashes.
Neuro: CN 2-12 intact, non-focal.
Psych: Normal mood and affect.
Recurrent Persistent Atrial Fibrillation with Rapid Ventricular Response:
-s/p IV diltiazem, sotalol discontinued
-cont Lopressor (was stopped, now restarted)
-Review of telemetry over the last 24 hours showed tachyarrhythmias which appears to be sinus tachycardia
-cardiology following
-s/p CV to SR 06/08/24
-started on Tikosyn, dose reduced on 06/09
-cont Eliquis
-ECG in AM
-Lightheadedness and h/a were likely due to SEs Tikosyn
Acute on chronic HFpEF
-underlying valvular heart disease
-s/p IV Lasix on 06/06/24, cont PO Lasix
-cont BB
Other problems:
Hypokalemia, resolved
GERD: cont PPI
DDD/Low Back Pain
Family updated at bedside.
FULL/Eliquis
Anticipated Discharge: Within 24 hours
Subjective/Interval History
-
Date of Service: June 11, 2024
No new complaints.
Objective Data
-
Vital Signs:
Vital Signs
Temp Pulse Resp BP Pulse Ox
97.8 F 115 16 126/91 97
06/11/24 11:17 06/11/24 11:27 06/11/24 11:17 06/11/24 11:27 06/11/24 11:19
I&O
06/10/24 06/11/24 06/12/24
06:59 06:59 06:59
Intake Total 720 / 720
Output Total 350 / 350 1150 / 1150
Balance 370 / 370 -1150 / -1150
--- NOTE | 2024-06-11 16:37 | CM ---
spoke to pt in room, she is requesting a walker to go home with. PT consult in.
--- NOTE | 2024-06-11 18:20 | PTCARENOTE ---
Pt's heart rate maintained under 100 bpm, while ambulating in the room w/ a rolling walker. Will monitor.
[2024-06-11] MEDS: ELAVIL 20 MG PO (22:05)
[2024-06-11] MEDS: PEPCID 20 MG PO (22:05)
--- NOTE | 2024-06-11 23:05 | PTCARENOTE ---
assumed pt care at 1900, pt AOx3, sitting comfortably in chair. tele reading NSR 80s-90s. VS WNL. pt. received metoprolol with 8pm meds. continuing to monitor hr on tele. no complaints of pain at this time. RN discusses POC, pt. verbalizes
understanding. Call schultz within reach. Continuing to monitor at this time.
[2024-06-12 03:55] VITALS: BP 117/65
[2024-06-12 04:32] VITALS: BMI 26.9
[2024-06-12 05:00] LABS: Hematocrit 35.1 % (37.0-47.0); Hemoglobin 11.9 g/dL (12.0-16.0); Mean Corp Hgb Conc. 33.9 g/dL (33.0-37.0); Mean Corpuscular Hgb 30.1 pg (27.0-31.0); Mean Corpuscular Volume 88.6 fL (81.0-99.0); Platelet Count 288 10^3/uL (130-400); Red Blood Cell Count 3.96 10^6/uL (4.20-5.40); White Blood Cell Count 4.3 10^3/uL (4.8-10.8)
[2024-06-12 05:23] LABS: Blood Urea Nitrogen 27 mg/dl (7-17); Calcium 10.2 mg/dl (8.4-10.2); Carbon Dioxide 29 mmol/L (22-30); Chloride 97 mmol/L (98-107); Estimated Creatinine Clearance 55 ml/min; Glucose 93 mg/dl (70-99); Sodium 134 mmol/L (135-145); eGFR > 60.00
--- NOTE | 2024-06-12 05:40 | PTCARENOTE ---
6am EKG reading NSR in the 60s. No complaints of pain overnight. Continuing to monitor
[2024-06-12 07:44] VITALS: BP 150/83
--- NOTE | 2024-06-12 08:25 | W.PN.HOSP.TC ---
Addendum entered and electronically signed by Prasad Rico MD 06/12/24 11:44:
Medically cleared for discharge as per discussion with Dr. Puckett.
Total time spent on d/c = 34 min. This included today's physical exam, progress note, review of laboratory and diagnostic data, preparation of discharge documents and prescriptions, and discussions about the pt's hospital course and discharge plan
with the patient and other medical accountant involved in the patient's care.
Original Note:
Today's Communication/Plan
-
possible d/c today
Assessment / Plan
Assessment / Plan
Gen: NAD, Awake and alert
Eyes: EOMI, PERRLA, no scleral icterus.
Neck: supple.
CV: remains RRR, +S1/S2, no m/r/g.
Resp: remains CTAB, no rales, wheezes, or rhonchi.
Abd: +BS, soft, NT, ND
Skin: No rashes.
Neuro: remains CN 2-12 intact, non-focal.
Psych: Normal mood and affect.
Recurrent Persistent Atrial Fibrillation with Rapid Ventricular Response:
-s/p IV diltiazem, sotalol discontinued
-cont Lopressor (was stopped, now restarted)
-Review of telemetry over the last 24 hours showed tachyarrhythmias which appears to be sinus tachycardia
-cardiology following
-s/p CV to SR 06/08/24
-Lightheadedness and h/a (earlier during hospitalization) were likely due to SEs Tikosyn
-cont Eliquis
-started on Tikosyn, dose reduced on 06/09
-ECG this AM: NSR @ 69, nl axis, QTc 69
Acute on chronic HFpEF
-underlying valvular heart disease
-s/p IV Lasix on 06/06/24, cont PO Lasix
-cont BB
Other problems:
Hypokalemia, resolved
GERD: cont PPI
DDD/Low Back Pain
FULL/Eliquis
Anticipated Discharge: Within 24 hours
Subjective/Interval History
-
Date of Service: June 12, 2024
No new complaints.
Objective Data
-
Labs:
Laboratory Results
06/12/24
04:04
WBC 4.3 L
Hgb 11.9 L
Hct 35.1 L
Plt Count 288
Sodium 134 L
Potassium 4.0
Chloride 97 L
Carbon Dioxide 29
BUN 27 H
Creatinine 0.7
Glucose 93
Calcium 10.2
Vital Signs:
Vital Signs
Temp Pulse Resp BP Pulse Ox
97.8 F 79 18 117/65 98
06/12/24 04:32 06/12/24 04:30 06/11/24 22:05 06/12/24 03:55 06/12/24 04:32
I&O
06/11/24 06/12/24 06/13/24
06:59 06:59 06:59
Intake Total 500 / 500
Output Total 1150 / 1150 950 / 950
Balance -1150 / -1150 -450 / -450
[2024-06-12] MEDS: REGLAN 5 MG PO ×2 (08:53→12:03)
[2024-06-12] MEDS: LASIX 40 MG PO (08:54)
[2024-06-12] MEDS: TIKOSYN 250 MCG PO (08:55)
[2024-06-12] MEDS: LOPRESSOR 25 MG PO (08:55)
[2024-06-12] MEDS: ELIQUIS 5 MG PO (08:55)
[2024-06-12] MEDS: PROTONIX 40 MG PO (08:55)
--- NOTE | 2024-06-12 10:49 | W.PN.CD ---
Today's Communication / Plan
-
- Stable for discharge from cardiac stand point
- Discharge dose of Tikosyn 250 mcg q12h and Metoprolol 25 mg BID
- Follow up with EP in 2 weeks.
Impression / Plan
-
79 y/o female (patient of Dr. Jama) with PAF on sotalol and Eliquis (multiple cardioversions including CV 05/09/24, ablation 05/22/24 Dr. Puckett, then CV in ER 05/26/24), bradycardia, chronic HFpEF, moderate MS and MR, hypertension, untreated
CARL per chart who presents with recurrent AFIB, s/p failed cardioversion in the ED, now switched from Sotalol to Dofetilide.
AFIB, recurrent, persistent, with borderline hypotension:
-s/p ablation 05/22/24 Dr. Puckett - PVI and PWI with Farapulse
-CV 04/25/25. Attempted CV in ER this admit was unsuccessful.
-Failed Sotalol. Switched to to Tikosyn - now 250 mcg q12h.
-QTc is borderline and dose is reduced to 250 mcg now.
-Patient underwent cardioversion 06/08/2024 and remains in sinus rhythm
-Eliquis 5 mg PO BID
-Symptoms improved but no win sinus tach
-Tolerated Metoprolol 25 mg BID with rates well controlled and QTc is stable at 490s.
-Monitor QTc which is currently 495
Tikosyn Initiation
- Off Sotalol - last dose was 06/06/24 at 0800
- Tikosyn started at 06/07/24 at 2000. Dose reduced in the evening on 06/09/2024 due to concern regarding dizziness.
- QTc is borderline long
- Sinus tach - responded to Metoprolol.
PAT. Briefly 06/09/2024 responded well to beta-casie
Acute on chronic HFpEF
-Weight is down. Creatinine stable. Examines euvolemic.
-Switch to p.o. Lasix 40 mg daily starting tomorrow, she already got a dose of IV today.
HTN:
-on low end
-follow
Moderate MR, MS:
-monitor volume
Physical Exam
Vital Signs/Labs
Vital Signs
Temp Pulse Resp BP Pulse Ox
98.1 F 90 16 150/83 98
06/12/24 08:00 06/12/24 09:30 06/12/24 08:00 06/12/24 08:54 06/12/24 08:00
06/11/24 06/12/24 06/13/24
06:59 06:59 06:59
Actual Weight 63.3 kg 63.4 kg
06/12/24 04:04
06/12/24 04:04
Magnesium 2.1 mg/dl (1.6-2.3) 06/10/24 03:50
Triglycerides 85 mg/dl (10-149) 06/06/24 05:47
LDL Cholesterol, Calc 132 mg/dl 06/06/24 05:47
VLDL Cholesterol, Calc 17 mg/dl (0-30) 06/06/24 05:47
HDL Cholesterol 64 mg/dl 06/06/24 05:47
06/06/24 06/10/24
00:11 03:50
Oma-E-Euywd[address]orhn Pept [phone]
Physical Exam
Constitutional: No acute distress and Comfortable
EENT: Anicteric and Moist mucous membranes
Cardiovascular: Rhythm & rate is regular, Pedal edema is absent, JVD pressure is normal and Systolic murmur absent
Respiratory: Respiratory effort normal and Lungs clear to auscul.
GI: Soft, Distention absent, Non tender and Normal bowel sounds
Neuro/Psych: Alert, Oriented and AO x 3
Data Reviewed
-
Date of Service: June 12, 2024
Medical Decision Making: Reviewed Test Results, Independent Historian Assessment and Test Interpretation
EKG: Tracing Personally Visualized and interpreted
Echo: Report Reviewed by me
Labs: Labs Reviewed by me
Old Records: Reviewed
[2024-06-12 11:33] VITALS: BP 123/73
--- NOTE | 2024-06-12 13:13 | PTCARENOTE ---
Discussed all nursing measures w/ pt. Discussed her tikosyn and metoprolol doses for discharge. Pt remains in NSR. Will monitor.
--- NOTE | 2024-06-12 14:00 | W.DCSUMMARY ---
Discharge Summary
Discharge Data
Date of Admission: 06/06/24
Date of Discharge: 06/12/24
-
Pending Results: No
Hospital Course
Primary diagnoses:
Recurrent Persistent Atrial Fibrillation with Rapid Ventricular Response
Acute on chronic heart failure with preserved ejection fraction
Secondary diagnoses:
Hypokalemia
Gastroesophageal reflux disease
Degenerative disc disease
Low Back Pain
Consultants:
Cardiology/electrophysiology
Imaging:
CT brain: No acute intracranial abnormality noted. Mild chronic white matter ischemic change. Incidental focal irregular lucent defect of the left parietal outer table and diploic space, as described. Possibly related to previous surgical
intervention.
CXR: No active cardiopulmonary disease.
79-year-old female who initially presented on June 06, 2024 with a chief complaint of chest pain and palpitations as outlined in H&P done on admission. Hospital course by problem was:
Recurrent Persistent Atrial Fibrillation with Rapid Ventricular Response: The patient received IV diltiazem and her sotalol was discontinued. She was placed on Lopressor which was stopped and then restarted. She was seen in consultation by
cardiology. She underwent cardioversion to sinus rhythm on 06/08/24. Patient was placed on Tikosyn. She did experience some lightheadedness and headache which were likely due to side effects of Tikosyn. Her Tikosyn dose was reduced. She was
cleared for discharge by cardiology.
Acute on chronic HFpEF: The patient had underlying valvular heart disease. She received a dose of IV Lasix on 06/06/24 and then continued on PO Lasix. Her beta-casie was continued.
Discharge Plan
-
Patient Disposition: Home (Routine Discharge)
Discharge Diagnosis/Procedures: Recurrent Persistent Atrial Fibrillation with Rapid Ventricular Response, acute on chronic heart failure with preserved ejection fraction
Condition: Good
Diet: Low Cholesterol, Low Sodium and Other diet
Additional Diets: Fluid restrict to 1200 cc/day
Activity: As tolerated
Driving Restrictions: Not until seen by your Dr
Specialty Instructions: Weigh Daily- Call MD for wt gain/loss 3 lbs overnight/5 lbs in 1 week
Referrals:
Josh Puckett MD [Active] - in two weeks
Alina Piper MD [Family Provider] - in less than 1 week
Prescriptions:
New
dofetilide 250 mcg Capsule
250 mcg PO Q12H Qty: 60 0RF
metoprolol tartrate 25 mg Tablet
25 mg PO BID Qty: 60 0RF
Continued
famotidine 20 MG tablet
20 mg PO HS
Eliquis 5 MG tablet
5 mg PO BID Qty: 30 3RF
omeprazole 40 mg Capsule,Delayed Release(Dr/Ec)
40 mg PO DAILY
amitriptyline 10 mg Tablet
20 mg PO HS
cholecalciferol (vitamin D3) [Vitamin D3] 50 mcg (2,000 unit) Tablet
50 mcg PO DAILY
Prolia 60 mg/mL Syringe
60 mg SC [id number]
metoclopramide HCl 5 mg Tablet
5 mg PO AC
furosemide [Lasix] 40 mg tablet
40 mg PO DAILY Qty: 30 0RF
Discontinued
diltiazem HCl 120 mg Capsule,Extended Release 24hr
120 mg PO DAILY Qty: 30 0RF
sotalol 80 mg Tablet
40 mg PO BID Qty: 60 0RF
Rx Instructions:
Dose decreased on this admission
Discharge Orders:
Discharge Patient (As Directed); Ordered 06/12/24
Ordered By: Prasad Rico
Care Plan Goals
Care Plan Goals:
Problem: Readiness for enhanced knowledge related to diagnosis and treatment plan
Goal: Understand your diagnosis and treatment plan needs, including medications if applicable.
Instructions: Know your diagnosis, underlying causes and treatment plan options, including medications if applicable. Consult with your health care team to learn about your diagnosis and treatment plan, including medications if applicable.
Discharge Date and Time
Print Language: BULGARIAN
== END 2024-06-12 15:27 | disposition home or self-care (01) | DRG 291 ==
LOC: IVU 04:15
PROVIDERS: Internal Medicine Cardiovascular Disease; Nurse Practitioner; Nurse Practitioner Family; Student in an Organized Health Care Education/Training Program; ADMITTING PHYSICIAN Hospitalist; ATTENDING PHYSICIAN Internal Medicine; EMERGENCY PHYSICIAN Student in an Organized Health Care Education/Training Program; FAMILY PHYSICIAN Family Medicine; OTHER PHYSICIAN Student in an Organized Health Care Education/Training Program
PROC: 5A2204Z Restoration of Cardiac Rhythm, Single (ICD-10-PCS; 2024-06-11)
DX: I11.0 Hypertensive heart disease with heart failure (principal); I50.33 Acute on chronic diastolic (congestive) heart failure; I48.19 Other persistent atrial fibrillation; E87.6 Hypokalemia; K21.9 Gastro-esophageal reflux disease without esophagitis; M51.360 Other intervertebral disc degeneration, lumbar region with discogenic back pain only; I05.2 Rheumatic mitral stenosis with insufficiency; K44.9 Diaphragmatic hernia without obstruction or gangrene; Z96.652 Presence of left artificial knee joint; Z79.01 Long term (current) use of anticoagulants; Z79.899 Other long term (current) drug therapy; I49.3 Ventricular premature depolarization
CPT/HCPCS: 70450; 71046; 80048; 80053; 80061; 82962; 83735; 83880; 84484; 85025; 85027; 92960; 93005; 96374; 96376; 97116; 97162; 97166; 97530; 99291; J1160

== ENCOUNTER → 2024-06-15 13:25 | Day surgery (SDC) | payer MEDICARE, OTHER, SELFPAY | LOC: CATH 13:25 | PROVIDERS: ATTENDING PHYSICIAN Internal Medicine; FAMILY PHYSICIAN Family Medicine | DX: I48.19 Other persistent atrial fibrillation (principal); I11.0 Hypertensive heart disease with heart failure; I50.32 Chronic diastolic (congestive) heart failure; K21.9 Gastro-esophageal reflux disease without esophagitis; Z79.01 Long term (current) use of anticoagulants | CPT/HCPCS: 92960; 93005 ==

== ENCOUNTER 2024-06-17 12:56 | Inpatient (IN) | payer MEDICARE, OTHER, SELFPAY ==
[2024-06-17] VITALS (17 sets, daily range): BP systolic 89–153; BP diastolic 56–103; BMI 26.7; BMI 23.2
--- NOTE | 2024-06-17 11:08 | ED.GENMED ---
History of Present Illness
General
Chief Complaint: Heart Rate Problem
Source: patient
Time Seen by Provider: 06/17/24 10:51
History of Present Illness
History of Present Illness:
79-year-old female presents to the emergency room complaining of of palpitations, blurred vision, shortness of breath. Patient has a history of atrial fibrillation which has been difficult to control. She had an ablation performed on May 22.
Since then the patient has been hospitalized couple times with recurrent and persistent atrial fibrillation. She was cardioverted most recently 2 days ago. Patient is taking Tikosyn. Patient is mild chest pressure with this episode.
Past History
Past History
ED Past Medical History: Arrthythmia (A fib), Valvular disease (followed by dr whyte) and Other (Rheumatic fever, Murmur); Negative Asthma, HTN, IDDM or NIDDM
ED Past Surgical History: Gynecological (Oophorectomy)
Social History
Tobacco: Non-smoker
Alcohol: Occasional
Drug: None
Personal:
Living: alone
Employment: Retired
Family History
Family History: Other
Phy Exam
Physical Exam
Physical Exam:
General: Awake, Alert, Oriented X3. No acute distress.
Vitals: Tachycardic
Head: Atraumatic
Eyes: Pupils equal, EOMI
Throat: Airway intact, no exudates
Neck: Trachea midline
Lungs: Clear and equal b/l
Heart: Tachycardic, irregular rate, no murmurs
Abd: Soft, Nontender, No pulsatile mass
Neuro: Nonfocal
Skin: Warm, dry, no rash
Extremities: pulses equal b/l, no edema
Course
Orders/Labs/Results
Orders:
Orders
06/17/24 10:27
Electrocardiogram (*1) Urgent
Reason for Study: Atrial Fibrillation
EKG- Treatment ONCE
06/17/24 11:08
Cardiac Monitoring- Treatment ONCE
06/17/24 11:10
Diltiazem 125 mg/125 ml Nss [Cardizem] 125 mg in 125 ml IV NOW
Initial dose in mg/hr, then titrate:: 5
Titrate to keep:: Heart rate 80-100 bpm
Titrate by mg/hr:: 5 mg/hr
Frequency of titrations (minutes):: 15
Maximum dose in mg/hr:: 15
06/17/24 11:20
Basic Metabolic Panel Urgent
Complete Blood Count/With Diff Urgent
Magnesium Urgent
Troponin I Urgent
06/17/24 12:26
Admit/Transfer Patient As Directed
Co-Sign Provider:
Level of Care: Inpatient admission
Assign to:: Telemetry
Physician / Group: sera
Diagnosis: afib rvr
Reason for Telemetry: Arrhythmia
Date to Stop Telemetry: 06/20/24
Time to Stop Telemetry: 11:00
Reason for Hospitalization: afib rvr
Expected length of stay greater than two midnights?: Yes
ELOS- Estimated Length of Stay in days: 2
I certify the patient meets the requirements for IP care: Yes
PRN Pain Medication Management As Directed
May give lesser potent ordered pain med per pt: Yes
preference::
Protocol:: Medication orders for pain may be administered in a
manner that supports deferring to patient preference
when the pt is:
- Requesting an ordered lesser potent pain medication.
Least to most potent pain medications are defined
as: acetaminophen < NSAID < tramadol < opioids
(morphine, oxycodone, hydromorphone).
- Requesting a lesser dose of the same medication IF
ORDERED.
- Requesting a less intrusive route of administration
if both routes are prescribed by the provider (PO <
IV).
06/17/24 12:27
Code Status As Directed
Resuscitation Status: Full Code
06/17/24 Dinner
Cholesterol Lowering
At Your Request: Full Participation
Cholesterol Lowering: Sodium, 2 Gram
06/17/24 16:43
Diltiazem 125 mg/125 ml Nss [Cardizem] 125 mg in 125 ml IV PER PROTOCOL
Initial dose in mg/hr, then titrate:: 15
Titrate to keep:: Heart rate 80-100 bpm
Titrate by mg/hr:: 5 mg/hr
Frequency of titrations (minutes):: 15
Maximum dose in mg/hr:: 15
Metoclopramide [Reglan] 5 mg PO AC
06/17/24 16:43
CARDIOLOGY CONSULT Routine
Consulting Provider: Ba Hong
Was physician already notified: Yes
VTE Contraindication Routine
VTE Mechanical Device Contraindication: Medical Contraindication
Pharmocologic Contraindication: Medical Contraindication
Activity As Directed
Activity Level: As Tolerated
Vital Signs As Directed
Frequency: Per unit guidelines
06/17/24 20:00
Apixaban [Eliquis] 5 mg PO BID
Metoprolol [Lopressor] 25 mg PO BID
06/17/24 22:00
Amitriptyline [Elavil] 20 mg PO HS
Famotidine [Pepcid] 20 mg PO HS
06/18/24 06:00
Complete Blood Count/With Diff IN AM
Comprehensive Metabolic Panel IN AM
06/18/24 08:00
Cholecalciferol (Vitamin D3) [VITAMIN D3 (cholecalciferol)] 50 mcg PO DAILY
Furosemide [Lasix] 40 mg PO DAILY
Pantoprazole [Protonix] 40 mg PO DAILY
Abnormal Lab Results
06/17/24
11:20
WBC 4.3 L 10^3/uL
(4.8-10.8)
RBC 4.13 L 10^6/uL
(4.20-5.40)
Hct 35.9 L %
(37.0-47.0)
Absolute Lymphs (auto) 1.0 L 10^3/uL
(1.2-3.4)
Immature Gran % 0.7 H %
(0-0.5)
Monocytes % 10.8 H %
(1.7-9.3)
Creatinine 0.5 L mg/dL
(0.6-1.0)
06/17/24 11:20
06/17/24 11:20
Vital Signs
Initial and Last Documented VS:
Initial Vital Signs
Temp Pulse Resp BP Pulse Ox
98.9 F 126 22 153/100 99
06/17/24 10:34 06/17/24 10:34 06/17/24 10:34 06/17/24 10:34 06/17/24 10:34
Last Documented Vital Signs
Temp Pulse Resp BP Pulse Ox
98.1 F 72 18 115/73 96
06/17/24 16:35 06/17/24 16:35 06/17/24 16:35 06/17/24 16:35 06/17/24 16:35
MDM/Problems Addressed
Differential Diagnosis Includes:
A-fib with rapid trickle response, dehydration, electrolyte abnormality
MDM/Problems Addressed:
Patient will be hospitalized as she has been difficult to both rate control and rhythm control. Cardiology recommends hospitalization. Cardizem drip started without a bolus.
*Radiology
Radiology exam reviewed: radiology read reviewed
*Pulse Oximetry
Patient hypoxic: no
*EKG
Interpreted by ED Provider?: Yes
Interpretation: abnormal
Heart Rate: 143
Rate: tachycardiac
Rhythm: a-fib
Interval: normal interval
QRS Pattern: normal QRS
Ischemia: non-specific ST changes
*Saw Runner Interpretation
Rate: tachycardiac
Interpretation: abnormal
Heart Rate: 143
Rhythm: a-fib
*Critical Care Note
Total Time (30-74mins, 75-104mins- exclusive of procedures): Not Applicable
ED Attending Note
-
Portions of this chart may have been created with voice recognition software.� Occasional wrong word or��sound alike� substitutions may have occurred due to the inherent limitations of voice recognition software.
Discharge Plan
Departure
Patient Disposition: Admit
Date of Disposition: 06/17/24
Time of Disposition: 12:10
Admit to: IVU
Presentation/result/management discussed w/ accepting MD/DO: Hospitalist
Condition: Fair
Discharge Problem:
Atrial fibrillation with rapid ventricular response
Interventions
Interventions:
*Risk Screen - Suicide Last Done: 06/17/24 10:34
*General Assessment Last Done: 06/17/24 10:34
*Neglect/Abuse Screening Last Done: 06/17/24 10:34
ED- Fall Risk Assessment Last Done: 06/17/24 11:28
*ED COVID-19 Vaccine History Last Done: 06/17/24 11:28
*Nursing Disposition Last Done: 06/17/24 16:17
ED- Cardiac Assessment Last Done: 06/17/24 11:29
ED- Pulmonary Assessment Last Done: 06/17/24 11:29
Discharge Date and Time
Discharge Date/Time: 06/17/24 16:17
[2024-06-17] MEDS: CARDIZEM 125 IV ×2 (11:20→22:10)
[2024-06-17 11:35] LABS: % Basophils 0.9 % (0-2); % Eosinophils 3.7 % (0-6); % Immature Granulocytes 0.7 % (0-0.5); % Monocytes 10.8 % (1.7-9.3); % Neutrophils 60.9 % (42.2-75.2); Absolute Eosinophils 0.2 10^3/uL (0-0.7); Absolute Monocytes 0.5 10^3/uL (0.1-0.6); Absolute Neutrophils 2.6 10^3/uL (1.4-6.5); Hematocrit 35.9 % (37.0-47.0); Hemoglobin 12.1 g/dL (12.0-16.0); Mean Corp Hgb Conc. 33.7 g/dL (33.0-37.0); Mean Corpuscular Hgb 29.3 pg (27.0-31.0); Mean Corpuscular Volume 86.9 fL (81.0-99.0); Mean Platelet Volume 9.8 fL (7.4-10.4); Nucleated Red Blood Cells % 0 %; Platelet Count 224 10^3/uL (130-400); Red Blood Cell Count 4.13 10^6/uL (4.20-5.40); Red Cell Dist. Width 13.2 % (11.5-14.5); White Blood Cell Count 4.3 10^3/uL (4.8-10.8)
[2024-06-17 11:47] LABS: Blood Urea Nitrogen 16 mg/dl (7-17); Calcium 9.6 mg/dl (8.4-10.2); Carbon Dioxide 29 mmol/L (22-30); Chloride 106 mmol/L (98-107); Estimated Creatinine Clearance 64 ml/min; Glucose 84 mg/dl (70-99); Magnesium 2.1 mg/dl (1.6-2.3); Potassium 3.5 mmol/L (3.5-5.1); Sodium 142 mmol/L (135-145); eGFR > 60.00
[2024-06-17 11:58] LABS: Troponin I 0.016 ng/ml
--- NOTE | 2024-06-17 12:29 | HPS.HSE ---
Family Physician
-
Family Physician: Alina Piper
Chief Complaint
-
palpitations
History of Present Illness
79-year-old female past medical history of persistent atrial fibrillation, HFpEF, hypertension, GERD, degenerative disc disease/lower back pain, presenting with palpitation, chest pressure, blurred vision and shortness of breath starting today. She
has a history of atrial patient is difficult to control. She recently had ablation performed on May 22. Since then she has been hospitalized with recurrent atrial fibrillation. She has been cardioverted 2 days ago. She was recently started
on Tikosyn which she has been tolerating with minimal side effects at this time.
Denies any fever or upper respiratory symptoms or cough. Denies diarrhea.
She does not smoke or drink alcohol.
Medical History
Past Medical History
Past Medical History: Reports Other (persistent atrial fibrillation, HFpEF, hypertension, GERD, degenerative disc disease/lower back pain,)
Past Surgical History: Reports Other (Gynecological (Oophorectomy))
Social History
Tobacco: Non-smoker
Alcohol: None
Drug: None
Family History
Family History: Not pertinent
Allergies / Home Medications
Allergies reflects when Allergies were last updated in [facility].
Home Medications with original date entered in [facility]
Allergy/Medication List:
Allergies
Allergy/AdvReac Type Severity Reaction Status Date / Time
adhesive Allergy Itching, Verified 06/17/24 10:33
Rash
propoxyphene napsylate Allergy Rash, Verified 06/17/24 10:33
[From [email or web address] 100] Swelling
Home Medications
famotidine 20 mg tablet 20 mg PO HS Gastrointestinal issue 03/05/20
apixaban 5 mg tablet (Eliquis) 5 mg PO BID #30 tabs 03/28/20
amitriptyline 10 mg tablet 20 mg PO HS Neurological Condition 09/08/23
cholecalciferol (vitamin D3) 50 mcg (2,000 unit) tablet (Vitamin D3) 50 mcg PO DAILY Supplement 09/08/23
denosumab 60 mg/mL subcutaneous syringe (Prolia) 60 mg SC [id number] Autoimmune Disorder 09/08/23
omeprazole 40 mg capsule,delayed release 40 mg PO DAILY Gastrointestinal Issue 09/08/23
metoclopramide HCl 5 mg tablet 5 mg PO AC Gastrointestinal Issue 05/22/24
furosemide 40 mg tablet (Lasix) 40 mg PO DAILY #30 tabs 05/29/24
dofetilide 250 mcg capsule 250 mcg PO Q12H #60 caps 06/12/24
metoprolol tartrate 25 mg tablet 25 mg PO BID #60 tabs 06/12/24
Review of Systems
-
History Source: Patient
A 12 point ROS was completed and negative except as noted: Yes
Constitutional: Reports No Symptoms
EENT: Reports No Symptoms
Respiratory: Reports See HPI
Cardiac: Reports See HPI
Abdomen/GI: Reports No Symptoms
: Reports No Symptoms
Musculoskeletal: Reports No Symptoms
Skin: Reports No Symptoms
Neurological: Reports No Symptoms
Endocrine: Reports No Symptoms
Hematologic/Lymphatic: Reports No Symptoms
Psych: Reports No Symptoms
Physical Exam
Vital Signs
Vital Signs
Temp Pulse Resp BP Pulse Ox
98.9 F 128 15 131/91 96
06/17/24 10:34 06/17/24 11:56 06/17/24 11:56 06/17/24 12:01 06/17/24 12:03
Physical Exam
General: Well Developed, Well Nourished and No Apparent Distress
HEENT: NormoCephalic, Moist mucous membranes and Atraumatic
Respiratory: Clear
Cardiac: S1/S2 and Regular Rhythm; No Murmur or Rub
GI: Soft, Non Tender, Non Distended and Normal Bowel Sounds; No Organomegaly
Rectal: Deferred by Provider
Musculoskeletal: No Clubbing, No Cyanosis and No Edema
Skin: No Rash
Neuro: Nonfocal/grossly intact
Laboratory Results
-
06/17/24 11:20
06/17/24 11:20
Laboratory Results
Troponin I 0.016 ng/ml 06/17/24 11:20
Data Reviewed
-
Lab Data: Labs Reviewed by me
Old Records: Reviewed
Impression/Plan
-
IMPRESSION:
PLAN:
# Recurrent persistent atrial fibrillation with RVR
-EKG shows atrial fibrillation with RVR heart rate 143
-Continue Eliquis
-Continue metoprolol
-Continue Tikosyn which was recently started
-Cardiology consulted with plan for EP evaluation
Chronic HFpEF
-Continue Lasix
History of rheumatic heart disease
Mild to moderate mitral regurgitation/mild to moderate mitral stenosis
Essential hypertension
GERD
-Continue Pepcid
-Continue omeprazole
Degenerative disc disease/lower back pain
History of migraines
-Continue amitriptyline
Osteoporosis
Full code
DVT prophylaxis�Eliquis
Cardiac diet
--- NOTE | 2024-06-17 13:18 | CON.CAR ---
Consultation
Consultation Request
Date/Time Consultation Requested: 06/17/24, 1230pm
Date/Time Consultation Performed: 06/17/24, 1245pm
Requesting Provider: Indira
Performing Provider: Gely
Reason for Consultation: A fib with RVR
Medical History
-
Chief Complaint: palps
History of Present Illness:
79 y/o female (patient of Dr. Jama) with paroxsymal A fib on tikosyn and Eliquis (multiple attempts at rhythm control including CV 05/09/24, ablation 05/22/24 Dr. Puckett, then CV in ER 05/26/24, then again 06/11/24, and 06/15/24), bradycardia,
chronic HFpEF, moderate MS and MR, hypertension, untreated CARL per chart who presents with recurrent AFIB with RVR.
She is symptomatic with weakness, dizziness, palps. No chest pain.
Past Medical History
Past Medical History: Arrhythmias (paroxysmal A fib), CHF (chronic HFPEF) and HTN
Past Surgical History: Gynecological
Social History
Tobacco: Non-Smoker
Family History
Family History: Early CAD (none)
Allergies / Home Medications
Allergy/AdvReac Type Severity Reaction Status Date / Time
adhesive Allergy Itching, Verified 06/17/24 10:33
Rash
propoxyphene napsylate Allergy Rash, Verified 06/17/24 10:33
[From Darvocet-N 100] Swelling
�Medication �Instructions �Recorded �Confirmed �Type
famotidine 20 mg tablet 20 mg PO HS Gastrointestinal issue 03/05/20 06/17/24 History
apixaban 5 mg tablet (Eliquis) 5 mg PO BID #30 tabs 03/28/20 06/17/24 Rx
amitriptyline 10 mg tablet 20 mg PO HS Neurological Condition 09/08/23 06/17/24 History
cholecalciferol (vitamin D3) 50 50 mcg PO DAILY Supplement 09/08/23 06/17/24 History
mcg (2,000 unit) tablet (Vitamin
D3)
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
syringe (Prolia) Disorder
omeprazole 40 mg capsule,delayed 40 mg PO DAILY Gastrointestinal 09/08/23 06/17/24 History
release Issue
metoclopramide HCl 5 mg tablet 5 mg PO AC Gastrointestinal Issue 05/22/24 06/17/24 History
furosemide 40 mg tablet (Lasix) 40 mg PO DAILY #30 tabs 05/29/24 06/17/24 Rx
dofetilide 250 mcg capsule 250 mcg PO Q12H #60 caps 06/12/24 06/17/24 Rx
metoprolol tartrate 25 mg tablet 25 mg PO BID #60 tabs 06/12/24 06/17/24 Rx
Review of Systems
-
History Source: Patient
All other systems: Negative unless noted
Constitutional: Fatigue
Cardiac: Palpitations
Neurological: Dizzy and Weakness
Physical Exam
Vital Signs
Temp Pulse Resp BP Pulse Ox
98.9 F 110 19 131/91 97
06/17/24 10:34 06/17/24 12:45 06/17/24 12:45 06/17/24 12:01 06/17/24 12:45
Lab Results
06/17/24 11:20
06/17/24 11:20
Troponin I 0.016 ng/ml 06/17/24 11:20
Physical Exam
General: Well Developed and Well Nourished
HEENT: Normocephalic and Anicteric
Respiratory: Clear and Non Labored Respirations
Cardiac: S1/S2 (normal), Irregular Rhythm (tachy), Murmur (II/ systolic at apex) and Peripheral Edema (none)
Musculoskeletal: Clubbing, No Cyanosis and No Edema
Skin: Warm and Dry
Neuro: AO x 3
Psych: Calm
Impression / Plan
-
79 y/o female (patient of Dr. Jama) with paroxsymal A fib on tikosyn and Eliquis (multiple attempts at rhythm control including CV 05/09/24, ablation 05/22/24 Dr. Puckett, then CV in ER 05/26/24, then again 06/11/24, and 06/15/24), bradycardia,
chronic HFpEF, moderate MS and MR, hypertension, untreated CARL per chart who presents with recurrent AFIB with RVR.
Paroxysmal A fib, recurrent with symptomatic RVR
-refractory to multiple attempts at rhythm control as above
-stop tikosyn
-start diltiazem drip with monitoring of tele
-continue metoprolol tartrate 25mg bid
-CHADS2-VASC = 5. Eliquis 5mg bid for OAC.
-EP eval in AM
Chronic HFpEF
-stable: continue lasix 40mg PO daily
HTN
-stable: continue metoprolol tartrate 25mg bid
Valvular heart disease:
-echo 10/28/23: EF 65-70%, mod MS (mean 7 mmHg), mild/moderate MR, mild AR, nl RV, mild TR, PASP 45
Data Reviewed
-
EKG: Tracing Personally Visualized and interpreted (A fib with RVR) and Other (Tele: A fib with RVR)
Medical Tests (Nuc Med, Echo etc): Report Reviewed by me (echo 10/28/23: EF 65-70%, mod MS (mean 7 mmHg), mild/moderate MR, mild AR, nl RV, mild TR, PASP 45)
Labs: Labs Reviewed by me
Old Records: Reviewed
--- NOTE | 2024-06-17 16:14 | EDRN ---
Pt's BP has been running 90's/60-70's. Last BP was 89/59 with HR 80-90's. Pt is Asymptomatic. Spoke to Dr. Hong. Verbal order given to decrease Cardizem to 10mg/hr. Dose adjusted. Documented on worklist. Pt and family advised. Will continue
to monitor.
[2024-06-17] MEDS: REGLAN PO (17:16)
[2024-06-17] MEDS: ELIQUIS 5 MG PO (20:00)
[2024-06-17] MEDS: LOPRESSOR 25 MG PO (20:00)
[2024-06-17] MEDS: ELAVIL 20 MG PO (21:38)
[2024-06-17] MEDS: PEPCID 20 MG PO (21:39)
[2024-06-18] VITALS (17 sets, daily range): BP systolic 88–137; BP diastolic 52–82; BMI 23.2
[2024-06-18 08:18] LABS: % Basophils 1.1 % (0-2); % Eosinophils 4.9 % (0-6); % Immature Granulocytes 0.6 % (0-0.5); % Lymphocytes 29.5 % (20.5-51.1); % Monocytes 11.5 % (1.7-9.3); % Neutrophils 52.4 % (42.2-75.2); Absolute Eosinophils 0.2 10^3/uL (0-0.7); Absolute Monocytes 0.4 10^3/uL (0.1-0.6); Absolute Neutrophils 1.8 10^3/uL (1.4-6.5); Hematocrit 36.5 % (37.0-47.0); Mean Corp Hgb Conc. 32.9 g/dL (33.0-37.0); Mean Corpuscular Hgb 29.4 pg (27.0-31.0); Mean Corpuscular Volume 89.5 fL (81.0-99.0); Mean Platelet Volume 10.1 fL (7.4-10.4); Nucleated Red Blood Cells % 0 %; Platelet Count 232 10^3/uL (130-400); Red Blood Cell Count 4.08 10^6/uL (4.20-5.40); Red Cell Dist. Width 13.3 % (11.5-14.5); White Blood Cell Count 3.5 10^3/uL (4.8-10.8)
[2024-06-18] MEDS: PROTONIX 40 MG PO (08:30)
[2024-06-18] MEDS: VITAMIN D3 (cholecalciferol) 50 MCG PO (08:30)
[2024-06-18] MEDS: LASIX 40 MG PO (08:30)
[2024-06-18] MEDS: ELIQUIS 5 MG PO ×2 (08:30→23:19)
[2024-06-18] MEDS: LOPRESSOR 25 MG PO ×2 (08:30→21:50)
[2024-06-18] MEDS: REGLAN 5 MG PO ×2 (08:32→11:26)
[2024-06-18 08:48] LABS: ALT (SGPT) 43 U/L (0-35); AST (SGOT) 36 U/L (14-36); Albumin 3.7 g/dl (3.5-5.0); Alkaline Phosphatase 76 U/L (38-126); Blood Urea Nitrogen 15 mg/dl (7-17); Calcium 9.7 mg/dl (8.4-10.2); Carbon Dioxide 30 mmol/L (22-30); Chloride 101 mmol/L (98-107); Estimated Creatinine Clearance 68 ml/min; Glucose 96 mg/dl (70-99); Potassium 3.4 mmol/L (3.5-5.1); Sodium 138 mmol/L (135-145); Total Bilirubin 0.2 mg/dl (0.2-1.3); Total Protein 6.3 g/dl (6.3-8.2); eGFR > 60.00
[2024-06-18 09:46] LABS: Troponin I 0.012 ng/ml
--- NOTE | 2024-06-18 10:11 | W.PN.CD ---
Today's Communication / Plan
-
- Repeat Ablation today
Impression / Plan
-
79 y/o female (patient of Dr. Jama) with paroxsymal A fib on tikosyn and Eliquis (multiple attempts at rhythm control including CV 05/09/24, ablation 05/22/24 Dr. Puckett, then CV in ER 05/26/24, then again 06/11/24, and 06/15/24), bradycardia,
chronic HFpEF, moderate MS and MR, hypertension, untreated CARL per chart who presents with recurrent AFIB with RVR.
Paroxysmal A fib, recurrent with symptomatic RVR
-refractory to multiple attempts at rhythm control as above
-AFl noted that degenerated into AF
-AAD failed and multiple hospitalizations with recurrent arrhythmia
- Will plan for AF/AFL ablation today
-Resume tikosyn post op
-Will stop diltiazem drip in EP lab
-continue metoprolol tartrate 25mg bid
-CHADS2-VASC = 5. Eliquis 5mg bid for OAC.
Chronic HFpEF
-stable: continue lasix 40mg PO daily
HTN
-stable: continue metoprolol tartrate 25mg bid
Valvular heart disease:
-echo 10/28/23: EF 65-70%, mod MS (mean 7 mmHg), mild/moderate MR, mild AR, nl RV, mild TR, PASP 45
Physical Exam
Vital Signs/Labs
Vital Signs
Temp Pulse Resp BP Pulse Ox
97.7 F 83 18 137/82 93
06/18/24 08:34 06/18/24 08:34 06/18/24 08:34 06/18/24 08:34 06/18/24 08:34
06/17/24 06/18/24 06/19/24
06:59 06:59 06:59
Actual Weight 63.106 kg
06/18/24 07:27
06/18/24 07:27
Magnesium 2.1 mg/dl (1.6-2.3) 06/17/24 11:20
LAB Results
06/17/24 06/18/24
11:20 09:11
Troponin I 0.016 0.012
Physical Exam
Constitutional: No acute distress and Comfortable
EENT: Anicteric and Moist mucous membranes
Cardiovascular: Pedal edema is absent, JVD pressure is normal and Rhythm/rate is irregular
Respiratory: Respiratory effort normal, Lungs clear to auscul. and Wheeze Absent
GI: Soft, Flat and Non tender
Neuro/Psych: Alert, Oriented and AO x 3
Other: Cath Site
Data Reviewed
-
Date of Service: June 18, 2024
Medical Decision Making: Reviewed Test Results, Independent Historian Assessment, Test Interpretation and Review of Case with other Provider
EKG: Tracing Personally Visualized and interpreted
Echo: Report Reviewed by me
X-Ray/CT/US/MRI/NUC/PET: Image Personally Visualized and interpreted
Medical Tests (PFT, Pathology etc): Discussed with Physician, Discussed with Nurse, Discussed with Patient and Discussed with Family
Labs: Labs Reviewed by me
Old Records: Reviewed
--- NOTE | 2024-06-18 10:42 | CM ---
CM met with pt and anikar/Nicole (POA) bedside
Pt with multiple readmissions in the past month or so
Pt's sister resides with her in a 2SH with 1 JANE
Pt has a 1st floor set up
Pt is independent with her ADLs, has a WW for use as needed, drives+
Denies hx with Vn/SNF
[employer] financial insecurities
PCP- Alina Piper
Rx- [facility]
Discharge Disposition- anticipate home, no needs
[2024-06-18] MEDS: KCL 270 MEQ IV (12:38)
--- NOTE | 2024-06-18 13:01 | W.PN.HOSP.TC ---
Addendum entered and electronically signed by Tanya Beltran MD 06/18/24 13:21:
I saw and evaluated the patient. I reviewed the resident�s note and agree with findings and plan as documented in the resident�s note.
A/P:
# Persistent atrial fibrillation with RVR on admission
# Palpitation and mild chest pain likely 2/2 above
A fib refractory to multiple attempts at rhythm control
Started Cardizem drip
Continue Eliquis
Continue metoprolol
Stopped [employer] Tikosyn
Card EP to eval for ablation
# Chronic HFpEF
Continue Lasix 40mg PO daily
# History of rheumatic heart disease
# Mild to moderate mitral regurgitation/mild to moderate mitral stenosis
# Essential hypertension
# GERD
Continue Pepcid
Continue PPI
# Degenerative disc disease/lower back pain
# History of migraines
Continue amitriptyline
# Osteoporosis
Full code
DVT prophylaxis�Eliquis
Original Note:
Today's Communication/Plan
-
EP evalaution
Continue cardizem drip, Eliquis and metoprolol
Replete pottasium
NPO
Assessment / Plan
Assessment / Plan
79 y/o female with pmhx of Afib s/p multiple cardioversions and ablation (May 22, 2024) with:
# Recurrent atrial fibrillation with RVR
- EKG in the ED showed atrial fibrillation with RVR
- Continue Eliquis, CHADS2-VASC = 5
- Continue metoprolol
- Cardiology following, Tikosyn held and started cardizem drip
- Plan for EP today, NPO
# Chest pain, acute
- Patient complaining of chest pain this am, denies palpitations
- Trop rechecked, 0.012
- EKG atrial flutter with variable A-V block, prolonged QT (398)
- Cardiology following
# Hypokalemia, acute
- K 3.4
- Replete k
# Chronic HFpEF
- Continue Lasix
# History of rheumatic heart disease
- Last echo showed mild to moderate mitral regurgitation/mild to moderate mitral stenosis
# Essential hypertension
- Continue metoprolol
# GERD
- Continue Pepcid
- Continue omeprazole
# Degenerative disc disease/lower back pain
- Stable
# History of migraines
- Continue amitriptyline
# Osteoporosis
Full code
DVT prophylaxis
� Eliquis
Anticipated Discharge: 24 - 48 hours
Subjective/Interval History
-
Date of Service: June 18, 2024
Objective Data
-
Labs:
Laboratory Results
06/18/24
07:27
WBC 3.5 L
Hgb 12.0
Hct 36.5 L
Plt Count 232
Sodium 138
Potassium 3.4 L
Chloride 101
Carbon Dioxide 30
BUN 15
Creatinine 0.5 L
Glucose 96
Calcium 9.7
Total Bilirubin 0.2
AST 36
ALT 43 H
Alkaline Phosphatase 76
Vital Signs:
Vital Signs
Temp Pulse Resp BP Pulse Ox
97.7 F 83 18 137/82 93
06/18/24 08:34 06/18/24 08:34 06/18/24 08:34 06/18/24 08:34 06/18/24 08:34
I&O
06/17/24 06/18/24 06/19/24
06:59 06:59 06:59
Intake Total 960 / 960
Balance 960 / 960
Review of Systems
-
History Source: Patient and Family
Constitutional: Reports No Symptoms
EENT: Reports No Symptoms Reported
Respiratory: Reports No Symptoms
Cardiac: Reports Chest Pain; Denies Palpitations or Orthopnea
Abdomen/GI: Reports No Symptoms
Breast: Reports No Symptoms
Genitourinary: Reports No Symptoms
Musculoskeletal: Reports No Symptoms
Skin: Reports No Symptoms
Neuro: Reports No Symptoms
Endocrine: Reports No Symptoms
Hematologic / Lymphatic: Reports No Symptoms
Allergy / Immunology: Reports No Symptoms
Physical Exam
-
General: Well Developed and Well Nourished
HEENT: Normocephalic
Respiratory: Clear to Auscultation
Cardiac: S1/S2 and Irregular Rhythm
GI: Soft, Nontender, Nondistended and Normal Bowel Sounds
Genito-urinary: No Costovertebral Tender
Musculoskeletal: No Clubbing, No Cyanosis and No Edema
Skin: Warm
Neuro: Awake, Alert and Oriented
Hematologic / Lymphatic: No Lymphadenopathy
Psych: Calm
[2024-06-18 17:00] LABS: ACT-LR - POC 260 Seconds (116-155)
[2024-06-18 17:57] LABS: ACT-LR - POC 368 Seconds (116-155)
[2024-06-18 18:22] LABS: ACT-LR - POC 355 Seconds (116-155)
--- NOTE | 2024-06-18 18:57 | ITS.CL.ABL ---
Stockroom Worker - Ablation
Ablation
Procedure Report:
AFIB ablation:
Ms. Mitchell is a very pleasant 79 yr old woman with h/o persistent AF s/p AF ablation that included PVI, posterior wall isolation using ferapulse pulsed field energy. Patient was noted to have recurrent flutters and atrial fibrillation and has
failed AAD with multiple hospitalizations is recommended to undergo repeat ablation. Patient presented today to the EP lab for atrial fibrillation / flutter ablation.
Date of Procedure:
06/18/2024
Indications:
Recurrent atrial fibrillation / atrial flutter / Atrial tachycardia
Pre-Operative Diagnosis:
atrial fibrillation /Atrial flutter / Atrial tachycardia
Post-Operative Diagnosis:
atrial fibrillation / Atrial flutter / Atrial tachycardia
Procedure Performed:
Redo atrial fibrillation ablation with pulmonary vein isolation
Repeat posterior wall isolation with reconnections
Left atrial anterior wall tachycardia ablation
Mitral isthmus ablation for malini-mitral flutter ablation
Biatrial atrial flutter ablation
Left atrial appendage flutter ablation
Focal left atrial appendage atrial tachycardia
Performing Physician:
Josh Puckett MD
Assistants:
EP staff
Anesthesia:
See anesthesia records
Detailed Description of the Procedure:
Written informed consent was obtained from the patient after a full explanation of the risks and benefits of the procedure including the risks of sedation and anesthesia.
The patient was brought to the electrophysiology laboratory in stable condition in fasting state. Continuous electrocardiographic and hemodynamic monitoring was initiated.
The initial rhythm was atrial flutter.
Time out:
The procedure site was meticulously prepared with surgical scrub and allowed to dry with no pooling. Sterile draping was applied to cover the procedure site. The image intensifier was draped with sterile bag and positioned over the patient.
Prior to the start of the procedure a surgical pause was performed with in agreement from anesthesia, EP staff with double identifier and explanation of the procedure, plan and site of the procedure stated with allergies and medications and
pertinent labs reviewed.
After infusion of local anesthetic, vascular access was obtained under ultrasound guidance and sheaths were placed over guide wire as detailed below. The images were stored in patient chart.
Sheaths:
��������������� Agilis sheath in right femoral vein upgraded from 8Fr in right femoral vein
��������������� 9Fr in right femoral vein
��������������� 7fr in right femoral vein
Catheters:
��������������� The Affera Sphere 9 catheter -bidirectional D/F� - at locations of HRA, RV, LA and LV.
��������������� ICE catheter - at locations of RA, SVC, and RV.
��������������� Decapolar Bard catheter � at locations of RA and CS
A 7000 units of heparin was given
Intracardiac ECHO:
An 8-Bermudian AcuNav intracardiac ECHO (ICE) probe was advanced through the 9-B[place]udian sheath in the right femoral vein into the right atrium under fluoroscopic and ICE ultrasound image guidance and a baseline ECHO study was performed. The left atrial
size was severely dilated. There was trace tricuspid regurgitation. There was at least moderate mitral regurgitation. There was small mitral valve noted consistent with at least moderate mitral stenosis. The aortic valve was grossly normal. There
was normal left ventricular size and function. There is trace pericardial effusion. All the four veins were identified and has good flow identified. There was dense spontaneous contrast noted at the mouth of the YEFRI. No definite clot seen.�
During the procedure, ICE was used for monitoring of complications, guidance of trans-septal puncture, monitor the catheter position and tracking ablation lesions. No change in the pericardial space noted throughout the procedure.
First the RA was mapped in the flutter and was noted to have left atrial in origin and decision was made to proceed with TSSP.
Trans-septal Puncture:
Heparin was initiated and infused to maintain appropriate ACT. A J-tipped guidewire was advanced through into the superior vena cava under fluoroscopic and ICE guidance. The Agilis sheath was advanced into the superior vena cava. An AcCoupay
transseptal access system was utilized to perform the trans-septal puncture. The apparatus was withdrawn until it was in contact with the fossa ovalis. The position was adjusted based on fluoroscopy and ultrasound images from ICE. Under
fluoroscopic, hemodynamic and ICE ultrasound guidance, left atrium was cannulated by advancing the needle. Once atrial septum was cannulated, the needle was pulled back and the guide wire was advanced through the needle into the left atrium. The
guide wire was advanced into the left superior pulmonary vein. Both the sheath and the dilator was advanced into the left atrium. The dilator with the needle was withdrawn. Blood was aspirated from the Agilis sheath and arterial blood confirmed. The
sheath was flushed. Saline injection noted into the left atrium on ICE. The waveform of the LA pressure was recorded. The mapping catheter was advanced in the Agilis sheath into the left pulmonary vein.
Of note, the cardiac chambers were rotated making the TSSP quite challenging.
3D Electroanatomic Mapping:
Using the Sphere 9 Affera catheter advanced through Agilis sheath into the left atrium, an electroanatomic map (EAM) of the left atrium was created using [employer] mapping system with [employer] software. The map was used for localization of catheter
position and tacking of ablation lesions.
The EAM of the left atrium showed a total of 4 PVs with two left and the two right sided pulmonary veins. The left sided PVs were isolated but the right sided veins were already reconnected. �
There was extensive scarring noted in the LA. The posterior wall had scattered signals indicating reconnections. There was a large areas of scar noted on the anterior as well. The LA was severely dilated. �
Following the EAM, preparation were made for ablation.
Ablation:
Ablation # 1: Atrial fibrillation ablation - Pulmonary vein Isolation:
Pulsed field ablation was performed using an open irrigation, bidirectional, contact sensing, dual energy ablation catheter (Affera sphere -9) by completing the circumferential lesions around the left and right pulmonary veins achieving pulmonary
vein isolation.
All PVI were rechecked at the end of the case and remained isolated with dissociated and local capture with pacing. Entrance and exit block were demonstrated in all veins.
The flutter degenerated into atrial fibrillation.
Ablation # 2: Roof line Formation:
There was a clear channel of electrical activity left in the posterior wall with multiple CFAE and AF areas on the roof and ablation in that area increased the risk of atrial flutter and decision was made to create a roof line to block a slow
conduction. A set of pulsed field ablations were placed on the roof line connecting the left superior pulmonary vein ablation lesions to the right superior pulmonary vein lesions rings.
Ablation # 3: Posterior wall isolation with the Box lesions set Formation:
There was a significant fractionation seen in the posterior wall and LA AF foci along with CFAE made it clear as the posterior wall is critical in maintaining the atrial fibrillation and the decision was made to isolate the posterior wall by
creating a �Box� lesions.
A set of Pulsed field ablations were placed on the floor line connecting the left inferior pulmonary vein ablation lesions to the right inferior pulmonary vein lesions rings.
The sphere 9 in the posterior wall showed entrance block and the pacing from the posterior wall showed no exit from the box lesions confirming the exit block.
Cardioversion:
Due to the developments of atrial fibrillation during the case, the decision was made to proceed with a cardioversion followed by the remainder of the ablation as detailed below. Therefore, a 200J shock was delivered to the chest via Zoll patches
with adventist of ectopic atrial rhythm. The patient remained hemodynamically stable throughout.
Patient developed an atrial flutter almost immediately. The CL was 270 msec.
Ablation # 4: Left atrial anterior wall tachycardia ablation
Tachycardia was mapped and was coming from anterior wall of the left atrium. There was a focal origin at the anterior wall at the junction of left atrial appendage and the anterior wall and roof. The area of the atrial tachycardia was ablated and at
length was made organized into 250 ms.
The new tachycardia was mapped and LA was passively activating and decision was made to map the right atrium. The RA was also passive. The tachycardia was coming from the LA.
Ablation # 5: Mitral isthmus ablation for malini-mitral flutter ablation
The tachycardia was mapped again and was noted to be mitral valve dependent. Mitral valve was again mapped. Mitral line was done for the mitral isthmus and again at the anterior wall of the left atrial appendage. Tachycardia degenerated into 310 ms.
Ablation # 6: Biatrial atrial flutter ablation
Tachycardia was again mapped and earliest point was noted to be at the apartment bundle escaping from the right side involving both atria. There is no other significant activity left on the left atrial posterior wall and small activity at the left
atrial anterior wall was enough to sustain this arrhythmia.� Dick bundle was ablated.
The tachycardia stabilized at 280 ms.
Ablation # 7: Left atrial appendage reentry flutter ablation
The tachycardia was circulating around the YEFRI on repeat mapping. The Coumadin ridge was ablated with connecting the ridge to the roof line.
The tachycardia changed to 250 ms fast rhythm.
Ablation # 8: Left atrial appendage focal atrial tachycardia ablation
The map of the new tachycardia showed focal origin inside the YEFRI. The ablation using pulsed field was done at the anterior wall of the YEFRI at its origin. There were no significant signals noted in the YEFRI after wards.
Redo Mitral flutter ablation
The tachycardia changed to 280 ms CL and it was malini-mitral involving the anterior wall. The sepal location was ablated connecting the septal scar to the mitral annulus. The tachycardia terminated to sinus rhythm.
The AV nic functions are deemed within normal range. The HV was normal.
All PVI were rechecked at the end of the case. Entrance and exit block were demonstrated.
Procedure End
ICE study was done again that showed no epicardial accumulation. No complications noted.
Following the completion of the EP study, catheters were removed. Protamine 40 mg was given at the end of the procedure and ACT was checked repeatedly. The sheaths were removed and hemostasis achieved with manual compression after acceptable ACT is
achieved.
Left atrial Pressure:
Post-Procedure: Mean LA pressure was 19mmHg
Pre-Procedure: Mean RA pressure was 10mmHg
Estimated Blood loss:
<10 cc
Specimens Removed:
None.
Implants / Devices:
None
Urine output:
None
Packs / Drains/ Tubes:
None
Instrument / Sponge Count Correct:
Yes
Complications of the Procedure:
None
Condition of Patient at Time of Transfer:
Hemodynamically stable with no neurological or vascular compromise.
Summary:
Successful redo atrial fibrillation ablation with pulmonary vein isolation, posterior wall isolation, Left atrial anterior wall tachycardia ablation, Mitral isthmus ablation for malini-mitral flutter ablation, Biatrial atrial flutter ablation, Left
atrial appendage reentry flutter ablation, Left atrial appendage focal atrial tachycardia ablation
Pre-ablation
Post ablation
--- NOTE | 2024-06-18 21:00 | PTCARENOTE ---
Pt admitted at 2027 to IVU from labor economics teacher recovery post-PVI. Hand-off transfer completed. Pt awake, alert, oriented x 4. Speech clear. [place], not wearing hearing aids. Audible heart tones. Pt in SR. R groin site dry and intact. Figure 8 sutures
intact. No hematoma, drainage to site. +2 palpable R DP pulse. Pt on room air. Sats 93-95%. BBS present. Decreased to B bases. Occasional nonproductive cough present. Belly soft, nontender, Hypoactive bowel sounds x 4. Sips of water and ice chips as
tolerated advancing to low cholesterol diet as ordered. Pt was incontinent of large amount of urine in labor economics teacher recovery. Pure Wick attached to pt. No c/o pain. Daughter and son at bedside. Tikosyn and Lopressor given as scheduled.
[2024-06-18] MEDS: TIKOSYN 250 MCG PO (21:50)
[2024-06-18] MEDS: REGLAN PO (21:50)
[2024-06-18] MEDS: PEPCID 20 MG PO (21:51)
[2024-06-18] MEDS: ELAVIL 20 MG PO (23:16)
[2024-06-19] VITALS (8 sets, daily range): BP systolic 116–161; BP diastolic 67–92; BMI 23.5
--- NOTE | 2024-06-19 | PTCARENOTE ---
Tim texted with Dr. Puckett regarding Eliquis order. DIRECTOR FUNDRAISING ordered Eliquis for 2299. Tim texted Dr. Puckett to clarify order. Response from Dr. Puckett to give Eliquis after 2299. Given at 2318. Also talked with MAURO Perkins. Recommended to give Eliquis
as ordered and remove Fig 8 suture later in shift. R groin checks per protocol. Remains in SR. No c/o pain. Sats 92-95% on room air.
--- NOTE | 2024-06-19 05:15 | PTCARENOTE ---
Figure 8 suture removed at 0510. Hemostasis pad, sterile 4x4 gauze and tegaderm applied. Site soft, no hematoma, no drainage. Will remain in bed at least 30 minutes post suture removal.
Bladder scanned for 330 mls of urine. Liz[place]ck attatched to pt yet she feels she cannot void. 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
[2024-06-19 06:14] LABS: Hematocrit 34.4 % (37.0-47.0); Hemoglobin 11.5 g/dL (12.0-16.0); Mean Corp Hgb Conc. 33.4 g/dL (33.0-37.0); Mean Corpuscular Hgb 29.3 pg (27.0-31.0); Mean Corpuscular Volume 87.8 fL (81.0-99.0); Platelet Count 217 10^3/uL (130-400); Red Blood Cell Count 3.92 10^6/uL (4.20-5.40); Red Cell Dist. Width 13.6 % (11.5-14.5); White Blood Cell Count 6.8 10^3/uL (4.8-10.8)
[2024-06-19 06:35] LABS: Blood Urea Nitrogen 23 mg/dl (7-17); Calcium 9.5 mg/dl (8.4-10.2); Carbon Dioxide 26 mmol/L (22-30); Chloride 106 mmol/L (98-107); Estimated Creatinine Clearance 68 ml/min; Glucose 132 mg/dl (70-99); Magnesium 1.9 mg/dl (1.6-2.3); Potassium 3.7 mmol/L (3.5-5.1); Sodium 139 mmol/L (135-145); eGFR > 60.00
--- NOTE | 2024-06-19 07:30 | PTCARENOTE ---
Pt helped to sitting at 0640. No c/o dizziness. BP 160's systolic. Pt helped to BSC to void 350 mls clear, yellow urine. Pt then helped to standing scale. Pt assisted back to bed. R groin site remains dry, intact. Soft. No hematoma. No c/o pain. +2
R DP pulse. Report to Anel OWENS this am.
[2024-06-19] MEDS: PROTONIX 40 MG PO (07:36)
[2024-06-19] MEDS: REGLAN 5 MG PO ×2 (07:36→12:09)
[2024-06-19] MEDS: FLUSH (NSS) 2 FLUSH IV (07:58)
[2024-06-19] MEDS: LASIX 40 MG PO (07:58)
[2024-06-19] MEDS: VITAMIN D3 (cholecalciferol) 50 MCG PO (07:58)
[2024-06-19] MEDS: TIKOSYN 250 MCG PO (07:58)
[2024-06-19] MEDS: LOPRESSOR 25 MG PO (07:58)
[2024-06-19] MEDS: ELIQUIS 5 MG PO (07:58)
--- NOTE | 2024-06-19 08:08 | PTCARENOTE ---
The patient is aaox3, vss, 95% on RA. NSR is noted on the monitor. Her right groin dressing is c/d/i. Crackles are heard in her BL bases. Instructed the patient on her fluid restrictions for heart failure. She has no complaints of pain or
discomfort.
--- NOTE | 2024-06-19 08:28 | W.PN.HOSP.TC ---
Addendum entered and electronically signed by Sadia Bustamante MD 06/19/24 20:12:
I saw and evaluated the patient independently. I reviewed the resident�s note and agree with findings and plan as documented by Dr. Tompkins.
GENERAL: well developed, well nourished, female in no apparent distress
HEENT: NC/AT--hard of hearing
HEART: irreg irreg
LUNGS : clear to auscultation bilaterally
ABDOM: soft, nontender, nondistended, + bowel sounds
EXT: no cyanosis, clubbing, or edema
NEUROLOGIC: grossly intact
Recurrent atrial fibrillation with RVR, atrial flutter--s/p ablation--apprec cards--cont eliquis, metoprolol-- Tikosyn restarted, cardizem drip dc'ed--outpt cards f/u
Chest pain, acute- Now resolved
Hypokalemia, acute- Now resolved
Chronic HFpEF- Continue Lasix
History of rheumatic heart disease- Last echo showed mild to moderate mitral regurgitation/mild to moderate mitral stenosis
Essential hypertension- Continue metoprolol
GERD- Continue Pepcid- Continue omeprazole
Degenerative disc disease/lower back pain- Stable
History of migraines- Continue amitriptyline
Osteoporosis
code status--Full code
DVT prophylaxis� Eliquis
ok for d/c
Original Note:
Today's Communication/Plan
-
Continue Tikosyn
Discharge planning
Outpt f/u with cardiology
Assessment / Plan
Assessment / Plan
79 y/o female with pmhx of Afib s/p multiple cardioversions and ablation (May 22, 2024) with:
# Recurrent atrial fibrillation with RVR, atrial flutter
- EKG in the ED showed atrial fibrillation with RVR
- Continue Eliquis, CHADS2-VASC = 5
- Continue metoprolol
- Cardiology following, Tikosyn restarted, cardizem drip dc'ed
- s/p ablation yesterday
- Stable for discharge from our standpoint
- Outpt f/u with cardiology
# Chest pain, acute
- Now resolved
- Cardiology following
# Hypokalemia, acute
- Now resolved
- Repleted k yesterday
# Chronic HFpEF
- Continue Lasix
# History of rheumatic heart disease
- Stable
- Last echo showed mild to moderate mitral regurgitation/mild to moderate mitral stenosis
# Essential hypertension
- Continue metoprolol
# GERD
- Continue Pepcid
- Continue omeprazole
# Degenerative disc disease/lower back pain
- Stable
# History of migraines
- Continue amitriptyline
# Osteoporosis
Full code
DVT prophylaxis
� Eliquis
Anticipated Discharge: Today
Subjective/Interval History
-
Date of Service: June 19, 2024
Objective Data
-
Labs:
Laboratory Results
06/19/24
06:02
WBC 6.8
Hgb 11.5 L
Hct 34.4 L
Plt Count 217
Sodium 139
Potassium 3.7
Chloride 106
Carbon Dioxide 26
BUN 23 H
Creatinine 0.6
Glucose 132 H
Calcium 9.5
Vital Signs:
Vital Signs
Temp Pulse Resp BP Pulse Ox
98.6 F 90 16 128/75 95
06/19/24 07:57 06/19/24 08:00 06/19/24 07:57 06/19/24 07:56 06/19/24 07:57
I&O
06/18/24 06/19/24 06/20/24
06:59 06:59 06:59
Intake Total 960 / 960 2500 / 2500 360 / 360
Output Total 350 / 350
Balance 960 / 960 2150 / 2150 360 / 360
Review of Systems
-
History Source: Patient
Constitutional: Reports Fatigue
EENT: Reports No Symptoms Reported
Respiratory: Reports No Symptoms
Cardiac: Reports No Symptoms
Abdomen/GI: Reports No Symptoms
Breast: Reports No Symptoms
Genitourinary: Reports No Symptoms
Musculoskeletal: Reports No Symptoms
Skin: Reports No Symptoms
Neuro: Reports No Symptoms
Endocrine: Reports No Symptoms
Hematologic / Lymphatic: Reports No Symptoms
Allergy / Immunology: Reports No Symptoms
Physical Exam
-
General: Well Developed, Well Nourished, No Apparent Distress and Comfortable
HEENT: Normocephalic
Respiratory: Clear to Auscultation
Cardiac: Regular Rhythm and S1/S2
GI: Soft, Nontender, Nondistended and Normal Bowel Sounds
Genito-urinary: No Costovertebral Tender
Musculoskeletal: No Clubbing, No Cyanosis and No Edema
Neuro: Awake, Alert and Oriented
Hematologic / Lymphatic: No Lymphadenopathy
Psych: Calm
--- NOTE | 2024-06-19 09:34 | W.PN.CD ---
Today's Communication / Plan
-
- Continue Tikosyn
- Stable for discharge from cardiac stand point.
- Follow up with cardiology in 2 weeks for wound check and EKG.
Impression / Plan
-
79 y/o female (patient of Dr. Jama) with paroxsymal A fib on tikosyn and Eliquis (multiple attempts at rhythm control including CV 05/09/24, ablation 05/22/24 Dr. Puckett, then CV in ER 05/26/24, then again 06/11/24, and 06/15/24), bradycardia,
chronic HFpEF, moderate MS and MR, hypertension, untreated CARL per chart who presents with recurrent AFIB with RVR.
Persistent A fib / flutter, recurrent with symptomatic RVR
-s/p complex AF/AFL ablation on 06/18/24 - Multiple flutters and AT ablated along with AF.
-Resume Tikosyn now
-continue metoprolol tartrate 25mg bid
-CHADS2-VASC = 5. Eliquis 5mg bid for OAC.
Chronic HFpEF
-stable: continue lasix 40mg PO daily
HTN
-stable: continue metoprolol tartrate 25mg bid
Valvular heart disease:
-echo 10/28/23: EF 65-70%, mod MS (mean 7 mmHg), mild/moderate MR, mild AR, nl RV, mild TR, PASP 45
-MS and MR is likely the reason for LA dilation and refractory nature of her arrhythmia.
Physical Exam
Vital Signs/Labs
Vital Signs
Temp Pulse Resp BP Pulse Ox
98.6 F 90 16 128/75 95
06/19/24 07:57 06/19/24 08:00 06/19/24 07:57 06/19/24 07:56 06/19/24 07:57
06/18/24 06/19/24 06/20/24
06:59 06:59 06:59
Actual Weight 63.106 kg 64.1 kg
06/19/24 06:02
06/19/24 06:02
Magnesium 1.9 mg/dl (1.6-2.3) 06/19/24 06:02
LAB Results
06/17/24 06/18/24
11:20 09:11
Troponin I 0.016 0.012
Physical Exam
Constitutional: No acute distress and Comfortable
EENT: Anicteric and Moist mucous membranes
Cardiovascular: Rhythm & rate is regular, Pedal edema is absent, JVD pressure is normal and Systolic murmur absent
Respiratory: Respiratory effort normal, Lungs clear to auscul., Wheeze Absent and Crackles Absent
GI: Soft, Non tender and Normal bowel sounds
Neuro/Psych: Alert, Oriented and AO x 3
Other: Cath Site
Data Reviewed
-
Date of Service: June 19, 2024
Medical Decision Making: Reviewed Test Results, Test Interpretation and Review of Case with other Provider
EKG: Tracing Personally Visualized and interpreted
Echo: Report Reviewed by me
Labs: Labs Reviewed by me
Old Records: Reviewed
[2024-06-19 11:19] LABS: ACT-LR - POC > 397 Seconds (116-155)
--- NOTE | 2024-06-19 12:05 | CM ---
spoke to pt about VN, she refused. 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
--- NOTE | 2024-06-19 15:45 | PTCARENOTE ---
Patient discharged home. She left with her daughter.
--- NOTE | 2024-06-19 17:06 | W.DCSUMMARY ---
Addendum entered and electronically signed by Sadia Bustamante MD 06/19/24 20:14:
Read, reviewed, and agree. See same day progress note for additional details. Time spent coordinating care, DC planning, review of DC plan of care with resident, transition of care, review of records in EMR, med rec, consults, notes, d/w
consultants, nursing, family, and CM = 20 minutes
Original Note:
Discharge Summary
Discharge Data
Date of Admission: 06/17/24
Date of Discharge: 06/19/24
-
Pending Results: No
Hospital Course
Discharging Physician : Dr. Sadia Bustamante, Dr. Whit Tompkins
Disposition : Home
Principal Discharge diagnosis :
AFib/Aflutter s/p ablation
Chronic Discharge diagnosis :
Heart failure with preserved ejection fraction
Hypertension
Gastroesophageal reflux disease
Lower back pain
Hospital Course :
Patient is a 79 y/o female with pmhx significant for Afib s/p on Eliquis and tikosyn multiple attempts at cardioverting and recent ablation in Apr 2024 who came in with palpitations, chest pressure and dizziness. EKG showed Afib with RVR. Trop was
negative. Cardiology was on board, plan for EP evaluation, held tikosyn and started cardizem drip. Ablation was performed 06/18/24 and patient converted to NSR. Cardizem was dc'ed and tikosyn was restarted. Patient's daughter was concerned about
sleep apnea triggering Afib. On [facility] chart review, patient had a positive sleep study dated 09/2022. Patient noted she did not receive any treatment and was informed it was normal. Discussed with patient and daughter to follow up with PCP or
pulmonoligist as an outpatient. Of note, nocturnal oximetry did not reveal any desat events during this hospital stay. Patient has a history of rheumatic heart disease. Per cardiology, MS and MR is likely the reason for LA dilation and refractory
nature of her arrhythmia.
Patient is asymptomatic and medically stable for discharge. A cardiology follow up is scheduled for 07/06/24. No changes were made to her home meds.
Procedure findings :
Afib/Aflutter ablation (06/18/24): Successful redo atrial fibrillation ablation with pulmonary vein isolation, posterior wall isolation, Left atrial anterior wall tachycardia ablation, Mitral isthmus ablation for malini-mitral flutter ablation,
Biatrial atrial flutter ablation, Left atrial appendage reentry flutter ablation, Left atrial appendage focal atrial tachycardia ablation
Discharge Plan
-
Patient Disposition: Home (Routine Discharge)
Discharge Diagnosis/Procedures: AFib/Aflutter s/p ablation, heart failure with preserved ejection fraction, hypertension, gastroesophageal reflux disease, lower back pain
Diet: Low Sodium
Activity: As tolerated
Driving Restrictions: No driving for 24 hours
Bathing Restrictions: OK to Shower
Stand Alone Forms: DC Instructions- Cath/EP Lab
Referrals:
Tigist Ronquillo CRNP [Specified Professional Personl] - 07/06/24 11:20 am (Cardiology followup appointment)
Alina Piper MD [Family Provider] -
Additional Discharge Medication Instructions: You have an appointment with cardiology scheduled for 07/06/24.
Please follow up with your primary care provider or a pulmonology doctor for your sleep study.
Prescriptions:
Continued
famotidine 20 MG tablet
20 mg PO HS
Eliquis 5 MG tablet
5 mg PO BID Qty: 30 3RF
omeprazole 40 mg Capsule,Delayed Release(Dr/Ec)
40 mg PO DAILY
amitriptyline 10 mg Tablet
20 mg PO HS
cholecalciferol (vitamin D3) [Vitamin D3] 50 mcg (2,000 unit) Tablet
50 mcg PO DAILY
Prolia 60 mg/mL Syringe
60 mg SC [id number]
metoclopramide HCl 5 mg Tablet
5 mg PO AC
furosemide [Lasix] 40 mg tablet
40 mg PO DAILY Qty: 30 0RF
dofetilide 250 mcg Capsule
250 mcg PO Q12H Qty: 60 0RF
metoprolol tartrate 25 mg Tablet
25 mg PO BID Qty: 60 0RF
neomycin-polymyxin B-dexameth 3.5 mg/g-10,000 unit/g-0.1 % ointment
1 applic LEFT EYE BID
Discharge Orders:
Discharge Patient (As Directed); Ordered 06/19/24
Ordered By: Whit Cross
Care Plan Goals
Care Plan Goals:
Problem: Readiness for enhanced knowledge related to diagnosis and treatment plan
Goal: Understand your diagnosis and treatment plan needs, including medications if applicable.
Instructions: Know your diagnosis, underlying causes and treatment plan options, including medications if applicable. Consult with your health care team to learn about your diagnosis and treatment plan, including medications if applicable.
Discharge Date and Time
Discharge Date/Time: 06/19/24 15:59
Print Language: SPANISH
== END 2024-06-19 15:59 | disposition home or self-care (01) | DRG 274 ==
LOC: IVU 12:56
PROVIDERS: Internal Medicine Cardiovascular Disease; Nurse Practitioner; ADMITTING PHYSICIAN Hospitalist; ATTENDING PHYSICIAN Internal Medicine; CONSULT PHYSICIAN Internal Medicine; EMERGENCY PHYSICIAN Emergency Medicine; FAMILY PHYSICIAN Family Medicine
PROC: 02583ZF Destruction of Conduction Mechanism using Irreversible Electroporation, Percutaneous Approach (ICD-10-PCS; 2024-06-18)
PROC: 02573ZK Destruction of Left Atrial Appendage, Percutaneous Approach (ICD-10-PCS; 2024-06-18)
PROC: 4A0234Z Measurement of Cardiac Electrical Activity, Percutaneous Approach (ICD-10-PCS; 2024-06-18)
PROC: 4A023FZ Measurement of Cardiac Rhythm, Percutaneous Approach (ICD-10-PCS; 2024-06-18)
PROC: 02K83ZZ Map Conduction Mechanism, Percutaneous Approach (ICD-10-PCS; 2024-06-18)
PROC: B244ZZ3 Ultrasonography of Right Heart, Intravascular (ICD-10-PCS; 2024-06-18)
DX: I48.19 Other persistent atrial fibrillation (principal); I50.32 Chronic diastolic (congestive) heart failure; I47.19 Other supraventricular tachycardia; I48.92 Unspecified atrial flutter; I11.0 Hypertensive heart disease with heart failure; H53.8 Other visual disturbances; K21.9 Gastro-esophageal reflux disease without esophagitis; M54.50 Low back pain, unspecified; I05.2 Rheumatic mitral stenosis with insufficiency; G43.909 Migraine, unspecified, not intractable, without status migrainosus; M81.0 Age-related osteoporosis without current pathological fracture; G47.33 Obstructive sleep apnea (adult) (pediatric); H91.90 Unspecified hearing loss, unspecified ear; E87.6 Hypokalemia; Z88.8 Allergy status to other drugs, medicaments and biological substances; Z91.048 Other nonmedicinal substance allergy status; Z79.01 Long term (current) use of anticoagulants
CPT/HCPCS: 80048; 80053; 83735; 84484; 85025; 85027; 85347; 93005; 93655; 93656; 93657; 94762; 96374; 99285; C1730; C1733; C1759; C1766; C1769; C1892; C1894

== ENCOUNTER 2024-06-28 22:40 | Inpatient (IN) | payer MEDICARE, OTHER, SELFPAY ==
[2024-06-28] VITALS (15 sets, daily range): BP systolic 83–119; BP diastolic 56–81; BMI 29.8
--- NOTE | 2024-06-28 20:45 | ED.GENMED ---
History of Present Illness
General
Chief Complaint: Heart Rate Problem
Time Seen by Provider: 06/28/24 20:45
History of Present Illness
History of Present Illness:
TIME OF INITIAL ENCOUNTER: 9 PM
HPI: Patient comes in due to palpitations. Patient has a history of A-fib and has had cardioversions in the past. She is found to be in rapid A-fib upon arrival. She has a complex cardiac history as summarized below. She has some vague chest
discomfort.
EXAM:
GENERAL: Well appearing in no distress
HEENT: Moist oral mucosa
CARDIOVASCULAR: No murmurs, markedly tachycardic, regular rhythm, No chest wall tenderness
PULMONARY: No respiratory distress, breath sounds are clear and equal
ABDOMEN: Soft with no peritoneal signs, no tenderness
NEUROLOGIC: Excellent strength all extremities, no coordination deficits
PSYCHIATRIC: Appropriate mental status, normal insight and judgement
EXTREMITIES: Nontender, no edema, moves all extremities equally
SKIN: No rash, no lesions
NUMBER AND COMPLEXITY OF PROBLEMS ADDRESSED AT THE ENCOUNTER
� Chronic conditions affecting care: A-fib, rheumatic heart disease, GERD
� Acute Exacerbation and/or Progression of Chronic Illness: This is an acute but recurring problem
� Differential Diagnosis includes: Rapid atrial flutter, repeat atrial tachycardia, electrolyte abnormality
AMOUNT AND/OR COMPLEXITY OF DATA TO BE REVIEWED AND ANALYZED
� I performed an independent evaluation of and my interpretation is:
EKG: Atrial flutter, ventricular rate 171
CT:
X-rays:
Laboratory Studies: CBC unremarkable, potassium low at 3.3, troponin higher than prior but still within normal range
Other:
� Review of other/old records: I reviewed the discharge summary from 1 week ago. That note reads that she has a history of A-fib on Eliquis anticus and and had multiple attempts at cardioversion and an ablation in April 2024.
Ablation was performed 06/18/2024. Cardizem was discontinued and Tikosyn was restarted. There was also concern that she had an abnormal sleep study and had not been treated for CARL.
� Clinical information was obtained by an independent historian: I spoke to daughter at bedside
� Prescriptions/Medications Considered but not given:
� Further testing considered but not performed:
RISK OF COMPLICATIONS AND/OR MORBIDITY OR MORTALITY OF PATIENT MANAGEMENT
� Social determinants of health affecting care: Lives at home
� Discussion with other providers: I spoke to Dr. Hong, and despite her converting to a sinus rhythm, he prefers her to stay in the hospital as she does have a complex cardiac history; hospitalist for admission
� Escalation of care including admission/observation vs risk of discharge considered: The patient was placed on Cardizem bolus and drip. She did slow down and then ultimately converted to a sinus rhythm. She has been
hypotensive. Will give additional IV fluids. Potassium replaced.
ANY OTHER UPDATES:
Past History
Past History
ED Past Medical History: Arrthythmia (A fib), Valvular disease (followed by dr whyte) and Other (Rheumatic fever, Murmur); Negative Asthma, HTN, IDDM or NIDDM
ED Past Surgical History: Gynecological (Oophorectomy)
Social History
Tobacco: Non-smoker
Alcohol: Occasional
Drug: None
Personal:
Living: alone
Employment: Retired
Family History
Family History: Other
Phy Exam
Physical Exam
Physical Exam:
See HPI
Course
Orders/Labs/Results
Orders:
Orders
06/28/24 20:34
Electrocardiogram (*1) Urgent
Reason for Study: Tachycardia
EKG- Treatment ONCE
06/28/24 20:57
Basic Metabolic Panel Urgent
Complete Blood Count/With Diff Urgent
Magnesium Urgent
TSH Reflex To Free T4 Urgent
Comment: ADD ON
Troponin I Urgent
06/28/24 21:01
Diltiazem 125 mg/125 ml Nss [Cardizem] 125 mg in 125 ml IV NOW
Initial dose in mg/hr, then titrate:: 5
Titrate to keep:: Heart rate 80-100 bpm
Titrate by mg/hr:: 5 mg/hr
Frequency of titrations (minutes):: 15
Maximum dose in mg/hr:: 15
Diltiazem HCl [Cardizem] 10 mg IV NOW STA
06/28/24 21:16
0.9% Sodium Chloride 500 ml [Nss] 500 ml IV BOLUS
06/28/24 22:12
Potassium Chloride [KCl] 40 meq 0.9% Sodium Chloride 250 ml [Nss] 250 ml IV NOW
06/28/24 22:14
Add On- LAB Urgent
Tests Added?: tsh reflex ft4
06/28/24 22:21
Electrocardiogram (*1) Urgent
Reason for Study: Atrial Flutter
EKG- Treatment ONCE
0.9% Sodium Chloride 500 ml [Nss] 500 ml IV BOLUS
06/28/24 22:24
Admit/Transfer Patient As Directed
Co-Sign Provider:
Level of Care: Inpatient admission
Assign to:: IVU
Physician / Group: sera
Diagnosis: recurrent afib with rvr
Reason for Hospitalization: recurrent afib with rvr
Expected length of stay greater than two midnights?: Yes
ELOS- Estimated Length of Stay in days: 2
I certify the patient meets the requirements for IP care: Yes
PRN Pain Medication Management As Directed
May give lesser potent ordered pain med per pt: Yes
preference::
Protocol:: Medication orders for pain may be administered in a
manner that supports deferring to patient preference
when the pt is:
- Requesting an ordered lesser potent pain medication.
Least to most potent pain medications are defined
as: acetaminophen < NSAID < tramadol < opioids
(morphine, oxycodone, hydromorphone).
- Requesting a lesser dose of the same medication IF
ORDERED.
- Requesting a less intrusive route of administration
if both routes are prescribed by the provider (PO <
IV).
06/28/24 22:25
Code Status As Directed
Resuscitation Status: Full Code
Abnormal Lab Results
06/28/24
20:57
RBC 4.17 L 10^6/uL
(4.20-5.40)
Hct 36.3 L %
(37.0-47.0)
Immature Gran % 0.6 H %
(0-0.5)
Monocytes % 11.4 H %
(1.7-9.3)
Potassium 3.3 L mmol/L
(3.5-5.1)
BUN 20 H mg/dl
(7-17)
Glucose 110 H mg/dl
(70-99)
06/28/24 20:57
06/28/24 20:57
Vital Signs
Initial and Last Documented VS:
Initial Vital Signs
Temp Pulse Resp BP Pulse Ox
36.6 C 172 20 110/81 94
06/28/24 20:40 06/28/24 20:40 06/28/24 20:40 06/28/24 20:40 06/28/24 20:40
Last Documented Vital Signs
Temp Pulse Resp BP Pulse Ox
36.6 C 86 16 96/63 97
06/28/24 20:40 06/28/24 22:07 06/28/24 22:07 06/28/24 22:07 06/28/24 22:07
*Critical Care Note
Total Time (30-74mins, 75-104mins- exclusive of procedures): 45min
comment:
The patient was placed on a Cardizem bolus and drip and ultimately did convert to a sinus rhythm. However she does have periods of hypotension and was given 2 fluid boluses. Vital signs are very closely monitored and I coordinated care with
cardiology urgently.
ED Attending Note
-
Portions of this chart may have been created with voice recognition software.� Occasional wrong word or��sound alike� substitutions may have occurred due to the inherent limitations of voice recognition software.
Discharge Plan
Departure
Patient Disposition: Admit
Date of Disposition: 06/28/24
Time of Disposition: 21:54
Presentation/result/management discussed w/ accepting MD/DO: Hospitalist
Discharge Problem:
Atrial flutter with rapid ventricular response
Prescriptions:
No Action
famotidine 20 MG tablet
20 mg PO HS
Eliquis 5 MG tablet
5 mg PO BID Qty: 30 3RF
omeprazole 40 mg Capsule,Delayed Release(Dr/Ec)
40 mg PO DAILY
amitriptyline 10 mg Tablet
20 mg PO HS
cholecalciferol (vitamin D3) [Vitamin D3] 50 mcg (2,000 unit) Tablet
50 mcg PO DAILY
Prolia 60 mg/mL Syringe
60 mg SC [id number]
metoclopramide HCl 5 mg Tablet
5 mg PO AC
furosemide [Lasix] 40 mg tablet
40 mg PO DAILY Qty: 30 0RF
dofetilide 250 mcg Capsule
250 mcg PO Q12H Qty: 60 0RF
metoprolol tartrate 25 mg Tablet
25 mg PO BID Qty: 60 0RF
neomycin-polymyxin B-dexameth 3.5 mg/g-10,000 unit/g-0.1 % ointment
1 applic LEFT EYE BID
Interventions
Interventions:
*Risk Screen - Suicide Last Done: 06/28/24 20:40
*General Assessment Last Done: 06/28/24 20:40
*Neglect/Abuse Screening Last Done: 06/28/24 20:40
ED- Fall Risk Assessment Last Done: 06/28/24 20:59
*ED COVID-19 Vaccine History Last Done: 06/28/24 20:58
ED- Cardiac Assessment Last Done: 06/28/24 21:01
ED- Pulmonary Assessment Last Done: 06/28/24 21:01
Discharge Date and Time
Print Language: UKRAINIAN
[2024-06-28 21:04] LABS: % Basophils 0.7 % (0-2); % Eosinophils 2.2 % (0-6); % Immature Granulocytes 0.6 % (0-0.5); % Lymphocytes 27.8 % (20.5-51.1); % Monocytes 11.4 % (1.7-9.3); % Neutrophils 57.3 % (42.2-75.2); Absolute Eosinophils 0.1 10^3/uL (0-0.7); Absolute Lymphocytes 1.5 10^3/uL (1.2-3.4); Absolute Monocytes 0.6 10^3/uL (0.1-0.6); Absolute Neutrophils 3.1 10^3/uL (1.4-6.5); Hematocrit 36.3 % (37.0-47.0); Hemoglobin 12.2 g/dL (12.0-16.0); Mean Corp Hgb Conc. 33.6 g/dL (33.0-37.0); Mean Corpuscular Hgb 29.3 pg (27.0-31.0); Mean Corpuscular Volume 87.1 fL (81.0-99.0); Mean Platelet Volume 9.8 fL (7.4-10.4); Nucleated Red Blood Cells % 0 %; Platelet Count 227 10^3/uL (130-400); Red Blood Cell Count 4.17 10^6/uL (4.20-5.40); Red Cell Dist. Width 13.8 % (11.5-14.5); White Blood Cell Count 5.4 10^3/uL (4.8-10.8)
[2024-06-28] MEDS: CARDIZEM 10 MG IV (21:07)
[2024-06-28] MEDS: CARDIZEM 125 IV (21:09)
[2024-06-28 21:16] LABS: Blood Urea Nitrogen 20 mg/dl (7-17); Calcium 10.2 mg/dl (8.4-10.2); Carbon Dioxide 27 mmol/L (22-30); Chloride 107 mmol/L (98-107); Estimated Creatinine Clearance 67 ml/min; Glucose 110 mg/dl (70-99); Potassium 3.3 mmol/L (3.5-5.1); Sodium 140 mmol/L (135-145); eGFR > 60.00
[2024-06-28] MEDS: NSS 500 IV ×2 (21:18→22:25)
[2024-06-28 21:28] LABS: Troponin I 0.031 ng/ml
--- NOTE | 2024-06-28 22:31 | HPS.HSE ---
Family Physician
-
Family Physician: * NONE
Chief Complaint
-
palpitations
History of Present Illness
79-year-old female past medical history of atrial fibrillation, HFpEF, obstructive sleep apnea, hypertension, rheumatic heart disease, moderate mitral regurgitation, moderate mitral stenosis, migraines, osteoporosis, GERD, degenerative disc disease,
presenting with palpitations and elevated heart rate this evening. She denies chest pain, dizziness or shortness of breath. Denies leg swelling.
Patient recently admitted from 06/17 to 06/19 and underwent ablation on 06/18. Cardizem was stopped and Tikosyn was restarted at that time. Of note patient was found to have positive sleep study on 09/2022 and did not have any treatment for this.
Outpatient follow-up was recommended.
She denies smoking. She drinks alcohol occasionally.
Medical History
Past Medical History
Past Medical History: Reports Other (atrial fibrillation, HFpEF, obstructive sleep apnea, hypertension, rheumatic heart disease, moderate mitral regurgitation, moderate mitral stenosis, migraines, osteoporosis, GERD, degenerative disc disease,)
Past Surgical History: Reports None
Social History
Tobacco: Non-smoker
Alcohol: None
Drug: None
Family History
Family History: Not pertinent
Allergies / Home Medications
Allergies reflects when Allergies were last updated in [facility].
Home Medications with original date entered in [facility]
Allergy/Medication List:
Allergies
Allergy/AdvReac Type Severity Reaction Status Date / Time
adhesive Allergy Itching, Verified 06/28/24 20:40
Rash
propoxyphene napsylate Allergy Rash, Verified 06/28/24 20:40
[From Ike-N 100] Swelling
Home Medications
famotidine 20 mg tablet 20 mg PO HS Gastrointestinal issue 03/05/20
apixaban 5 mg tablet (Eliquis) 5 mg PO BID #30 tabs 03/28/20
amitriptyline 10 mg tablet 20 mg PO HS Neurological Condition 09/08/23
cholecalciferol (vitamin D3) 50 mcg (2,000 unit) tablet (Vitamin D3) 50 mcg PO DAILY Supplement 09/08/23
denosumab 60 mg/mL subcutaneous syringe (Prolia) 60 mg SC [id number] Autoimmune Disorder 09/08/23
omeprazole 40 mg capsule,delayed release 40 mg PO DAILY Gastrointestinal Issue 09/08/23
metoclopramide HCl 5 mg tablet 5 mg PO AC Gastrointestinal Issue 05/22/24
furosemide 40 mg tablet (Lasix) 40 mg PO DAILY #30 tabs 05/29/24
dofetilide 250 mcg capsule 250 mcg PO Q12H #60 caps 06/12/24
metoprolol tartrate 25 mg tablet 25 mg PO BID #60 tabs 06/12/24
neomycin 3.5 mg/g-polymyxin B 10,000 unit/g-dexameth 0.1 % eye oint 1 applic LEFT EYE BID 06/17/24
Review of Systems
-
History Source: Patient
A 12 point ROS was completed and negative except as noted: Yes
Constitutional: Reports No Symptoms
EENT: Reports No Symptoms
Respiratory: Reports See HPI
Cardiac: Reports See HPI
Abdomen/GI: Reports No Symptoms
: Reports No Symptoms
Musculoskeletal: Reports No Symptoms
Skin: Reports No Symptoms
Neurological: Reports No Symptoms
Endocrine: Reports No Symptoms
Hematologic/Lymphatic: Reports No Symptoms
Psych: Reports No Symptoms
Physical Exam
Vital Signs
Vital Signs
Temp Pulse Resp BP Pulse Ox
97.8 F 86 16 96/63 97
06/28/24 20:40 06/28/24 22:07 06/28/24 22:07 06/28/24 22:07 06/28/24 22:07
Physical Exam
General: Well Developed, Well Nourished and No Apparent Distress
HEENT: NormoCephalic, Moist mucous membranes and Atraumatic
Respiratory: Clear
Cardiac: S1/S2 and Regular Rhythm; No Murmur or Rub
GI: Soft, Non Tender, Non Distended and Normal Bowel Sounds; No Organomegaly
Rectal: Deferred by Provider
Musculoskeletal: No Clubbing, No Cyanosis and No Edema
Skin: No Rash
Neuro: Nonfocal/grossly intact
Laboratory Results
-
06/28/24 20:57
06/28/24 20:57
Laboratory Results
Troponin I 0.031 ng/ml 06/28/24 20:57
Data Reviewed
-
Lab Data: Labs Reviewed by me
Old Records: Reviewed
Impression/Plan
-
IMPRESSION:
PLAN:
# Recurrent atrial fibrillation with RVR with hypotension
-Heart rate up to 170s
-IV fluids given with improvement in blood pressure
-Cardizem drip started
-Still little bit hypotensive while on Cardizem drip
-Continue dofetilide
-Hold metoprolol
-Hold Eliquis
-Cardiology considering AV nic ablation with pacemaker tomorrow
-N.p.o. past midnight
# Hypokalemia secondary to lasix
-Replete potassium
Chronic HFpEF
-Hold Lasix
Obstructive sleep apnea
-outpatient follow up
Essential hypertension
History of rheumatic heart disease
Moderate mitral regurgitation
Moderate mitral stenosis
History of migraines
-Continue amitriptyline
Osteoporosis
GERD
-Continue Pepcid, omeprazole
Degenerative disc disease
Full code
DVT prophylaxis�SCDs
cardiac diet, NPO past midnight
[2024-06-28] MEDS: KCL 270 MEQ IV (23:18)
[2024-06-28 23:30] LABS: TSH Reflex To Free T4 3.82 uIU/ml (0.47-4.68)
[2024-06-29] VITALS (28 sets, daily range): BP systolic 97–159; BP diastolic 64–116; BMI 28.8
--- NOTE | 2024-06-29 02:15 | PTCARENOTE ---
Received pt from ER. Pt is AAOX4. Bilateral hearing impairment, pt wears hearing aides in both ears. NSR on monitor. HR 83, B/P 143/91, Cardizem gtt running at 5ml\\hr. Pulses palpable, - edema. Lungs clear, POX 97% RA. NBS, abdomen soft, round,
non-tender to touch. 20g R antecubital area. Skin intact. Oriented pt to unit. Call schultz within reach. Will continue to monitor pt needs.
--- NOTE | 2024-06-29 04:03 | PTCARENOTE ---
VSS. Pt in NSR on monitor. HR 84, B/P 143/91. Pt resting in bed. Will continue to monitor pt needs.
[2024-06-29 04:50] LABS: % Basophils 0.9 % (0-2); % Eosinophils 4.2 % (0-6); % Immature Granulocytes 0.7 % (0-0.5); % Lymphocytes 26.7 % (20.5-51.1); % Monocytes 10.9 % (1.7-9.3); % Neutrophils 56.6 % (42.2-75.2); Absolute Eosinophils 0.2 10^3/uL (0-0.7); Absolute Lymphocytes 1.2 10^3/uL (1.2-3.4); Absolute Monocytes 0.5 10^3/uL (0.1-0.6); Absolute Neutrophils 2.5 10^3/uL (1.4-6.5); Hematocrit 33.4 % (37.0-47.0); Mean Corp Hgb Conc. 32.9 g/dL (33.0-37.0); Mean Corpuscular Hgb 29.3 pg (27.0-31.0); Mean Corpuscular Volume 88.8 fL (81.0-99.0); Mean Platelet Volume 10.2 fL (7.4-10.4); Nucleated Red Blood Cells % 0 %; Platelet Count 216 10^3/uL (130-400); Red Blood Cell Count 3.76 10^6/uL (4.20-5.40); White Blood Cell Count 4.5 10^3/uL (4.8-10.8)
[2024-06-29 05:37] LABS: ALT (SGPT) 30 U/L (0-35); AST (SGOT) 34 U/L (14-36); Albumin 3.8 g/dl (3.5-5.0); Alkaline Phosphatase 78 U/L (38-126); Blood Urea Nitrogen 14 mg/dl (7-17); Calcium 9.2 mg/dl (8.4-10.2); Carbon Dioxide 24 mmol/L (22-30); Chloride 109 mmol/L (98-107); Estimated Creatinine Clearance 65 ml/min; Glucose 94 mg/dl (70-99); Potassium 3.8 mmol/L (3.5-5.1); Sodium 141 mmol/L (135-145); Total Bilirubin 0.6 mg/dl (0.2-1.3); Total Protein 6.2 g/dl (6.3-8.2); eGFR > 60.00
--- NOTE | 2024-06-29 08:02 | W.PN.CD ---
Today's Communication / Plan
-
- DCCV today
- Stop Tikosyn and dilt drip
- Start Amiodarone.
Impression / Plan
-
79 y/o female (patient of Dr. Jama) with paroxysmal A fib on tikosyn and Eliquis (multiple attempts at rhythm control including CV 05/09/24, ablation 05/22/24 Dr. Puckett, then CV in ER 05/26/24, then again 06/11/24, and 06/15/24), bradycardia,
chronic HFpEF, moderate MS and MR, hypertension, untreated CARL per chart who presents with recurrent AFIB with RVR.
Persistent A fib / flutter, recurrent with symptomatic RVR
-s/p complex AF/AFL ablation on 06/18/24 - Multiple flutters and AT ablated along with AF.
-now back in atrial flutter
-two weeks - likely post op inflammatory response
-discussed options including PPM/AVJ vs change in AAD
-since the ablation was just over a week ago, it is best to try change in AAD and use Amiodarone for short period of time.
-DCCV today
-If recurrent AF/FL noted in 3 months then the next step would be AVJ/PPM.
-Off the metoprolol and started on Dilt gtt - will stop Dilt drip.
-Use Amiodarone for now - if needed can give IV Metoprolol - 2.5 mg q6h prn.
-CHADS2-VASC = 5. Eliquis 5mg bid for OAC.
Chronic HFpEF
-stable: continue lasix 40mg PO daily
HTN
-stable: continue metoprolol tartrate 25mg bid
Valvular heart disease:
-echo 10/28/23: EF 65-70%, mod MS (mean 7 mmHg), mild/moderate MR, mild AR, nl RV, mild TR, PASP 45
-MS and MR is likely the reason for LA dilation and refractory nature of her arrhythmia.
Subjective:
Feeling well. Denies any complaints at rest. She did have heart rate to 180s when ambulated.
Physical Exam
Vital Signs/Labs
Vital Signs
Temp Pulse Resp BP Pulse Ox
97.6 F 89 16 143/91 99
06/29/24 07:19 06/29/24 05:00 06/29/24 07:19 06/29/24 02:31 06/29/24 07:19
06/28/24 06/29/24 06/30/24
06:59 06:59 06:59
Actual Weight 66.8 kg
06/29/24 04:38
06/29/24 04:38
Magnesium 2.0 mg/dl (1.6-2.3) 06/28/24 20:57
LAB Results
06/28/24
20:57
Troponin I 0.031
Physical Exam
Constitutional: No acute distress and Comfortable
EENT: Anicteric and Moist mucous membranes
Cardiovascular: Rhythm & rate is regular, Pedal edema is absent, JVD pressure is normal and Systolic murmur absent
Respiratory: Respiratory effort normal, Lungs clear to auscul., Wheeze Absent and Crackles Absent
GI: Soft, Distention absent, Non tender and Normal bowel sounds
Neuro/Psych: Alert, Oriented and AO x 3
Data Reviewed
-
Date of Service: June 29, 2024
Medical Decision Making: Tests Ordered, Independent Historian Assessment, Test Interpretation and Review of Case with other Provider
EKG: Tracing Personally Visualized and interpreted
Echo: Report Reviewed by me
Labs: Labs Reviewed by me
Old Records: Reviewed
[2024-06-29] MEDS: CORDARONE 103 MG IV (08:39)
[2024-06-29] MEDS: VITAMIN D3 (cholecalciferol) 50 MCG PO (09:16)
[2024-06-29] MEDS: PROTONIX 40 MG PO (09:16)
[2024-06-29] MEDS: ELIQUIS 5 MG PO ×2 (09:16→19:45)
[2024-06-29] MEDS: REGLAN 5 MG PO ×3 (09:16→17:59)
--- NOTE | 2024-06-29 10:49 | CM ---
Chart reviewed. Patient is independent of ADLS, lives with her sister in a 2 [address], 1st level set up, 1 [address]ANE, ambulates with a RW and SPC. Patient has been staying with her daughter since last hospitalization. Plan is for the patient to go to her
daughters home when medically stable. CM to follow
--- NOTE | 2024-06-29 10:59 | PTCARENOTE ---
Pt is sustaining a heart rate 140-160. Pt asymptomatic. Pt not on cardizem drip as amiodarone bolus was given this am. VSS. Pt for CV today. PA notified. Will monitor
--- NOTE | 2024-06-29 11:40 | PTCARENOTE ---
Pt now in uncontrolled a fib/a flutter. Pt's heart rate sustaining at 184. Will monitor.
[2024-06-29] MEDS: LOPRESSOR 5 MG IV (12:00)
--- NOTE | 2024-06-29 12:42 | ITS.CL.CARDI ---
Drafter Detail - Cardioversion
Cardioversion
Procedure Report:
Date of Procedure: 06/29/24
Procedure: Cardioversion
Indication: Symptomatic atrial fibrillation
Performing Physician: Anjum Warren MD
Technique: The patient was brought to the holding area. Signed informed consent was obtained. A time out was called and performed. The patient was anesthetized by the anesthesia service. Anticoagulation status was reviewed and appropriate. R2 pads
were placed anteriorly and posteriorly. A 200 J synchronized biphasic shock restored normal sinus rhythm without significant bradycardia. There were no complications.
Conclusion: Uncomplicated cardioversion from atrial fibrillation to sinus rhythm.
Recommendation: Routine post cardioversion care. 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
--- NOTE | 2024-06-29 13:47 | PTCARENOTE ---
Received pt post cardioversion. VSS. Pt in NSR w/ pac's. Will monitor.
--- NOTE | 2024-06-29 15:07 | W.PN.HOSP.TC ---
Today's Communication/Plan
-
for CV today
rate/rhythm control meds per cards
lasix on hold
Assessment / Plan
Assessment / Plan
# Recurrent atrial fibrillation with RVR
s/p Ablation on 06/17
-Patient have recurrence of atrial fibrillation with RVR
-EP cardiology evaluated today and patient currently on a flutter with 2-1 block
-Cardizem has been discontinued
-Patient to continue on Tikosyn
-Patient to plan undergo cardioversion and amiodarone loading
-Maintain on eliquis
# Hypokalemia
-secondary to lasix
-Replaced K needed
# Chronic HFpEF
-got 2 L of NS bolus in ER for hypotension
-lasix on hold
Obstructive sleep apnea -outpatient follow up
Essential hypertension
History of rheumatic heart disease
Moderate mitral regurgitation
Moderate mitral stenosis
History of migraines -Continue amitriptyline
Osteoporosis
GERD -Continue Pepcid, omeprazole
Degenerative disc disease
Full code
DVT prophylaxis�Eliquis
Total time spent ; 54 mins
Anticipated Discharge: 24 - 48 hours
Subjective/Interval History
-
Date of Service: June 29, 2024
No reported palpitations/chest discomfort
Objective Data
-
Labs:
Laboratory Results
06/29/24
04:38
WBC 4.5 L
Hgb 11.0 L
Hct 33.4 L
Plt Count 216
Sodium 141
Potassium 3.8
Chloride 109 H
Carbon Dioxide 24
BUN 14
Creatinine 0.5 L
Glucose 94
Calcium 9.2
Total Bilirubin 0.6
AST 34
ALT 30
Alkaline Phosphatase 78
Vital Signs:
Vital Signs
Temp Pulse Resp BP Pulse Ox
97.6 F 74 18 123/100 97
06/29/24 13:17 06/29/24 13:17 06/29/24 13:17 06/29/24 12:00 06/29/24 13:17
I&O
06/28/24 06/29/24 06/30/24
06:59 06:59 06:59
Output Total 600 / 600 1400 / 1400
Balance -600 / -600 -1400 / -1400
Review of Systems
-
Respiratory: Reports No Symptoms
Cardiac: Reports No Symptoms
Abdomen/GI: Reports No Symptoms
Physical Exam
-
General: Comfortable
HEENT: Negative Oxygen
Respiratory: Clear to Auscultation
Cardiac: Regular Rhythm and S1/S2
GI: Soft, Nontender and Nondistended
Musculoskeletal: No Edema
Neuro: Awake, Alert and Oriented
Hematologic / Lymphatic: No Lymphadenopathy
Psych: Calm
[2024-06-29] MEDS: PACERONE 200 MG PO (19:44)
[2024-06-29] MEDS: PEPCID 20 MG PO (22:36)
[2024-06-29] MEDS: ELAVIL 20 MG PO (22:36)
--- NOTE | 2024-06-29 23:16 | PTCARENOTE ---
pt received at change of shift, pt seen and assessed in room. pt Aox3, tele reading NSR in the 70s-80s. no complaints of pain at this time. pt. ambulating independently in room without difficulty. this RN discussed POC, pt. verbalizes understanding.
call schultz within reach, continuing to monitor at this time.
[2024-06-30 02:55] VITALS: BP 126/77
[2024-06-30 05:23] VITALS: BMI 28.8
[2024-06-30 07:40] VITALS: BP 130/92
--- NOTE | 2024-06-30 07:40 | W.PN.CD ---
Today's Communication / Plan
-
- Amiodarone 200 mg BID for 1 week then 200 mg QD for maintenance.
- Stable for discharge from cardiac stand point.
Impression / Plan
-
79 y/o female (patient of Dr. Jama) with paroxysmal A fib on tikosyn and Eliquis (multiple attempts at rhythm control including CV 05/09/24, ablation 05/22/24 Dr. Puckett, then CV in ER 05/26/24, then again 06/11/24, and 06/15/24), bradycardia,
chronic HFpEF, moderate MS and MR, hypertension, untreated CARL per chart who presents with recurrent AFIB with RVR.
Persistent A fib / flutter, recurrent with symptomatic RVR
-s/p complex AF/AFL ablation on 06/18/24 - Multiple flutters and AT ablated along with AF.
-s/p DCCV on 06/29/24 - now in sinus rhythm
-If recurrent AF/FL noted in 3 months then the next step would be AVJ/PPM.
-Started Amiodarone 200 mg BID - Plan for 1 week of BID then 200 mg QD for maintenance.
-Tikosyn discontinued.
-CHADS2-VASC = 5. Eliquis 5mg bid for OAC.
Chronic HFpEF
-stable: continue lasix 40mg PO daily
HTN
-stable: continue metoprolol tartrate 25mg bid
Valvular heart disease:
-echo 10/28/23: EF 65-70%, mod MS (mean 7 mmHg), mild/moderate MR, mild AR, nl RV, mild TR, PASP 45
-MS and MR is likely the reason for LA dilation and refractory nature of her arrhythmia.
Subjective:
Feeling well. Denies any complaints at rest. She did have heart rate to 180s when ambulated.
Physical Exam
Vital Signs/Labs
Vital Signs
Temp Pulse Resp BP Pulse Ox
97.6 F 75 18 126/77 97
02/08/25 02:57 06/30/24 05:15 06/30/24 02:57 06/30/24 02:55 06/30/24 02:57
06/29/24 06/30/24 07/01/24
06:59 06:59 06:59
Actual Weight 66.8 kg 67 kg
06/29/24 04:38
06/29/24 04:38
Magnesium 2.0 mg/dl (1.6-2.3) 06/28/24 20:57
LAB Results
06/28/24
20:57
Troponin I 0.031
Physical Exam
Constitutional: No acute distress and Comfortable
EENT: Anicteric and Moist mucous membranes
Cardiovascular: Rhythm & rate is regular, Pedal edema is absent and JVD pressure is normal
Respiratory: Respiratory effort normal, Lungs clear to auscul., Wheeze Absent and Crackles Absent
GI: Soft, Non tender and Normal bowel sounds
Neuro/Psych: Alert, Oriented and AO x 3
Other: Cath Site
Data Reviewed
-
Date of Service: June 30, 2024
Medical Decision Making: Reviewed Test Results, Test Interpretation and Review of Case with other Provider
EKG: Tracing Personally Visualized and interpreted
Labs: Labs Reviewed by me
Old Records: Reviewed
--- NOTE | 2024-06-30 08:31 | W.PN.HOSP.TC ---
Today's Communication/Plan
-
d/c home
Assessment / Plan
Assessment / Plan
# Recurrent atrial fibrillation with RVR
s/p Ablation on 06/17
-Patient have recurrence of atrial fibrillation with RVR
-EP cardiology evaluated today and patient currently on a flutter with 2-1 block
-Cardizem has been discontinued
-s/p successful CV in NSR.
-EP cardiology cleared to be discharged on amiodarone 200 mg twice daily for 1 week followed by daily for maintenance. Tikosyn to be discontinued.
-Maintain on Eliquis
# Hypokalemia
-secondary to lasix
-Replaced K needed
# Chronic HFpEF
-got 2 L of NS bolus in ER for hypotension
-lasix to be continued at discharge.
Obstructive sleep apnea -outpatient follow up
Essential hypertension
History of rheumatic heart disease
Moderate mitral regurgitation
Moderate mitral stenosis
History of migraines -Continue amitriptyline
Osteoporosis
GERD -Continue Pepcid, omeprazole
Degenerative disc disease
Full code
DVT prophylaxis�Eliquis
More than 30 minutes spent in discharge including
Final examination of the patient
Summarizing hospital stay
Instructions for continuing care to all relevant caregivers
Preparation of discharge records, prescriptions, and referral forms
Total time spent (in minutes): 38 mins
Anticipated Discharge: Today
Subjective/Interval History
-
Date of Service: June 30, 2024
no complains overnight
Objective Data
-
Vital Signs:
Vital Signs
Temp Pulse Resp BP Pulse Ox
97.7 F 91 18 130/92 97
06/30/24 07:39 06/30/24 08:15 06/30/24 07:39 06/30/24 07:40 06/30/24 07:40
I&O
06/29/24 06/30/24 07/01/24
06:59 06:59 06:59
Intake Total 705 / 705
Output Total 600 / 600 1400 / 1400
Balance -600 / -600 -695 / -695
Review of Systems
-
Respiratory: Reports No Symptoms
Cardiac: Reports No Symptoms
Abdomen/GI: Reports No Symptoms
Physical Exam
-
General: Comfortable
HEENT: Negative Oxygen
Respiratory: Clear to Auscultation
Cardiac: Regular Rhythm and S1/S2; Negative Murmur
GI: Soft, Nontender and Nondistended
Musculoskeletal: No Edema
Neuro: Awake, Alert and Oriented
Hematologic / Lymphatic: No Lymphadenopathy
Psych: Calm
[2024-06-30] MEDS: REGLAN 5 MG PO (08:34)
[2024-06-30] MEDS: VITAMIN D3 (cholecalciferol) 50 MCG PO (08:34)
[2024-06-30] MEDS: PACERONE 200 MG PO (08:34)
[2024-06-30] MEDS: ELIQUIS 5 MG PO (08:34)
[2024-06-30] MEDS: PROTONIX 40 MG PO (08:34)
[2024-06-30] MEDS: SILVADENE 1 APPLIC TOPICAL (10:08)
[2024-06-30 10:11] VITALS: BP 130/91
--- NOTE | 2024-06-30 13:13 | PTCARENOTE ---
Pt seen by Drs. Alejo and Italo. Telemetry and IV device removed. Discharge instructions reviewed with pt regarding medications, driving restrictions, reproting cares and concerns and follow up appt;s. Very good understanding taught back. Pt
escorted out via wheelchair and discharged to home
--- NOTE | 2024-06-30 16:45 | W.DCSUMMARY ---
Discharge Summary
Discharge Data
Date of Admission: 06/28/24
Date of Discharge: 06/30/24
-
Pending Results: No
Hospital Course
Discharging Physician : Dr Jung Alejo
Disposition : To home
Primary care physician : Dr Alina Piper
Principal Discharge diagnosis :
Recurrent atrial fibrillation with rapid ventricular rate
Chronic Discharge diagnosis :
History of ablation on 06/18
Chronic diastolic congestive heart failure
Obstructive sleep apnea
Essential hypertension
history of rheumatic heart disease
Moderate mitral regurgitation
Moderate mitral stenosis
Gastroesophageal reflux disease
Osteoporosis
Hospital Course :
Patient is a 79-year-old female with no mentioned past medical history came to ER with new onset of palpitation. No associated dizziness/shortness of breath. Patient had recently underwent ablation on 06/18/24. Patient was discharged on regimen of
Tikosyn/Eliquis. At admission patient was noted to be again in atrial fibrillation with rapid ventricular rate and was started on Cardizem drip. EP cardiology was involved in care and patient was taken for cardioversion which was successful.
Patient Tikosyn was changed to amiodarone. Patient was cleared to be discharged on tapering course of amiodarone with plan for follow-up with EP cardiology in office.
Important imaging findings :
None
Procedure findings :
None
Discharge Plan
-
Patient Disposition: Home (Routine Discharge)
Discharge Diagnosis/Procedures: Aflutter/fib requiring cardioversion
Condition: Fair
Diet: Low Cholesterol
Activity: As tolerated
Driving Restrictions: No driving
Bathing Restrictions: OK to Shower
Referrals:
Josh Puckett MD [Active] - in two weeks
Alina Piper MD [Family Provider] - in one week
Additional Discharge Medication Instructions: STOP Dofetilide (Tikosyn)
Prescriptions:
New
amiodarone 200 mg Tablet
See Rx Instructions .ROUTE .COMPLEX Qty: 60 1RF
Rx Instructions:
Take 1 Tablet twice daily for 7 Days THEN
Take 1 Tablet daily for maintenance
Continued
famotidine 20 MG tablet
20 mg PO HS
Eliquis 5 MG tablet
5 mg PO BID Qty: 30 3RF
omeprazole 40 mg Capsule,Delayed Release(Dr/Ec)
40 mg PO DAILY
amitriptyline 10 mg Tablet
20 mg PO HS
cholecalciferol (vitamin D3) [Vitamin D3] 50 mcg (2,000 unit) Tablet
50 mcg PO DAILY
Prolia 60 mg/mL Syringe
60 mg SC [id number]
metoclopramide HCl 5 mg Tablet
5 mg PO AC
furosemide [Lasix] 40 mg tablet
40 mg PO DAILY Qty: 30 0RF
metoprolol tartrate 25 mg Tablet
25 mg PO BID Qty: 60 0RF
neomycin-polymyxin B-dexameth 3.5 mg/g-10,000 unit/g-0.1 % ointment
1 applic LEFT EYE BID
Discontinued
dofetilide 250 mcg Capsule
250 mcg PO Q12H Qty: 60 0RF
Discharge Orders:
Discharge Patient (As Directed); Ordered 06/30/24
Ordered By: Jung Alejo
Care Plan Goals
Care Plan Goals:
Problem: Readiness for enhanced knowledge related to diagnosis and treatment plan
Goal: Understand your diagnosis and treatment plan needs, including medications if applicable.
Instructions: Know your diagnosis, underlying causes and treatment plan options, including medications if applicable. Consult with your health care team to learn about your diagnosis and treatment plan, including medications if applicable.
Discharge Date and Time
Discharge Date/Time: 06/30/24 11:10
Print Language: [place]
== END 2024-06-30 11:10 | disposition home or self-care (01) | DRG 309 ==
LOC: IVU 22:40
PROVIDERS: Internal Medicine Cardiovascular Disease; ADMITTING PHYSICIAN Hospitalist; ATTENDING PHYSICIAN Hospitalist; EMERGENCY PHYSICIAN Emergency Medicine; FAMILY PHYSICIAN Family Medicine
PROC: 5A2204Z Restoration of Cardiac Rhythm, Single (ICD-10-PCS; 2024-06-29)
DX: I48.91 Unspecified atrial fibrillation (principal); I50.32 Chronic diastolic (congestive) heart failure; I48.92 Unspecified atrial flutter; E87.6 Hypokalemia; I11.0 Hypertensive heart disease with heart failure; M81.0 Age-related osteoporosis without current pathological fracture; K21.9 Gastro-esophageal reflux disease without esophagitis; G47.33 Obstructive sleep apnea (adult) (pediatric); Z79.01 Long term (current) use of anticoagulants
CPT/HCPCS: 80048; 80053; 83735; 84443; 84484; 85025; 92960; 93005; 96374; 99291

== ENCOUNTER → 2024-08-02 10:54 | Outpatient (REF) | payer MEDICARE, OTHER, SELFPAY ==
[2024-08-02 11:45] LABS: INR 1.36; PT 17.3 Sec (11.4-14.6)
[2024-08-02 12:16] LABS: Blood Urea Nitrogen 18 mg/dl (7-17); Calcium 9.9 mg/dl (8.4-10.2); Carbon Dioxide 27 mmol/L (22-30); Chloride 102 mmol/L (98-107); Glucose 91 mg/dl (70-99); Potassium 3.6 mmol/L (3.5-5.1); Sodium 139 mmol/L (135-145); eGFR > 60.00
== END ==
LOC: REG 10:54
PROVIDERS: ATTENDING PHYSICIAN Internal Medicine Cardiovascular Disease; FAMILY PHYSICIAN Family Medicine; OTHER PHYSICIAN Nurse Practitioner
DX: I48.0 Paroxysmal atrial fibrillation (principal); I50.32 Chronic diastolic (congestive) heart failure
CPT/HCPCS: 36415; 80048; 85610

== ENCOUNTER → 2024-08-06 09:59 | Outpatient (REF) | payer MEDICARE, OTHER, SELFPAY ==
[2024-08-06 10:39] LABS: INR 1.04; PT 13.9 Sec (11.4-14.6)
== END ==
LOC: REG 09:59
PROVIDERS: ATTENDING PHYSICIAN Internal Medicine Cardiovascular Disease; FAMILY PHYSICIAN Family Medicine
DX: I48.0 Paroxysmal atrial fibrillation (principal)
CPT/HCPCS: 36415; 85610

== ENCOUNTER → 2024-08-08 10:02 | Outpatient (REF) | payer MEDICARE, OTHER, SELFPAY ==
[2024-08-08 11:37] LABS: INR 1.55; PT 19.1 Sec (11.4-14.6)
== END ==
LOC: REG 10:02
PROVIDERS: ATTENDING PHYSICIAN Internal Medicine Cardiovascular Disease; FAMILY PHYSICIAN Family Medicine
DX: I48.0 Paroxysmal atrial fibrillation (principal)
CPT/HCPCS: 36415; 85610

== ENCOUNTER → 2024-08-10 11:00 | Outpatient (REF) | payer MEDICARE, OTHER, SELFPAY ==
[2024-08-10 12:02] LABS: INR 2.44; PT 26.6 Sec (11.4-14.6)
== END ==
LOC: REG 11:00
PROVIDERS: ATTENDING PHYSICIAN Internal Medicine Cardiovascular Disease; FAMILY PHYSICIAN Family Medicine
DX: I48.0 Paroxysmal atrial fibrillation (principal)
CPT/HCPCS: 36415; 85610

== ENCOUNTER → 2024-08-15 09:37 | Outpatient (REF) | payer MEDICARE, OTHER, SELFPAY ==
[2024-08-15 10:28] LABS: INR 3.45
== END ==
LOC: REG 09:37
PROVIDERS: ATTENDING PHYSICIAN Internal Medicine Cardiovascular Disease; FAMILY PHYSICIAN Family Medicine
DX: I48.0 Paroxysmal atrial fibrillation (principal)
CPT/HCPCS: 36415; 85610

== ENCOUNTER → 2024-08-22 10:37 | Outpatient (REF) | payer MEDICARE, OTHER, SELFPAY ==
[2024-08-22 11:32] LABS: PT 36.2 Sec (11.4-14.6)
== END ==
LOC: REG 10:37
PROVIDERS: ATTENDING PHYSICIAN Internal Medicine Cardiovascular Disease; FAMILY PHYSICIAN Family Medicine
DX: I48.0 Paroxysmal atrial fibrillation (principal)
CPT/HCPCS: 36415; 85610

== ENCOUNTER → 2024-08-29 07:48 | Outpatient (REF) | payer MEDICARE, OTHER, SELFPAY ==
[2024-08-29 09:20] LABS: INR 5.61; PT 50.6 Sec (11.4-14.6)
== END ==
LOC: REG 07:48
PROVIDERS: ATTENDING PHYSICIAN Internal Medicine Cardiovascular Disease; FAMILY PHYSICIAN Family Medicine
DX: I48.0 Paroxysmal atrial fibrillation (principal)
CPT/HCPCS: 36415; 85610

== ENCOUNTER → 2024-08-31 09:40 | Outpatient (REF) | payer MEDICARE, OTHER, SELFPAY ==
[2024-08-31 10:52] LABS: INR 2.89; PT 30.1 Sec (11.4-14.6)
== END ==
LOC: REG 09:40
PROVIDERS: ATTENDING PHYSICIAN Internal Medicine Cardiovascular Disease; FAMILY PHYSICIAN Family Medicine
DX: I48.0 Paroxysmal atrial fibrillation (principal)
CPT/HCPCS: 36415; 85610

== ENCOUNTER → 2024-09-05 09:05 | Outpatient (REF) | payer MEDICARE, OTHER, SELFPAY ==
[2024-09-05 10:26] LABS: INR 2.41; PT 26.7 Sec (11.4-14.6)
== END ==
LOC: REG 09:05
PROVIDERS: ATTENDING PHYSICIAN Internal Medicine Cardiovascular Disease; FAMILY PHYSICIAN Family Medicine
DX: I48.0 Paroxysmal atrial fibrillation (principal)
CPT/HCPCS: 36415; 85610

== ENCOUNTER → 2024-09-12 07:15 | Outpatient (REF) | payer MEDICARE, OTHER, SELFPAY ==
[2024-09-12 08:06] LABS: INR 2.13; PT 24.3 Sec (11.4-14.6)
== END ==
LOC: REG 07:15
PROVIDERS: ATTENDING PHYSICIAN Internal Medicine Cardiovascular Disease; FAMILY PHYSICIAN Family Medicine
DX: I48.0 Paroxysmal atrial fibrillation (principal)
CPT/HCPCS: 36415; 85610

== ENCOUNTER → 2024-09-19 09:36 | Outpatient (REF) | payer MEDICARE, OTHER, SELFPAY ==
[2024-09-19 10:16] LABS: INR 1.82; PT 21.6 Sec (11.4-14.6)
== END ==
LOC: REG 09:36
PROVIDERS: ATTENDING PHYSICIAN Internal Medicine Cardiovascular Disease; FAMILY PHYSICIAN Family Medicine
DX: I48.0 Paroxysmal atrial fibrillation (principal)
CPT/HCPCS: 36415; 85610

== ENCOUNTER → 2024-09-26 09:33 | Outpatient (REF) | payer MEDICARE, OTHER, SELFPAY ==
[2024-09-26 10:53] LABS: INR 2.54; PT 27.7 Sec (11.4-14.6)
== END ==
LOC: REG 09:33
PROVIDERS: ATTENDING PHYSICIAN Internal Medicine; FAMILY PHYSICIAN Family Medicine
DX: I10 Essential (primary) hypertension (principal); D64.9 Anemia, unspecified; R80.9 Proteinuria, unspecified; N18.4 Chronic kidney disease, stage 4 (severe); E88.09 Other disorders of plasma-protein metabolism, not elsewhere classified
CPT/HCPCS: 36415; 85610

== ENCOUNTER → 2024-11-07 07:13 | Outpatient (REF) | payer MEDICARE, OTHER, SELFPAY ==
[2024-11-07 08:13] LABS: INR 2.37; PT 26.4 Sec (11.4-14.6)
== END ==
LOC: REG 07:13
PROVIDERS: ATTENDING PHYSICIAN Internal Medicine Cardiovascular Disease; FAMILY PHYSICIAN Family Medicine
DX: I48.0 Paroxysmal atrial fibrillation (principal)
CPT/HCPCS: 36415; 85610

== ENCOUNTER → 2024-11-14 09:04 | Outpatient (REF) | payer MEDICARE, OTHER, SELFPAY ==
[2024-11-14 09:43] LABS: INR 1.84; PT 21.7 Sec (11.4-14.6)
== END ==
LOC: REG 09:04
PROVIDERS: ATTENDING PHYSICIAN Internal Medicine Cardiovascular Disease; FAMILY PHYSICIAN Family Medicine
DX: I48.0 Paroxysmal atrial fibrillation (principal)
CPT/HCPCS: 36415; 85610

== ENCOUNTER → 2024-11-19 08:04 | Outpatient (REF) | payer MEDICARE, OTHER, SELFPAY ==
[2024-11-19 09:27] LABS: INR 2.72; PT 28.8 Sec (11.4-14.6)
== END ==
LOC: REG 08:04
PROVIDERS: ATTENDING PHYSICIAN Internal Medicine Cardiovascular Disease; FAMILY PHYSICIAN Family Medicine
DX: I48.0 Paroxysmal atrial fibrillation (principal)
CPT/HCPCS: 36415; 85610

== ENCOUNTER 2025-01-31 13:59 | Inpatient (IN) | payer MEDICARE, OTHER, SELFPAY ==
[2025-01-29] VITALS (10 sets, daily range): BP systolic 109–165; BP diastolic 59–85; PULSE 55–63
[2025-01-29 17:03] LABS: Hematocrit 34.7 % (37.0-47.0); Hemoglobin 10.6 g/dL (12.0-16.0); Mean Corp Hgb Conc. 30.5 g/dL (33.0-37.0); Mean Corpuscular Volume 77.5 fL (81.0-99.0); Nucleated Red Blood Cells % 0 %; Platelet Count 285 10^3/uL (130-400); Red Cell Dist. Width 15.4 % (11.5-14.5)
[2025-01-29 17:28] LABS: ALT (SGPT) 32 U/L (0-35); AST (SGOT) 30 U/L (14-36); Albumin 4.4 g/dl (3.5-5.0); Alkaline Phosphatase 72 U/L (38-126); Blood Urea Nitrogen 22 mg/dl (7-17); Calcium 11.3 mg/dl (8.4-10.2); Carbon Dioxide 27 mmol/L (22-30); Chloride 105 mmol/L (98-107); Glucose 132 mg/dl (70-99); Potassium 4.4 mmol/L (3.5-5.1); Sodium 138 mmol/L (135-145); Total Protein 7.4 g/dl (6.3-8.2); eGFR 50.80
[2025-01-29 21:27] LABS: Urine Character Slightly Cloudy (Clear)
--- NOTE | 2025-01-29 22:49 | ED.GENMED ---
History of Present Illness
General
Chief Complaint: Fainting Sensation
Source: patient and family (daughter)
Exam Limitations: none
Time Seen by Provider: 01/29/25 20:55
Nursing documentation reviewed up to this point in time: agreed with
History of Present Illness
History of Present Illness:
Patient to ED wt complaint of sudden onset of weakness, lightheadedness, SOB. States she was seen by cardiology at [facility] this AM for scheduled appt (mitral valve replacement this past spring). States she had worn a holter monitor over the summer.
Daughter states junctional rhythm found by monitor, told today that pt will need to have a pacemaker placed. According to daughter, office will be calling to schedule. After visit, patient and daughter went to restaurant and this is when her
symptoms occurred. Denies headache, vision changes. Denies fever/chills, recent illness. Denies CP/pressure. Denies any abdominal pain, n/v/d. Brought to ED by daughter for eval
Past History
Past History
ED Past Medical History: Arrthythmia (A fib), Valvular disease (followed by dr whyte) and Other (Rheumatic fever, Murmur); Negative Asthma, HTN, IDDM or NIDDM
ED Past Surgical History: Gynecological (Oophorectomy)
Social History
Tobacco: Non-smoker
Alcohol: Occasional
Drug: None
Personal:
Living: alone
Employment: Retired
Family History
Family History: Other
Review of Systems
Review of Systems
Allergies reviewed?: Yes
All Other Systems: ROS reviewed and negative except as documented in HPI and ROS
Constitutional: Reports fatigue
EENT: Reports no symptoms
Respiratory: Reports trouble breathing
Cardiac: Reports no symptoms
ABD/GI: Reports no symptoms
: Reports no symptoms
Musculoskeletal: Reports no symptoms
Skin: Reports no symptoms
Neurological: Reports weakness
Psychiatric: Reports no symptoms
Phy Exam
General Physical Exam
General Presentation: mild distress
General age: appears stated age
General Skin: warm and dry
General Habitus: normal
General Mental: alert
Cardiovascular Exam
Cardiovascular Exam: regular rate/rhythm
Pulmonary Exam
Pulmonary Exam: no respiratory distress and chest non tender
Breath Sounds: Crackles: left lower and right lower
Gastrointestinal Exam
Gastrointestinal Exam: normal bowel sounds, non tender, soft and no organomegaly
Neurological Exam
Neurological Exam: alert, oriented x3, CN II-XII intact, no motor deficits, no sensory deficits and speech normal
Musculoskeletal Exam
Musculoskeletal Exam: full ROM and neuro vasc intact
Skin Exam
Skin Exam: normal color, warm/dry and no rash
Psychiatric Exam
Psychiatric Exam: normal mood/affect
Course
Orders/Labs/Results
Orders:
Orders
01/29/25 16:28
EKG [Electrocardiogram (*1)] Urgent
Reason for Study: Syncope
EKG- Treatment ONCE
01/29/25 16:43
Complete Blood Count/With Diff Urgent
Comprehensive Metabolic Panel Urgent
Pro-BNP [NT-proBNP] Urgent
01/29/25 20:58
Orthostatic VS- Treatment ONCE
01/29/25 21:06
CR Chest - 2 Views Urgent
Comment:
Reason For Exam: SOB
01/29/25 21:12
Urinalysis Reflex To Culture Urgent
Date Specimen was Collected: 01/29/25
Time Specimen was Collected: 21:08
Urine Microscopic Reflex Cult Urgent
Urine Culture Urgent
SEBAS Source: U
Specimen Description:
Date Specimen was Collected: 01/29/25
Time Specimen was Collected: 21:08
01/29/25 23:39
Admit/Transfer Patient As Directed
Co-Sign Provider:
Level of Care: Observation services
Assign to:: Telemetry
Physician / Group: Shayan
Diagnosis: Dizziness, SOB
Reason for Telemetry: Arrhythmia
Date to Stop Telemetry: 02/01/25
Time to Stop Telemetry: 11:00
PRN Pain Medication Management As Directed
May give lesser potent ordered pain med per pt: Yes
preference::
Protocol:: Medication orders for pain may be administered in a
manner that supports deferring to patient preference
when the pt is:
- Requesting an ordered lesser potent pain medication.
Least to most potent pain medications are defined
as: acetaminophen < NSAID < tramadol < opioids
(morphine, oxycodone, hydromorphone).
- Requesting a lesser dose of the same medication IF
ORDERED.
- Requesting a less intrusive route of administration
if both routes are prescribed by the provider (PO <
IV).
01/29/25 23:40
Code Status As Directed
Resuscitation Status: Full Code
01/30/25 01:54
Acetaminophen [Tylenol] 650 mg PO Q4HPRN PRN
Amitriptyline [Elavil] 20 mg PO HS
Apixaban [Eliquis] 5 mg PO BID
01/30/25 01:54
CARDIOLOGY CONSULT Routine
Consulting Provider: Rocco Vo
Was physician already notified: No
Reason for consult: Near-syncope, Arrhythmia
Consult Notification Routine
Specialty to Notify: Cardiology
Date consulting provider notified: 01/30/25
Time consulting provider notified: 07:03
Notified:: Provider
Comment: tt
Activity As Directed
Activity Level: Ambulate
With Assistance
EKG with chest pain [ECG as needed] As Directed
ECG as needed for:: Chest Pain
I/O [Intake/ Output] As Directed
Frequency: Per unit guidelines
Orthostatic Vital Signs As Directed
Orthostatic VS Frequency: BID
Vital Signs As Directed
Frequency: Per unit guidelines
Weight As Directed
Frequency: Daily
Oxygen Therapy [O2 Therapy] [RESP] Routine
Titrate/Wean O2 to maintain O2 sat greater than (%): 94
Ot Eval And Treat Routine
PT Consult [Pt Eval And Treat] Routine
Activity Level: Ambulate
With Assistance
01/30/25 03:21
Intact PTH Includes Calcium Routine
TSH Reflex To Free T4 Routine
01/30/25 06:00
EKG [Electrocardiogram (*1)] IN AM
Reason for Study: Chest Pain
Regular
At Your Request: Full Participation
Fluid Restriction: 1440 mL/day (48 oz)
01/30/25 06:24
Basic Metabolic Panel IN AM
Complete Blood Count/No Diff IN AM
LFT [Kvbka-Lxrr-Qhkrxjt] IN AM
Magnesium IN AM
Phosphorus IN AM
01/30/25 08:00
Amlodipine [Norvasc] 5 mg PO DAILY
Aspirin Chewable [Low Strength Aspirin] 81 mg PO DAILY
Bumetanide [Bumex] 2 mg PO DAILY
Pantoprazole [Protonix] 40 mg PO DAILY
Potassium Chloride [KCl] 40 meq PO DAILY
01/30/25 22:00
Famotidine [Pepcid] 20 mg PO HS
02/01/25 11:00
DC Protocol for Telemetry ONCE
Abnormal Lab Results
01/29/25 01/29/25
16:43 21:12
WBC 3.9 L 10^3/uL
(4.8-10.8)
Hgb 10.6 L g/dL
(12.0-16.0)
Hct 34.7 L %
(37.0-47.0)
MCV 77.5 L fL
(81.0-99.0)
MCH 23.7 L pg
(27.0-31.0)
MCHC 30.5 L g/dL
(33.0-37.0)
RDW 15.4 H %
(11.5-14.5)
Absolute Lymphs (auto) 0.8 L 10^3/uL
(1.2-3.4)
Monocytes % 9.5 H %
(1.7-9.3)
BUN 22 H mg/dl
(7-17)
Creatinine 1.1 H mg/dL
(0.6-1.0)
Glucose 132 H mg/dl
(70-99)
Calcium 11.3 H mg/dl
(8.4-10.2)
Ur Occult Blood Reflex 3+ A
(Negative)
Leukocyte Esterase Rfl 1+ A
(Negative)
Urine RBC 7-10 A /HPF
(0-2)
Urine Bacteria (Reflex) Moderate A
(Negative)
Urine Albumin (Reflex) 1+ A
(Neg - Trace)
01/29/25 16:43
01/29/25 16:43
Vital Signs
Initial and Last Documented VS:
Initial Vital Signs
Temp Pulse Resp BP Pulse Ox
97.7 F 98 18 142/80 100
01/29/25 16:29 01/29/25 16:29 01/29/25 16:29 01/29/25 16:29 01/29/25 16:29
Last Documented Vital Signs
Temp Pulse Resp BP Pulse Ox
98.0 F 63 16 120/61 97
01/30/25 19:44 01/30/25 19:44 01/30/25 19:44 01/30/25 19:44 01/30/25 19:44
*Pulse Oximetry
SaO2: 96
Oxygen Mode of Delivery: Room air
Patient hypoxic: no
*Critical Care Note
Total Time (30-74mins, 75-104mins- exclusive of procedures): Not Applicable
Update Note
Update Note:
Patient to ED wtih complaint of lightheadedness, weakness, SOB. Symptoms started this afternoon. Feels light headed with sitting and standing. Unsteady ambulation(new), requiring assistance in ED. NSS, neg tilt. Labs reviewed. BUN 22, creat 1.1.
On Bumex 2mg daily for CHF hx. Patient admits to limited eating and dinking today due to earlier appointments. BNP 397, CXR NAD. IVF NSS @100cc/hr ordered. Will admit to hospitalist for her weakness, dehydration symptoms.
ED Attending Note
-
Portions of this chart may have been created with voice recognition software.� Occasional wrong word or��sound alike� substitutions may have occurred due to the inherent limitations of voice recognition software.
Discharge Plan
Departure
Patient Disposition: Admit
Date of Disposition: 01/29/25
Time of Disposition: 22:58
Presentation/result/management discussed w/ accepting MD/DO: Hospitalist
Patient with high blood pressure during this ER visit?: No
Condition: Fair
Covid-19: Not Applicable
Discharge Problem:
Weakness, Acute dehydration
Interventions
Interventions:
*Risk Screen - Suicide Last Done: 01/29/25 16:29
*General Assessment Last Done: 01/29/25 16:29
*Neglect/Abuse Screening Last Done: 01/29/25 21:50
*ED- Fall Risk Assessment Last Done: 01/29/25 21:50
*ED COVID-19 Vaccine History Last Done: 01/29/25 21:50
*Nursing Disposition Last Done: 01/30/25 01:59
ED- Cardiac Assessment Last Done: 01/29/25 21:50
ED- Neurological Assessment Last Done: 01/29/25 21:50
Discharge Date and Time
Discharge Date/Time: 01/30/25 02:00
--- NOTE | 2025-01-29 23:42 | HPS.HSE ---
Family Physician
-
Family Physician: Alina Piper
Chief Complaint
-
SOB, Dizziness
History of Present Illness
Patient is an 80y F with PMH significant for A-Fib, HTN, CHF and recent MVR who presents to ED complaining of dizziness and SOB. History obtained from patient and her daughter at the bedside. Patient was feeling well recently. She went to [facility]
this AM with her daughter for Cardiology evaluation and was ambulating the halls and feeling well. They stopped for lunch after the appointment. While walking into the restaurant, patient began to feel 'dizzy' and 'lightheaded'. She felt as if
she was going to fall and she called out for her daughter. Daughter was able to assist her to a seat and she was given some water. Her symptoms gradually abated. She did not fall or lose consciousness. No injury.
Following this episode, patient noted significant SOB with activity. Walking to and from the bathroom in the restaurant with assistance from her daughter resulted in significant SOB.
This exertional dyspnea persisted and she presented to the ED for further evaluation.
Patient denies any chest pain / pressure.
She did skip her Bumex this AM since she was going to be out all day for appointments.
No other recent medication changes.
Daughter notes that patient recently wore a cardiac surgeon which showed junctional rhythm with mild bradycardia.
With complaints of weakness and exertional dyspnea, EP recommended PPM placement in the near future.
Medical History
Past Medical History
Past Medical History: Reports Other
Additional Past Medical History:
Paroxysmal Atrial Fibrillation
Hypertension
Moderate Mitral Regurgitation / Mitral Stenosis
Rheumatic Fever (5yo and 21yo)
HFpEF
GERD / Hiatal Hernia
Lumbar DDD
Past Surgical History: Reports Other
Additional Past Surgical History:
MVR and Atrial Clip (September 2024 @ [facility])
A-Fib Ablation (05/22/24)
Cataracts
Skin Graft (fernandez)
Breast Biopsy x 2(benign)
ORIF RLE
Left TKA
Left GUSTAVO
Rib Resection
Multiple Cardioversions
Social History
Tobacco: Non-smoker
Alcohol: Occasional
Drug: None
Family History
Family History: Other (Multiple family members also with rheumatic fever in childhood.)
Allergies / Home Medications
Allergies reflects when Allergies were last updated in [employer].
Home Medications with original date entered in [employer]
Allergy/Medication List:
Allergies
Allergy/AdvReac Type Severity Reaction Status Date / Time
adhesive Allergy Itching, Verified 01/29/25 16:31
Rash
propoxyphene napsylate (From Allergy Rash, Verified 01/29/25 16:31
Darvocet-N 100) Swelling
Home Medications
famotidine 20 mg tablet 20 mg PO HS Gastrointestinal issue 03/05/20
apixaban 5 mg tablet (Eliquis) 5 mg PO BID #30 tabs 03/28/20
amitriptyline 10 mg tablet 20 mg PO HS Neurological Condition 09/08/23
cholecalciferol (vitamin D3) 50 mcg (2,000 unit) tablet (Vitamin D3) 50 mcg PO DAILY Supplement 09/08/23
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
omeprazole 40 mg capsule,delayed release 40 mg PO DAILY Gastrointestinal Issue 09/08/23
amlodipine 5 mg tablet 5 mg PO DAILY 01/29/25
aspirin 81 mg chewable tablet 81 mg PO DAILY 01/29/25
bumetanide 2 mg tablet 2 mg PO DAILY 01/29/25
calcium 600 mg (as carbonate)-vit D3 20 mcg (800 unit) chewable tablet (Caltrate plus D) 1 tab PO DAILY 01/29/25
docusate sodium 100 mg tablet 100 mg PO DAILY 01/29/25
magnesium 200 mg tablet 400 mg PO DAILY 01/29/25
potassium chloride 20 mEq tablet,extended release 40 meq PO DAILY 01/29/25
Review of Systems
-
History Source: Patient and Family
A 12 point ROS was completed and negative except as noted: Yes
Constitutional: Reports Fatigue; Denies Fever, Weight Gain, Weight Loss or Chills
Respiratory: Reports Trouble Breathing; Denies Cough
Cardiac: Denies Chest Pain, Diaphoresis or Palpitations
Abdomen/GI: Denies Abdominal Pain, Nausea, Vomiting or Diarrhea
: Denies Dysuria, Frequency or Flank Pain
Musculoskeletal: Denies Joint Pain or Edema
Neurological: Reports Dizzy and Headache
Psych: Denies Depression or Anxiety
Physical Exam
Vital Signs
Vital Signs
Temp Pulse Resp BP Pulse Ox
97.7 F 51 17 124/61 95
01/29/25 16:29 01/29/25 23:15 01/29/25 23:15 01/29/25 23:00 01/29/25 23:15
Physical Exam
General: Other (80y F in no acute distress.)
HEENT: Moist mucous membranes and PERRLA
Respiratory: Other (Bibasilar rales about 1/3 up. No wheezes / rhonchi.)
Cardiac: S1/S2, Irregular Rhythm and Murmur (II/ STEPHANY)
GI: Soft, Non Tender, Non Distended and Normal Bowel Sounds
Musculoskeletal: No Clubbing, No Cyanosis and No Edema
Neuro: AO x 3 and Nonfocal/grossly intact
Laboratory Results
-
01/29/25 16:43
01/29/25 16:43
Laboratory Results
Total Bilirubin 0.4 mg/dl (0.2-1.3) 01/29/25 16:43
AST 30 U/L (14-36) 01/29/25 16:43
ALT 32 U/L (0-35) 01/29/25 16:43
Alkaline Phosphatase 72 U/L (38-126) 01/29/25 16:43
Impression/Plan
-
A/P: Patient is an 80y F with PMH significant for A-Fib, CHF and hypertension who presents to ED complaining of dizziness and exertional dyspnea.
Dizziness / Lightheadedness
Junctional Bradycardia
- Observe overnight for further evaluation and treatment.
- Tele with junctional rhythm and borderline bradycardia.
- Apparently tentative plan for PPM at [facility].
- Monitor for any significant blocks / pauses / etc.
- PT / OT evaluations.
- Follow for any new / worsening symptoms.
- Cardiology evaluation.
Chronic HFpEF
Exertional Dyspnea
- SOB this afternoon after dizzy spell.
- Skipped diuretic dose this AM, but typically does not develop symptoms so quickly.
- Does not appear grossly volume overloaded - though some rales on exam.
- Continue current regimen / dose for now.
- Follow I/Os, daily weights, etc.
- Cardiology evaluation as noted above.
ALEX
Hypercalcemia
- Unclear etiology. ? hypovolemia - though presenting symptoms would suggest otherwise.
- Hold calcium supplementation.
- Check iPTH, etc.
- Continue current diuretics without changes for now and follow for changes in renal function, weight, etc.
Paroxysmal Atrial Fibrillation
- Stable. Currently in junctional rhythm as noted.
- Continue Eliquis for stroke risk reduction.
- Monitor on tele overnight.
GERD / Hiatal Hernia
- Stable. Continue PPI + H2-blockade.
DVT Prophylaxis: On Eliquis
Code Status: Full
[2025-01-30] VITALS (11 sets, daily range): BP systolic 111–148; BP diastolic 57–82; PULSE 54–93; O2SAT 94–97; BMI 27.8
--- NOTE | 2025-01-30 02:30 | PTCARENOTE ---
Pt received from ED via stretcher at 0200. Pt pleasant, AAOx3, VSS, absent of pain and able to ambulate into room with assistance. Pt receptive to room and mae schultz. Pt bed in lowest position and call schultz within reach. Pt educated on importance of
call schultz usage, pt relays understanding and cooperation. Will continue with current plan of care.
[2025-01-30] MEDS: ELAVIL 20 MG PO ×2 (02:47→21:04)
[2025-01-30] MEDS: ELIQUIS 5 MG PO ×2 (02:47→08:07)
[2025-01-30 03:55] LABS: Calcium 11.3 mg/dl (8.4-10.2)
[2025-01-30 07:25] LABS: Hematocrit 31.5 % (37.0-47.0); Hemoglobin 9.8 g/dL (12.0-16.0); Mean Corp Hgb Conc. 31.1 g/dL (33.0-37.0); Mean Corpuscular Volume 79.1 fL (81.0-99.0); Platelet Count 256 10^3/uL (130-400); Red Cell Dist. Width 15.7 % (11.5-14.5)
[2025-01-30] MEDS: KCL 40 MEQ PO (08:07)
[2025-01-30] MEDS: LOW STRENGTH ASPIRIN 81 MG PO (08:07)
[2025-01-30] MEDS: PROTONIX 40 MG PO (08:07)
--- NOTE | 2025-01-30 08:17 | W.PN.HOSP.TC ---
Today's Communication/Plan
-
See plan
Assessment / Plan
Assessment / Plan
Physical Exam
General: Not in acute distress
HEENT: Normocephalic. Moist mucous membranes
Respiratory: CTAB
Cardiac: S1/S2, Irregular Rhythm and Murmur (II/ STEPHANY)
GI: Soft, Non Tender, Non Distended and Normal Bowel Sounds
Musculoskeletal: No Cyanosis and No Edema
Neuro: AO x 3 and Nonfocal/grossly intact
Assessment/Plan
80 y/o female with past medical history significant for A-Fib, HTN, CHF and recent MVR who presented to the [facility] ED complaining of dizziness and shortness of breath. Patient was feeling well recently. She went to [place] on 01/29/25 morning with her
daughter for Cardiology evaluation and was ambulating the halls and feeling well. They stopped for lunch after the appointment. While walking into the restaurant, patient began to feel 'dizzy' and 'lightheaded'. She felt as if she was going to fall
and she called out for her daughter. Patient's daughter was able to assist her to a seat and she was given some water. Her symptoms then gradually abated. She did not fall or lose consciousness. No injury. Following this episode, patient noted
significant shortness of breath with activity. Walking to and from the bathroom in the restaurant with assistance from her daughter resulted in significant SOB. This exertional dyspnea persisted and she presented to the ED for further evaluation.
Patient denied any chest pain / pressure. She did skip her Bumex that same morning on 01/29/25 since she was going to be out all day for appointments. No other recent medication changes.
Patient's daughter noted that patient recently wore a cardiac technologist which showed junctional rhythm with mild bradycardia. With complaints of weakness and exertional dyspnea, outpatient EP recommended PPM placement in the near future.
Dizziness / Lightheadedness
Near Syncope from Sick Sinus Syndrome
Junctional Bradycardia
- Tele with junctional rhythm, bradycardia, pauses, persistent frequent junctional rhythm from sinus node dysfunction
- Apparently tentative plan for PPM at [facility].
- Continue to monitor on telemetry
- Cardiology evaluation appreciated
- Pacemaker planned for tomorrow 01/30/25
Acute on Chronic HFpEF
Exertional Dyspnea
- SOB this afternoon after dizzy spell.
- Follow I/Os, daily weights, etc.
- Cardiology evaluation appreciated
- Placing pacemaker can help with CHF as well
- It makes the most sense to have pacemaker placed, and then stop Amlodipine, add SGLT2i (I checked with patient and she has no history of DM, PAD/foot amputation, or any recent genitourinary infections), MRA, and ARB/Entresto
- Pricing: Jardiance $15, Entresto $8 for the patient (based on the scripts sent to patient's pharmacy)
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
ALEX
Hypercalcemia
- Unclear etiology. ? hypovolemia - though presenting symptoms would suggest otherwise.
- Stop calcium and Vitamin D supplementation.
- PTH normal
- Continue current diuretics without changes for now and follow for changes in renal function, weight, etc.
Paroxysmal Atrial Fibrillation
- Stable. Currently in junctional rhythm as noted.
- Continue Eliquis but hold starting 01/30/25 evening for pacemaker placement
- Monitor on tele
GERD / Hiatal Hernia
- Stable. Continue PPI + H2-blockade.
- Continue patient's home Reglan 5 mg 30 minutes before meals
DVT Prophylaxis: On Eliquis
Code Status: Full Code
Anticipated Discharge: 24 - 48 hours
Subjective/Interval History
-
Date of Service: January 30, 2025
Patient was seen and examined. She denied any dizziness, chest pain or shortness of breath when she was seen.
Objective Data
-
Labs:
Laboratory Results
01/30/25 01/30/25
03:21 06:24
WBC 3.4 L
Hgb 9.8 L
Hct 31.5 L
Plt Count 256
Sodium Pending
Potassium Pending
Chloride Pending
Carbon Dioxide Pending
BUN Pending
Creatinine Pending
Glucose Pending
Calcium 11.3 H Pending
Total Bilirubin Pending
AST Pending
ALT Pending
Alkaline Phosphatase Pending
Vital Signs:
Vital Signs
Temp Pulse Resp BP Pulse Ox
97.7 F 93 18 133/82 95
01/30/25 02:03 01/30/25 02:03 01/30/25 02:03 01/30/25 02:03 01/30/25 02:30
[2025-01-30 08:50] LABS: ALT (SGPT) 29 U/L (0-35); AST (SGOT) 28 U/L (14-36); Albumin 3.8 g/dl (3.5-5.0); Alkaline Phosphatase 68 U/L (38-126); Blood Urea Nitrogen 22 mg/dl (7-17); Calcium 11.1 mg/dl (8.4-10.2); Carbon Dioxide 27 mmol/L (22-30); Chloride 108 mmol/L (98-107); Estimated Creatinine Clearance 42 ml/min; Glucose 94 mg/dl (70-99); Magnesium 2.2 mg/dl (1.6-2.3); Potassium 4.3 mmol/L (3.5-5.1); Sodium 139 mmol/L (135-145); Total Protein 6.3 g/dl (6.3-8.2); eGFR > 60.00
[2025-01-30] MEDS: NORVASC 5 MG PO (09:58)
[2025-01-30] MEDS: BUMEX 2 MG PO (09:59)
--- NOTE | 2025-01-30 10:30 | CON.CAR ---
Consultation
Consultation Request
Date/Time Consultation Requested: 01/30/2025 at 0154
Date/Time Consultation Performed: at about 0800
Requesting Provider: Last Downey DO
Performing Provider: Rocco Vo MD
Reason for Consultation: Syncope
Medical History
-
Chief Complaint: Syncope
History of Present Illness:
Instrument Engineer at [facility]: Jaciel Jama MD
EP Card at [facility]: Germán Puckett MD
Creta manage her is an 88-year-old woman with recurrent atrial arrhythmias status post 2 prior ablations. Her final arrhythmia procedure was a surgical maze at the time of mitral valve replacement and left atrial clipping this summer [place] at
[facility]. In September her antiarrhythmic medications were discontinued prior to hospital discharge. Despite this frequent junctional rhythm has been seen. An elective pacemaker was recommended. He was not felt to be urgent because the patient was not
having syncope.
Yesterday the patient had a syncopal episode. Fortunately her daughter was right there and there was no injury from the syncope. The syncope sounds arrhythmic in etiology.
Telemetry overnight revealed that PACs led to sinus pauses of about 2 seconds and then later in the morning she developed persistent junctional rhythm.
Evidence of heart failure persists with dyspnea on exertion. She does not have PND, orthopnea, or peripheral edema. A chest x-ray here shows mild pulmonary congestion consistent with heart failure.
Past Medical History
Past Medical History: Arrhythmias, CHF, GERD, HTN and Other (Sleep apnea and DJD)
Past Surgical History: Other (Two catheter-based A-fib ablations, mitral valve replacement with left atrial clip and surgical mitral valve replacement summer 2024)
Social History
Tobacco: Non-Smoker
Family History
Family History: Other (No premature CAD)
Allergies / Home Medications
Allergy/AdvReac Type Severity Reaction Status Date / Time
adhesive Allergy Itching, Verified 01/29/25 16:31
Rash
propoxyphene napsylate (From Allergy Rash, Verified 01/29/25 16:31
Darvocet-N 100) Swelling
�Medication �Instructions �Recorded �Confirmed �Type
famotidine 20 mg tablet 20 mg PO HS Gastrointestinal issue 03/05/20 01/29/25 History
apixaban 5 mg tablet (Eliquis) 5 mg PO BID #30 tabs 03/28/20 01/29/25 Rx
amitriptyline 10 mg tablet 20 mg PO HS Neurological Condition 09/08/23 01/29/25 History
cholecalciferol (vitamin D3) 50 50 mcg PO DAILY Supplement 09/08/23 01/29/25 History
mcg (2,000 unit) tablet (Vitamin
D3)
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
syringe (Prolia) Disorder
omeprazole 40 mg capsule,delayed 40 mg PO DAILY Gastrointestinal 09/08/23 01/29/25 History
release Issue
amlodipine 5 mg tablet 5 mg PO DAILY Blood Pressure 01/29/25 01/29/25 History
aspirin 81 mg chewable tablet 81 mg PO DAILY Blood Clot 01/29/25 01/29/25 History
Prevention/Tx
bumetanide 2 mg tablet 2 mg PO DAILY Fluid 01/29/25 01/29/25 History
Retention/Swelling
calcium 600 mg (as carbonate)-vit 1 tab PO DAILY Supplement 01/29/25 01/29/25 History
D3 20 mcg (800 unit) chewable
tablet (Caltrate plus D)
docusate sodium 100 mg tablet 100 mg PO DAILY STOOL SOFTENER 01/29/25 01/29/25 History
magnesium 200 mg tablet 400 mg PO DAILY Supplement 01/29/25 01/29/25 History
potassium chloride 20 mEq 40 meq PO DAILY Supplement 01/29/25 01/29/25 History
tablet,extended release
Review of Systems
-
History Source: Patient and Family (I need to acquire information from the daughter. She was sitting at bedside and extremely helpful in filling and specific details)
Constitutional: Fatigue
EENT: No Symptoms
Respiratory: Other (Still with FRANCIS)
Cardiac: Syncope
Abdomen/GI: No Symptoms
: No Symptoms
Physical Exam
Vital Signs
Temp Pulse Resp BP Pulse Ox
98 F 62 16 148/78 95
01/30/25 07:38 01/30/25 09:58 01/30/25 07:38 01/30/25 09:58 01/30/25 07:38
Lab Results
01/30/25 06:24
01/30/25 06:24
Rty-D-Rgrjitozace Pept 397 pg/ml 01/29/25 16:43
Physical Exam
General: Well Developed and Well Nourished
HEENT: Normocephalic and Anicteric
Respiratory: Clear and Wheezes
Cardiac: S1/S2 and Regular Rhythm; Negative Rub
GI: Soft and Non Tender
Skin: Warm and Dry
Neuro: AO x 3 and No Motor Deficits
Psych: Calm
Impression / Plan
-
Syncope from sick sinus syndrome
- Her EP downtown was planning for an elective pacemaker
- Telemetry with PACs resulting in 2-second sinus pauses and then persistent junctional rhythm I feel is enough to confirm significant sinus node dysfunction that combined with her persistent heart failure and syncope establishes the diagnosis of
symptomatic status from sinus node dysfunction, i.e. sick sinus syndrome
- Persistent frequent junctional rhythm from sinus node dysfunction
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
Acute on chronic HFpEF, heart failure confirmed invasively left atrial pressure 19 at one of her A-fib ablations here in May
Anemia, June 2024 hemoglobin 12.2. Now 9.8. No obvious GI bleeding. She has had multiple procedures. Monitor carefully.
Suggest:
Pacemaker implantation this admission. An elective pacemaker was planned by her quality worker downtown
Check echocardiogram to confirm no issues with her heart/valve status post surgery this summer
Move towards a more optimal GDMT for HFpEF slowly this admission and further as an outpatient:
- Moved from amlodipine to a combination of spironolactone and either Entresto or ARB and add an SGLT2 inhibitor if affordable.
- Achieving AV synchrony should improve heart failure as well
Data Reviewed
-
EKG: Tracing Personally Visualized and interpreted (This morning junctional with retrograde P waves. Cannot rule out isorhythmic dissociation but seems less likely. 51 bpm)
Radiology: Image Personally Visualized and interpreted (Perhaps mild vascular congestion/heart failure, median sternotomy, mitral valve replacement, left atrial clip )
Ultrasound: Other (Today I ordered an echocardiogram.)
Medical Tests (Nuc Med, Echo etc): Other (Heart failure invasively confirmed. Mean left atrial pressure 19 at 1 however A-fib ablations here in May)
--- NOTE | 2025-01-30 10:51 | CM ---
Addendum entered by Elizabeth Irizarry 01/30/25 15:30:
Call to pharmacy for rothman check of medications, Jardiance $15, Entresto $8, TT to Hospitalist with update.
Original Note:
CM reviewed chart, patient seen bedside with daughter, Nicole, initial assessment completed. Patient is an 80y F with PMH significant for A-Fib, HTN, CHF and recent MVR who presents to ED complaining of dizziness and SOB.
Patient resides independently in a two level home, first floor set up, no steps to enter. Patient reports she is independent with ambulation. Upon discharge patient will be staying with her daughter, Nicole, in [place], in an in-law suite. Patient
reports hx with [facility], aware of therapy recommendations of [facility], agreeable to referral to [facility]. Patient hx [facility] in September. PCP Alina Piper, Pharmacy [facility], confirms prescription coverage. Patient denies insecurities
at home, reports having good support from family. ALY form verbally reviewed, refused to sign, placed in chart. CM will continue to follow for all discharge planning needs.
Plan; home with daughter ([place] address), referral to [facility]
[2025-01-30] MEDS: REGLAN 5 MG PO ×2 (12:48→16:58)
[2025-01-30] MEDS: PEPCID 20 MG PO (21:08)
[2025-01-31 03:20] VITALS: BP 124/85
[2025-01-31 05:45] VITALS: BMI 27.6
[2025-01-31 06:50] LABS: Hematocrit 32.9 % (37.0-47.0); Hemoglobin 10.6 g/dL (12.0-16.0); Mean Corp Hgb Conc. 32.2 g/dL (33.0-37.0); Mean Corpuscular Volume 79.3 fL (81.0-99.0); Platelet Count 273 10^3/uL (130-400); Red Cell Dist. Width 15.7 % (11.5-14.5)
[2025-01-31 07:13] LABS: Blood Urea Nitrogen 24 mg/dl (7-17); Calcium 11.2 mg/dl (8.4-10.2); Carbon Dioxide 27 mmol/L (22-30); Chloride 106 mmol/L (98-107); Estimated Creatinine Clearance 37 ml/min; Glucose 105 mg/dl (70-99); Magnesium 2.0 mg/dl (1.6-2.3); Potassium 4.1 mmol/L (3.5-5.1); Sodium 139 mmol/L (135-145); eGFR 56.95
--- NOTE | 2025-01-31 07:39 | W.PN.HOSP.TC ---
Today's Communication/Plan
-
Pacemaker placement today
Several GDMT meds started today -- if patient tolerates these well going into tomorrow, and after working with PT/OT, then patient can be discharged tomorrow
Assessment / Plan
Assessment / Plan
Physical Exam
General: Not in acute distress
HEENT: Normocephalic. Moist mucous membranes
Respiratory: CTAB
Cardiac: S1/S2, Irregular Rhythm and Murmur (II/ STEPHANY)
GI: Soft, Non Tender, Non Distended and Normal Bowel Sounds
Musculoskeletal: No Cyanosis and No Edema
Neuro: AO x 3 and Nonfocal/grossly intact
Assessment/Plan
80 y/o female with past medical history significant for A-Fib, HTN, CHF and recent MVR who presented to the [facility] ED complaining of dizziness and shortness of breath. Patient was feeling well recently. She went to [place] on 01/29/25 morning with her
daughter for Cardiology evaluation and was ambulating the halls and feeling well. They stopped for lunch after the appointment. While walking into the restaurant, patient began to feel 'dizzy' and 'lightheaded'. She felt as if she was going to fall
and she called out for her daughter. Patient's daughter was able to assist her to a seat and she was given some water. Her symptoms then gradually abated. She did not fall or lose consciousness. No injury. Following this episode, patient noted
significant shortness of breath with activity. Walking to and from the bathroom in the restaurant with assistance from her daughter resulted in significant SOB. This exertional dyspnea persisted and she presented to the ED for further evaluation.
Patient denied any chest pain / pressure. She did skip her Bumex that same morning on 01/29/25 since she was going to be out all day for appointments. No other recent medication changes.
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 With complaints of weakness and exertional dyspnea, outpatient EP recommended PPM placement in the near future.
Dizziness / Lightheadedness
Near Syncope from Sick Sinus Syndrome
Junctional Bradycardia
- Tele with junctional rhythm, bradycardia, pauses, persistent frequent junctional rhythm from sinus node dysfunction
- Apparently tentative plan for PPM at [place].
- Continue to monitor on telemetry
- Cardiology evaluation appreciated
- Pacemaker planned for today 01/31/25
Acute on Chronic HFpEF
Exertional Dyspnea
- SOB this afternoon after dizzy spell.
- Follow I/Os, daily weights, etc.
- Cardiology evaluation appreciated
- Placing pacemaker can help with CHF as well: PPM placement on 01/31/25
- It makes the most sense to have pacemaker placed, and then stop Amlodipine, add SGLT2i (I checked with patient and she has no history of DM, PAD/foot amputation, or any recent genitourinary infections), MRA, and ARB/Entresto
- Pricing: Jardiance $15, Entresto $8 for the patient (based on the scripts sent to patient's pharmacy)
- I discussed on 01/31/[address] Puckett who was in agreement with myself starting patient on: Farxiga 10 mg daily, Aldactone 12.5 mg daily and Entresto 24/26 mg BID
- Also start beta casie
- Held patient's potassium supplementation since the above medications were started; monitor BMP
Mitral valve replacement April 2025 at [facility] for complex mitral valve disease with MR and MS (biologic valve)
Acute Kidney Injury
Hypercalcemia
- Unclear etiology. ? hypovolemia - though presenting symptoms would suggest otherwise.
- Stop calcium and Vitamin D supplementation.
- PTH normal
- Continue current diuretics without changes for now and follow for changes in renal function, weight, etc.
Paroxysmal Atrial Fibrillation
- Stable. Currently in junctional rhythm as noted.
- Continue Eliquis but hold starting 01/30/25 evening for pacemaker placement
- Monitor on tele
GERD/Hiatal Hernia
- Stable. Continue PPI + H2-blockade.
- Continue patient's home Reglan 5 mg 30 minutes before meals
DVT Prophylaxis: On Eliquis
Code Status: Full Code
Anticipated Discharge: Within 24 hours
Subjective/Interval History
-
Date of Service: January 31, 2025
Patient was seen and examined. She denied dizziness, chest pain, shortness of breath or any other symptoms/complaints.
Objective Data
-
Labs:
Laboratory Results
01/31/25
06:20
WBC 3.8 L
Hgb 10.6 L
Hct 32.9 L
Plt Count 273
Sodium 139
Potassium 4.1
Chloride 106
Carbon Dioxide 27
BUN 24 H
Creatinine 1.0
Glucose 105 H
Calcium 11.2 H
Vital Signs:
Vital Signs
Temp Pulse Resp BP Pulse Ox
98.1 F 95 16 124/85 96
01/31/25 03:20 01/31/25 03:20 01/31/25 03:20 01/31/25 03:20 01/31/25 03:20
I&O
01/30/25 01/31/25 02/01/25
06:59 06:59 06:59
Intake Total 520 / 520
Balance 520 / 520
[2025-01-31] MEDS: NORVASC 5 MG PO (07:57)
[2025-01-31] MEDS: PROTONIX 40 MG PO (07:57)
[2025-01-31] MEDS: LOW STRENGTH ASPIRIN 81 MG PO (07:57)
[2025-01-31] MEDS: BUMEX 2 MG PO (07:57)
[2025-01-31] MEDS: KCL 40 MEQ PO (07:57)
[2025-01-31] MEDS: REGLAN PO (07:58)
[2025-01-31 08:43] VITALS: BP 135/85
--- NOTE | 2025-01-31 12:35 | W.PN.CD ---
Today's Communication / Plan
-
- PPM today
- Resume Eliquis from tomorrow after PPM
- Metoprolol 25 mg BID after PPM
Impression / Plan
-
Syncope from sick sinus syndrome
- SSS with tachy danyelle
- Plan for dual chamber PPM today
- Telemetry with PACs resulting in 2-second sinus pauses and then persistent junctional rhythm I feel is enough to confirm significant sinus node dysfunction that combined with her persistent heart failure and syncope establishes the diagnosis of
symptomatic status from sinus node dysfunction, i.e. sick sinus syndrome
- Persistent frequent junctional rhythm from sinus node dysfunction
Mitral valve replacement
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
- ECHO 01/30/25: Normal biventricular size and systolic function. Normally functioning bioprosthetic mitral valve - Peak gradient 7.7mmHg/Mean gradient 2.0mmHg
Acute on chronic HFpEF,
-heart failure confirmed invasively left atrial pressure 19 at one of her A-fib ablations here in [place]
-Moved from amlodipine to a combination of spironolactone and either Entresto or ARB and add an SGLT2 inhibitor if affordable.
Anemia, June 2024 hemoglobin 12.2. Now 9.8. No obvious GI bleeding. She has had multiple procedures. Monitor carefully.
Suggest:
Pacemaker implantation today
No active complaints. l
Physical Exam
Vital Signs/Labs
Vital Signs
Temp Pulse Resp BP Pulse Ox
97.9 F 93 16 135/85 96
01/31/25 08:43 01/31/25 08:43 01/31/25 08:43 01/31/25 08:43 01/31/25 08:43
01/30/25 01/31/25 02/01/25
06:59 06:59 06:59
Actual Weight 64.665 kg 64.093 kg
01/31/25 06:20
01/31/25 06:20
Magnesium 2.0 mg/dl (1.6-2.3) 01/31/25 06:20
01/29/25
16:43
Dzm-L-Pssdcccivck Pept 397
Physical Exam
Constitutional: No acute distress and Comfortable
EENT: Anicteric and Moist mucous membranes
Cardiovascular: Rhythm & rate is regular, Pedal edema is absent and JVD pressure is normal
Respiratory: Respiratory effort normal, Lungs clear to auscul. and Wheeze Absent
GI: Soft, Non tender and Normal bowel sounds
Neuro/Psych: Alert, Oriented and AO x 3
Data Reviewed
-
Date of Service: January 31, 2025
Medical Decision Making: Reviewed Test Results, Test Interpretation and Review of Case with other Provider
Labs: Labs Reviewed by me
Old Records: Reviewed
--- NOTE | 2025-01-31 12:47 | ITS.CL.PACE ---
Adult Live In Caregiver - Pacemaker Implant
Pacemaker Implant
Procedure Report:
Conduction system pacing Permanent Pacemaker Placement:
Ms. Mitchell is an 80 years old woman with h/o mitral valve replacement with bioprosthetic valve and hx of AF/FL ablation presented with syncope and sick sinus syndrome with junctional escpe rhythm is recommended a dual chamber pacemaker. Patient is
left handed and would prefer a device in the right shoulder.
Indications:
Syncope with tachy - bradycardia syndrome
Date of the Procedure:
01/31/25
Pre-Operative Diagnosis: Syncope with Sick sinus syndrome
Post-Operative Diagnosis: Syncope with Sick sinus syndrome
Procedure Performed: Conduction system pacing permanent pacemaker
Performing physician:
Josh Puckett MD
Anesthesia:
See anesthesia records
Detailed Description of the Procedure:
The patient was identified using hospital identification and informed consent obtained for the procedure. The risks were explained to the patient and the family including, but not limited to: Bleeding, infection, arrhythmia, stroke,
vascular/cardiac/lung puncture, surgery, pacemaker dependency/device malfunction. All questions were answered.
A surgical pause was performed in accordance with hospital regulations. Anesthesia service provided sedation as reported separately. Antibiotics administered IV for risk of bacterial colonization. After obtaining informed and written consent, the
patient was brought to the electrophysiology laboratory.
The initial rhythm was normal sinus rhythm.
�
The procedure site was meticulously prepared with surgical scrub and allowed to dry with no pooling. Sterile draping was applied to cover the procedure site. The image intensifier was draped with sterile bag and positioned over the patient.
A surgical pause and time out was performed immediately prior to the procedure with review of her medical history, recent labs, allergies and medications with site of procedure identified and consent noted in the chart. Antibiotics pre operatively
given. All team members concurred.
The right infraclavicular region was prepped and draped in the usual sterile fashion. Local anesthesia was administered subcutaneously using 1% lidocaine / Bupivacaine. The right cephalic vein cutdown was performed with an incision at the
delto-pectoral groove, and vascular sheath was introduced for lead access.
A subcutaneous pocket was created with blunt dissection and use of electrocautery. Hemostasis was excellent.
The guide wire was advanced to the RA and was advanced to the RV. The preformed curved long hemostatic peel away HIS sheath was advanced into the RV cavity. A left bundle pacing wire was advanced into the sheath to the tip with ventricular signals
noted with unipolar manner. The HIS location was identified under guidance of the flouroscopy and the pacing wire signals. The sheath with the pacing lead was moved deeper into the RV cavity on the septum at a more inferior and distal to the HIS
signals.
Once adequate signals were noted on the electrograms of the pacing lead in the sheath with W pattern signals on the RV septum, the lead was advanced and clockwise turns were done under fluoroscopic guidance. The septum was engaged and the lead was
paced intermittently after every 2-3 turns with each advancement. The ventricular capture was monitored throughout and the captures gradually changed from RV pacing to non-selective pacing to LBB pacing with small R wave on V1 yet wide qrs complex
morphology that was so far better than the previous tested. �
The long guiding sheath was cut and removed from the RV without change in lead position, impedance, sensing, or capture. The lead was sutured to the underlying pectoralis fascia with 2-0 Ethibond stitches.
The RA lead was anchored in the right atrial appendage with engaging the active-fixation apparatus.
There was excellent sensing, pacing, and impedance from the leads, with no diaphragmatic stimulation at 10 V output.�Bovie cautery, antibiotics, and fluoroscopy were used.
The leads were attached to the pulse generator in standard configuration with acceptable sensing and threshold parameters. The pocket was irrigated with antibiotic solution; the pocket was inspected with no active bleeding noted. The device and the
leads were placed in the pocket.
A Tyrx pouch was placed around the device and the leads.
Deep subcutaneous tissues were closed with 3 layers of 2-0V loc sutures; and the dermis was reopposed using a running 4-0 Monocryl subcuticular suture. Sponge counts / sharp counts were appropriate.
Procedure End:
The procedure was tolerated well. Aquacel bandaged was applied.
Estimated Blood loss:
5 cc
Specimens Removed:
No cultures and no specimens were obtained. No intraoperative pathology was identified.
Urine output:
None
Packs / Drains/ Tubes:
None
Instrument / Sponge Count Correct:
Yes
Flouro time:
2.8min / 7.3mGy
Complications of the Procedure:
None
Condition of Patient at Time of Transfer:
Hemodynamically stable with no neurological or vascular compromise.
Device information:�
Generator: [employer]; Model: W1DR01; Serial # [id number]�
����������� Atrial Lead: [employer]; Model: 5076-45; Serial # [id number]
Measured data in the right atrium was sensing of 2.8 mV, impedance of 418 ohms and threshold of 0.5 V at 0.4ms�
����������� LBB pacing lead: [employer]; Model: 3830-69; Serial # [id number]
����������������������� Measured data on the RV lead was sensing of 7.0mV, impedance of 950 ohms and threshold of 0.75 V at 0.4ms
PROGRAMMING PARAMETERS:�
Chris parameter settings were AAIR <=> DDDR 60-130 bpm�
����������� Paced AV interval: 180ms
����������� Sensed AV interval: 150 ms.
����������� Rate Adaptive A-V Interval: on
����������� Mode switch ON
Summary:
Successful implantation of MRI compatible conduction system pacing dual chamber permanent pacemaker.
Results/Recommendations:
-Please follow up CXR�
1. Please provide patient with adequate pain control�
Instructions to be given to patient:�
- Please follow up with [facility] at [address] [place] [address] ([phone]) to get your wound checked in 2 weeks of your discharge. Then follow with
- Do not wet incision site until after it is evaluated at cardiology clinic. No baths or showers until then. Sponge baths / showers are OK but dab dry the dressing after it is wet.�
- Allow 'steri strips' to fall off on their own�
- Do not lift left elbow above shoulder, particularly with sudden jerking movements, for 1 month�
- Do not lift anything weighing more than 5 pounds with the left arm for 1 month�
- If you notice any fevers, shortness of breath, lightheadedness, chest pain, or worsening swelling in the wound site, please contact the arrhythmia clinic, contact your recovery unit operator, or present to the hospital for evaluation.�
Josh Puckett MD
Electrophysiology
[2025-01-31] MEDS: REGLAN 5 MG PO ×2 (13:27→16:29)
[2025-01-31] MEDS: FARXIGA 10 MG PO (14:48)
[2025-01-31] MEDS: ALDACTONE 12.5 MG PO (14:49)
[2025-01-31] MEDS: TYLENOL 650 MG PO ×2 (14:49→19:04)
[2025-01-31 14:58] VITALS: BP 108/70; BP 115/72; BP 97/61; PULSE 104; PULSE 107
--- NOTE | 2025-01-31 15:12 | CM ---
CM reviewed chart, patient asleep, daughter bedside, reviewed IMM form, patient upgraded to inpatient status, form placed in chart. Referral previously placed to [facility] , will update on d/c when stable. Discussed cost of Jardiance and Entresto
with daughter, agreeable to cost. CM will continue to follow for all discharge planning needs.
Plan; home to daughters address ([place]), [facility]
[2025-01-31] MEDS: ANCEF 5 IV (17:48)
[2025-01-31 19:00] VITALS: BP 118/58
[2025-01-31] MEDS: ENTRESTO 24 MG/26 MG 1 TAB PO (20:21)
[2025-01-31] MEDS: TOPROL XL 25 MG PO (20:21)
[2025-01-31] MEDS: ELAVIL 20 MG PO (20:29)
[2025-01-31] MEDS: PEPCID 20 MG PO (20:29)
[2025-01-31 23:00] VITALS: BP 127/76
[2025-02-01] MEDS: ANCEF 5 IV (01:01)
[2025-02-01 03:00] VITALS: BP 131/67
[2025-02-01 05:00] VITALS: BMI 27.6
[2025-02-01 06:00] VITALS: BMI 27.6
[2025-02-01 07:14] VITALS: BP 134/85
[2025-02-01] MEDS: REGLAN 5 MG PO ×2 (08:05→11:45)
[2025-02-01] MEDS: TOPROL XL 25 MG PO (08:10)
[2025-02-01] MEDS: PROTONIX 40 MG PO (08:11)
[2025-02-01] MEDS: ENTRESTO 24 MG/26 MG 1 TAB PO (08:11)
[2025-02-01] MEDS: ALDACTONE 12.5 MG PO (08:11)
[2025-02-01] MEDS: LOW STRENGTH ASPIRIN 81 MG PO (08:11)
[2025-02-01] MEDS: ELIQUIS 5 MG PO (08:16)
[2025-02-01 08:52] LABS: Hematocrit 34.3 % (37.0-47.0); Hemoglobin 10.6 g/dL (12.0-16.0); Mean Corp Hgb Conc. 30.9 g/dL (33.0-37.0); Mean Corpuscular Volume 77.4 fL (81.0-99.0); Platelet Count 299 10^3/uL (130-400); Red Cell Dist. Width 15.5 % (11.5-14.5)
[2025-02-01] MEDS: NORVASC PO (09:02)
[2025-02-01] MEDS: FARXIGA 10 MG PO (09:04)
[2025-02-01] MEDS: BUMEX 2 MG PO (09:04)
[2025-02-01 09:24] LABS: Blood Urea Nitrogen 26 mg/dl (7-17); Calcium 11.4 mg/dl (8.4-10.2); Carbon Dioxide 28 mmol/L (22-30); Chloride 105 mmol/L (98-107); Estimated Creatinine Clearance 42 ml/min; Glucose 106 mg/dl (70-99); Magnesium 2.1 mg/dl (1.6-2.3); Potassium 4.2 mmol/L (3.5-5.1); Sodium 139 mmol/L (135-145); eGFR > 60.00
[2025-02-01 09:48] VITALS: BP 108/64; BP 119/71; BP 122/79; PULSE 81; PULSE 82; PULSE 84
--- NOTE | 2025-02-01 10:11 | W.PN.HOSP.TC ---
Today's Communication/Plan
-
Discharge today
Assessment / Plan
Assessment / Plan
Physical Exam
General: Not in acute distress
HEENT: Normocephalic. Moist mucous membranes
Respiratory: CTAB
Cardiac: S1/S2, Regular Rate and Rhythm
GI: Soft, Non Tender, Non Distended and Normal Bowel Sounds
Musculoskeletal: No Cyanosis and trace bilateral lower extremity edema
Neuro: AO x 3 and Nonfocal/grossly intact
Assessment/Plan
80 y/o female with past medical history significant for A-Fib, HTN, CHF and recent MVR who presented to the [facility] ED complaining of dizziness and shortness of breath. Patient was feeling well recently. She went to [place] on 01/29/25 morning with her
daughter for Cardiology evaluation and was ambulating the halls and feeling well. They stopped for lunch after the appointment. While walking into the restaurant, patient began to feel 'dizzy' and 'lightheaded'. She felt as if she was going to fall
and she called out for her daughter. Patient's daughter was able to assist her to a seat and she was given some water. Her symptoms then gradually abated. She did not fall or lose consciousness. No injury. Following this episode, patient noted
significant shortness of breath with activity. Walking to and from the bathroom in the restaurant with assistance from her daughter resulted in significant SOB. This exertional dyspnea persisted and she presented to the ED for further evaluation.
Patient denied any chest pain / pressure. She did skip her Bumex that same morning on 01/29/25 since she was going to be out all day for appointments. No other recent medication changes.
Patient's daughter noted that patient recently wore a director digital analytics which showed junctional rhythm with mild bradycardia. With complaints of weakness and exertional dyspnea, outpatient EP recommended PPM placement in the near future.
Dizziness / Lightheadedness
Near Syncope from Sick Sinus Syndrome status post Medtronic pacemaker placement on 01/31/2025
- Tele with junctional rhythm, bradycardia, pauses, persistent frequent junctional rhythm from sinus node dysfunction
- Continue to monitor on telemetry
- Cardiology evaluation appreciated
- Pacemaker placed on 01/31/25
Acute on Chronic HFpEF
Exertional Dyspnea
- Cardiology evaluation appreciated
- Placing pacemaker can help with CHF as well: PPM placement on 01/31/25
- Pricing: Jardiance $15, Entresto $8 for the patient (based on the scripts sent to patient's pharmacy)
- I discussed on 01/31/[address] Puckett who was in agreement with myself starting patient on: Jardiance 10 mg daily, Aldactone 12.5 mg daily and Entresto 24/26 mg BID
- Continue Toprol XL 25 mg BID
- Amlodipine stopped
- Held/stopped patient's potassium supplementation since the above medications were started; monitor BMP
- Continue Bumex
- Continue checking weights outpatient
- Continue low-sodium diet, and PO fluid restricted diet
- BMP in 5 to 6 days
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
- Echocardiogram on 01/30/25 showed normal biventricular size and systolic function; normally functioning bioprosthetic mitral valve - Peak gradient 7.7mmHg/Mean gradient 2.0mmHg
Acute Kidney Injury
Hypercalcemia
- Unclear etiology. ? hypovolemia - though presenting symptoms would suggest otherwise.
- Stop calcium and Vitamin D supplementation.
- PTH normal
- Recheck serum calcium/BMP and serum albumin outpatient
Paroxysmal Atrial Fibrillation
- Continue Eliquis
- Stop Aspirin (since patient is on Eliquis)
- Monitor on telemetry
GERD/Hiatal Hernia
- Stable. Continue PPI + H2-blockade.
- Continue patient's home Reglan 5 mg 30 minutes before meals
DVT Prophylaxis: On Eliquis
Code Status: Full Code
On 02/01/25, I spoke to patient's daughter in-person, inside patient's room, and I answered all of her questions and concerns to satisfaction.
More than 30 minutes spent in discharge including
Final examination of the patient
Summarizing hospital stay
Instructions for continuing care to all relevant caregivers
Preparation of discharge records, prescriptions, and referral forms
Total time spent (in minutes): 39
Anticipated Discharge: Today
Subjective/Interval History
-
Date of Service: February 01, 2025
Patient was seen and examined. She denied any dizziness, chest pain, shortness of breath or any other symptoms or complaints.
Objective Data
-
Labs:
Laboratory Results
02/01/25
08:08
WBC 6.9
Hgb 10.6 L
Hct 34.3 L
Plt Count 299
Sodium 139
Potassium 4.2
Chloride 105
Carbon Dioxide 28
BUN 26 H
Creatinine 0.9
Glucose 106 H
Calcium 11.4 H
Vital Signs:
Vital Signs
Temp Pulse Resp BP Pulse Ox
98.0 F 87 18 134/85 95
02/01/25 07:14 02/01/25 07:14 02/01/25 07:14 02/01/25 09:04 02/01/25 07:14
I&O
01/31/25 02/01/25 02/02/25
06:59 06:59 06:59
Intake Total 520 / 520 960 / 960
Balance 520 / 520 960 / 960
--- NOTE | 2025-02-01 11:12 | CM ---
CM reviewed chart, patient seen bedside with daughter, for discharge today. Daughter to provide transportation home. Update to [facility] on discharge to daughters home. CM will continue to follow for all discharge planning needs.
Plan; home with daughter, Alejandra BOONE
[facility]
[2025-02-01 11:18] VITALS: BP 110/58
--- NOTE | 2025-02-01 11:22 | W.PN.CD ---
Addendum entered and electronically signed by Jaciel Jama MD 02/01/25 13:28:
I saw and evaluated the patient, and I provided the substantive portion of the medical decision making.
I reviewed and agree with the note by Elizabeth Quiles and it accurately reflects our care.
I personally performed the medical decision making of the this encounter and my assessment and plan is below:
s/p PPM
GDMT with Jardiance Entresto and spironolactone
Stop Aspirin
On Eliquis
Stop KCl; cont bumex
BMP In 5-6 days
Original Note:
Today's Communication / Plan
-
Pressure dressing removed.
Immobilizer removed.
Activity restrictions reviewed at the bedside
Impression / Plan
-
I/P: 80F with HFpEF, paroxysmal atrial fibrillation/flutter/tachycardia, prior MVR, and SSS who presented with syncope
Primary seam feller: Dr. Jama
Syncope from sick sinus syndrome
- Persistent frequent junctional rhythm from sinus node dysfunction
- SSS with tachy danyelle
- S/p Medtronic PPM 01/31/2025, activity restrictions reviewed at the bedside with patient and daughter, site looks good without pocket fullness nor hematoma
Mitral valve replacement
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
- ECHO 01/30/25: Normal biventricular size and systolic function. Normally functioning bioprosthetic mitral valve - Peak gradient 7.7mmHg/Mean gradient 2.0mmHg
HFpEF, acute on chronic
- Confirmed invasively left atrial pressure 19 at one of her A-fib ablations here at
- Stopped: Amlodipine
- Started: Jardiance ($10 per month), Entresto ($8 per month), spironolactone 12.5 mg daily
- Heart failure education provided
- Continue daily weight, low-sodium diet, and fluid restriction
Paroxysmal atrial fibrillation
- Complex ablation 05/2024, multiple flutters and AT ablated along with AF
- Stable status post PPM
- Oral anticoagulation: Apixaban 5 mg twice daily (age 80, weight >60 kg, creatinine 0.9)
Anemia, chronic, denies acute bleeding
Physical Exam
Vital Signs/Labs
Vital Signs
Temp Pulse Resp BP Pulse Ox
97.9 F 61 16 110/58 97
02/01/25 11:18 02/01/25 11:18 02/01/25 11:18 02/01/25 11:18 02/01/25 11:18
01/31/25 02/01/25 02/02/25
06:59 06:59 06:59
Actual Weight 64.093 kg 64.042 kg
02/01/25 08:08
02/01/25 08:08
Magnesium 2.1 mg/dl (1.6-2.3) 02/01/25 08:08
01/29/25
16:43
[id number] Pept 397
Physical Exam
Constitutional: No acute distress and Comfortable
EENT: Anicteric and Moist mucous membranes
Cardiovascular: Rhythm & rate is regular, Pedal edema present (trace LE) and S1S2 is normal
Respiratory: Respiratory effort normal and Lungs clear to auscul.
GI: Soft, Distention absent, Flat, Non tender and Normal bowel sounds
Neuro/Psych: AO x 3
Other: Skin (Warm and dry) and Cardiac Device Site (Stable. No pocket fullness. No hematoma.)
Data Reviewed
-
Date of Service: February 01, 2025
[2025-02-01 15:17] VITALS: BP 93/50
--- NOTE | 2025-02-01 15:31 | W.DCSUMMARY ---
Discharge Summary
Discharge Data
Date of Admission: 01/29/25
Date of Discharge: 02/01/25
Total time spent discharging patient (in min): 39
-
Pending Results: No
Hospital Course
80 y/o female with past medical history significant for A-Fib, HTN, CHF and recent MVR who presented to [facility] emergency room reporting dizziness and shortness of breath. Patient felt as if she was about to pass out, prior to arrival. Patient was
admitted with symptomatic bradycardia and cardiology was consulted. Patient was placed on telemetry monitoring. Patient was determined to have syncope from sick sinus syndrome, therefore patient had Medtronic pacemaker placement on 01/31/25.
Patient's guideline directed medical therapy for heart failure with preserved ejection fraction was prescribed (please see below), and would need to be further re-evaluated outpatient for further optimization. Patient was doing well and stable for
discharge.
Discharge Plan
-
Patient Disposition: Home with Home Care
Discharge Diagnosis/Procedures: Dizziness/Lightheadedness/Near Syncope from Sick Sinus Syndrome status post Medtronic pacemaker placement on 01/31/2025
Pacemaker implant
Acute on Chronic HFpEF
Exertional Dyspnea
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
Acute Kidney Injury
Hypercalcemia
Elevated Phosphorus
Paroxysmal Atrial Fibrillation
GERD/Hiatal Hernia
Condition: Good
Diet: 2 Gram Sodium and Restrict fluids to 48 oz
Activity: No strenuous activity
Additional Activity: See attached instructions
Driving Restrictions: No driving for 1 week
Bathing Restrictions: OK to Shower
Blood Work: CBC, BMP, Magnesium, Calcium, Serum Albumin and Serum Phosphorus in 5 to 6 days with your primary care provider's office
Other Services: VN
Specialty Instructions: Weigh Daily- Call MD for wt gain/loss 3 lbs overnight/5 lbs in 1 week
Instructions: Hypokalemia, Metoclopramide, Metoprolol, Spironolactone, Dapagliflozin, Sacubitril and Valsartan, Hyperkalemia
Stand Alone Forms: DC Inst - Implanted Device
Referrals:
[facility]- [facility] [Provider Group] - 02/07/25 1:00 pm
Referral Note: Incision check appointment
Alina Piper MD [Family Provider, [facility]]
Additional Discharge Medication Instructions: New medications are: Jardiance, Metoprolol Succinate, Sacubitril-Valsartan (Entresto) and Spironolactone
Magnesium is on hold until you discuss with your outpatient provider in the next few days -- can decide at that time whether or not to resume this medication.
Metoclopramide is your usual home medication which you have at home.
Stop taking all of the following: Aspirin, Amlodipine, Caltrate/Calcium, Vitamin D3/cholecalciferol, and potassium chloride
You calcium and Vitamin D have been stopped due to elevated blood calcium and phosphorus levels in the hospital. You need to have this re-evaluated with your primary care provider within the next 4 to 5 days.
Prescriptions:
New
sacubitril-valsartan [Entresto] 24-26 mg tablet
1 tab PO BID Qty: 60 1RF
Jardiance 10 mg tablet
10 mg PO DAILY Qty: 30 1RF
spironolactone 25 mg Tablet
12.5 mg PO DAILY Qty: 30 1RF
metoclopramide HCl 5 mg Tablet
5 mg PO AC Qty: 90 0RF
metoprolol succinate 25 mg Tablet Extended Release 24 Hr
25 mg PO BID Qty: 60 1RF
Continued
famotidine 20 MG tablet
20 mg PO HS
Eliquis 5 MG tablet
5 mg PO BID Qty: 30 3RF
omeprazole 40 mg Capsule,Delayed Release(Dr/Ec)
40 mg PO DAILY
amitriptyline 10 mg Tablet
20 mg PO HS
Prolia 60 mg/mL Syringe
60 mg SC [id number]
bumetanide 2 mg Tablet
2 mg PO DAILY
docusate sodium 100 mg Tablet
100 mg PO DAILY
Held
magnesium 200 mg Tablet
400 mg PO DAILY
Hold Instructions: Resume on 02/08/25. Ask your doctor in a few days after hospital discharge (hospital discharge was on 02/01/25) about whether or not and if so when to resume this medication.
Discontinued
cholecalciferol (vitamin D3) [Vitamin D3] 50 mcg (2,000 unit) Tablet
50 mcg PO DAILY
amlodipine 5 mg Tablet
5 mg PO DAILY
aspirin 81 mg Tablet,Chewable
81 mg PO DAILY
Caltrate 600 plus D 600 mg-20 mcg (800 unit) Tablet,Chewable
1 tab PO DAILY
potassium chloride 20 mEq Tablet Extended Release
40 meq PO DAILY
Discharge Orders:
Discharge Patient (As Directed); Ordered 02/01/25
Ordered By: Blue Ritchie
Discharge Date and Time
Discharge Date/Time: 02/01/25 16:19
Print Language: LITHUANIAN
== END 2025-02-01 16:19 | disposition home health service (06) | DRG 242 ==
LOC: 4 WEST ACU 13:59
PROVIDERS: Internal Medicine Cardiovascular Disease; Nurse Practitioner; Student in an Organized Health Care Education/Training Program; ADMITTING PHYSICIAN Hospitalist; ATTENDING PHYSICIAN Hospitalist; CONSULT PHYSICIAN Internal Medicine Cardiovascular Disease; EMERGENCY PHYSICIAN Emergency Medicine; FAMILY PHYSICIAN Family Medicine
PROC: 02H63JZ Insertion of Pacemaker Lead into Right Atrium, Percutaneous Approach (ICD-10-PCS; 2025-01-31)
PROC: 02HK3JZ Insertion of Pacemaker Lead into Right Ventricle, Percutaneous Approach (ICD-10-PCS; 2025-01-31)
PROC: 0JH606Z Insertion of Pacemaker, Dual Chamber into Chest Subcutaneous Tissue and Fascia, Open Approach (ICD-10-PCS; 2025-01-31)
DX: I49.5 Sick sinus syndrome (principal); I50.33 Acute on chronic diastolic (congestive) heart failure; N17.9 Acute kidney failure, unspecified; I11.0 Hypertensive heart disease with heart failure; E83.52 Hypercalcemia; I48.0 Paroxysmal atrial fibrillation; K21.9 Gastro-esophageal reflux disease without esophagitis; M51.369 Other intervertebral disc degeneration, lumbar region without mention of lumbar back pain or lower extremity pain; Z96.652 Presence of left artificial knee joint; Z79.01 Long term (current) use of anticoagulants; Z79.82 Long term (current) use of aspirin; Z79.899 Other long term (current) drug therapy; Z95.3 Presence of xenogenic heart valve; E86.1 Hypovolemia; K44.9 Diaphragmatic hernia without obstruction or gangrene; G47.30 Sleep apnea, unspecified
CPT/HCPCS: 33208; 71045; 71046; 80048; 80053; 80076; 81003; 81015; 83735; 83880; 83970; 84100; 84443; 85025; 85027; 87086; 93005; 93306; 97162; 97166; 97530; 99285; C1785; C1898

== ENCOUNTER → 2025-02-20 10:27 | Outpatient (REF) | payer MEDICARE, OTHER, SELFPAY ==
[2025-02-20 11:31] LABS: Blood Urea Nitrogen 24 mg/dl (7-17); Calcium 10.0 mg/dl (8.4-10.2); Carbon Dioxide 25 mmol/L (22-30); Chloride 109 mmol/L (98-107); Glucose 95 mg/dl (70-99); Potassium 4.7 mmol/L (3.5-5.1); Sodium 139 mmol/L (135-145); eGFR > 60.00
== END ==
LOC: REG 10:27
PROVIDERS: ATTENDING PHYSICIAN Internal Medicine Cardiovascular Disease; FAMILY PHYSICIAN Family Medicine
DX: E87.6 Hypokalemia (principal)
CPT/HCPCS: 36415; 80048